=== PATIENT | female | born 1935 | race Caucasian/White ===

== ENCOUNTER 2017-10-25 13:04 | Emergency (ER) | payer MEDICARE, OTHER ==
[~2017-10-25] VITALS: Ht 157.5 cm; Wt 90.7 kg
[~2017-10-25 13:04] MED LIST: ATOR40TA; BUPR300T; DONE23TA PO; LEVO500T69 PO; METF-380; NAPR220T76; NITR-65 PO; OLME40TA14; POLY119P PO; SERT25TA; TELM1TAB PO
--- NOTE | 2017-10-25 14:29 | Diagnostic Imaging Report ---
PROCEDURE: CT head and CT cervical spine without contrast. TECHNIQUE: Multiple contiguous axial images were obtained through the brain and cervical spine without the use of intravenous contrast. Sagittal and coronal reformations through the cervical spine were then performed. INDICATION: Fall with bruising and swelling to the right forehead. CT HEAD: Comparison is made with prior CT from 02/28/2016. There is soft tissue swelling in the right frontal scalp. The ventricles and sulci are appropriate for the patient's age. No sulcal effacement, midline shift or hemorrhage is detected. Cisterns are patent. No depressed calvarial fracture is seen. Paranasal sinuses are clear. IMPRESSION: Right frontal scalp swelling. No acute intracranial process is detected. CT CERVICAL SPINE: Comparison is made with prior study from 01/04/2015. Since prior study patient has undergone extensive cervical spine surgery. There has been performance of posterior instrumented fusion with vertical stabilization rods and posterior element screws extending from C1 through C6. There is anterolisthesis of C6 on C7, new since prior CT. Vertebral body heights are maintained. No definite hardware fracture is identified. There is some lucency surrounding the most inferior screws at the C6 level, which can be seen with loosening. The bony structures are intact. No fractures are identified. 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 IMPRESSION: Postop changes of posterior instrumented fusion extending from C1 through C6. There is anterolisthesis of C6 on C7. No acute bony abnormality is identified. No hardware fracture is seen. There is questionable loosening involving the C6 posterior element screws. Dictated by: Dictated on workstation # [id number]
--- NOTE | 2017-10-25 14:32 | ED Fall/Injury ---
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 Source: patient Exam Limitations: no limitations History of Present Illness Date Seen by Provider: Oct 25, 2017 Time Seen by Provider: 13:50 Initial Comments 82-year-old female patient presents to the emergency department via EMS with complaints of falling at home. Patient reports she been over to pick something up off the floor when she lost her balance and fell forward. Reports hitting her forehead on the floor. Patient does have a large hematoma of the right forehead. Patient is in a c-collar. Denies headache, neck pain, back pain, loss of consciousness, confusion. Patient does have a history of neck surgery at [facility]. Location Injury Occurred: Home Occurred: just prior to arrival Injuries/Pain Location: head Context: lost balance Loss of Consciousness: no loss of consciousness Allergies and Home Medications Allergies Coded Allergies: Penicillins (Unverified Allergy, Mild, RASH, TONGUE SWELLS, 11/16/09) Home Medications Donepezil HCl 23 Mg Tablet, 23 MG PO DAILY, (Reported) Hctz/Telmisartan 1 Each Tablet, 1 EACH PO DAILY, (Reported) Hydrocodone Bit/Acetaminophen 1 Tab Tab, 1 TAB PO Q4H PRN for pain Prescribed by: RHEA CURRY on 10/25/17 1512 Nitrofurantoin Monohyd/M-Cryst 100 Mg Capsule, 100 MG PO BID Prescribed by: JIMMY FLOWERS on 02/28/16 0453 Polyethylene Glycol 119 Gm Btl, 0 PO DAILY 17 GM Prescribed by: EDIN LUND on 12/31/13 1035 Patient Home Medication List Home Medication List Reviewed: Yes Constitutional: no symptoms reported Eyes: No Symptoms Reported Ears, Nose, Mouth, Throat: no symptoms reported Respiratory: No cough, No dyspnea on exertion, No orthopnea, No short of breath Cardiovascular: No chest pain, No palpitations, No syncope Gastrointestinal: no symptoms reported Genitourinary: no symptoms reported Musculoskeletal: No back pain, No joint pain, No joint swelling, No neck pain Skin: see HPI, change in color (Bruising to the right forehead), lumps (Right forehead) Psychiatric/Neurological: Denies Headache, Denies Numbness, Denies Paresthesia , Denies Seizure, Denies Tingling, Denies Tremors, Denies Weakness All Other Systems Reviewed Negative Unless Noted: Yes (Negative excepted noted.) Past Hzqkyaa-Xltqxz-Hjefrl Hx Patient Social History Alcohol Use: Denies Use Recreational Drug Use: No Smoking Status: Never a Smoker Recent Foreign Travel: No Contact w/Someone Who Travel: No Recent Infectious Disease Expo: No Recent Hopitalizations: No Immunizations Up To Date Tetanus Booster (TDap): Unknown Seasonal Allergies Seasonal Allergies: No Surgeries History of Surgeries: Yes (cataracts) Surgeries: Orthopedic (neck surgery at [facility]) Respiratory History of Respiratory Disorde: No Cardiovascular History of Cardiac Disorders: Yes Cardiac Disorders: High Cholesterol, Hypertension Neurological History of Neurological Disord: Yes Neurological Disorders: Dementia Reproductive System Hx Reproductive Disorders: No Sexually Transmitted Disease: No 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 Genitourinary History of Genitourinary Disor: Yes Genitourinary Disorders: UTI-Chronic Gastrointestinal History of Gastrointestinal Di: Yes Gastrointestinal Disorders: Chronic Constipation Musculoskeletal History of Musculoskeletal Dis: Yes Musculoskeletal Disorders: Osteoporosis, Arthritis Endocrine History of Endocrine Disorders: Yes (DM) HEENT History of HEENT Disorders: No Cancer History of Cancer: No Psychosocial History of Psychiatric Problem: Yes Behavioral Health Disorders: Anxiety, Depression Integumentary History of Skin or Integumenta: No Blood Transfusions Adverse Reaction to a Blood Tr: No Reviewed Nursing Assessment Reviewed/Agree w Nursing PMH: Yes Family Medical History Significant Family History: No Pertinent Family Hx Physical Exam Vital Signs Vital Signs - First Documented 10/25/17 13:05 Temp 97.3 Pulse 64 Resp 18 B/P (MAP) 150/59 (89) Pulse Ox 99 Capillary Refill : Less Than 3 Seconds General Appearance: WD/WN, no apparent distress HEENT: PERRL/EOMI, normal ENT inspection, TMs normal, pharynx normal, other ( large hematoma of the right forehead with mild tenderness. ) Neck: non-tender, supple, normal inspection Cardiovascular: normal peripheral pulses, regular rate, rhythm, no edema, no gallop, no murmur Respiratory: chest non-tender, lungs clear, normal breath sounds, no respiratory distress, no accessory muscle use Peripheral Pulses: 2+ Carotid (R), 2+ Carotid (L), 2+ Dorsalis Pedis (R), 2+ Left Dors-Pedis (L), 2+ Radial Pulses (R), 2+ Radial Pulses (L) Gastrointestinal: normal bowel sounds, non tender, soft, no organomegaly Back: normal inspection, no vertebral tenderness Extremities: normal range of motion, normal inspection, no pedal edema, no calf tenderness, normal capillary refill, pelvis stable, other (mild TTP of the superior shoulders bilaterally (see images).) Neurologic/Psychiatric: 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-XII 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 as tested, no motor/sensory deficits, alert, normal mood/affect, oriented x 3 Skin: normal color, warm/dry, ecchymosis (rt forehead ecchymosis, swelling, and mild TTP.) [place] Coma Score Best Eye Response: (4) Open Spontaneously Best Verbal Response: (5) Oriented Best Motor Response: (6) Obeys Commands [place] Total: 15 Progress/Results/Core Measures Results/Orders My Orders Orders - RHEA CURRY Ct Head/Cervical Spine Wo (10/25/17 13:11) Vital Signs/I&O Vital Sign - Last 12Hours 10/25/17 10/25/17 13:05 15:25 Temp 97.3 97.3 Pulse 64 64 Resp 18 18 B/P (MAP) 150/59 (89) 150/59 (89) Pulse Ox 99 99 Blood Pressure Mean: 89 Diagnostic Imaging Diagonstic Imaging: CT Plain Films/CT/US/NM/MRI: c-spine, head Comments CT HEAD: Comparison is made with prior CT from 02/28/2016. There is soft tissue swelling in the right frontal scalp. The ventricles and sulci are appropriate for the patient's age. No sulcal effacement, midline shift or hemorrhage is detected. Cisterns are patent. No depressed calvarial fracture is seen. Paranasal sinuses are clear. IMPRESSION: Right frontal scalp swelling. No acute intracranial process is detected. CT CERVICAL SPINE: Comparison is made with prior study from 01/04/2015. Since prior study patient has undergone extensive cervical spine surgery. There has been performance of posterior instrumented fusion with vertical stabilization rods and posterior element screws extending from C1 through C6. There is anterolisthesis of C6 on C7, new since prior CT. Vertebral body heights are maintained. No definite hardware fracture is identified. There is some lucency surrounding the most inferior screws at the C6 level, which can be seen with loosening. The bony structures are intact. No fractures are identified. 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 IMPRESSION: Postop changes of posterior instrumented fusion extending from C1 through C6. There is anterolisthesis of C6 on C7. No acute bony abnormality is identified. No hardware fracture is seen. There is questionable loosening involving the C6 posterior element screws. Dictated by: Dictated on workstation # [id number] Reviewed: Reviewed by Me (Radiology report reviewed by me) Departure Communication (Admissions) Progress Notes 2631 CT findings discussed with Dr. Gifford. Loosening of the C6 screw appears new since her last CT scan at [facility]. 1500 diagnostic study findings discussed with the patient. Patient reports she has a known history of the lower screws in the cervical spine being loose with the anterolisthesis of C6 on C7. States her surgeon at is familiar with this. Was told by her surgeon to follow-up with in their office every 6-12 months for recheck. Cervical collar removed. Patient is A/Ox4, NAD. C-spine/ neck nontender. No deformity, swelling, or stepoff noted. Full ROM noted. Plan for dsch to home with f/u as an outpatient with her PCP and spine/ neurosurgeon. All return precautions were discussed with the patient as described in the discharge instructions of this report. Patient verbalizes understanding and agrees with the treatment plan. Impression Impression: Primary Impression: Minor head injury without loss of consciousness Qualified Codes: S09.90XA - Unspecified injury of head, initial encounter Additional Impressions: Traumatic hematoma of forehead Qualified Codes: S00.83XA - Contusion of other part of head, initial encounter Muscle strain Fall Qualified Codes: W19.XXXA - Unspecified fall, initial encounter Disposition: HOME, SELF-CARE Condition: Improved Departure-Patient Inst. Decision time for Depature: 15:11 Referrals: CAMERON LICEA MD (PCP/Family) Primary Care Physician Patient Instructions: Concussion, Adult (DC), Preventing Falls in the Older Adult Add. Discharge Instructions: All discharge instructions reviewed with patient and/or family. Voiced understanding. Medications as instructed. No ibuprofen or Aleve. Ice Ecotrin intervals as needed for pain. No strenuous activity or heavy lifting until released by your family practitioner and neck surgeon. Follow-up with your spine/neurosurgeon as an outpatient for recheck. Follow-up with your family practitioner for recheck. Return to the emergency department for worsened symptoms, neck pain, back pain, changes in vision, slurred speech, facial drooping, bowel incontinence, bladder incontinence, or any other concerns. Scripts Hydrocodone Bit/Acetaminophen (Hydrocodone/Acetaminophen 5/325mg Tablet) 1 Tab Tab 1 TAB PO Q4H Y for pain, #14 TAB 0 Refills Prov: RHEA CURRY 10/25/17 Images Torso/Trunk 1 - Tenderness 2 - Tenderness Copy Copies To 1: CAMERON LICEA MD, GRETCHEN L PA Oct 25, 2017 14:32
[2017-10-25] MEDS ORDERED: ACHD5005 PO (15:12)
[2017-10-25 15:25] VITALS: BP 150/59
== END 2017-10-25 15:25 | disposition home or self-care (01) ==
LOC: ER 13:04 → EDUNIT# 13:04 → ER 15:25
DX: S09.90XA Unspecified injury of head, initial encounter (principal); S09.11XA Strain of muscle and tendon of head, initial encounter; R40.2142 Coma scale, eyes open, spontaneous, at arrival to emergency department; R40.2252 Coma scale, best verbal response, oriented, at arrival to emergency department; R40.2362 Coma scale, best motor response, obeys commands, at arrival to emergency department; E78.00 Pure hypercholesterolemia, unspecified; I10 Essential (primary) hypertension; F03.90 Unspecified dementia, unspecified severity, without behavioral disturbance, psychotic disturbance, mood disturbance, and anxiety; F41.9 Anxiety disorder, unspecified; F32.9 Major depressive disorder, single episode, unspecified; E11.9 Type 2 diabetes mellitus without complications; M81.0 Age-related osteoporosis without current pathological fracture; Z87.19 Personal history of other diseases of the digestive system; Z87.440 Personal history of urinary (tract) infections; Z88.0 Allergy status to penicillin; W01.198A Fall on same level from slipping, tripping and stumbling with subsequent striking against other object, initial encounter
CPT/HCPCS: 70450; 72125

== ENCOUNTER → 2018-03-13 | Outpatient (CLI) | payer MEDICARE, OTHER ==
[~2018-03-13] MED LIST changes: +ACHD5005 PO
== END ==
LOC: CARD 13:43
PROVIDERS: ATTEND Nurse Practitioner Family
DX: R01.1 Cardiac murmur, unspecified (principal)
CPT/HCPCS: 93306

== ENCOUNTER 2019-11-12 01:05 | Inpatient (IN) | payer MEDICARE, OTHER ==
[~2019-11-12] VITALS: Ht 167 cm; Wt 84.2 kg
--- OUTSIDE RECORDS SUMMARY | 2019-11-12 01:09 | XMS REPORT | Clinical Summary ---
Author Author [facility] Organization [facility] Address Unknown Phone Unavailable Care Team Providers Care Hemmer Chainstitch Name Role Phone Juan Kohler MD Unavailable Jadyn Gordon MD PCP Clay Kirk MD Unavailable Amelia Sherwood DO Unavailable Jyoti Vernon MD Unavailable Mario Soliman RN Unavailable Unavailable Gab Landon MD Unavailable Enedelia Christianson MD Unavailable Unavailable Zeke Doss MD Unavailable Rowdy Mcclelland MD Unavailable Source Comments Some departments are not documenting in the electronic medical record. If you d o not see the information that you expected, contact Release of Information in [facility] Information Management department at [phone] for further assistan ce in locating additional records.[facility] Allergies Comments Active Allergy Reactions Severity Noted Date Penicillins HIVES, High 02/21/2015 SWOLLEN TONGUE, DIZZINESS Medications End Date Status Medication Sig Dispensed Refills Start Date Active VIT C/VIT Take 1 Tab by 0 E/LUTEIN/MIN/OMEGA-3 mouth daily. (OCUVITE PO) Active Cyanocobalamin (VITAMIN Take 1 Tab by 0 B-12) 2,000 mcg TbER mouth at bedtime daily. Active donepezil(+) (ARICEPT) 23 Take 1 Tab by 0 mg tablet mouth at bedtime daily. Active menthol/methyl salicylate Apply to 1 Container 0 (ANALGESIC) topical shoulders. 5 ointment Apply only over intact skin. Use only as directed Active docusate (COLACE) 100 mg Take 1 Cap by 180 Cap 3 capsule mouth twice 5 daily. Active senna/docusate Take 1 Tab by 90 Tab 1 (SENOKOT-S) 8.6/50 mg mouth twice 5 tablet daily. Active benazepril (LOTENSIN) 20 Take 1 Tab by 30 Tab 1 mg tablet mouth daily. 5 Active atorvastatin (LIPITOR) 20 Take 1 Tab by 30 Tab 1 mg tablet mouth at 5 bedtime daily. Active sertraline (ZOLOFT) 50 mg Take 1 Tab by 30 Tab 1 tablet mouth at 5 bedtime daily. Active HYDROcodone/acetaminophen Take 1-2 Tabs 30 Tab 0 (NORCO; VICODIN) 5-325 mg by mouth 5 tablet every 6 hours as needed for Pain Active milk of magnesia (CONC) Take 10 mL by 120 mL 0 2,400 mg/10 mL oral mouth daily 5 suspension as needed. Active bisacodyl (DULCOLAX) 10 Insert or 30 0 mg rectal suppository Apply 1 Suppository 5 Suppository to rectal area as directed daily. Please use if you have not had a BM in 1-2 days. Active colchicine 0.6 mg Take 1 Tab by 90 Tab 3 tabletIndications: mouth daily. 5 History of calcium pyrophosphate deposition disease (CPPD) Active predniSONE (DELTASONE) 5 20mg daily 180 Tab 2 0 mg tabletIndications: for 2 weeks 6 Pseudogout then 15 mg daily x 2 weeks then 10mg daily x 2 weeks then 5 mg daily Active furosemide (LASIX) 20 mg Take 20 mg by 0 tablet mouth every morning. Active potassium Take by 0 mouth daily. 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 Pseudogout 08/25/2015 Cervical spinal cord injury 04/29/2015 Gait abnormality 04/29/2015 Neurogenic bowel 04/29/2015 Neurogenic bladder 04/29/2015 Constipation 04/29/2015 Chondrocalcinosis 04/28/2015 Cervical myelopathy 02/26/2015 Acute pain 02/24/2015 HTN (hypertension) 02/24/2015 S/P laminectomy 02/24/2015 DM (diabetes mellitus) 02/24/2015 HLD (hyperlipidemia) 02/24/2015 C2 cervical fracture 02/24/2015 At high risk for falls 02/24/2015 S/P cervical spinal fusion 02/24/2015 Family History Medical History Relation Name Comments Depression Father Heart Failure Mother Relation Name Status Comments Father Mother Social History Date Tobacco Use Types Packs/Day Years Used Former Smoker Cigarettes 1 47 Smokeless Tobacco: Former Quit: 07/29/1990 User Drinks/Week oz/Week Comments Alcohol Use 0 Standard drinks or equivalent 0.0 No Sex Assigned at Date Recorded Not on file Industry Job Start Date Occupation Not on file Not on file Not on file Travel End Travel History Travel Start No recent travel history available. 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 Temperature 16 01/01/2017 2:31 PM CDT Respiratory Rate 95% 05/22/2019 2:32 PM CDT Oxygen Saturation - - Inhaled Oxygen Concentration 86.6 kg (191 lb) 05/22/2019 2:32 PM CDT Weight 157.5 cm (5' 2") 01/01/2017 2:31 PM CDT Height 34.93 01/01/2017 2:31 PM CDT Body Mass Index Plan of Treatment Health Maintenance Due Date Last Done Comments MEDICARE ANNUAL WELLNESS 1936 VISIT DTAP/TDAP VACCINES (1 - 1947 Tdap) DILATED EYE EXAM 1954 FOOT EXAM 1954 HBA1C 1954 PHYSICAL (COMPREHENSIVE) 1954 EXAM SHINGLES RECOMBINANT 1986 VACCINE (1 of 2) OSTEOPOROSIS 2001 SCREENING/MONITORING PNEUMONIA (PCV13/PPSV23) 2001 VACCINES (1 of 2 - PCV13) INFLUENZA VACCINE 02/27/2020 Results Not on filefrom Last 3 Months Insurance Type Payer Benefit Subscriber ID Effective Phone Address Plan / Dates Group Medicare MEDICARE MEDICARE xxxxxxxxxxx 2015- PART A AND Present B HMO [employer] xxxxxxxxx 2013 FOR LIFE -Present [phone] Advance Directives Patient Dining Room Tables Set Up Attendant Explanation Type Date Recorded Advance Directive/DPOA Date Inactivated Comments Code Status Date Activated 03/11/2015 12:46 PM Full Code 02/26/2015 1:00 PM Provider has discussed Code Status Yes w/Patient or Family? 02/26/2015 1:00 PM Full Code 02/21/2015 3:45 PM Provider has discussed Code Status Yes w/Patient or Family?
--- OUTSIDE RECORDS SUMMARY | 2019-11-12 01:10 | XMS REPORT | Encounter Summary ---
Author Author [facility] Organization [facility] Address Unknown Phone Unavailable Care Team Providers Care Tool And Die Repairer Name Role Phone Juan Kohler MD Unavailable Jadyn Gordon MD PCP Clay Kirk MD Unavailable Amelia Sherwood DO Unavailable Jyoti Vernon MD Unavailable Mario Soliman RN Unavailable Unavailable Gab Landon MD Unavailable [phone] Enedelia Christianson MD Unavailable Unavailable Zeke Doss MD Unavailable Rowdy Mcclelland MD Unavailable Encounter Details Care Team Description Date Type Department Jr Ledesma MD [address] [facility] [place] [address] 05/22/2019 [facility] [address] [place], [place] [id number] Social History Date Tobacco Use Types Packs/Day [...] Travel Start No recent travel history available. documented as of this encounter Functional Status Date of Assessment Functional Status Response 05/24/2016 Does the patient have a hearing impairment: Yes 05/24/2016 Does the patient have a visual impairment: No 05/24/2016 Does the patient have impaired ambulation: Yes 05/24/2016 Does the patient have an activity of daily living No (ADL) impairment: 05/24/2016 Does the patient have an instrumental activity of No daily living (IADL) impairment: Date of Assessment Cognitive Status Response 05/24/2016 Does the patient have a cognitive impairment: No documented as of this encounter Medications at Time of Discharge Start Date End Date Medication Sig Dispensed Refills 03/11/2015 atorvastatin (LIPITOR) 20 Take 1 Tab by 30 Tab 1 mg tablet mouth at bedtime daily. 03/11/2015 benazepril (LOTENSIN) 20 Take 1 Tab by 30 Tab 1 mg tablet mouth daily. 03/11/2015 bisacodyl (DULCOLAX) 10 Insert or 30 0 mg rectal suppository Apply 1 Suppository Suppository to rectal area as directed daily. Please use if you have not had a BM in 1-2 days. 05/05/2015 colchicine 0.6 mg Take 1 Tab by 90 Tab 3 tabletIndications: mouth daily. History of calcium pyrophosphate deposition disease (CPPD) Cyanocobalamin (VITAMIN Take 1 Tab by 0 B-12) 2,000 mcg TbER mouth at bedtime daily. 02/26/2015 docusate (COLACE) 100 mg Take 1 Cap by 180 Cap 3 capsule mouth twice daily. donepezil(+) (ARICEPT) 23 Take 1 Tab by 0 mg tablet mouth at bedtime daily. furosemide (LASIX) 20 mg Take 20 mg by 0 tablet mouth every morning. 03/11/2015 HYDROcodone/acetaminophen Take 1-2 Tabs 30 Tab 0 (NORCO; VICODIN) 5-325 mg by mouth tablet every 6 hours as needed for Pain 02/26/2015 menthol/methyl salicylate Apply to 1 Container 0 (ANALGESIC) topical shoulders. ointment Apply only over intact skin. Use only as directed 03/11/2015 milk of magnesia (CONC) Take 10 mL by 120 mL 0 2,400 mg/10 mL oral mouth daily suspension as needed. potassium Take by 0 mouth daily. 01/26/2016 predniSONE (DELTASONE) 5 20mg daily 180 Tab 2 mg tabletIndications: for 2 weeks Pseudogout then 15 mg daily x 2 weeks then 10mg daily x 2 weeks then 5 mg daily 02/26/2015 senna/docusate Take 1 Tab by 90 Tab 1 (SENOKOT-S) 8.6/50 mg mouth twice tablet daily. 03/11/2015 sertraline (ZOLOFT) 50 mg Take 1 Tab by 30 Tab 1 tablet mouth at bedtime daily. VIT C/VIT Take 1 Tab by 0 E/LUTEIN/MIN/OMEGA-3 mouth daily. (OCUVITE PO) documented as of this encounter Plan of Treatment Not on filedocumented as of this encounter Procedures Comments Procedure Name Priority Date/Time Associated Diag nosis C SPINE 3 VIEWS OR LESS Routine 05/22/2019 Cervic al pain 2:42 PM CDT documented in this encounter Results * C SPINE 3 VIEWS OR LESS (05/22/2019 2:42 PM CDT) Specimen Addenda Addendum by Odell Diggs MD on 05/22/2019 3:53 PM Finalized by Odell Diggs M.D. on 05/22/2019 3:23 PM. Dictated by Odell Diggs M.D. on 05/22/2019 3:18 PM.Addendum: Dr. Diggs discussed these findings with JR LEDESMA by telephone on 05/22/2019 3:49 PM. Finalized by Odell Diggs M.D. on 05/22/2019 3:50 PM. Dictated by Odell Diggs M.D. on 05/22/2019 3:49 PM. Impressions Performed At Findings/Impression: [facility] RESULTS 1. Interval increase in 50% anterolis thesis of C6 on C7. There is 1 cm anterolisthesis of C6 on C7. On prior of May 24, 2016 this measured 7 mm. Cannot evaluate alignment C7-T1 on lateral view due to overlying shoulders. 2. Intact posterior interpretation fr om C1 to C6. 3. Incompletely evaluated suspected p ersistent chronic fracture the odontoid process with posterior displacement of the odontoid fracture segment. Repeat CT scan may be beneficial only if clinical ly warranted. 4. Persistent mild 2 millimeters ante rolisthesis of C4 on C5 and C5 on C6. 5. Vzrrjcnr-iy-jgauqt C6-C7 disc dege neration. Narrative Performed At C SPINE 3 VIEWS OR LESS [facility] RESULTS Clinical Indication: cervical pain. Comparison: May 24, 2016 CT scan De arthurber 2015 Procedure Note Interface, Radiant Results - 05/22/2019 3:53 PM CDT C SPINE 3 VIEWS OR LESS Clinical Indication: cervical pain. Comparison: May 24, 2016 CT scan July 17, 2016 IMPRESSION Findings/Impression: 1. Interval increase in 50% anterolisth esis of C6 on C7. There is 1 cm anterolisthesis of C6 on C7. On prior study of May 24, 2016 this measured 7 mm. Cannot evaluate alignment C7-T1 on lateral view due to overlying shoulders. 2. Intact posterior interpretation from C1 to C6. 3. Incompletely evaluated suspected per sistent chronic fracture the odontoid process with posterior displacement of the odontoid fracture segment. Repeat CT scan may be beneficial only if clinically warranted. 4. Persistent mild 2 millimeters swapna listhesis of C4 on C5 and C5 on C6. 5. Savusaks-wm-fskzlg C6-C7 disc degene ration. Performing Organization Address City/State/Zipcode Ph one Number [facility] RESULTS documented in this encounter Visit Diagnoses Diagnosis Cervical pain Cervicalgia documented in this encounter
--- OUTSIDE RECORDS SUMMARY | 2019-11-12 01:10 | XMS REPORT | Encounter Summary ---
Author Author [facility] Organization [facility] Address Unknown Phone Unavailable Care Team Providers Care Project Product Manager Name Role Phone Juan Kohler MD Unavailable Jadyn Gordon MD PCP Clay Kirk MD Unavailable Amelia Sherwood DO Unavailable Jyoti Vernon MD Unavailable Mario Soliman RN Unavailable Unavailable Gab Landon MD Unavailable Enedelia Christianson MD Unavailable Unavailable Zeke Doss MD Unavailable Rowdy Mcclelland MD Unavailable Reason for Visit * Reason Comments New Patient * (Routine) Referred By Contact Referred To Contact Status Reason Specialty Diagnoses / Procedures Incomplete Encounter Details Care Team Description Date Type Department Jose Alberto Rodriguez MD [address] [facility] [address] [phone] Jr Ledesma MD [address] [facility] [place] [address] [phone] Stenosis of cervical spine (Primary Dx); S/P cervical spinal fusion; Pseudoarthrosis of cervical spine, initial encounter (HCC) 05/22/2019 Office Visit [facility] [address] [facility] [address] [place] [address] Social History Date Tobacco Use Types Packs/Day [...] history available. documented as of this encounter Last Filed Vital Signs Reading Time Taken Comments Vital Sign 157/62 05/22/2019 2:32 PM CDT Blood Pressure 67 05/22/2019 2:32 PM CDT Pulse - - Temperature - - Respiratory Rate 95% 05/22/2019 2:32 PM CDT Oxygen Saturation - - Inhaled Oxygen Concentration 86.6 kg (191 lb) 05/22/2019 2:32 PM CDT Weight - - Height 34.93 01/01/2017 2:31 PM CDT Body Mass Index documented in this encounter Functional Status Date of Assessment [...] impairment: No documented as of this encounter Patient Instructions * Patient Instructions* Argenis Soliman RN - 05/22/2019 3:10 PM CDT It was a pleasure seeing you in clinic today. Argenis Soliman RN, BSN Clinical Nurse Coordinators Dr. Chilango Ledesma/Ortho Spine Surgery [facility] [address] [place], [place] [address] Scheduling [phone] [email or web address] documented in this encounter Progress Notes * Jr Ledesma MD - 05/22/2019 3:10 PM CDT SPINE CENTER HISTORY AND PHYSICAL CHIEF COMPLAINT Chief Complaint Patient presents with New Patient HISTORY OF PRESENT ILLNESS Fern Melton is a 83 y.o. female. She presents today for evaluation of neck pain. She is here today with her daughter. She has history of cervical d ecompression and fusion from C1-C2 by Dr. Christianson. She has not had any other op erations on her spine. She denies arm pain. She ambulates with a walker. Previous Spine Operations - Yes - C1-2 decompression and fusion by Dr. Christianson NSAIDs/Pain Meds - yes Physical Therapy - yes Injections - no PAST MEDICAL HISTORY Medical History: Diagnosis Date Diabetes (HCC) Hepatomegaly Hyperlipidemia Hypertension Left adrenal mass (HCC) Macular degeneration Multinodular goiter Os odontoideum Rib fracture PAST SURGICAL HISTORY Surgical History: Procedure Laterality Date CARPAL TUNNEL RELEASE Left CERVICAL LAMINECTOMY EYE SURGERY HYSTERECTOMY ROTATOR CUFF REPAIR Right TONSILLECTOMY FAMILY HISTORY family history includes Depression in her father; Heart Failure in her mother. SOCIAL HISTORY Social History Socioeconomic History Marital status: Spouse name: Not on file Number of children: 7 Years of education: Not on file Highest education level: Not on file Occupational History Occupation: RETIRED Tobacco Use Smoking status: Former Smoker Packs/day: 1.00 Years: 47.00 Pack years: 47.00 Types: Cigarettes Smokeless tobacco: Former User Quit date: 07/29/1990 Substance and Sexual Activity Alcohol use: No Alcohol/week: 0.0 standard drinks Drug use: No Sexual activity: Not on file Other Topics Concern Not on file Social History Narrative Lives with her ALLERGIES Allergies Allergen Reactions Penicillins HIVES, SWOLLEN TONGUE and DIZZINESS MEDICATIONS Current Outpatient Medications: atorvastatin (LIPITOR) 20 mg tablet, Take 1 Tab by mouth at bedtime daily., Disp: 30 Tab, Rfl: 1 benazepril (LOTENSIN) 20 mg tablet, Take 1 Tab by mouth daily., Disp: 30 Ta b, Rfl: 1 bisacodyl (DULCOLAX) 10 mg rectal suppository, Insert or Apply 1 Suppositor y to rectal area as directed daily. Please use if you have not had a BM in 1-2 d ays., Disp: 30 Suppository, Rfl: 0 colchicine 0.6 mg tablet, Take 1 Tab by mouth daily., Disp: 90 Tab, Rfl: 3 Cyanocobalamin (VITAMIN B-12) 2,000 mcg TbER, Take 1 Tab by mouth at bedtim e daily., Disp: , Rfl: docusate (COLACE) 100 mg capsule, Take 1 Cap by mouth twice daily., Disp: 1 80 Cap, Rfl: 3 donepezil(+) (ARICEPT) 23 mg tablet, Take 1 Tab by mouth at bedtime daily., Disp: , Rfl: furosemide (LASIX) 20 mg tablet, Take 20 mg by mouth every morning., Disp: , Rfl: HYDROcodone/acetaminophen (NORCO; VICODIN) 5-325 mg tablet, Take 1-2 Tabs b y mouth every 6 hours as needed for Pain, Disp: 30 Tab, Rfl: 0 menthol/methyl salicylate (ANALGESIC) topical ointment, Apply to shoulders. Apply only over intact skin. Use only as directed, Disp: 1 Container, Rfl: 0 milk of magnesia (CONC) 2,400 mg/10 mL oral suspension, Take 10 mL by mouth daily as needed., Disp: 120 mL, Rfl: 0 potassium, Take by mouth daily., Disp: , Rfl: predniSONE (DELTASONE) 5 mg tablet, 20mg daily for 2 weeks then 15 mg daily x 2 weeks then 10mg daily x 2 weeks then 5 mg daily, Disp: 180 Tab, Rfl: 2 senna/docusate (SENOKOT-S) 8.6/50 mg tablet, Take 1 Tab by mouth twice luz y., Disp: 90 Tab, Rfl: 1 sertraline (ZOLOFT) 50 mg tablet, Take 1 Tab by mouth at bedtime daily., Di sp: 30 Tab, Rfl: 1 VIT C/VIT E/LUTEIN/MIN/OMEGA-3 (OCUVITE PO), Take 1 Tab by mouth daily., Di sp: , Rfl: REVIEW OF SYSTEMS Review of Systems HENT: Positive for hearing loss, postnasal drip and rhinorrhea. Eyes: Positive for visual disturbance. Respiratory: Positive for shortness of breath and wheezing. Cardiovascular: Positive for leg swelling. Gastrointestinal: Positive for constipation. Genitourinary: Positive for enuresis. Musculoskeletal: Positive for arthralgias, back pain, gait problem, myalgias, ne ck pain and neck stiffness. Neurological: Positive for weakness, light-headedness, numbness and headaches. Psychiatric/Behavioral: The patient is nervous/anxious. All other systems reviewed and are negative. PHYSICAL EXAM Vitals: 05/22/19 1432 BP: 157/62 Pulse: 67 SpO2: 95% Weight: 86.6 kg (191 lb) Body mass index is 34.93 kg/m. Constitutional: Alert, NAD Psychiatric: Mood and affect appropriate Eyes: EOMI Respiratory: Unlabored breathing Cardiovascular: Regular rate Skin: No rashes or open wounds appreciated on neck Musculoskeletal: 5/5 strength throughout bilat UEs (shoulder abduction, elbow fl ex/ext, wrist flex/ext, performance improvement director, hand intrinsics), neck ROM limited secondary to pa in, unable to abduct either shoulder. Neurologic: Sensation intact to light touch C5-T1 on today's exam, no hyperrefle syeda, positive Tootie's on the right, positive inverted radial reflex RADIOGRAPHIC EVALUATION Imaging demonstrates evidence of instrument placement from C1-6. Based on prior review of her CT scan, she appears to have loose instrumentation and a pseudart hrosis at C5-6. Additionally, she has evidence of a C6-7 spondylolisthesis, Gra de 2. ASSESSMENT / PLAN Fern Melton is a 83 y.o. female with previous os odontoideum s/p C1-6 posterior cervical decompression and fusion now with feud arthrosis at C5-6, loo sening of her screws, and C6-7 adjacent level spondylolisthesis. Natural history and conservative treatment options were discussed with the patie nt. I don't think any operation would leave her any better than what she is now . With her age and poor bone quality and neck pain alone, I don't think surgery is a great option for her. I think if she got to the point she had functional limitations in her upper extremities, difficulty using her hands, more trouble w alking, I think surgery could be potentially entertained at that point in time. I would be happy to see her back on a PRN basis. In the presence of Jr Ledesma MD , I have taken down these notes, Just Jeri Montenegro. May 22, 2019 2:53 PM documented in this encounter Plan of Treatment Not on filedocumented as of this encounter Visit Diagnoses Diagnosis Stenosis of cervical spine Spinal stenosis in cervical region S/P cervical spinal fusion Arthrodesis status Pseudoarthrosis of cervical spine, init ial encounter (HCC) documented in this encounter
--- OUTSIDE RECORDS SUMMARY | 2019-11-12 01:10 | XMS REPORT | Encounter Summary ---
Author Author [facility] Organization [facility] Address Unknown Phone Unavailable Care Team Providers Care Sagger Filler Name Role Phone Juan Kohler MD Unavailable Jadyn Gordon MD PCP Clay Kirk MD Unavailable Amelia Sherwood DO Unavailable Jyoti Vernon MD Unavailable Mario Soliman RN Unavailable Unavailable Gab Landon MD Unavailable [phone] Enedelia Christianson MD Unavailable Unavailable Zeke Doss MD Unavailable Rowdy Mcclelland MD Unavailable Encounter Details Care Team Description Date Type Department Jr Ledesma MD [address] [facility] [place] [address] Cervical pain (Primary Dx) 05/22/2019 Orders Only [facility] [address] [id number] Social History Date Tobacco Use Types Packs/Day [...] impairment: No documented as of this encounter Plan of Treatment Not on filedocumented as of this encounter Results * C SPINE 3 [...] anterolisthesis of C6 on C7. On prior s tudy of May 24, 2016 this measured 7 [...] on C5 and C5 on C6. 5. [id number] C6-C7 disc dege neration. Narrative Performed At [facility] 3 VIEWS OR LESS [facility] RES[facility] Clinical Indication: cervical pain. Comparison: May 24, 2016 CT scan De 2015 Procedure Note Interface, Radiant Results - [...] on C5 and C5 on C6. 5. [id number] C6-C7 disc degene ration. Performing Organization Address City/State/Zipcode Ph one Number [facility] RES[facility] documented in this encounter Visit Diagnoses Diagnosis Cervical pain Cervicalgia documented in this encounter
--- OUTSIDE RECORDS SUMMARY | 2019-11-12 01:12 | XMS REPORT | CCD ---
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 Name Role Phone PP Unavailable CCM Unavailable Summary Purpose Interface Exchange Insurance Providers Payer name Policy type / Coverage type Covered republican ID Effective Begin Date Effective End Date WPS Medicare Part B Medicare Part B [id number] Unknown FOR LIFE WPS Medicare Part B [id number] Unknown Family history Daughter Diagnosis Age At Onset Cancer Unknown Social History Social History Element Codes Description Effective Dates Marital status Unknown M arried 12/03/2014 Number of children Unknown 7 12/03/2014 Employment Unknown Retir ed 12/03/[address]: 3953787 Quit over 10 years ago 199812/03/[address]: 732335097 Never drinks alcohol 12/03/2014 Allergies, Adverse Reactions, Alerts Substance Reaction Codes Entered Date Inactivated Date Status * OTHER REACTION - S EE ANSWER BOX paul hips in vit c Unknown 12/03/2014 No Inactive Date Active Erythromycin RxNorm: 4053 12/03/2014 No Inactive Date Active Penicillin hives Unknown 12/03/2014 No In active Date Active Past Medical History Illness Codes Condition Status Onset Date Resolved Date Essential (primary) hypertension ICD-9: 401.1 ICD-10: I10 Active 09/13/2016 Unknown Generalized anxiety disorder ICD-9: 300.02 ICD-10: F41.1 Active 11/14/2018 Unknown 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 09/13/2016 Unknown Type 2 diabetes monica itus without complications ICD-9: 250.00 ICD-10: E11.9 Active 11/14/2018 Unknown Cardiac murmur, unsp ecified ICD-9: 785.2 ICD-10: R01.1 Active 02/21/2018 Unknown Myalgia ICD-9: 729.1 ICD-10: M79.1 Active 06/14/2017 Unknown Localized edema ICD-9: 782.3 ICD-10: R60.0 Active 08/30/2016 Unknown Muscle weakness (gen eralized) ICD-9: 728.87 ICD-10: M62.81 Active 02/15/2017 Unknown Anemia, unspecified ICD- 9: 285.9 ICD-10: D64.9 Active 09/13/2016 Unknown Essential (primary) hypertension ICD-9: 401.9 ICD-10: I10 Active 05/03/2016 Unknown Low back pain ICD-9: 724.2 ICD-10: M54.5 Active 08/30/2016 Unknown Pain in left wrist ICD- 9: 719.43 ICD-10: M25.532 Active 08/30/2016 Unknown Pain in right wrist ICD- 9: 719.43 ICD-10: M25.531 Active 08/30/2016 Unknown Encounter for immuni zation ICD-9: V04.81 ICD-10: Z23 Active 05/03/2016 Unknown Ataxic gait ICD-9: 781.2 ICD-10: R26.0 Active 03/01/2016 Unknown Multiple fractures o f ribs, right side, initial encounter for closed fracture ICD-9: 807.05 ICD-10: S22.41XA Active 03/01/2016 Unknown Urinary tract infect ion, site not specified ICD-9: 599.0 ICD-10: N39.0 Active 03/01/2016 Unknown Pain in left knee ICD-9: 719.46 ICD-10: M25.562 Active 06/16/2015 Unknown Other diseases of to ngue ICD-9: 529.8 ICD-10: K14.8 Active 05/16/2015 Unknown Cervical myelopathy ICD- 9: 721.1 Active 03/21/2015 Unknown Hospital discharge f ollow-up ICD-9: V67.59 Active Unknown Post-operative state ICD-9: V45.89 Active 03/21/2015 Unknown Serum calcium elevated ICD-9: 275.42 Active 03/21/2015 Unknown Open wound of toe wi th avulsion of toenail ICD-9: 893.1 Active 02/10/2015 Unknown Encounter for long-t erm (current) use of other medications ICD-9: V58.69 Active 01/17/2015 Unknown Diabetes Unknown Active 12/03/2014 Unknow n Hyperlipidemia Unknown Active 12/03/2014 Unknow n Hypertension Unknown Active 12/03/2014 Unknow n Bowel and bladder in continence ICD-9: 788.30 Active 01/2015 Unknown Cervical stenosis of spinal canal ICD-9: 723.0 Active 01/2015 Unknown Delusions ICD-9: 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.9 Active 12/02/2014 Unknow n Diabetes mellitus ty pe 2, controlled ICD-9: 250.00 Active 01/2015 Unknown ESSENTIAL HYPERTENSION ICD-9: 401.9 Active 12/02/2014 Unknown Gait instability ICD-9: 781.2 Active 12/02/2014 Unknown Problems Condition Codes Effectiv e Dates Condition Status Essential (primary) hypertension ICD-9: 401.1 ICD-10: I10 09/13/2016 Active Generalized anxiety disorder ICD-9: 300.02 ICD-10: F41.1 11/14/2018 Active 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 09/13/2016 Active Type 2 diabetes monica itus without complications ICD-9: 250.00 ICD-10: E11.9 11/14/2018 Active Cardiac murmur, unsp ecified ICD-9: 785.2 ICD-10: R01.1 02/21/2018 Active Myalgia ICD-9: 729.1 ICD-10: M79.1 06/14/2017 Active Localized edema ICD-9: 782.3 ICD-10: R60.0 08/30/2016 Active Muscle weakness (gen eralized) ICD-9: 728.87 ICD-10: M62.81 02/15/2017 Active Anemia, unspecified ICD- 9: 285.9 ICD-10: D64.9 09/13/2016 Active Essential (primary) hypertension ICD-9: 401.9 ICD-10: I10 05/03/2016 Active Low back pain ICD-9: 724.2 ICD-10: M54.5 08/30/2016 Active Pain in left wrist ICD- 9: 719.43 ICD-10: M25.532 08/30/2016 Active Pain in right wrist ICD- 9: 719.43 ICD-10: M25.531 08/30/2016 Active Encounter for immuni zation ICD-9: V04.81 ICD-10: Z23 05/03/2016 Active Ataxic gait ICD-9: 781.2 ICD-10: R26.0 03/01/2016 Active Multiple fractures o f ribs, right side, initial encounter for closed fracture ICD-9: 807.05 ICD-10: S22.41XA 03/01/2016 Active Urinary tract infect ion, site not specified ICD-9: 599.0 ICD-10: N39.0 03/01/2016 Active Pain in left knee ICD-9: 719.46 ICD-10: M25.562 06/16/2015 Active Other diseases of to ngue ICD-9: 529.8 ICD-10: K14.8 05/16/2015 Active Cervical myelopathy ICD- 9: 721.1 03/21/2015 Active Hospital discharge f ollow-up ICD-9: V67.59 03/21/2015 Active Post-operative state ICD-9: V45.89 03/21/2015 Active Serum calcium elevated ICD-9: 275.42 03/21/2015 Active Open wound of toe wi th avulsion of toenail ICD-9: 893.1 02/10/2015 Active Encounter for long-t erm (current) use of other medications ICD-9: V58.69 01/17/2015 Active Diabetes Unknown 12/03/2014 Active Hyperlipidemia Unknown 12/03/2014 Active Hypertension Unknown 12/03/2014 Active Bowel and bladder in continence ICD-9: 788.30 12/02/2014 Active Cervical stenosis of spinal canal ICD-9: 723.0 12/02/2014 Active Delusions ICD-9: 297.9 12/02/2014 Active Diabetes mellitus ty pe 2, controlled ICD-9: 250.00 12/02/2014 Active ESSENTIAL HYPERTENSION ICD-9: 401.9 12/02/2014 Active Gait instability ICD-9: 781.2 12/02/2014 Active Medications Medication Codes Instruc tions Start Date Stop Date Sta tus Fill Instructions atorvastatin 20 mg t ablet RxNorm: 049143 TAKE 1 TABLET DAILY 03/17/2019 No Stop Date Active Aricept 23 mg tablet RxNorm: 4267329 TAKE 1 TABLET DAILY 02/13/2019 No Stop Date Active ferrous sulfate 325 mg (65 mg iron) tablet RxNorm: 786304 1 Tablet(s) PO daily 11/14/2018 05/12/2019 Ac tive Zoloft 100 mg tablet RxNorm: 710617 1 Tablet(s) PO daily TAKE 1 TABLET DAILY 11/14/2018 05/12/2019 Ac tive Aricept 23 mg tablet RxNorm: 9441858 TAKE 1 TABLET DAILY 06/27/2018 02/12/2019 Inactive Zoloft 50 mg tablet RxNorm: 925379 TAKE 1 TABLET DAILY 06/27/2018 11/13/2018 Inactive benazepril 20 mg tablet RxNorm: 526689 1 Tablet(s) PO daily 04/28/2018 01/22/2019 Inactive atorvastatin 20 mg t ablet RxNorm: 967518 TAKE 1 TABLET DAILY 12/22/2017 03/16/2019 Inactive potassium chloride E R 10 mEq tablet,extended release RxNorm: 898160 TAKE 1 TABLET DAILY WITH LASIX NEEDED 10/21/2017 No Stop Date Active Lasix 20 mg tablet RxNorm: 528651 TAKE 1 TABLET DAILY NEEDED 10/21/2017 No Stop Date Active Aricept 23 mg tablet RxNorm: 8360943 TAKE 1 TABLET DAILY 10/17/2017 06/26/2018 Inactive Zoloft 50 mg tablet RxNorm: 151374 TAKE 1 TABLET DAILY 10/17/2017 06/26/2018 Inactive benazepril 20 mg tablet RxNorm: 709117 TAKE 1 TABLET DAILY 06/25/2017 04/27/2018 Inactive atorvastatin 20 mg t ablet RxNorm: 408907 TAKE 1 TABLET DAILY 06/25/2017 12/21/2017 Inactive Lasix 20 mg tablet RxNorm: 988061 1 TABLET(S) PO QDAY PRN 04/29/2017 10/20/2017 Inactive potassium chloride E R 10 mEq tablet,extended release RxNorm: 448909 1 TABLET(S) PO QDAY PRN 04/29/2017 10/20/2017 Inactive Zoloft 50 mg tablet RxNorm: 380425 TAKE 1 TABLET DAILY 03/11/2017 10/16/2017 Inactive potassium chloride E R 10 mEq tablet,extended release RxNorm: 908535 1 Tablet(s) PO QDAY PRN 02/15/2017 04/28/2017 Inactive with lasix Lasix 20 mg tablet RxNorm: 1 Tablet(s) PO QDAY PRN 02/15/2017 04/28/2017 Inactive Aricept 23 mg tablet RxNorm: 2549565 TAKE 1 TABLET DAILY 02/01/2017 10/16/2017 Inactive atorvastatin 20 mg t ablet RxNorm: 985007 TAKE 1 TABLET DAILY 12/27/2016 06/24/2017 Inactive benazepril 20 mg tablet RxNorm: 263583 TAKE 1 TABLET DAILY 12/27/2016 06/24/2017 Inactive Lasix 20 mg tablet RxNorm: 1 Tablet(s) PO QDAY PRN 09/13/2016 01/10/2017 Inactive potassium chloride E R 10 mEq tablet,extended release RxNorm: 579221 1 Tablet(s) PO QDAY PRN 09/13/2016 01/10/2017 Inactive with lasix Zoloft 50 mg tablet RxNorm: 590065 TAKE 1 TABLET DAILY 09/11/2016 03/10/2017 Inactive potassium chloride E R 10 mEq tablet,extended release RxNorm: 106454 1 Tablet(s) PO daily for edema 09/03/2016 09/02/2016 Inactive Lasix 20 mg tablet RxNorm: 1 Tablet(s) PO daily for edema 09/03/2016 09/09/2016 In active potassium chloride E R 10 mEq tablet,extended release RxNorm: 747784 1 Tablet(s) PO daily for edema 09/03/2016 09/09/2016 Inactive Lasix 20 mg tablet RxNorm: 1 Tablet(s) PO daily 09/03/2016 09/02/2016 Inactive atorvastatin 20 mg t ablet RxNorm: 044834 TAKE 1 TABLET DAILY 07/02/2016 12/26/2016 Inactive benazepril 20 mg tablet RxNorm: 501963 TAKE 1 TABLET DAILY 06/29/2016 12/26/2016 Inactive Aricept 23 mg tablet RxNorm: 4154052 TAKE 1 TABLET DAILY 05/07/2016 01/31/2017 Inactive atorvastatin 20 mg t ablet RxNorm: 186846 TAKE 1 TABLET DAILY 04/03/2016 07/01/2016 Inactive tramadol 50 mg tablet RxNorm: 383002 1-2 Tablet(s) PO Q6 as needed for pain 03/20/2016 No Stop Date Active tramadol 50 mg tablet RxNorm: 471810 1-2 Tablet(s) PO Q6 as needed for pain 03/06/2016 03/19/2016 In active Cipro 500 mg tablet RxNorm: 301411 1 Tablet(s) PO BID 03/02/2016 03/08/2016 Inactive atorvastatin 20 mg t ablet RxNorm: 467543 1 TABLET(S) PO DAILY 01/03/2016 04/02/2016 Inactive benazepril 20 mg tablet RxNorm: 406424 1 TABLET(S) PO DAILY 01/03/2016 06/28/2016 Inactive Zoloft 50 mg tablet RxNorm: 726436 1 TABLET(S) PO DAILY 12/15/2015 09/10/2016 Inactive Aricept 23 mg tablet RxNorm: 2626060 1 Tablet(s) PO daily 06/21/2015 05/06/2016 Inactive colchicine 0.6 mg ta blet RxNorm: 914928 1 Tablet(s) PO BID 05/24/2015 05/03/2016 Inactive ciclopirox 1 % shampoo RxNorm: 480639 1 TOP daily 05/24/2015 05/03/2016 Inactive benazepril 20 mg tablet RxNorm: 375566 1 Tablet(s) PO daily 05/17/2015 01/02/2016 Inactive atorvastatin 20 mg t ablet RxNorm: 429883 1 Tablet(s) PO daily 05/17/2015 01/02/2016 Inactive benazepril 20 mg tablet RxNorm: 269035 1 Tablet(s) PO daily 05/06/2015 05/16/2015 Inactive ciclopirox 1 % shampoo RxNorm: 309393 1 TOP daily 02/16/2015 02/15/2015 Inactive ciclopirox 1 % shampoo RxNorm: 905694 1 TOP daily 02/16/2015 04/16/2015 Inactive Zoloft 50 mg tablet RxNorm: 116890 1 Tablet(s) PO daily 01/27/2015 12/14/2015 Inactive [facility] script [id number] script [id number] Januvia 50 mg tablet RxNorm: 796845 1 Tablet(s) PO daily 01/24/2015 03/21/2015 Inactive increase from 25mg Januvia 25 mg tablet RxNorm: 922526 1 Tablet(s) PO daily 01/21/2015 01/23/2015 Inactive Januvia 25 mg tablet RxNorm: 800016 1 Tablet(s) PO daily 01/21/2015 01/20/2015 Inactive Benicar 20 mg tablet RxNorm: 278800 1 Tablet(s) PO daily 01/10/2015 03/21/2015 Inactive [SAVINGS FOR NON-COVERED DRUGS -- BIN:00 3585, PCN: [id number], Group: XXXXX, ID# [id number], Questions: . THIS IS NOT INSURANCE.] Benicar 20 mg tablet RxNorm: 551552 1 Tablet(s) PO daily 12/16/2014 12/15/2014 Inactive Benicar 20 mg tablet RxNorm: 719656 1 Tablet(s) PO daily 12/16/2014 01/09/2015 Inactive [SAVINGS FOR NON-COVERED DRUGS -- BIN:00 3585, PCN: [id number], Group: XXXXX, ID# [id number], Questions: . THIS IS NOT INSURANCE.] Micardis HCT 80 mg-2 5 mg tablet RxNorm: 803769 1 Tablet(s) PO daily 12/03/2014 12/03/2014 Inactive Aricept 23 mg tablet RxNorm: 4931305 1 Tablet(s) PO daily 12/03/2014 03/02/2015 Inactive Lipitor 40 mg tablet RxNorm: 803322 1 Tablet(s) PO daily 12/03/2014 03/02/2015 Inactive B12 1000 mcg RxNorm: 1 IM daily 12/03/2014 03/02/2015 Inactive iron 325 mg (65 mg i rupal) tablet RxNorm: 555001 1 Tablet(s) PO TIW No Start Date Active Ocuvite oral RxNorm: 416408 oral No Start Date Active naproxen 250 mg tablet RxNorm: 460457 Tablet(s) PO as needed No Start Date Active Centrum Complete oral RxNorm: 81763 oral No Start Date Active colchicine 0.6 mg ta blet RxNorm: 646873 1 Tablet(s) PO BID No Start Date 05/23/2015 Inactive benazepril 20 mg tablet RxNorm: 605363 1 Tablet(s) PO daily No Start Date 05/05/2015 Inactive atorvastatin 20 mg t ablet RxNorm: 523391 1 Tablet(s) PO daily No Start Date 05/16/2015 Inactive Aricept 23 mg tablet RxNorm: 2968098 1 Tablet(s) PO daily No Start Date 06/20/2015 Inactive tramadol 50 mg tablet RxNorm: 700045 1-2 Tablet(s) PO Q6 as needed for pain No Start Date 03/05/2016 Inactive Miralax 17 gram oral powder packet RxNorm: 903274 1 PO daily as needed No Start Date 12/02/2014 Inactive Zoloft 25 mg tablet RxNorm: 095150 1 Tablet(s) PO daily No Start Date 01/26/2015 Inactive Medication Administered No Medication Administered data Immunizations Vaccine Codes Date Status Influenza CVX: 141 05/04 completed Assessments Condition Codes Effectiv e Dates Type 2 diabetes mellitus without complications ICD-10: E11.9 ICD-9: 250.00 11/14/2018 Essential (primary) hypertension ICD -10: I10 ICD-9: 401.1 11/14/2018 Generalized anxiety disorder ICD-10: F41.1 ICD-9: 300.02 11/14/2018 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 ICD-9: 280.0 11/14/2018 Cardiac murmur, unspecified ICD-10: R01.1 ICD-9: 785.2 02/21/2018 Myalgia ICD-10: M79.1 ICD-9: 729.1 06/14/2017 Muscle weakness (generalized) ICD-10 : M62.81 ICD-9: 728.87 02/15/2017 Localized edema ICD-10: R60.0 ICD-9: 782.3 02/15/2017 Anemia, unspecified ICD-10: D64.9 ICD-9: 285.9 09/10/2016 Pain in left wrist ICD-10: M25.532 ICD-9: 719.43 08/30/2016 Pain in right wrist ICD-10: M25.531 ICD-9: 719.43 08/30/2016 Low back pain ICD-10: M54.5 ICD-9: 724.2 08/30/2016 Essential (primary) hypertension ICD -10: I10 ICD-9: 401.9 08/30/2016 Encounter for immunization ICD-10: Z 23 ICD-9: V04.81 05/04/2016 Ataxic gait ICD-10: R26.0 ICD-9: 781.2 03/02/2016 Multiple fractures of ribs, right side, initial encounter for closed fracture ICD-10: S22.41XA ICD-9: 807.05 03/02/2016 Urinary tract infection, site not specified ICD-10: N39.0 ICD-9: 599.0 03/02/2016 Pain in left knee ICD-10: M25.562 ICD-9: 719.46 06/17/2015 Other diseases of tongue ICD-10: K14 .8 ICD-9: 529.8 05/17/2015 Hospital discharge follow-up ICD-9: V67.59 03/22/2015 ESSENTIAL HYPERTENSION ICD-9: 401.9 03/22/2015 Post-operative state ICD-9: V45.89 03/22/2015 Cervical myelopathy ICD-9: 721.1 03/22/2015 Serum calcium elevated ICD-9: 275.42 03/22/2015 Diabetes mellitus type 2, controlled ICD-9: 250.00 02/11/2015 Open wound of toe with avulsion of toenail ICD-9: 893.1 02/11/2015 Encounter for long-term (current) use of other medicat ions ICD-9: V58.69 01/18/2015 Delusions ICD-9: 297.9 0 12/03/2014 Gait instability ICD-9: 781.2 12/03/2014 Bowel and bladder incontinence ICD-9 : 788.30 12/03/2014 Cervical stenosis of spinal canal IC D-9: 723.0 12/03/2014 Reason For Visit Reason For Visit Effective Dates Notes diabetes mellitus 11/14/2018 diabetes mellitus 02/21/2018 edema 10/18/2017 edema 06/14/2017 edema 02/15/2017 edema 11/13/2016 edema 09/13/2016 gait abnormality 08/30/2016 c2 spinal cord injuy- fall of 2013 diabetes mellitus 05/04/2016 Hospital Follow Up 03/02/2016 knee pain 06/17/2015 wrist pain 05/17/2015 diabetes mellitus 03/22/2015 hypertension 02/11/2015 toe nail gait abnormality 01/18/2015 c2 spinal cord injuy- fall of 2013 gait abnormality 12/03/2014 c2 spinal cord injuy- fall of 2013 Results Observation Observation Code Item Item Code Result Date Cbc With Differential Ord2 WBC 7.20 K/ul 11/13/2016 Cbc With Differential Ord2 RBC 4.72 M/ul 11/13/2016 Cbc With Differential Ord2 HGB 12.4 g/dl 11/13/2016 Cbc With Differential Ord2 HCT 40.8 % 11/13/2016 Cbc With Differential Ord2 Neut% 61.4 % 11/13/2016 Cbc With Differential Ord2 MCV 86.4 fl 11/13/2016 Cbc With Differential Ord2 Lymph% 27.2 % 11/13/2016 Cbc With Differential Ord2 MCH 26.3 pg 11/13/2016 Cbc With Differential Ord2 [place]% 7.9 % 11/13/2016 Cbc With Differential Ord2 MCHC 30.4 pg 11/13/2016 Cbc With Differential Ord2 Eos% 2.9 % 11/13/2016 Cbc With Differential Ord2 PLT 181 K/ul 11/13/2016 Cbc With Differential Ord2 Baso% 0.6 % 11/13/2016 Cbc With Differential Ord2 RDW 20.2 % 11/13/2016 Cbc With Differential Ord2 Neut ABS# 4.42 K/ul 11/13/2016 Cbc With Differential Ord2 Lymph ABS# 1.96 K/ul 11/13/2016 Cbc With Differential Ord2 [place] ABS# 0.6 K/ul 11/13/2016 Cbc With Differential Ord2 Eos ABS# 0.2 K/ul 11/13/2016 Cbc With Differential Ord2 Baso ABS# 0.0 K/ul 11/13/2016 Ferritin Ord22 FERRITIN 55.7 ng/mL 11/13/2016 Comp Metabolic Xmn749 NA 140 mEq/L 11/13/2016 Comp Metabolic Xiw354 K 4.6 mEq/L 11/13/2016 Comp Metabolic Rfy713 CL 103 mEq/L 11/13/2016 Comp Metabolic Zjg682 CO2 29.0 mEq/L 11/13/2016 Comp Metabolic Xzo601 AN ION GAP 13 11/13/2016 Comp Metabolic Sct438 GL UCOSE 83 mg/dL 11/13/2016 Comp Metabolic Ouj937 Cr eat 0.9 mg/dL 11/13/2016 Comp Metabolic Uvp109 eG FR 65 ml/min/1.73m2 11/13 Comp Metabolic Ntf092 BUN 28 mg/dL 11/13/2016 Comp Metabolic Oxp714 B/ C Ratio 31.5 Ratio 11/13/2016 Comp Metabolic Wnw087 CA LCIUM 9.5 mg/dL 11/13/2016 Comp Metabolic Xnb636 AL K PHOS 52 U/L 11/13/2016 Comp Metabolic Daj176 T(SGOT) 16 U/L 11/13/2016 Comp Metabolic Kgf012 AL T(SGPT) 10 U/L 11/13/2016 Comp Metabolic Uxa902 BI LI T 0.4 mg/dL 11/13/2016 Comp Metabolic Hld386 AL BUMIN 3.9 g/dL 11/13/2016 Comp Metabolic Smi199 TP RO 6.2 g/dL 11/13/2016 Comp Metabolic Flu877 GL OB 2.3 g/dL 11/13/2016 Comp Metabolic Gne911 A/ G Ratio 1.7 Ratio 11/13/2016 Comp Metabolic Ndk831 Os mo 284 mOsmo 11/13/2016 Tsh Ord6 hTSH II 1.32 uIU/mL 11/13/2016 Tibc Ord40 Iron 70 ug/dl 11/13/2016 Tibc Ord40 UIBC 290 ug/dL 11/13/2016 Tibc Ord40 TIBC 360 ug/dL 11/13/2016 Tibc Ord40 Fe-%Sat 19.4 % 11/13/2016 Ferritin Ord22 FERRITIN 7.5 ng/mL 08/31/2016 Tibc Ord40 Iron 23 ug/dl 08/31/2016 Tibc Ord40 UIBC 466 ug/dL 08/31/2016 Tibc Ord40 TIBC 489 ug/dL 08/31/2016 Tibc Ord40 Fe-%Sat 4.7 % 08/31/2016 %Hba1C Oqr439 % HbA1c 60866-1 5.9 % 08/30/2016 %Hba1C Zts884 Gluc Ave 123 mg/dL 08/30/2016 Cbc With Differential Ord2 WBC 6.49 K/ul 08/30/2016 Cbc With Differential Ord2 RBC 4.08 M/ul 08/30/2016 Cbc With Differential Ord2 HGB 9.8 g/dl 08/30/2016 Cbc With Differential Ord2 HCT 32.7 % 08/30/2016 Cbc With Differential Ord2 Neut% 61.7 % 08/30/2016 Cbc With Differential Ord2 MCV 80.1 fl 08/30/2016 Cbc With Differential Ord2 Lymph% 27.4 % 08/30/2016 Cbc With Differential Ord2 MCH 24.0 pg 08/30/2016 Cbc With Differential Ord2 [place]% 8.2 % 08/30/2016 Cbc With Differential Ord2 MCHC 30.0 pg 08/30/2016 Cbc With Differential Ord2 Eos% 2.2 % 08/30/2016 Cbc With Differential Ord2 PLT 264 K/ul 08/30/2016 Cbc With Differential Ord2 Baso% 0.5 % 08/30/2016 Cbc With Differential Ord2 RDW 16.5 % 08/30/2016 Cbc With Differential Ord2 Neut ABS# 4.01 K/ul 08/30/2016 Cbc With Differential Ord2 Lymph ABS# 1.78 K/ul 08/30/2016 Cbc With Differential Ord2 [place] ABS# 0.5 K/ul 08/30/2016 Cbc With Differential Ord2 Eos ABS# 0.1 K/ul 08/30/2016 Cbc With Differential Ord2 Baso ABS# 0.0 K/ul 08/30/2016 Comp Metabolic Gnj585 NA 138 mEq/L 08/30/2016 Comp Metabolic Trg271 K 4.8 mEq/L 08/30/2016 Comp Metabolic Apj773 CL 103 mEq/L 08/30/2016 Comp Metabolic Ikj057 CO2 29.0 mEq/L 08/30/2016 Comp Metabolic Jvn903 AN ION GAP 11 08/30/2016 Comp Metabolic Zdj286 GL UCOSE 85 mg/dL 08/30/2016 Comp Metabolic Ilj612 Cr eat 0.9 mg/dL 08/30/2016 Comp Metabolic Esp750 eG FR 67 ml/min/1.73m2 08/30 Comp Metabolic Rrs285 BUN 22 mg/dL 08/30/2016 Comp Metabolic Hms962 B/ C Ratio 25.3 Ratio 08/30/2016 Comp Metabolic Fga894 CA LCIUM 9.6 mg/dL 08/30/2016 Comp Metabolic Ftk698 AL K PHOS 61 U/L 08/30/2016 Comp Metabolic Iuv363 T(SGOT) 22 U/L 08/30/2016 Comp Metabolic Icc646 AL T(SGPT) 15 U/L 08/30/2016 Comp Metabolic Ssy176 BI LI T 0.3 mg/dL 08/30/2016 Comp Metabolic Yto309 AL BUMIN 4.1 g/dL 08/30/2016 Comp Metabolic Slu424 TP RO 6.4 g/dL 08/30/2016 Comp Metabolic Rwc965 GL OB 2.3 g/dL 08/30/2016 Comp Metabolic Qlf210 A/ G Ratio 1.8 Ratio 08/30/2016 Comp Metabolic Pex879 Os mo 278 mOsmo 08/30/2016 Comp Metabolic Rqf379 NA 135 mEq/L 03/23/2015 Comp Metabolic Myx876 K 4.5 mEq/L 03/23/2015 Comp Metabolic Vie000 CL 100 mEq/L 03/23/2015 Comp Metabolic Frn331 CO2 31.0 mEq/L 03/23/2015 Comp Metabolic Rkr100 AN ION GAP 9 03/23/2015 Comp Metabolic Fld044 GL UCOSE 86 mg/dL 03/23/2015 Comp Metabolic Mej993 Cr eat 0.9 mg/dL 03/23/2015 Comp Metabolic Cxy829 eG FR 63 ml/min/1.73m2 03/23 Comp Metabolic Qic299 BUN 18 mg/dL 03/23/2015 Comp Metabolic Xbe768 B/ C Ratio 19.6 Ratio 03/23/2015 Comp Metabolic Mqg140 CA LCIUM 10.2 mg/dL 03/23/2015 Comp Metabolic Kih543 AL K PHOS 66 U/L 03/23/2015 Comp Metabolic Ukq343 T(SGOT) 15 U/L 03/23/2015 Comp Metabolic Oud008 AL T(SGPT) 10 U/L 03/23/2015 Comp Metabolic Ylz003 BI LI T 0.4 mg/dL 03/23/2015 Comp Metabolic Bac280 AL BUMIN 4.1 g/dL 03/23/2015 Comp Metabolic Ocu821 TP RO 6.3 g/dL 03/23/2015 Comp Metabolic Xhd908 GL OB 2.2 g/dL 03/23/2015 Comp Metabolic Cdy715 A/ G Ratio 1.9 Ratio 03/23/2015 Comp Metabolic Bdp430 Os mo 271 mOsmo 03/23/2015 Parathyroid Hormone Kcf845 PTH 26.70 pg/ml 03/23/2015 Cbc With Differential Ord2 WBC 6.4 K/uL 03/23/2015 Cbc With Differential Ord2 LYM 2.0 K/uL 03/23/2015 Cbc With Differential Ord2 LYM% 31.3 % 03/23/2015 Cbc With Differential Ord2 NEUT/GRAN 3.9 K/uL 03/23/2015 Cbc With Differential Ord2 NEUT/GRAN % 60.6 % 03/23/2015 Cbc With Differential Ord2 MID 0.5 K/uL 03/23/2015 Cbc With Differential Ord2 MID% 8.1 % 03/23/2015 Cbc With Differential Ord2 RBC 4.27 M/uL 03/23/2015 Cbc With Differential Ord2 HGB 11.2 g/dL 03/23/2015 Cbc With Differential Ord2 HCT 36.9 % 03/23/2015 Cbc With Differential Ord2 MCV 86 fL 03/23/2015 Cbc With Differential Ord2 MCH 26 pg 03/23/2015 Cbc With Differential Ord2 MCHC 30 g/dL 03/23/2015 Cbc With Differential Ord2 PLT 134 K/uL 03/23/2015 Cbc With Differential Ord2 RDW 14.6 % 03/23/2015 TSH 6164671 TSH 0.91 uIU/ML 01/19/2015 CBC 9061161 WBC 7.0 10e9/L 01/19/2015 CBC 7571781 RBC 4.66 10e12/L 01/19/2015 CBC 1117982 HGB 13.0 g/dL 01/19/2015 CBC 4909374 HCT DET 41.0 % 01/19/2015 CBC 6636327 MCV 87.0 fL 01/19/2015 CBC 8354924 MCH 28.0 pg 01/19/2015 CBC 6631976 MCHC 32.0 g/dL 01/19/2015 CBC 8674920 PLT 218 10e9/L 01/19/2015 CBC 1122854 MPV 10.6 fL 01/19/2015 CBC 4579453 ROSALBA % 62.0 % 01/19/2015 CBC 9565910 LY % 27.0 % 01/19/2015 CBC 0313232 MON % 8.0 % 01/19/2015 CBC 7927037 EOS % 2.0 % 01/19/2015 CBC 1546842 BASO % 0.0 % 01/19/2015 CBC 1397980 RDW 13.6 % 01/19/2015 CBC 3444945 ABS ROSALBA 4.34 10e9/L 01/19/2015 CBC 0313529 ABS LYMPH 1.89 10e9/L 01/19/2015 CBC 5241995 ABS MONO 0.56 10e9/L 01/19/2015 CBC 7144142 ABS EOS 0.14 11e9/L 01/19/2015 CBC 4106303 ABS BASO 0.00 10e9/L 01/19/2015 A1C HPLC 3555593 A1C HPLC 49951-4 6.4 % 01/19/2015 GFR CALC 8497748 GFR AA >60 ML/MIN 01/19/2015 GFR CALC 4919644 GFR NON -AA 60.0L ML/MIN 5 CHEM 14 6333693 AST 20 U/L 01/19/2015 CHEM 14 6819678 ALT 13 IU/L 01/19/2015 CHEM 14 5519267 BUN 25 MG/DL 01/19/2015 CHEM 14 9222583 ALBUMIN 4.0 GM/DL 01/19/2015 CHEM 14 7366379 CHLORIDE 105 MMOL/L 01/19/2015 CHEM 14 0254558 BILI TOT 0.6 MG/DL 01/19/2015 CHEM 14 6528430 ALK PHOS 59 U/L 01/19/2015 CHEM 14 1895586 SODIUM 140 MMOL/L 01/19/2015 CHEM 14 7278617 CREATINI NE 0.91 MG/DL 01/19/2015 CHEM 14 1099357 CALCIUM 10.3 MG/DL 01/19/2015 CHEM 14 1230074 POTASSIUM 5.0 MMOL/L 01/19/2015 CHEM 14 6932921 PROT TOT 6.2 GM/DL 01/19/2015 CHEM 14 9251207 GLUCOSE 97 MG/DL 01/19/2015 CHEM 14 2786534 BICARB 30 MMOL/L 01/19/2015 CHEM 14 2218409 ANION GAP 5 MEQ/L 01/19/2015 Review of Systems System Result Effective Dates Constitutional No recent illness 11/14/2018 Constitutional No anorexia 11/14/2018 Constitutional No night sweats 11/14/2018 Constitutional No chills 11/14/2018 Constitutional No diaphoresis 11/14/2018 Constitutional fatigue 0 11/14/2018 Constitutional No fever 11/14/2018 Constitutional No insomnia 11/14/2018 Constitutional No malaise 11/14/2018 Constitutional No weight loss 11/14/2018 Constitutional No weight gain 11/14/2018 Constitutional No obesity 11/14/2018 Eyes No eye pain 019 Eyes No vision change Ears/Nose/Throat/Neck No dizziness 11/14/2018 Ears/Nose/Throat/Neck No headache 11/14/2018 Cardiovascular No chest pain/pressure 11/14/2018 Cardiovascular No claudication 11/14/2018 Cardiovascular No dyspnea 11/14/2018 Cardiovascular edema Respiratory No aspiration 11/14/2018 Respiratory No chest tightness 11/14/2018 Respiratory No cigarette smoking 11/14/2018 Gastrointestinal No abdominal pain 11/14/2018 Gastrointestinal No constipation 11/14/2018 Gastrointestinal No diarrhea 11/14/2018 Gastrointestinal No nausea 11/14/2018 Gastrointestinal No vomiting 11/14/2018 Genitourinary/Nephrology No anuria/oliguri a 11/14/2018 Genitourinary/Nephrology No dysuria 11/14/2018 Genitourinary/Nephrology urinary inc ontinence 11/14/2018 Musculoskeletal stiffness 11/14/2018 Musculoskeletal swelling 11/14/2018 Musculoskeletal arthralgia(s) 11/14/2018 Dermatologic No sores Neurologic No alteration of consciousness 11/14/2018 Neurologic No mental status change 11/14/2018 Psychiatric anxiety 10/27 Psychiatric depression 0 11/14/2018 Endocrine No polydipsia 11/14/2018 Endocrine No polyuria Endocrine No sweating Hematologic/Lymphatic No abnormal ec chymoses 11/14/2018 Hematologic/Lymphatic No petechiae 11/14/2018 Hematologic/Lymphatic No abnormal bl eeding and bruising 11/14/2018 Allergy/Immunology No anaphylactoid reaction 11/14/2018 Allergy/Immunology No food allergy 11/14/2018 Musculoskeletal joint complaint 11/14/2018 Constitutional No recent illness 02/21/2018 Constitutional No anorexia 02/21/2018 Constitutional No night sweats 02/21/2018 Constitutional No chills 02/21/2018 Constitutional No diaphoresis 02/21/2018 Constitutional fatigue 0 02/21/2018 Constitutional No fever 02/21/2018 Constitutional No insomnia 02/21/2018 Constitutional No malaise 02/21/2018 Constitutional No weight loss 02/21/2018 Constitutional No weight gain 02/21/2018 Constitutional No obesity 02/21/2018 Eyes No eye pain 018 Eyes No vision change Ears/Nose/Throat/Neck No dizziness 02/21/2018 Ears/Nose/Throat/Neck No headache 02/21/2018 Cardiovascular No chest pain/pressure 02/21/2018 Cardiovascular No claudication 02/21/2018 Cardiovascular No dyspnea 02/21/2018 Cardiovascular edema Respiratory No aspiration 02/21/2018 Respiratory No chest tightness 02/21/2018 Respiratory No cigarette smoking 02/21/2018 Gastrointestinal No abdominal pain 02/21/2018 Gastrointestinal No constipation 02/21/2018 Gastrointestinal No diarrhea 02/21/2018 Gastrointestinal No nausea 02/21/2018 Gastrointestinal No vomiting 02/21/2018 Genitourinary/Nephrology No anuria/oliguri a 02/21/2018 Genitourinary/Nephrology No dysuria 02/21/2018 Genitourinary/Nephrology urinary inc ontinence 02/21/2018 Musculoskeletal stiffness 02/21/2018 Musculoskeletal swelling 02/21/2018 Musculoskeletal arthralgia(s) 02/21/2018 Musculoskeletal joint complaint 02/21/2018 Dermatologic No sores Neurologic No alteration of consciousness 02/21/2018 Neurologic No mental status change 02/21/2018 Psychiatric No anxiety 0 02/21/2018 Psychiatric No depression 02/21/2018 Endocrine No polydipsia 02/21/2018 Endocrine No polyuria Endocrine No sweating Hematologic/Lymphatic No abnormal ec chymoses 02/21/2018 Hematologic/Lymphatic No petechiae 02/21/2018 Hematologic/Lymphatic No abnormal bl eeding and bruising 02/21/2018 Allergy/Immunology No anaphylactoid reaction 02/21/2018 Allergy/Immunology No food allergy 02/21/2018 Constitutional No recent illness 10/18/2017 Constitutional No anorexia 10/18/2017 Constitutional No night sweats 10/18/2017 Constitutional No chills 10/18/2017 Constitutional No diaphoresis 10/18/2017 Constitutional fatigue 0 10/18/2017 Constitutional No fever 10/18/2017 Constitutional No insomnia 10/18/2017 Constitutional No malaise 10/18/2017 Constitutional No weight loss 10/18/2017 Constitutional No weight gain 10/18/2017 Constitutional No obesity 10/18/2017 Eyes No eye pain 018 Eyes No vision change Ears/Nose/Throat/Neck No dizziness 10/18/2017 Ears/Nose/Throat/Neck No headache 10/18/2017 Cardiovascular No chest pain/pressure 10/18/2017 Cardiovascular No claudication 10/18/2017 Cardiovascular No dyspnea 10/18/2017 Cardiovascular edema Respiratory No aspiration 10/18/2017 Respiratory No chest tightness 10/18/2017 Respiratory No cigarette smoking 10/18/2017 Gastrointestinal No abdominal pain 10/18/2017 Gastrointestinal No constipation 10/18/2017 Gastrointestinal No diarrhea 10/18/2017 Gastrointestinal No nausea 10/18/2017 Gastrointestinal No vomiting 10/18/2017 Genitourinary/Nephrology No anuria/oliguri a 10/18/2017 Genitourinary/Nephrology No dysuria 10/18/2017 Genitourinary/Nephrology urinary inc ontinence 10/18/2017 Musculoskeletal stiffness 10/18/2017 Musculoskeletal swelling 10/18/2017 Musculoskeletal arthralgia(s) 10/18/2017 Musculoskeletal joint complaint 10/18/2017 Dermatologic No sores Neurologic No alteration of consciousness 10/18/2017 Neurologic No mental status change 10/18/2017 Psychiatric No anxiety 0 10/18/2017 Psychiatric No depression 10/18/2017 Endocrine No polydipsia 10/18/2017 Endocrine No polyuria Endocrine No sweating Hematologic/Lymphatic No abnormal ec chymoses 10/18/2017 Hematologic/Lymphatic No petechiae 10/18/2017 Hematologic/Lymphatic No abnormal bl eeding and bruising 10/18/2017 Allergy/Immunology No anaphylactoid reaction 10/18/2017 Allergy/Immunology No food allergy 10/18/2017 Constitutional No recent illness 06/14/2017 Constitutional No anorexia 06/14/2017 Constitutional No night sweats 06/14/2017 Constitutional No chills 06/14/2017 Constitutional No diaphoresis 06/14/2017 Constitutional No fever 06/14/2017 Constitutional No insomnia 06/14/2017 Constitutional No malaise 06/14/2017 Constitutional No weight loss 06/14/2017 Constitutional No weight gain 06/14/2017 Constitutional No obesity 06/14/2017 Eyes No eye pain 017 Eyes No vision change Ears/Nose/Throat/Neck No dizziness 06/14/2017 Ears/Nose/Throat/Neck No headache 06/14/2017 Cardiovascular No chest pain/pressure 06/14/2017 Cardiovascular No claudication 06/14/2017 Cardiovascular No dyspnea 06/14/2017 Cardiovascular edema Respiratory No aspiration 06/14/2017 Respiratory No chest tightness 06/14/2017 Respiratory No cigarette smoking 06/14/2017 Gastrointestinal No abdominal pain 06/14/2017 Gastrointestinal No constipation 06/14/2017 Gastrointestinal No diarrhea 06/14/2017 Gastrointestinal No nausea 06/14/2017 Gastrointestinal No vomiting 06/14/2017 Genitourinary/Nephrology No anuria/oliguri a 06/14/2017 Genitourinary/Nephrology No dysuria 06/14/2017 Genitourinary/Nephrology urinary inc ontinence 06/14/2017 Musculoskeletal stiffness 06/14/2017 Musculoskeletal swelling 06/14/2017 Musculoskeletal arthralgia(s) 06/14/2017 Musculoskeletal joint complaint 06/14/2017 Neurologic No alteration of consciousness 06/14/2017 Neurologic No mental status change 06/14/2017 Psychiatric No anxiety 1 08/14/2016 Psychiatric No depression 06/14/2017 Endocrine No polydipsia 06/14/2017 Endocrine No polyuria Endocrine No sweating Hematologic/Lymphatic No abnormal ec chymoses 06/14/2017 Hematologic/Lymphatic No petechiae 06/14/2017 Hematologic/Lymphatic No abnormal bl eeding and bruising 06/14/2017 Allergy/Immunology No anaphylactoid reaction 06/14/2017 Allergy/Immunology No food allergy 06/14/2017 Constitutional fatigue 1 08/14/2016 Dermatologic No sores Constitutional No recent illness 02/15/2017 Constitutional No anorexia 02/15/2017 Constitutional No night sweats 02/15/2017 Constitutional No chills 02/15/2017 Constitutional No diaphoresis 02/15/2017 Constitutional fatigue 0 02/15/2017 Constitutional No fever 02/15/2017 Constitutional No insomnia 02/15/2017 Constitutional No malaise 02/15/2017 Constitutional No weight loss 02/15/2017 Constitutional No weight gain 02/15/2017 Constitutional No obesity 02/15/2017 Eyes No eye pain 017 Eyes No vision change Ears/Nose/Throat/Neck No dizziness 02/15/2017 Ears/Nose/Throat/Neck No headache 02/15/2017 Cardiovascular No chest pain/pressure 02/15/2017 Cardiovascular No claudication 02/15/2017 Cardiovascular No dyspnea 02/15/2017 Cardiovascular edema Respiratory No aspiration 02/15/2017 Respiratory No chest tightness 02/15/2017 Respiratory No cigarette smoking 02/15/2017 Gastrointestinal No abdominal pain 02/15/2017 Gastrointestinal No constipation 02/15/2017 Gastrointestinal No diarrhea 02/15/2017 Gastrointestinal No nausea 02/15/2017 Gastrointestinal No vomiting 02/15/2017 Genitourinary/Nephrology No anuria/oliguri a 02/15/2017 Genitourinary/Nephrology No dysuria 02/15/2017 Musculoskeletal stiffness 02/15/2017 Musculoskeletal swelling 02/15/2017 Musculoskeletal arthralgia(s) 02/15/2017 Musculoskeletal joint complaint 02/15/2017 Dermatologic rash 2016 Dermatologic sores 02/15 Neurologic No alteration of consciousness 02/15/2017 Neurologic No mental status change 02/15/2017 Psychiatric No anxiety 0 02/15/2017 Psychiatric No depression 02/15/2017 Endocrine No polydipsia 02/15/2017 Endocrine No polyuria Endocrine No sweating Hematologic/Lymphatic No abnormal ec chymoses 02/15/2017 Hematologic/Lymphatic No petechiae 02/15/2017 Hematologic/Lymphatic No abnormal bl eeding and bruising 02/15/2017 Allergy/Immunology No anaphylactoid reaction 02/15/2017 Allergy/Immunology No food allergy 02/15/2017 Genitourinary/Nephrology urinary inc ontinence 02/15/2017 Constitutional No recent illness 11/13/2016 Constitutional No anorexia 11/13/2016 Constitutional No night sweats 11/13/2016 Constitutional No chills 11/13/2016 Constitutional No diaphoresis 11/13/2016 Constitutional fatigue 0 11/13/2016 Constitutional No fever 11/13/2016 Constitutional No insomnia 11/13/2016 Constitutional No malaise 11/13/2016 Constitutional No weight loss 11/13/2016 Constitutional No weight gain 11/13/2016 Constitutional No obesity 11/13/2016 Eyes No eye pain 017 Eyes No vision change Ears/Nose/Throat/Neck No dizziness 11/13/2016 Ears/Nose/Throat/Neck No headache 11/13/2016 Cardiovascular No chest pain/pressure 11/13/2016 Cardiovascular No claudication 11/13/2016 Cardiovascular No dyspnea 11/13/2016 Respiratory No aspiration 11/13/2016 Respiratory No chest tightness 11/13/2016 Respiratory No cigarette smoking 11/13/2016 Gastrointestinal No abdominal pain 11/13/2016 Gastrointestinal No constipation 11/13/2016 Gastrointestinal No diarrhea 11/13/2016 Gastrointestinal No nausea 11/13/2016 Gastrointestinal No vomiting 11/13/2016 Genitourinary/Nephrology No anuria/oliguri a 11/13/2016 Genitourinary/Nephrology No dysuria 11/13/2016 Musculoskeletal stiffness 11/13/2016 Musculoskeletal swelling 11/13/2016 Musculoskeletal arthralgia(s) 11/13/2016 Dermatologic rash 2016 Dermatologic sores 11/13 Neurologic No alteration of consciousness 11/13/2016 Neurologic No mental status change 11/13/2016 Psychiatric No anxiety 0 11/13/2016 Psychiatric No depression 11/13/2016 Endocrine No polydipsia 11/13/2016 Endocrine No polyuria Endocrine No sweating Hematologic/Lymphatic No abnormal ec chymoses 11/13/2016 Hematologic/Lymphatic No petechiae 11/13/2016 Hematologic/Lymphatic No abnormal bl eeding and bruising 11/13/2016 Allergy/Immunology No anaphylactoid reaction 11/13/2016 Allergy/Immunology No food allergy 11/13/2016 Musculoskeletal joint complaint 11/13/2016 Cardiovascular edema Constitutional No recent illness 09/13/2016 Constitutional No anorexia 09/13/2016 Constitutional No night sweats 09/13/2016 Constitutional No chills 09/13/2016 Constitutional No diaphoresis 09/13/2016 Constitutional No fatigue 09/13/2016 Constitutional No fever 09/13/2016 Constitutional No insomnia 09/13/2016 Constitutional No malaise 09/13/2016 Constitutional No weight loss 09/13/2016 Constitutional No weight gain 09/13/2016 Constitutional No obesity 09/13/2016 Eyes No eye pain 017 Eyes No vision change Ears/Nose/Throat/Neck No dizziness 09/13/2016 Ears/Nose/Throat/Neck No headache 09/13/2016 Cardiovascular No chest pain/pressure 09/13/2016 Cardiovascular No claudication 09/13/2016 Cardiovascular No dyspnea 09/13/2016 Respiratory No cigarette smoking 09/13/2016 Respiratory No chest tightness 09/13/2016 Respiratory No aspiration 09/13/2016 Gastrointestinal No constipation 09/13/2016 Gastrointestinal No abdominal pain 09/13/2016 Gastrointestinal No diarrhea 09/13/2016 Gastrointestinal No nausea 09/13/2016 Gastrointestinal No vomiting 09/13/2016 Genitourinary/Nephrology No dysuria 09/13/2016 Genitourinary/Nephrology No anuria/oliguri a 09/13/2016 Musculoskeletal arthralgia(s) 09/13/2016 Musculoskeletal swelling 09/13/2016 Musculoskeletal stiffness 09/13/2016 Dermatologic rash 2016 Dermatologic sores 09/13 Neurologic No alteration of consciousness 09/13/2016 Neurologic No mental status change 09/13/2016 Psychiatric No anxiety 0 09/13/2016 Psychiatric No depression 09/13/2016 Endocrine No sweating Endocrine No polyuria Endocrine No polydipsia 09/13/2016 Hematologic/Lymphatic No petechiae 09/13/2016 Hematologic/Lymphatic No abnormal ec chymoses 09/13/2016 Hematologic/Lymphatic No abnormal bl eeding and bruising 09/13/2016 Allergy/Immunology No anaphylactoid reaction 09/13/2016 Allergy/Immunology No food allergy 09/13/2016 Constitutional No recent illness 08/30/2016 Constitutional No anorexia 08/30/2016 Constitutional No night sweats 08/30/2016 Constitutional No chills 08/30/2016 Constitutional diaphoresis 08/30/2016 Constitutional No fatigue 08/30/2016 Constitutional No fever 08/30/2016 Constitutional No insomnia 08/30/2016 Constitutional No malaise 08/30/2016 Constitutional No weight loss 08/30/2016 Constitutional weight gain 08/30/2016 Constitutional No obesity 08/30/2016 Eyes No eye erythema 08/2016 Eyes No eye discharge Cardiovascular No chest pain/pressure 08/30/2016 Cardiovascular edema 08/2016 Cardiovascular dyspnea 0 08/30/2016 Ears/Nose/Throat/Neck No dizziness 08/30/2016 Ears/Nose/Throat/Neck No headache 08/30/2016 Respiratory No cough 08/2016 Gastrointestinal No diarrhea 08/30/2016 Gastrointestinal No constipation 08/30/2016 Genitourinary/Nephrology No dysuria 08/30/2016 Genitourinary/Nephrology urinary inc ontinence 08/30/2016 Musculoskeletal joint complaint 08/30/2016 Dermatologic No rash 08/2016 Neurologic No alteration of consciousness 08/30/2016 Psychiatric No depression 08/30/2016 Endocrine dry or coarse skin 08/30/2016 Constitutional No recent illness 05/04/2016 Constitutional No anorexia 05/04/2016 Constitutional No night sweats 05/04/2016 Constitutional No chills 05/04/2016 Constitutional No diaphoresis 05/04/2016 Constitutional No fatigue 05/04/2016 Constitutional No fever 05/04/2016 Constitutional No insomnia 05/04/2016 Constitutional No malaise 05/04/2016 Constitutional No weight loss 05/04/2016 Constitutional No weight gain 05/04/2016 Constitutional No obesity 05/04/2016 Eyes No vision change Ears/Nose/Throat/Neck nasal allergies 05/04/2016 Ears/Nose/Throat/Neck No nasal discharge 05/04/2016 Cardiovascular No chest pain/pressure 05/04/2016 Respiratory No chest congestion 05/04/2016 Respiratory No chest tightness 05/04/2016 Respiratory No cigarette smoking 05/04/2016 Respiratory No cough 01/2016 Respiratory No dyspnea 1 Gastrointestinal No constipation 05/04/2016 Gastrointestinal No diarrhea 05/04/2016 Genitourinary/Nephrology No dysuria 05/04/2016 Genitourinary/Nephrology urinary inc ontinence 05/04/2016 Musculoskeletal No arthralgia(s) 05/04/2016 Musculoskeletal joint complaint 05/04/2016 Musculoskeletal No muscle weakness 05/04/2016 Musculoskeletal No myalgias 05/04/2016 Dermatologic No rash 01/2016 Dermatologic No sores Psychiatric No anxiety 1 Psychiatric No depression 05/04/2016 Ears/Nose/Throat/Neck No dizziness 05/04/2016 Ears/Nose/Throat/Neck No headache 05/04/2016 Neurologic No alteration of consciousness 05/04/2016 Neurologic gait abnormality 05/04/2016 Constitutional No recent illness 03/02/2016 Constitutional No anorexia 03/02/2016 Constitutional No night sweats 03/02/2016 Constitutional No chills 03/02/2016 Constitutional No diaphoresis 03/02/2016 Constitutional fatigue 0 03/02/2016 Constitutional No fever 03/02/2016 Constitutional No insomnia 03/02/2016 Constitutional No malaise 03/02/2016 Constitutional No weight loss 03/02/2016 Constitutional weight gain 03/02/2016 Eyes No eye discharge Eyes No eye erythema 11/2015 Ears/Nose/Throat/Neck No dizziness 03/02/2016 Ears/Nose/Throat/Neck No headache 03/02/2016 Cardiovascular No chest pain/pressure 03/02/2016 Respiratory No productive sputum 03/02/2016 Respiratory No cough 11/2015 Gastrointestinal No abdominal pain 03/02/2016 Gastrointestinal No constipation 03/02/2016 Gastrointestinal No diarrhea 03/02/2016 Respiratory dyspnea on exertion 03/02/2016 Genitourinary/Nephrology No dysuria 03/02/2016 Musculoskeletal joint complaint 03/02/2016 Musculoskeletal bone fracture 03/02/2016 Dermatologic No rash 11/2015 Dermatologic No sores Neurologic No alteration of consciousness 03/02/2016 Psychiatric anxiety 11/2015 Constitutional No recent illness 06/17/2015 Constitutional No anorexia 06/17/2015 Constitutional No chills 06/17/2015 Constitutional No night sweats 06/17/2015 Constitutional No fatigue 06/17/2015 Constitutional No diaphoresis 06/17/2015 Constitutional No fever 06/17/2015 Constitutional No insomnia 06/17/2015 Constitutional No malaise 06/17/2015 Constitutional No weight loss 06/17/2015 Constitutional No weight gain 06/17/2015 Eyes macular degeneration 06/17/2015 Ears/Nose/Throat/Neck No dizziness 06/17/2015 Ears/Nose/Throat/Neck No headache 06/17/2015 Musculoskeletal joint complaint 06/17/2015 Constitutional No recent illness 05/17/2015 Constitutional No anorexia 05/17/2015 Constitutional No night sweats 05/17/2015 Constitutional No chills 05/17/2015 Constitutional No diaphoresis 05/17/2015 Constitutional No fatigue 05/17/2015 Constitutional No fever 05/17/2015 Constitutional No insomnia 05/17/2015 Constitutional No malaise 05/17/2015 Constitutional No weight loss 05/17/2015 Constitutional No weight gain 05/17/2015 Constitutional No obesity 05/17/2015 Eyes No vision change Ears/Nose/Throat/Neck No nasal allergies 05/17/2015 Ears/Nose/Throat/Neck No nasal discharge 05/17/2015 Cardiovascular No chest pain/pressure 05/17/2015 Respiratory No chest congestion 05/17/2015 Respiratory No chest tightness 05/17/2015 Respiratory No cigarette smoking 05/17/2015 Respiratory No cough Respiratory No dyspnea 1 Gastrointestinal No constipation 05/17/2015 Dermatologic No rash Dermatologic No sores Genitourinary/Nephrology No dysuria 05/17/2015 Genitourinary/Nephrology No urinary incontinence 05/17/2015 Gastrointestinal No diarrhea 05/17/2015 Musculoskeletal joint complaint 05/17/2015 Musculoskeletal No muscle weakness 05/17/2015 Musculoskeletal No myalgias 05/17/2015 Musculoskeletal No arthralgia(s) 05/17/2015 Psychiatric No depression 05/17/2015 Psychiatric No anxiety 1 Constitutional No recent illness 03/22/2015 Constitutional No anorexia 03/22/2015 Constitutional No night sweats 03/22/2015 Constitutional No chills 03/22/2015 Constitutional No diaphoresis 03/22/2015 Constitutional fatigue 0 03/22/2015 Constitutional No fever 03/22/2015 Constitutional No malaise 03/22/2015 Constitutional No insomnia 03/22/2015 Constitutional weight loss 03/22/2015 Constitutional No weight gain 03/22/2015 Eyes No eye discharge Eyes No eye erythema Ears/Nose/Throat/Neck No dizziness 03/22/2015 Ears/Nose/Throat/Neck No headache 03/22/2015 Cardiovascular No chest pain/pressure 03/22/2015 Cardiovascular No dyspnea 03/22/2015 Cardiovascular No edema 03/22/2015 Respiratory No productive sputum 03/22/2015 Respiratory No cough Gastrointestinal No abdominal pain 03/22/2015 Gastrointestinal No constipation 03/22/2015 Gastrointestinal No diarrhea 03/22/2015 Genitourinary/Nephrology No breast c omplaint 03/22/2015 Musculoskeletal joint complaint 03/22/2015 Dermatologic No rash Neurologic No alteration of consciousness 03/22/2015 Psychiatric No anxiety 0 03/22/2015 Psychiatric depression 0 03/22/2015 Constitutional No recent illness 02/11/2015 Constitutional No anorexia 02/11/2015 Constitutional No fatigue 02/11/2015 Constitutional No fever 02/11/2015 Constitutional No insomnia 02/11/2015 Constitutional No weight loss 02/11/2015 Constitutional No weight gain 02/11/2015 Cardiovascular No chest pain/pressure 02/11/2015 Cardiovascular No dyspnea 02/11/2015 Cardiovascular No edema 02/11/2015 Respiratory No cough Musculoskeletal joint complaint 02/11/2015 Ears/Nose/Throat/Neck No dizziness 02/11/2015 Ears/Nose/Throat/Neck No headache 02/11/2015 Constitutional recent illness 01/18/2015 Constitutional No anorexia 01/18/2015 Constitutional No night sweats 01/18/2015 Constitutional No chills 01/18/2015 Constitutional No diaphoresis 01/18/2015 Constitutional fatigue 0 01/18/2015 Constitutional No fever 01/18/2015 Constitutional insomnia 01/18/2015 Constitutional No malaise 01/18/2015 Constitutional No weight loss 01/18/2015 Constitutional No weight gain 01/18/2015 Eyes No eye discharge Eyes No eye erythema Ears/Nose/Throat/Neck No dizziness 01/18/2015 Ears/Nose/Throat/Neck No headache 01/18/2015 Cardiovascular No chest pain/pressure 01/18/2015 Cardiovascular No dyspnea 01/18/2015 Cardiovascular edema Respiratory No chest congestion 01/18/2015 Respiratory No cough Respiratory dyspnea on exertion 01/18/2015 Gastrointestinal No abdominal pain 01/18/2015 Gastrointestinal constipation 01/18/2015 Gastrointestinal diarrhea 01/18/2015 Gastrointestinal No nausea 01/18/2015 Gastrointestinal No vomiting 01/18/2015 Genitourinary/Nephrology urinary inc ontinence 01/18/2015 Musculoskeletal neck pain 01/18/2015 Dermatologic rash 2014 Neurologic paresthesia 0 01/18/2015 Psychiatric anxiety 12/28 Constitutional recent illness 12/03/2014 Constitutional No anorexia 12/03/2014 Constitutional No night sweats 12/03/2014 Constitutional No chills 12/03/2014 Constitutional No diaphoresis 12/03/2014 Constitutional fatigue 0 12/03/2014 Constitutional No fever 12/03/2014 Constitutional insomnia 12/03/2014 Constitutional No malaise 12/03/2014 Constitutional No weight loss 12/03/2014 Constitutional No weight gain 12/03/2014 Eyes No eye discharge Eyes No eye erythema 02/2015 Ears/Nose/Throat/Neck No dizziness 12/03/2014 Ears/Nose/Throat/Neck No headache 12/03/2014 Cardiovascular No chest pain/pressure 12/03/2014 Cardiovascular No dyspnea 12/03/2014 Respiratory No chest congestion 12/03/2014 Respiratory No cough 02/2015 Respiratory dyspnea on exertion 12/03/2014 Cardiovascular edema 02/2015 Gastrointestinal No abdominal pain 12/03/2014 Gastrointestinal constipation 12/03/2014 Gastrointestinal diarrhea 12/03/2014 Gastrointestinal No nausea 12/03/2014 Gastrointestinal No vomiting 12/03/2014 Dermatologic rash 2014 Genitourinary/Nephrology urinary inc ontinence 12/03/2014 Musculoskeletal neck pain 12/03/2014 Neurologic paresthesia 0 12/03/2014 Psychiatric anxiety 02/2015 Physical Exam Exam Name System Name It em Name Status Result Effective Dates Notes Full Exam - General 1994 Constitutional general appearance Nourishment: well nourished 11/14/2018 None Full Exam - General 1994 Constitutional general appearance Evidence of Distress: in no acute distress 11/14/2018 None Full Exam - General 1994 Constitutional general appearance Hygiene/Attention to Grooming: good hygiene 11/14/2018 None Full Exam - General 1994 Constitutional general appearance Assistive Device: walker 11/14/2018 None Full Exam - General 1994 Eyes conjunctiva/eyelids Overall: conjunctiva clear 11/14/2018 None Full Exam - General 1994 Ears/Nose/Throat otoscopic exam Overall: external auditory canals clear 11/14/2018 None Full Exam - General 1994 Ears/Nose/Throat otoscopic exam Overall: tympanic membranes clear 11/14/2018 None Full Exam - General 1994 Ears/Nose/Throat oral cavity/pharynx/larynx Overall: oral mucosa clear 11/14/2018 None Full Exam - General 1994 Respiratory auscultation Overall: breath sounds clear bilaterally 11/14/2018 None Full Exam - General 1994 Respiratory respiratory effort/rhythm Overall: no retractions 11/14/2018 None Full Exam - General 1994 Respiratory respiratory effort/rhythm Overall: normal rate 11/14/2018 None Full Exam - General 1994 Cardiovascular extremities Edema present: pitting 11/14/2018 trace Full Exam - General 1994 Cardiovascular extremities Edema present: to knees 11/14/2018 None Full Exam - General 1994 Cardiovascular auscultation of heart Overall: regular rate 11/14/2018 None Full Exam - General 1994 Cardiovascular auscultation of heart Overall: normal heart sounds 11/14/2018 None Full Exam - General 1994 Cardiovascular auscultation of heart Systolic murmur: holosystolic 11/14/2018 None Full Exam - General 1994 Cardiovascular auscultation of heart Systolic murmur grade: II/ 11/14/2018 None Full Exam - General 1994 Abdomen abdominal exam Overall: no tenderness 11/14/2018 None Full Exam - General 1994 Abdomen abdominal exam Overall: normal bowel sounds 11/14/2018 None Full Exam - General 1994 Lymphatic neck nodes Overall: anterior cervical chain benign 11/14/2018 None Full Exam - General 1994 Lymphatic neck nodes Overall: posterior cervical chain benign 11/14/2018 None Full Exam - General 1994 Musculoskeletal spine, ribs and pelvis Posture: kyphosis 11/14/2018 None Full Exam - General 1994 Neurologic gait Conventional walking: unsteady 11/14/2018 None Full Exam - General 1994 Neurologic cranial nerves Overall: crainial nerves 2 - 12 grossly intact 11/14/2018 None Full Exam - General 1994 Psychiatric orientation/consciousness Overall: oriented to person, place and time 11/14/2018 None Full Exam - General 1994 Psychiatric behavior/psychomotor activity Behavior: agitation/restlessness 11/14/2018 picking at face and back Full Exam - General 1994 Psychiatric speech Overall: normal quality, no aphasia 11/14/2018 None Full Exam - General 1994 Psychiatric thought Form of thought: tangentially 11/14/2018 None Full Exam - General 1994 Psychiatric thought Content of thought: delusions 11/14/2018 scratching at skin Full Exam - General 1994 Constitutional general appearance Nourishment: well nourished 02/21/2018 None Full Exam - General 1994 Constitutional general appearance Evidence of Distress: in no acute distress 02/21/2018 None Full Exam - General 1994 Constitutional general appearance Hygiene/Attention to Grooming: good hygiene 02/21/2018 None Full Exam - General 1994 Constitutional general appearance Assistive Device: walker 02/21/2018 None Full Exam - General 1994 Eyes conjunctiva/eyelids Overall: conjunctiva clear 02/21/2018 None Full Exam - General 1994 Ears/Nose/Throat otoscopic exam Overall: external auditory canals clear 02/21/2018 None Full Exam - General 1994 Ears/Nose/Throat otoscopic exam Overall: tympanic membranes clear 02/21/2018 None Full Exam - General 1994 Ears/Nose/Throat oral cavity/pharynx/larynx Overall: oral mucosa clear 02/21/2018 None Full Exam - General 1994 Respiratory auscultation Overall: breath sounds clear bilaterally 02/21/2018 None Full Exam - General 1994 Respiratory respiratory effort/rhythm Overall: no retractions 02/21/2018 None Full Exam - General 1994 Respiratory respiratory effort/rhythm Overall: normal rate 02/21/2018 None Full Exam - General 1994 Cardiovascular extremities Edema present: pitting 02/21/2018 trace Full Exam - General 1994 Cardiovascular extremities Edema present: to knees 02/21/2018 None Full Exam - General 1994 Cardiovascular auscultation of heart Overall: regular rate 02/21/2018 None Full Exam - General 1994 Cardiovascular auscultation of heart Overall: normal heart sounds 02/21/2018 None Full Exam - General 1994 Abdomen abdominal exam Overall: no tenderness 02/21/2018 None Full Exam - General 1994 Abdomen abdominal exam Overall: normal bowel sounds 02/21/2018 None Full Exam - General 1994 Lymphatic neck nodes Overall: anterior cervical chain benign 02/21/2018 None Full Exam - General 1994 Lymphatic neck nodes Overall: posterior cervical chain benign 02/21/2018 None Full Exam - General 1994 Musculoskeletal spine, ribs and pelvis Posture: kyphosis 02/21/2018 None Full Exam - General 1994 Neurologic gait Conventional walking: unsteady 02/21/2018 None Full Exam - General 1994 Neurologic cranial nerves Overall: crainial nerves 2 - 12 grossly intact 02/21/2018 None Full Exam - General 1994 Psychiatric orientation/consciousness Overall: oriented to person, place and time 02/21/2018 None Full Exam - General 1994 Psychiatric behavior/psychomotor activity Behavior: agitation/restlessness 02/21/2018 picking at face and back Full Exam - General 1994 Psychiatric speech Overall: normal quality, no aphasia 02/21/2018 None Full Exam - General 1994 Psychiatric thought Form of thought: tangentially 02/21/2018 None Full Exam - General 1994 Psychiatric thought Content of thought: delusions 02/21/2018 scratching at skin Full Exam - General 1994 Cardiovascular auscultation of heart Systolic murmur: holosystolic 02/21/2018 None Full Exam - General 1994 Cardiovascular auscultation of heart Systolic murmur grade: II/ 02/21/2018 None Full Exam - General 1994 Constitutional general appearance Nourishment: well nourished 10/18/2017 None Full Exam - General 1994 Constitutional general appearance Evidence of Distress: in no acute distress 10/18/2017 None Full Exam - General 1994 Constitutional general appearance Hygiene/Attention to Grooming: good hygiene 10/18/2017 None Full Exam - General 1994 Constitutional general appearance Assistive Device: walker 10/18/2017 None Full Exam - General 1994 Eyes conjunctiva/eyelids Overall: conjunctiva clear 10/18/2017 None Full Exam - General 1994 Ears/Nose/Throat otoscopic exam Overall: external auditory canals clear 10/18/2017 None Full Exam - General 1994 Ears/Nose/Throat otoscopic exam Overall: tympanic membranes clear 10/18/2017 None Full Exam - General 1994 Ears/Nose/Throat oral cavity/pharynx/larynx Overall: oral mucosa clear 10/18/2017 None Full Exam - General 1994 Respiratory auscultation Overall: breath sounds clear bilaterally 10/18/2017 None Full Exam - General 1994 Respiratory respiratory effort/rhythm Overall: no retractions 10/18/2017 None Full Exam - General 1994 Respiratory respiratory effort/rhythm Overall: normal rate 10/18/2017 None Full Exam - General 1994 Cardiovascular extremities Edema present: pitting 10/18/2017 trace Full Exam - General 1994 Cardiovascular extremities Edema present: to knees 10/18/2017 None Full Exam - General 1994 Cardiovascular auscultation of heart Overall: regular rate 10/18/2017 None Full Exam - General 1994 Cardiovascular auscultation of heart Overall: normal heart sounds 10/18/2017 None Full Exam - General 1994 Abdomen abdominal exam Overall: no tenderness 10/18/2017 None Full Exam - General 1994 Abdomen abdominal exam Overall: normal bowel sounds 10/18/2017 None Full Exam - General 1994 Lymphatic neck nodes Overall: anterior cervical chain benign 10/18/2017 None Full Exam - General 1994 Lymphatic neck nodes Overall: posterior cervical chain benign 10/18/2017 None Full Exam - General 1994 Musculoskeletal spine, ribs and pelvis Posture: kyphosis 10/18/2017 None Full Exam - General 1994 Neurologic gait Conventional walking: unsteady 10/18/2017 None Full Exam - General 1994 Neurologic cranial nerves Overall: crainial nerves 2 - 12 grossly intact 10/18/2017 None Full Exam - General 1994 Psychiatric orientation/consciousness Overall: oriented to person, place and time 10/18/2017 None Full Exam - General 1994 Psychiatric behavior/psychomotor activity Behavior: agitation/restlessness 10/18/2017 picking at face and back Full Exam - General 1994 Psychiatric speech Overall: normal quality, no aphasia 10/18/2017 None Full Exam - General 1994 Psychiatric thought Form of thought: tangentially 10/18/2017 None Full Exam - General 1994 Psychiatric thought Content of thought: delusions 10/18/2017 scratching at skin Full Exam - General 1994 Constitutional general appearance Nourishment: well nourished 06/14/2017 None Full Exam - General 1994 Constitutional general appearance Evidence of Distress: in no acute distress 06/14/2017 None Full Exam - General 1994 Constitutional general appearance Hygiene/Attention to Grooming: good hygiene 06/14/2017 None Full Exam - General 1994 Eyes conjunctiva/eyelids Overall: conjunctiva clear 06/14/2017 None Full Exam - General 1994 Ears/Nose/Throat otoscopic exam Overall: external auditory canals clear 06/14/2017 None Full Exam - General 1994 Ears/Nose/Throat otoscopic exam Overall: tympanic membranes clear 06/14/2017 None Full Exam - General 1994 Ears/Nose/Throat oral cavity/pharynx/larynx Overall: oral mucosa clear 06/14/2017 None Full Exam - General 1994 Respiratory auscultation Overall: breath sounds clear bilaterally 06/14/2017 None Full Exam - General 1994 Respiratory respiratory effort/rhythm Overall: no retractions 06/14/2017 None Full Exam - General 1994 Respiratory respiratory effort/rhythm Overall: normal rate 06/14/2017 None Full Exam - General 1994 Cardiovascular extremities Edema present: pitting 06/14/2017 trace Full Exam - General 1994 Cardiovascular extremities Edema present: to knees 06/14/2017 None Full Exam - General 1994 Cardiovascular auscultation of heart Overall: regular rate 06/14/2017 None Full Exam - General 1994 Cardiovascular auscultation of heart Overall: normal heart sounds 06/14/2017 None Full Exam - General 1994 Abdomen abdominal exam Overall: no tenderness 06/14/2017 None Full Exam - General 1994 Abdomen abdominal exam Overall: normal bowel sounds 06/14/2017 None Full Exam - General 1994 Lymphatic neck nodes Overall: anterior cervical chain benign 06/14/2017 None Full Exam - General 1994 Lymphatic neck nodes Overall: posterior cervical chain benign 06/14/2017 None Full Exam - General 1994 Musculoskeletal spine, ribs and pelvis Posture: kyphosis 06/14/2017 None Full Exam - General 1994 Neurologic gait Conventional walking: unsteady 06/14/2017 None Full Exam - General 1994 Neurologic cranial nerves Overall: crainial nerves 2 - 12 grossly intact 06/14/2017 None Full Exam - General 1994 Psychiatric orientation/consciousness Overall: oriented to person, place and time 06/14/2017 None Full Exam - General 1994 Psychiatric behavior/psychomotor activity Behavior: agitation/restlessness 06/14/2017 picking at face and back Full Exam - General 1994 Psychiatric speech Overall: normal quality, no aphasia 06/14/2017 None Full Exam - General 1994 Psychiatric thought Form of thought: tangentially 06/14/2017 None Full Exam - General 1994 Psychiatric thought Content of thought: delusions 06/14/2017 scratching at skin Full Exam - General 1994 Constitutional general appearance Assistive Device: walker 06/14/2017 None Full Exam - General 1994 Constitutional general appearance Nourishment: well nourished 02/15/2017 None Full Exam - General 1994 Constitutional general appearance Evidence of Distress: in no acute distress 02/15/2017 None Full Exam - General 1994 Constitutional general appearance Hygiene/Attention to Grooming: good hygiene 02/15/2017 None Full Exam - General 1994 Eyes conjunctiva/eyelids Overall: conjunctiva clear 02/15/2017 None Full Exam - General 1994 Ears/Nose/Throat otoscopic exam Overall: external auditory canals clear 02/15/2017 None Full Exam - General 1994 Ears/Nose/Throat otoscopic exam Overall: tympanic membranes clear 02/15/2017 None Full Exam - General 1994 Ears/Nose/Throat oral cavity/pharynx/larynx Overall: oral mucosa clear 02/15/2017 None Full Exam - General 1994 Respiratory auscultation Overall: breath sounds clear bilaterally 02/15/2017 None Full Exam - General 1994 Respiratory respiratory effort/rhythm Overall: no retractions 02/15/2017 None Full Exam - General 1994 Respiratory respiratory effort/rhythm Overall: normal rate 02/15/2017 None Full Exam - General 1994 Cardiovascular extremities Edema present: pitting 02/15/2017 trace Full Exam - General 1994 Cardiovascular extremities Edema present: to knees 02/15/2017 None Full Exam - General 1994 Cardiovascular auscultation of heart Overall: regular rate 02/15/2017 None Full Exam - General 1994 Cardiovascular auscultation of heart Overall: normal heart sounds 02/15/2017 None Full Exam - General 1994 Abdomen abdominal exam Overall: no tenderness 02/15/2017 None Full Exam - General 1994 Abdomen abdominal exam Overall: normal bowel sounds 02/15/2017 None Full Exam - General 1994 Lymphatic neck nodes Overall: anterior cervical chain benign 02/15/2017 None Full Exam - General 1994 Lymphatic neck nodes Overall: posterior cervical chain benign 02/15/2017 None Full Exam - General 1994 Musculoskeletal spine, ribs and pelvis Posture: kyphosis 02/15/2017 None Full Exam - General 1994 Neurologic gait Conventional walking: unsteady 02/15/2017 None Full Exam - General 1994 Neurologic cranial nerves Overall: crainial nerves 2 - 12 grossly intact 02/15/2017 None Full Exam - General 1994 Psychiatric orientation/consciousness Overall: oriented to person, place and time 02/15/2017 None Full Exam - General 1994 Psychiatric behavior/psychomotor activity Behavior: agitation/restlessness 02/15/2017 picking at face and back Full Exam - General 1994 Psychiatric speech Overall: normal quality, no aphasia 02/15/2017 None Full Exam - General 1994 Psychiatric thought Form of thought: tangentially 02/15/2017 None Full Exam - General 1994 Psychiatric thought Content of thought: delusions 02/15/2017 scratching at skin Full Exam - General 1994 Constitutional general appearance Assistive Device: wheelchair 02/15/2017 None Full Exam - General 1994 Constitutional general appearance Nourishment: well nourished 11/13/2016 None Full Exam - General 1994 Constitutional general appearance Evidence of Distress: in no acute distress 11/13/2016 None Full Exam - General 1994 Constitutional general appearance Hygiene/Attention to Grooming: good hygiene 11/13/2016 None Full Exam - General 1994 Constitutional general appearance Assistive Device: walker 11/13/2016 None Full Exam - General 1994 Eyes conjunctiva/eyelids Overall: conjunctiva clear 11/13/2016 None Full Exam - General 1994 Ears/Nose/Throat otoscopic exam Overall: external auditory canals clear 11/13/2016 None Full Exam - General 1994 Ears/Nose/Throat otoscopic exam Overall: tympanic membranes clear 11/13/2016 None Full Exam - General 1994 Ears/Nose/Throat oral cavity/pharynx/larynx Overall: oral mucosa clear 11/13/2016 None Full Exam - General 1994 Respiratory auscultation Overall: breath sounds clear bilaterally 11/13/2016 None Full Exam - General 1994 Respiratory respiratory effort/rhythm Overall: no retractions 11/13/2016 None Full Exam - General 1994 Respiratory respiratory effort/rhythm Overall: normal rate 11/13/2016 None Full Exam - General 1994 Cardiovascular extremities Edema present: pitting 11/13/2016 None Full Exam - General 1994 Cardiovascular extremities Edema present: severity 1+ - 4+: 2+ 11/13/2016 None Full Exam - General 1994 Cardiovascular extremities Edema present: to knees 11/13/2016 None Full Exam - General 1994 Cardiovascular auscultation of heart Overall: regular rate 11/13/2016 None Full Exam - General 1994 Cardiovascular auscultation of heart Overall: normal heart sounds 11/13/2016 None Full Exam - General 1994 Abdomen abdominal exam Overall: no tenderness 11/13/2016 None Full Exam - General 1994 Abdomen abdominal exam Overall: normal bowel sounds 11/13/2016 None Full Exam - General 1994 Lymphatic neck nodes Overall: anterior cervical chain benign 11/13/2016 None Full Exam - General 1994 Lymphatic neck nodes Overall: posterior cervical chain benign 11/13/2016 None Full Exam - General 1994 Musculoskeletal spine, ribs and pelvis Posture: kyphosis 11/13/2016 None Full Exam - General 1994 Neurologic gait Conventional walking: unsteady 11/13/2016 None Full Exam - General 1994 Neurologic cranial nerves Overall: crainial nerves 2 - 12 grossly intact 11/13/2016 None Full Exam - General 1994 Psychiatric orientation/consciousness Overall: oriented to person, place and time 11/13/2016 None Full Exam - General 1994 Psychiatric behavior/psychomotor activity Behavior: agitation/restlessness 11/13/2016 picking at face and back Full Exam - General 1994 Psychiatric speech Overall: normal quality, no aphasia 11/13/2016 None Full Exam - General 1994 Psychiatric thought Form of thought: tangentially 11/13/2016 None Full Exam - General 1994 Psychiatric thought Content of thought: delusions 11/13/2016 scratching at skin Full Exam - General 1994 Constitutional general appearance Nourishment: well nourished 09/13/2016 None Full Exam - General 1994 Constitutional general appearance Evidence of Distress: in no acute distress 09/13/2016 None Full Exam - General 1994 Constitutional general appearance Hygiene/Attention to Grooming: good hygiene 09/13/2016 None Full Exam - General 1994 Constitutional general appearance Assistive Device: walker 09/13/2016 None Full Exam - General 1994 Eyes conjunctiva/eyelids Overall: conjunctiva clear 09/13/2016 None Full Exam - General 1994 Ears/Nose/Throat otoscopic exam Overall: external auditory canals clear 09/13/2016 None Full Exam - General 1994 Ears/Nose/Throat otoscopic exam Overall: tympanic membranes clear 09/13/2016 None Full Exam - General 1994 Ears/Nose/Throat oral cavity/pharynx/larynx Overall: oral mucosa clear 09/13/2016 None Full Exam - General 1994 Respiratory auscultation Overall: breath sounds clear bilaterally 09/13/2016 None Full Exam - General 1994 Respiratory respiratory effort/rhythm Overall: no retractions 09/13/2016 None Full Exam - General 1994 Respiratory respiratory effort/rhythm Overall: normal rate 09/13/2016 None Full Exam - General 1994 Cardiovascular extremities Edema present: pitting 09/13/2016 None Full Exam - General 1994 Cardiovascular extremities Edema present: severity 1+ - 4+: 2+ 09/13/2016 None Full Exam - General 1994 Cardiovascular extremities Edema present: to knees 09/13/2016 None Full Exam - General 1994 Cardiovascular auscultation of heart Overall: regular rate 09/13/2016 None Full Exam - General 1994 Cardiovascular auscultation of heart Overall: normal heart sounds 09/13/2016 None Full Exam - General 1994 Abdomen abdominal exam Overall: no tenderness 09/13/2016 None Full Exam - General 1994 Abdomen abdominal exam Overall: normal bowel sounds 09/13/2016 None Full Exam - General 1994 Lymphatic neck nodes Overall: anterior cervical chain benign 09/13/2016 None Full Exam - General 1994 Lymphatic neck nodes Overall: posterior cervical chain benign 09/13/2016 None Full Exam - General 1994 Musculoskeletal spine, ribs and pelvis Posture: kyphosis 09/13/2016 None Full Exam - General 1994 Neurologic gait Conventional walking: unsteady 09/13/2016 None Full Exam - General 1994 Neurologic cranial nerves Overall: crainial nerves 2 - 12 grossly intact 09/13/2016 None Full Exam - General 1994 Psychiatric orientation/consciousness Overall: oriented to person, place and time 09/13/2016 None Full Exam - General 1994 Psychiatric behavior/psychomotor activity Behavior: agitation/restlessness 09/13/2016 picking at face and back Full Exam - General 1994 Psychiatric speech Overall: normal quality, no aphasia 09/13/2016 None Full Exam - General 1994 Psychiatric thought Form of thought: tangentially 09/13/2016 None Full Exam - General 1994 Psychiatric thought Content of thought: delusions 09/13/2016 scratching at skin Full Exam - General 1995 Constitutional general appearance Nourishment: well nourished 08/30/2016 None Full Exam - General 1994 Constitutional general appearance Evidence of Distress: in no acute distress 08/30/2016 None Full Exam - General 1994 Constitutional general appearance Hygiene/Attention to Grooming: good hygiene 08/30/2016 None Full Exam - General 1994 Constitutional general appearance Assistive Device: walker 08/30/2016 None Full Exam - General 1994 Eyes conjunctiva/eyelids Overall: conjunctiva clear 08/30/2016 None Full Exam - General 1995 Ears/Nose/Throat otoscopic exam Overall: external auditory canals clear 08/30/2016 None Full Exam - General 1995 Ears/Nose/Throat otoscopic exam Overall: tympanic membranes clear 08/30/2016 None Full Exam - General 1994 Ears/Nose/Throat oral cavity/pharynx/larynx Overall: oral mucosa clear 08/30/2016 None Full Exam - General 1994 Respiratory auscultation Overall: breath sounds clear bilaterally 08/30/2016 None Full Exam - General 1994 Respiratory respiratory effort/rhythm Overall: no retractions 08/30/2016 None Full Exam - General 1994 Respiratory respiratory effort/rhythm Overall: normal rate 08/30/2016 None Full Exam - General 1994 Cardiovascular auscultation of heart Overall: regular rate 08/30/2016 None Full Exam - General 1994 Cardiovascular auscultation of heart Overall: normal heart sounds 08/30/2016 None Full Exam - General 1994 Abdomen abdominal exam Overall: no tenderness 08/30/2016 None Full Exam - General 1994 Abdomen abdominal exam Overall: normal bowel sounds 08/30/2016 None Full Exam - General 1994 Lymphatic neck nodes Overall: anterior cervical chain benign 08/30/2016 None Full Exam - General 1994 Lymphatic neck nodes Overall: posterior cervical chain benign 08/30/2016 None Full Exam - General 1994 Musculoskeletal spine, ribs and pelvis Posture: kyphosis 08/30/2016 None Full Exam - General 1994 Neurologic gait Conventional walking: unsteady 08/30/2016 None Full Exam - General 1994 Neurologic cranial nerves Overall: crainial nerves 2 - 12 grossly intact 08/30/2016 None Full Exam - General 1994 Psychiatric orientation/consciousness Overall: oriented to person, place and time 08/30/2016 None Full Exam - General 1994 Psychiatric behavior/psychomotor activity Behavior: agitation/restlessness 08/30/2016 picking at face and back Full Exam - General 1994 Psychiatric speech Overall: normal quality, no aphasia 08/30/2016 None Full Exam - General 1994 Psychiatric thought Form of thought: tangentially 08/30/2016 None Full Exam - General 1994 Psychiatric thought Content of thought: delusions 08/30/2016 scratching at skin Full Exam - General 1994 Cardiovascular extremities Edema present: pitting 08/30/2016 None Full Exam - General 1994 Cardiovascular extremities Edema present: severity 1+ - 4+: 2+ 08/30/2016 None Full Exam - General 1994 Cardiovascular extremities Edema present: to knees 08/30/2016 None Full Exam - General 1994 Constitutional general appearance Overall: well developed 05/04/2016 None Full Exam - General 1994 Constitutional general appearance Overall: in no acute distress 05/04/2016 None Full Exam - General 1994 Constitutional general appearance Overall: well nourished 05/04/2016 None Full Exam - General 1994 Constitutional general appearance Hygiene/Attention to Grooming: good hygiene 05/04/2016 None Full Exam - General 1994 Constitutional general appearance Assistive Device: walker 05/04/2016 None Full Exam - General 1994 Eyes conjunctiva/eyelids Overall: conjunctiva clear 05/04/2016 None Full Exam - General 1994 Eyes conjunctiva/eyelids Overall: cornea clear 05/04/2016 None Full Exam - General 1994 Eyes conjunctiva/eyelids Overall: eyelids normal 05/04/2016 None Full Exam - General 1994 Eyes pupils and irises Overall: pupils equal, round, reactive to light and accomodation 05/04/2016 None Full Exam - General 1994 Ears/Nose/Throat external ear Overall: normal appearance 05/04/2016 None Full Exam - General 1994 Ears/Nose/Throat external ear Overall: no masses 05/04/2016 None Full Exam - General 1994 Ears/Nose/Throat external ear Overall: normal mastoids 05/04/2016 None Full Exam - General 1994 Ears/Nose/Throat external nose Overall: benign appearance 05/04/2016 None Full Exam - General 1994 Ears/Nose/Throat external nose Overall: no masses 05/04/2016 None Full Exam - General 1994 Ears/Nose/Throat external nose Overall: non-tender 05/04/2016 None Full Exam - General 1994 Ears/Nose/Throat otoscopic exam Overall: external auditory canals clear 05/04/2016 None Full Exam - General 1994 Ears/Nose/Throat otoscopic exam Overall: tympanic membranes clear 05/04/2016 None Full Exam - General 1994 Ears/Nose/Throat lips/teeth/gingiva Overall: benign lips 05/04/2016 None Full Exam - General 1994 Ears/Nose/Throat lips/teeth/gingiva Overall: normal dentition 05/04/2016 None Full Exam - General 1994 Ears/Nose/Throat lips/teeth/gingiva Overall: benign gingiva 05/04/2016 None Full Exam - General 1994 Ears/Nose/Throat lips/teeth/gingiva Overall: no masses 05/04/2016 None Full Exam - General 1994 Ears/Nose/Throat oral cavity/pharynx/larynx Overall: oral mucosa clear 05/04/2016 None Full Exam - General 1994 Respiratory auscultation Overall: breath sounds clear bilaterally 05/04/2016 None Full Exam - General 1994 Respiratory respiratory effort/rhythm Overall: no retractions 05/04/2016 None Full Exam - General 1994 Respiratory respiratory effort/rhythm Overall: normal rate 05/04/2016 None Full Exam - General 1994 Cardiovascular auscultation of heart Overall: regular rate 05/04/2016 None Full Exam - General 1994 Cardiovascular auscultation of heart Overall: normal heart sounds 05/04/2016 None Full Exam - General 1994 Abdomen abdominal exam Overall: no tenderness 05/04/2016 None Full Exam - General 1994 Abdomen abdominal exam Overall: normal bowel sounds 05/04/2016 None Full Exam - General 1994 Lymphatic neck nodes Overall: anterior cervical chain benign 05/04/2016 None Full Exam - General 1994 Lymphatic neck nodes Overall: posterior cervical chain benign 05/04/2016 None Full Exam - General 1994 Musculoskeletal spine, ribs and pelvis Posture: kyphosis 05/04/2016 None Full Exam - General 1994 Neurologic cranial nerves Overall: crainial nerves 2 - 12 grossly intact 05/04/2016 None Full Exam - General 1994 Psychiatric orientation/consciousness Overall: oriented to person, place and time 05/04/2016 None Full Exam - General 1994 Psychiatric speech Overall: normal quality, no aphasia 05/04/2016 None Full Exam - General 1994 Constitutional general appearance Overall: well developed 03/02/2016 None Full Exam - General 1994 Constitutional general appearance Overall: in no acute distress 03/02/2016 None Full Exam - General 1994 Constitutional general appearance Overall: well nourished 03/02/2016 None Full Exam - General 1994 Constitutional general appearance Hygiene/Attention to Grooming: good hygiene 03/02/2016 None Full Exam - General 1994 Constitutional general appearance Assistive Device: walker 03/02/2016 None Full Exam - General 1994 Eyes conjunctiva/eyelids Overall: conjunctiva clear 03/02/2016 None Full Exam - General 1994 Eyes conjunctiva/eyelids Overall: cornea clear 03/02/2016 None Full Exam - General 1994 Eyes conjunctiva/eyelids Overall: eyelids normal 03/02/2016 None Full Exam - General 1994 Eyes pupils and irises Overall: pupils equal, round, reactive to light and accomodation 03/02/2016 None Full Exam - General 1994 Ears/Nose/Throat external ear Overall: normal appearance 03/02/2016 None Full Exam - General 1994 Ears/Nose/Throat external ear Overall: no masses 03/02/2016 None Full Exam - General 1994 Ears/Nose/Throat external ear Overall: normal mastoids 03/02/2016 None Full Exam - General 1994 Ears/Nose/Throat external nose Overall: benign appearance 03/02/2016 None Full Exam - General 1994 Ears/Nose/Throat external nose Overall: no masses 03/02/2016 None Full Exam - General 1994 Ears/Nose/Throat external nose Overall: non-tender 03/02/2016 None Full Exam - General 1994 Ears/Nose/Throat otoscopic exam Overall: external auditory canals clear 03/02/2016 None Full Exam - General 1994 Ears/Nose/Throat otoscopic exam Overall: tympanic membranes clear 03/02/2016 None Full Exam - General 1994 Ears/Nose/Throat lips/teeth/gingiva Overall: benign lips 03/02/2016 None Full Exam - General 1994 Ears/Nose/Throat lips/teeth/gingiva Overall: normal dentition 03/02/2016 None Full Exam - General 1994 Ears/Nose/Throat lips/teeth/gingiva Overall: benign gingiva 03/02/2016 None Full Exam - General 1994 Ears/Nose/Throat lips/teeth/gingiva Overall: no masses 03/02/2016 None Full Exam - General 1994 Ears/Nose/Throat oral cavity/pharynx/larynx Overall: oral mucosa clear 03/02/2016 None Full Exam - General 1994 Respiratory auscultation Overall: breath sounds clear bilaterally 03/02/2016 None Full Exam - General 1994 Respiratory respiratory effort/rhythm Overall: no retractions 03/02/2016 None Full Exam - General 1994 Respiratory respiratory effort/rhythm Overall: normal rate 03/02/2016 None Full Exam - General 1994 Cardiovascular auscultation of heart Overall: regular rate 03/02/2016 None Full Exam - General 1994 Cardiovascular auscultation of heart Overall: normal heart sounds 03/02/2016 None Full Exam - General 1994 Abdomen abdominal exam Overall: no tenderness 03/02/2016 None Full Exam - General 1994 Abdomen abdominal exam Overall: normal bowel sounds 03/02/2016 None Full Exam - General 1994 Lymphatic neck nodes Overall: anterior cervical chain benign 03/02/2016 None Full Exam - General 1994 Lymphatic neck nodes Overall: posterior cervical chain benign 03/02/2016 None Full Exam - General 1994 Musculoskeletal spine, ribs and pelvis Posture: kyphosis 03/02/2016 None Full Exam - General 1994 Neurologic gait Conventional walking: unsteady 03/02/2016 None Full Exam - General 1994 Neurologic cranial nerves Overall: crainial nerves 2 - 12 grossly intact 03/02/2016 None Full Exam - General 1994 Psychiatric orientation/consciousness Overall: oriented to person, place and time 03/02/2016 None Full Exam - General 1994 Psychiatric speech Overall: normal quality, no aphasia 03/02/2016 None Full Exam - General 1994 Constitutional general appearance Overall: well developed 06/17/2015 None Full Exam - General 1994 Constitutional general appearance Overall: in no acute distress 06/17/2015 None Full Exam - General 1994 Constitutional general appearance Overall: well nourished 06/17/2015 None Full Exam - General 1994 Constitutional general appearance Hygiene/Attention to Grooming: good hygiene 06/17/2015 None Full Exam - General 1994 Constitutional general appearance Assistive Device: walker 06/17/2015 None Full Exam - General 1994 Eyes conjunctiva/eyelids Overall: conjunctiva clear 06/17/2015 None Full Exam - General 1994 Eyes conjunctiva/eyelids Overall: cornea clear 06/17/2015 None Full Exam - General 1994 Eyes conjunctiva/eyelids Overall: eyelids normal 06/17/2015 None Full Exam - General 1994 Eyes pupils and irises Overall: pupils equal, round, reactive to light and accomodation 06/17/2015 None Full Exam - General 1994 Ears/Nose/Throat external ear Overall: normal appearance 06/17/2015 None Full Exam - General 1994 Ears/Nose/Throat external ear Overall: no masses 06/17/2015 None Full Exam - General 1994 Ears/Nose/Throat external ear Overall: normal mastoids 06/17/2015 None Full Exam - General 1994 Ears/Nose/Throat external nose Overall: benign appearance 06/17/2015 None Full Exam - General 1994 Ears/Nose/Throat external nose Overall: no masses 06/17/2015 None Full Exam - General 1994 Ears/Nose/Throat external nose Overall: non-tender 06/17/2015 None Full Exam - General 1994 Ears/Nose/Throat otoscopic exam Overall: external auditory canals clear 06/17/2015 None Full Exam - General 1994 Ears/Nose/Throat otoscopic exam Overall: tympanic membranes clear 06/17/2015 None Full Exam - General 1994 Ears/Nose/Throat lips/teeth/gingiva Overall: benign lips 06/17/2015 None Full Exam - General 1994 Ears/Nose/Throat lips/teeth/gingiva Overall: normal dentition 06/17/2015 None Full Exam - General 1994 Ears/Nose/Throat lips/teeth/gingiva Overall: benign gingiva 06/17/2015 None Full Exam - General 1994 Ears/Nose/Throat lips/teeth/gingiva Overall: no masses 06/17/2015 None Full Exam - General 1994 Neck inspection of neck Overall: normal size 06/17/2015 None Full Exam - General 1994 Respiratory auscultation Overall: breath sounds clear bilaterally 06/17/2015 None Full Exam - General 1994 Respiratory respiratory effort/rhythm Overall: no retractions 06/17/2015 None Full Exam - General 1994 Respiratory respiratory effort/rhythm Overall: normal rate 06/17/2015 None Full Exam - General 1994 Cardiovascular auscultation of heart Overall: regular rate 06/17/2015 None Full Exam - General 1994 Cardiovascular auscultation of heart Overall: normal heart sounds 06/17/2015 None Full Exam - General 1994 Abdomen abdominal exam Overall: no tenderness 06/17/2015 None Full Exam - General 1994 Abdomen abdominal exam Overall: normal bowel sounds 06/17/2015 None Full Exam - General 1994 Lymphatic neck nodes Overall: anterior cervical chain benign 06/17/2015 None Full Exam - General 1994 Lymphatic neck nodes Overall: posterior cervical chain benign 06/17/2015 None Full Exam - General 1994 Musculoskeletal spine, ribs and pelvis Posture: kyphosis 06/17/2015 None Full Exam - General 1994 Neurologic gait Conventional walking: unsteady 06/17/2015 None Full Exam - General 1994 Neurologic cranial nerves Overall: crainial nerves 2 - 12 grossly intact 06/17/2015 None Full Exam - General 1994 Psychiatric orientation/consciousness Overall: oriented to person, place and time 06/17/2015 None Full Exam - General 1994 Psychiatric speech Overall: normal quality, no aphasia 06/17/2015 None Full Exam - General 1994 Musculoskeletal lower extremity Palpation - knee: crepitus 06/17/2015 None Full Exam - General 1994 Musculoskeletal lower extremity ROM - knee: pain with flexion 06/17/2015 None Full Exam - General 1994 Ears/Nose/Throat oral cavity/pharynx/larynx Retromolar trigone: lesion 05/17/2015 LEFT L ATERAL TONGUE Full Exam - General 1994 Ears/Nose/Throat lips/teeth/gingiva Overall: benign gingiva 05/17/2015 None Full Exam - General 1994 Ears/Nose/Throat lips/teeth/gingiva Overall: no masses 05/17/2015 None Full Exam - General 1994 Ears/Nose/Throat lips/teeth/gingiva Overall: normal dentition 05/17/2015 None Full Exam - General 1994 Ears/Nose/Throat lips/teeth/gingiva Overall: benign lips 05/17/2015 None Full Exam - General 1994 Ears/Nose/Throat external ear Overall: no masses 05/17/2015 None Full Exam - General 1994 Ears/Nose/Throat external ear Overall: normal appearance 05/17/2015 None Full Exam - General 1994 Ears/Nose/Throat external ear Overall: normal mastoids 05/17/2015 None Full Exam - General 1994 Ears/Nose/Throat external nose Overall: benign appearance 05/17/2015 None Full Exam - General 1994 Ears/Nose/Throat external nose Overall: non-tender 05/17/2015 None Full Exam - General 1994 Ears/Nose/Throat external nose Overall: no masses 05/17/2015 None Full Exam - General 1994 Ears/Nose/Throat otoscopic exam Overall: tympanic membranes clear 05/17/2015 None Full Exam - General 1994 Ears/Nose/Throat otoscopic exam Overall: external auditory canals clear 05/17/2015 None Full Exam - General 1994 Eyes pupils and irises Overall: pupils equal, round, reactive to light and accomodation 05/17/2015 None Full Exam - General 1994 Eyes conjunctiva/eyelids Overall: conjunctiva clear 05/17/2015 None Full Exam - General 1994 Eyes conjunctiva/eyelids Overall: eyelids normal 05/17/2015 None Full Exam - General 1994 Eyes conjunctiva/eyelids Overall: cornea clear 05/17/2015 None Full Exam - General 1994 Constitutional general appearance Overall: well nourished 05/17/2015 None Full Exam - General 1994 Constitutional general appearance Overall: well developed 05/17/2015 None Full Exam - General 1994 Constitutional general appearance Overall: in no acute distress 05/17/2015 None Full Exam - General 1994 Respiratory respiratory effort/rhythm Overall: normal rate 05/17/2015 None Full Exam - General 1994 Respiratory respiratory effort/rhythm Overall: no retractions 05/17/2015 None Full Exam - General 1994 Constitutional general appearance Hygiene/Attention to Grooming: good hygiene 05/17/2015 None Full Exam - General 1994 Constitutional general appearance Assistive Device: walker 05/17/2015 None Full Exam - General 1994 Ears/Nose/Throat oral cavity/pharynx/larynx Overall: oral mucosa clear 05/17/2015 None Full Exam - General 1994 Neck inspection of neck Overall: normal size 05/17/2015 c-collar on Full Exam - General 1994 Respiratory auscultation Overall: breath sounds clear bilaterally 05/17/2015 None Full Exam - General 1994 Cardiovascular auscultation of heart Overall: regular rate 05/17/2015 None Full Exam - General 1994 Cardiovascular auscultation of heart Overall: normal heart sounds 05/17/2015 None Full Exam - General 1994 Abdomen abdominal exam Overall: no tenderness 05/17/2015 None Full Exam - General 1994 Abdomen abdominal exam Overall: normal bowel sounds 05/17/2015 None Full Exam - General 1994 Lymphatic neck nodes Overall: anterior cervical chain benign 05/17/2015 None Full Exam - General 1994 Lymphatic neck nodes Overall: posterior cervical chain benign 05/17/2015 None Full Exam - General 1994 Musculoskeletal spine, ribs and pelvis Posture: kyphosis 05/17/2015 None Full Exam - General 1994 Neurologic gait Conventional walking: unsteady 05/17/2015 None Full Exam - General 1994 Neurologic cranial nerves Overall: crainial nerves 2 - 12 grossly intact 05/17/2015 None Full Exam - General 1994 Psychiatric orientation/consciousness Overall: oriented to person, place and time 05/17/2015 None Full Exam - General 1994 Psychiatric speech Overall: normal quality, no aphasia 05/17/2015 None Full Exam - General 1994 Constitutional general appearance Nourishment: well nourished 03/22/2015 None Full Exam - General 1994 Constitutional general appearance Evidence of Distress: in no acute distress 03/22/2015 None Full Exam - General 1994 Constitutional general appearance Hygiene/Attention to Grooming: good hygiene 03/22/2015 None Full Exam - General 1994 Constitutional general appearance Assistive Device: walker 03/22/2015 None Full Exam - General 1994 Respiratory auscultation Overall: breath sounds clear bilaterally 03/22/2015 None Full Exam - General 1994 Respiratory respiratory effort/rhythm Overall: no retractions 03/22/2015 None Full Exam - General 1994 Respiratory respiratory effort/rhythm Overall: normal rate 03/22/2015 None Full Exam - General 1994 Cardiovascular auscultation of heart Overall: regular rate 03/22/2015 None Full Exam - General 1994 Cardiovascular auscultation of heart Overall: normal heart sounds 03/22/2015 None Full Exam - General 1994 Neurologic gait Conventional walking: unsteady 03/22/2015 None Full Exam - General 1994 Psychiatric orientation/consciousness Overall: oriented to person, place and time 03/22/2015 None Full Exam - General 1994 Eyes conjunctiva/eyelids Overall: conjunctiva clear 03/22/2015 None Full Exam - General 1994 Ears/Nose/Throat otoscopic exam Overall: external auditory canals clear 03/22/2015 None Full Exam - General 1994 Ears/Nose/Throat otoscopic exam Overall: tympanic membranes clear 03/22/2015 None Full Exam - General 1994 Ears/Nose/Throat oral cavity/pharynx/larynx Overall: oral mucosa clear 03/22/2015 None Full Exam - General 1994 Abdomen abdominal exam Overall: no tenderness 03/22/2015 None Full Exam - General 1994 Abdomen abdominal exam Overall: normal bowel sounds 03/22/2015 None Full Exam - General 1994 Lymphatic neck nodes Overall: anterior cervical chain benign 03/22/2015 None Full Exam - General 1994 Lymphatic neck nodes Overall: posterior cervical chain benign 03/22/2015 None Full Exam - General 1994 Musculoskeletal spine, ribs and pelvis Posture: kyphosis 03/22/2015 None Full Exam - General 1994 Neurologic cranial nerves Overall: crainial nerves 2 - 12 grossly intact 03/22/2015 None Full Exam - General 1994 Psychiatric speech Overall: normal quality, no aphasia 03/22/2015 None Full Exam - General 1994 Integument inspection of skin Location: neck 03/22/2015 posterior neck healing lockhart rgical incision -no s/s infection Full Exam - General 1994 Neck inspection of neck Overall: normal size 03/22/2015 c-collar on Full Exam - General 1994 Constitutional general appearance Nourishment: well nourished 02/11/2015 None Full Exam - General 1994 Constitutional general appearance Evidence of Distress: in no acute distress 02/11/2015 None Full Exam - General 1994 Constitutional general appearance Hygiene/Attention to Grooming: good hygiene 02/11/2015 None Full Exam - General 1994 Constitutional general appearance Assistive Device: walker 02/11/2015 None Full Exam - General 1994 Respiratory respiratory effort/rhythm Overall: no retractions 02/11/2015 None Full Exam - General 1994 Respiratory respiratory effort/rhythm Overall: normal rate 02/11/2015 None Full Exam - General 1994 Respiratory auscultation Overall: breath sounds clear bilaterally 02/11/2015 None Full Exam - General 1994 Cardiovascular auscultation of heart Overall: regular rate 02/11/2015 None Full Exam - General 1994 Cardiovascular auscultation of heart Overall: normal heart sounds 02/11/2015 None Full Exam - General 1994 Neurologic gait Conventional walking: unsteady 02/11/2015 None Full Exam - General 1994 Psychiatric orientation/consciousness Overall: oriented to person, place and time 02/11/2015 None Full Exam - General 1994 Integument inspection of skin Location: left foot 02/11/2015 left great toe-toenail mi ssing-scabbed, mild erythema Full Exam - General 1994 Constitutional general appearance Nourishment: well nourished 01/18/2015 None Full Exam - General 1994 Constitutional general appearance Evidence of Distress: in no acute distress 01/18/2015 None Full Exam - General 1994 Constitutional general appearance Hygiene/Attention to Grooming: good hygiene 01/18/2015 None Full Exam - General 1994 Constitutional general appearance Assistive Device: walker 01/18/2015 None Full Exam - General 1994 Eyes conjunctiva/eyelids Overall: conjunctiva clear 01/18/2015 None Full Exam - General 1994 Ears/Nose/Throat otoscopic exam Overall: external auditory canals clear 01/18/2015 None Full Exam - General 1994 Ears/Nose/Throat otoscopic exam Overall: tympanic membranes clear 01/18/2015 None Full Exam - General 1994 Ears/Nose/Throat oral cavity/pharynx/larynx Overall: oral mucosa clear 01/18/2015 None Full Exam - General 1994 Respiratory auscultation Overall: breath sounds clear bilaterally 01/18/2015 None Full Exam - General 1994 Respiratory respiratory effort/rhythm Overall: no retractions 01/18/2015 None Full Exam - General 1994 Respiratory respiratory effort/rhythm Overall: normal rate 01/18/2015 None Full Exam - General 1994 Cardiovascular auscultation of heart Overall: regular rate 01/18/2015 None Full Exam - General 1994 Cardiovascular auscultation of heart Overall: normal heart sounds 01/18/2015 None Full Exam - General 1994 Abdomen abdominal exam Overall: no tenderness 01/18/2015 None Full Exam - General 1994 Abdomen abdominal exam Overall: normal bowel sounds 01/18/2015 None Full Exam - General 1994 Lymphatic neck nodes Overall: anterior cervical chain benign 01/18/2015 None Full Exam - General 1994 Lymphatic neck nodes Overall: posterior cervical chain benign 01/18/2015 None Full Exam - General 1994 Musculoskeletal spine, ribs and pelvis Posture: kyphosis 01/18/2015 None Full Exam - General 1994 Integument inspection of skin Location: neck 01/18/2015 scabbed lesion upper shou lders and neck Full Exam - General 1994 Neurologic gait Conventional walking: unsteady 01/18/2015 None Full Exam - General 1994 Neurologic cranial nerves Overall: crainial nerves 2 - 12 grossly intact 01/18/2015 None Full Exam - General 1994 Psychiatric orientation/consciousness Overall: oriented to person, place and time 01/18/2015 None Full Exam - General 1994 Psychiatric behavior/psychomotor activity Behavior: agitation/restlessness 01/18/2015 picking at face and back Full Exam - General 1994 Psychiatric speech Overall: normal quality, no aphasia 01/18/2015 None Full Exam - General 1994 Psychiatric thought Form of thought: tangentially 01/18/2015 None Full Exam - General 1994 Psychiatric thought Content of thought: delusions 01/18/2015 scratching at skin Full Exam - General 1994 Constitutional general appearance Nourishment: well nourished 12/03/2014 None Full Exam - General 1994 Constitutional general appearance Evidence of Distress: in no acute distress 12/03/2014 None Full Exam - General 1994 Constitutional general appearance Hygiene/Attention to Grooming: good hygiene 12/03/2014 None Full Exam - General 1994 Constitutional general appearance Assistive Device: walker 12/03/2014 None Full Exam - General 1994 Psychiatric orientation/consciousness Overall: oriented to person, place and time 12/03/2014 None Full Exam - General 1994 Psychiatric behavior/psychomotor activity Behavior: agitation/restlessness 12/03/2014 picking at face and back Full Exam - General 1994 Neurologic cranial nerves Overall: crainial nerves 2 - 12 grossly intact 12/03/2014 None Full Exam - General 1994 Neurologic gait Conventional walking: unsteady 12/03/2014 None Full Exam - General 1994 Integument inspection of skin Location: neck 12/03/2014 scabbed lesion upper shou lders and neck Full Exam - General 1994 Musculoskeletal spine, ribs and pelvis Posture: kyphosis 12/03/2014 None Full Exam - General 1994 Lymphatic neck nodes Overall: anterior cervical chain benign 12/03/2014 None Full Exam - General 1994 Lymphatic neck nodes Overall: posterior cervical chain benign 12/03/2014 None Full Exam - General 1994 Abdomen abdominal exam Overall: no tenderness 12/03/2014 None Full Exam - General 1994 Abdomen abdominal exam Overall: normal bowel sounds 12/03/2014 None Full Exam - General 1994 Cardiovascular auscultation of heart Overall: regular rate 12/03/2014 None Full Exam - General 1994 Cardiovascular auscultation of heart Overall: normal heart sounds 12/03/2014 None Full Exam - General 1994 Respiratory auscultation Overall: breath sounds clear bilaterally 12/03/2014 None Full Exam - General 1994 Respiratory respiratory effort/rhythm Overall: normal rate 12/03/2014 None Full Exam - General 1994 Respiratory respiratory effort/rhythm Overall: no retractions 12/03/2014 None Full Exam - General 1994 Ears/Nose/Throat otoscopic exam Overall: external auditory canals clear 12/03/2014 None Full Exam - General 1994 Ears/Nose/Throat otoscopic exam Overall: tympanic membranes clear 12/03/2014 None Full Exam - General 1994 Ears/Nose/Throat oral cavity/pharynx/larynx Overall: oral mucosa clear 12/03/2014 None Full Exam - General 1994 Eyes conjunctiva/eyelids Overall: conjunctiva clear 12/03/2014 None Full Exam - General 1994 Psychiatric speech Overall: normal quality, no aphasia 12/03/2014 None Full Exam - General 1994 Psychiatric thought Form of thought: tangentially 12/03/2014 None Full Exam - General 1994 Psychiatric thought Content of thought: delusions 12/03/2014 scratching at skin Procedures Procedure Codes Date OCCULT BLOOD FECES CPT- 4: 97966 09/10/2016 ADMIN INFLUENZA VIRU S VAC CPT-4: G0008 05/04/2016 FLU VACC 4 RANJIT 3 YRS PLUS IM SNOMED CT: [id number] CPT-4: 32930 05/04/2016 ROUTINE VENIPUNCTURE CPT-4: 78724 01/18/2015 Vital Signs Date Vital 11/14/2018 Blood Pressure 1: 146/72 Code: 8480-6 BMI: 34.0 Code: 99873-4 Heart Rate 1: 73 bpm Height: 5'2" SpO2: 94% Weight: 186 lbs 02/21/2018 Blood Pressure 1: 138/80 Code: 8480-6 BMI: 34.4 Code: 61326-3 Heart Rate 1: 88 bpm Height: 5'2" SpO2: 91% Weight: 188 lbs 10/18/2017 Blood Pressure 1: 146/68 Code: 8480-6 BMI: 36.9 Code: 66339-1 Heart Rate 1: 68 bpm Height: 5'2" SpO2: 92% Weight: 202 lbs 06/14/2017 Blood Pressure 1: 138/76 Code: 8480-6 BMI: 36.9 Code: 81950-7 Heart Rate 1: 66 bpm Height: 5'2" SpO2: 90% Weight: 202 lbs 02/15/2017 Blood Pressure 1: 136/68 Code: 8480-6 BMI: 37.7 Code: 60284-2 Heart Rate 1: 76 bpm Height: 5'2" SpO2: 92% Weight: 206 lbs 11/13/2016 Blood Pressure 1: 126/64 Code: 8480-6 BMI: 38.4 Code: 83923-0 Heart Rate 1: 71 bpm Height: 5'2" SpO2: 90% Weight: 210 lbs 09/13/2016 Blood Pressure 1: 123/75 Code: 8480-6 BMI: 38.2 Code: 64176-4 Heart Rate 1: 77 bpm Height: 5'2" Respiratory Rate: 18 bpm SpO2: 94% Temperature: 37.1 (C ) / 98.7 (F) Weight: 209 lbs 08/30/2016 Blood Pressure 1: 124/78 Code: 8480-6 BMI: 38.4 Code: 97040-5 Heart Rate 1: 80 bpm Height: 5'2" SpO2: 92% Weight: 210 lbs 05/04/2016 Blood Pressure 1: 132/78 Code: 8480-6 BMI: 34.9 Code: 53151-7 Heart Rate 1: 78 bpm Height: 5'2" SpO2: 97% Weight: 191 lbs 03/02/2016 Blood Pressure 1: 110/58 Code: 8480-6 BMI: 34.8 Code: 44426-0 Heart Rate 1: 76 bpm Height: 5'2" SpO2: 97% Weight: 190 lbs 06/17/2015 Blood Pressure 1: 140/58 Code: 8480-6 BMI: 30.5 Code: 72283-2 Heart Rate 1: 68 bpm Height: 5'2" SpO2: 93% Weight: 167 lbs 05/17/2015 Blood Pressure 1: 128/70 Code: 8480-6 BMI: 30.5 Code: 85939-7 Heart Rate 1: 58 bpm Height: 5'2" SpO2: 95% Weight: 167 lbs 03/22/2015 Blood Pressure 1: 128/80 Code: 8480-6 BMI: 31.1 Code: 00831-2 Heart Rate 1: 70 bpm Height: 5'2" SpO2: 96% Weight: 170 lbs 02/11/2015 Blood Pressure 1: 128/60 Code: 8480-6 BMI: 33.7 Code: 78793-8 Heart Rate 1: 65 bpm Height: 5'2" SpO2: 95% Weight: 184 lbs 01/18/2015 Blood Pressure 1: 128/74 Code: 8480-6 BMI: 33.8 Code: 73623-3 Heart Rate 1: 74 bpm Height: 5'2" SpO2: 95% Weight: 185 lbs 12/03/2014 Blood Pressure 1: 132/74 Code: 8480-6 BMI: 34.2 Code: 25185-9 Heart Rate 1: 72 bpm Height: 5'2" SpO2: 98% Weight: 187 lbs Functional Status No Functional Status data History of Present Illness Symptom Name Status Resu lt Effective Date Notes Quality chronic 11/14/2018 None Severity mild 11/14/2018 None Alleviating Factors me dication 11/14/2018 None Alleviating Factors diet 11/14/2018 None Pertinent Findings Den ies dizziness 11/14/2018 None Pertinent Findings Den ies dyspnea 11/14/2018 None Test results HgbA1c le [place] 5.6 11/14/2018 None Glucose monitoring vargas s not test 11/14/2018 None Nutrition regular diet 11/14/2018 None Exercise no exercise 11/14/2018 None diabetes mellitus Quality chronic 02/21/2018 None diabetes mellitus Alleviating Factors medication 02/21/2018 None diabetes mellitus Alleviating Factors diet 02/21/2018 None diabetes mellitus Pertinent Findings Denies dizziness 02/21/2018 None diabetes mellitus Pertinent Findings Denies dyspnea 02/21/2018 None diabetes mellitus Glucose monitoring does not test 02/21/2018 None diabetes mellitus Test results HgbA1c level 5.4 02/21/2018 None diabetes mellitus Severity mild 02/21/2018 None edema Onset and Resolution ongoing 10/18/2017 None edema Limitation on Activities does not limit activities 10/18/2017 None edema Frequency of Episodes unchanged 10/18/2017 None edema Triggers no known associated factors 10/18/2017 None edema Alleviating Factors medication 10/18/2017 None edema Location diffusely 10/18/2017 None edema Location on both l egs 10/18/2017 None edema Quality acute 10/18/2017 None diabetes mellitus Quality chronic 10/18/2017 None diabetes mellitus Alleviating Factors medication 10/18/2017 None diabetes mellitus Alleviating Factors diet 10/18/2017 None diabetes mellitus Pertinent Findings Denies dizziness 10/18/2017 None diabetes mellitus Pertinent Findings Denies dyspnea 10/18/2017 None edema Onset and Resolution ongoing 06/14/2017 None edema Limitation on Activities does not limit activities 06/14/2017 None edema Frequency of Episodes unchanged 06/14/2017 None edema Triggers no known associated factors 06/14/2017 None edema Alleviating Factors medication 06/14/2017 None edema Location diffusely 06/14/2017 None edema Location on both l egs 06/14/2017 None edema Quality acute 06/14/2017 None diabetes mellitus Quality chronic 06/14/2017 None diabetes mellitus Alleviating Factors medication 06/14/2017 None diabetes mellitus Alleviating Factors diet 06/14/2017 None diabetes mellitus Pertinent Findings Denies dizziness 06/14/2017 None diabetes mellitus Pertinent Findings Denies dyspnea 06/14/2017 None edema Onset and Resolution ongoing 02/15/2017 None edema Limitation on Activities does not limit activities 02/15/2017 None edema Frequency of Episodes unchanged 02/15/2017 None edema Triggers no known associated factors 02/15/2017 None edema Alleviating Factors medication 02/15/2017 None edema Location diffusely 02/15/2017 None edema Location on both l egs 02/15/2017 None edema Quality acute 02/15/2017 None diabetes mellitus Quality chronic 02/15/2017 None diabetes mellitus Alleviating Factors medication 02/15/2017 None diabetes mellitus Alleviating Factors diet 02/15/2017 None diabetes mellitus Pertinent Findings Denies dizziness 02/15/2017 None diabetes mellitus Pertinent Findings Denies dyspnea 02/15/2017 None edema Onset and Resolution ongoing 11/13/2016 None edema Limitation on Activities does not limit activities 11/13/2016 None edema Frequency of Episodes unchanged 11/13/2016 None edema Triggers no known associated factors 11/13/2016 None edema Alleviating Factors medication 11/13/2016 None edema Location diffusely 11/13/2016 None edema Location on both l egs 11/13/2016 None edema Quality acute 11/13/2016 None diabetes mellitus Quality chronic 11/13/2016 None diabetes mellitus Test results HgbA1c level 5.9 11/13/2016 None diabetes mellitus Blood glucose levels between 60 and 120 11/13/2016 None diabetes mellitus Blood glucose levels greater than 120 11/13/2016 None diabetes mellitus Glucose monitoring daily 11/13/2016 None diabetes mellitus Alleviating Factors medication 11/13/2016 None diabetes mellitus Alleviating Factors diet 11/13/2016 None diabetes mellitus Exercise no exercise 11/13/2016 None edema Onset and Resolution ongoing 09/13/2016 None edema Onset of Symptom _ weeks ago 09/13/2016 None edema Limitation on Activities does not limit activities 09/13/2016 None edema Frequency of Episodes unchanged 09/13/2016 None edema Triggers no known associated factors 09/13/2016 None edema Alleviating Factors medication 09/13/2016 None edema Quality acute 09/13/2016 None edema Location diffusely 09/13/2016 None edema Location on both l egs 09/13/2016 None gait abnormality Quality intermittent 08/30/2016 None gait abnormality Onset and Resolution ongoing 08/30/2016 None gait abnormality Limitation on Activities able to perform ADLs 08/30/2016 None gait abnormality Limitation on Activities ambulation with walker 08/30/2016 None gait abnormality Frequency of Episodes increasing 08/30/2016 None hypertension Quality int ermittent 08/30/2016 None hypertension Onset of Symptom during adulthood 08/30/2016 None hypertension Blood Pressure Values not checking blood pressure at home 08/30/2016 None hypertension Blood Pressure Values patient checking blood pressure at home - did not bring in readings 08/30/2016 [facility] it hypertension Severity no t consistently severe symptoms, the symptoms fluctuate from no symptoms to anxiety and headaches 08/30/2016 None hypertension Frequency of Episodes unchanged 08/30/2016 None hypertension Pertinent Findings anxiety 08/30/2016 None hypertension Pertinent Findings Denies dizziness 08/30/2016 None hypertension Pertinent Findings dyspnea 08/30/2016 occ with activity skin lesion Quality scab bed 08/30/2016 None skin lesion Quality ip litigation associate seven 08/30/2016 None skin lesion Quality eryt hematous 08/30/2016 None skin lesion Quality rais ed 08/30/2016 None skin lesion Onset and Resolution ongoing 08/30/2016 None skin lesion Alleviating Factors no alleviating factors 08/30/2016 None skin lesion Triggers no known associated factors 08/30/2016 None back pain Location diffu sely 08/30/2016 None back pain Quality aching 08/30/2016 None back pain Quality chronic 08/30/2016 None back pain Onset and Resolution gradual in onset 08/30/2016 None back pain Onset and Resolution ongoing 08/30/2016 None back pain Pertinent Findings morning stiffness 08/30/2016 None back pain Pertinent Findings shoulder weakness 08/30/2016 None back pain Pertinent Findings limited range of neck motion 08/30/2016 None back pain Pertinent Findings Denies motor vehicle accident 08/30/2016 None back pain Pertinent Findings Denies radicular pain - left arm 08/30/2016 None back pain Pertinent Findings Denies radicular pain - right arm 08/30/2016 None diabetes mellitus Test results HgbA1c level 5.4 05/04/2016 None diabetes mellitus Severity mild 05/04/2016 None diabetes mellitus Quality non-insulin dependent 05/04/2016 None diabetes mellitus Blood glucose levels between 60 and 120 05/04/2016 None diabetes mellitus Glucose monitoring occasional glucose testing 05/04/2016 None diabetes mellitus Alleviating Factors medication 05/04/2016 None diabetes mellitus Alleviating Factors diet 05/04/2016 None diabetes mellitus Nutrition regular diet 05/04/2016 None diabetes mellitus Exercise no exercise 05/04/2016 None diabetes mellitus Onset of Symptom onset as an adult 05/04/2016 None Hospital Follow Up _ [facility] er: fall 03/02/2016 None Hospital Follow Up Location ribs right side 03/02/2016 None Hospital Follow Up Onset of Symptom 1 weeks ago 03/02/2016 None Hospital Follow Up Mechanism of injury moderate energy 03/02/2016 None Hospital Follow Up Onset and Resolution ongoing 03/02/2016 None Hospital Follow Up Severity moderate 03/02/2016 None Hospital Follow Up Significant Medic al Conditions rib fracture 03/02/2016 right rib 6 and 7 knee pain Location on th e left 06/17/2015 None knee pain Quality sharp pain 06/17/2015 None knee pain Onset and Resolution sudden in onset 06/17/2015 None knee pain Onset of Symptom 5 days ago 06/17/2015 None knee pain Frequency of Episodes daily 06/17/2015 None knee pain Mechanism of injury fall onto knee 06/17/2015 None knee pain Mechanism of injury indirect trauma 06/17/2015 None knee pain Pertinent Findings limping 06/17/2015 None knee pain Pertinent Findings numbness 06/17/2015 None knee pain Pertinent Findings pain with movement 06/17/2015 None knee pain Limitation on Activities allows weight bearing activity 06/17/2015 None wrist pain Location on t he right 05/17/2015 None wrist pain Quality inter mittent 05/17/2015 None wrist pain Onset of Symptom 2 weeks ago 05/17/2015 None wrist pain Frequency of Episodes daily 05/17/2015 None wrist pain Pertinent Findings Denies bruising 05/17/2015 None wrist pain Pertinent Findings swelling 05/17/2015 None diabetes mellitus Quality NIDDM 03/22/2015 None diabetes mellitus Pertinent Findings Denies dizziness 03/22/2015 None diabetes mellitus Pertinent Findings Denies dyspnea 03/22/2015 None Hospital Follow Up _ mus culoskeletal disorder 03/22/2015 RECENT NECK SURGERY diabetes mellitus Severity mild 03/22/2015 None diabetes mellitus Test results Pt checking blood glucose at home, see scanned readings 03/22/2015 None diabetes mellitus Blood glucose levels between 60 and 120 03/22/2015 None diabetes mellitus Glucose monitoring daily 03/22/2015 None diabetes mellitus Alleviating Factors diet 03/22/2015 None diabetes mellitus Nutrition regular diet 03/22/2015 None diabetes mellitus Exercise no exercise 03/22/2015 None hypertension Blood Pressure Values patient checking blood pressure at home - did not bring in readings 02/11/2015 None hypertension Frequency of Episodes daily 02/11/2015 None hypertension Frequency of Episodes weekly 02/11/2015 [facility] Follow Up _ Ot er: toe nail avulsion 02/11/2015 None diabetes mellitus Test results Pt checking blood glucose readings, did not bring results to clinic 02/11/2015 None diabetes mellitus Blood glucose levels greater than 120 02/11/2015 None diabetes mellitus Glucose monitoring daily 02/11/2015 None diabetes mellitus Nutrition regular diet 02/11/2015 None diabetes mellitus Exacerbating Factors diet 02/11/2015 None diabetes mellitus Exercise no exercise 02/11/2015 None hypertension Quality chr onic 02/11/2015 None hypertension Onset and Resolution ongoing 02/11/2015 None hypertension Onset of Symptom during adulthood 02/11/2015 None hypertension Severity no t consistently severe symptoms, the symptoms fluctuate from no symptoms to anxiety and headaches 02/11/2015 None hypertension Triggers no known associated factors 02/11/2015 None hypertension Alleviating Factors medication 02/11/2015 None Hospital Follow Up Quality acute 02/11/2015 None Hospital Follow Up Location left great toenail 02/11/2015 None Hospital Follow Up Onset of Symptom _ days ago 02/11/2015 None Hospital Follow Up Severity mild 02/11/2015 None Hospital Follow Up Significant Medic al Conditions trauma 02/11/2015 patien t does not know what happened to toenail-states it was "just sticking straight up" so went to ER and had removed Hospital Follow Up Mechanism of injury unknown 02/11/2015 None Hospital Follow Up Pertinent Findings Denies fever 02/11/2015 None Hospital Follow Up Pertinent Findings Denies pain 02/11/2015 None gait abnormality Quality intermittent 01/18/2015 None gait abnormality Onset and Resolution ongoing 01/18/2015 None gait abnormality Limitation on Activities able to perform ADLs 01/18/2015 None gait abnormality Limitation on Activities ambulation with walker 01/18/2015 None gait abnormality Frequency of Episodes increasing 01/18/2015 None hypertension Quality int ermittent 01/18/2015 None hypertension Onset of Symptom during adulthood 01/18/2015 None hypertension Blood Pressure Values not checking blood pressure at home 01/18/2015 None hypertension Blood Pressure Values patient checking blood pressure at home - did not bring in readings 01/18/2015 [facility] it hypertension Severity no t consistently severe symptoms, the symptoms fluctuate from no symptoms to anxiety and headaches 01/18/2015 None hypertension Frequency of Episodes unchanged 01/18/2015 None hypertension Pertinent Findings anxiety 01/18/2015 None hypertension Pertinent Findings Denies dizziness 01/18/2015 None hypertension Pertinent Findings dyspnea 01/18/2015 occ with activity diabetes mellitus Quality non-insulin dependent 01/18/2015 None diabetes mellitus Pertinent Findings Denies dizziness 01/18/2015 None diabetes mellitus Pertinent Findings Denies dyspnea 01/18/2015 None spinal fracture Pertinent Findings cervical fracture 01/18/2015 None spinal fracture Pertinent Findings weakness 01/18/2015 legs spinal fracture Pertinent Findings numbness 01/18/2015 None gait abnormality Quality intermittent 12/03/2014 None gait abnormality Onset and Resolution ongoing 12/03/2014 None gait abnormality Limitation on Activities able to perform ADLs 12/03/2014 None gait abnormality Limitation on Activities ambulation with walker 12/03/2014 None spinal fracture Pertinent Findings cervical fracture 12/03/2014 None spinal fracture Pertinent Findings numbness 12/03/2014 None spinal fracture Pertinent Findings weakness 12/03/2014 legs anxiety Quality intermit tent 12/03/2014 None anxiety Onset and Resolution ongoing 12/03/2014 None diabetes mellitus Quality non-insulin dependent 12/03/2014 None diabetes mellitus Test results Pt checking blood glucose readings, did not bring results to clinic 12/03/2014 None diabetes mellitus Glucose monitoring occasional glucose testing 12/03/2014 [facility] testing diabetes mellitus Pertinent Findings Denies dizziness 12/03/2014 None diabetes mellitus Pertinent Findings Denies dyspnea 12/03/2014 None hypertension Quality int ermittent 12/03/2014 None hypertension Blood Pressure Values patient checking blood pressure at home - did not bring in readings 12/03/2014 [facility] it hypertension Blood Pressure Values not checking blood pressure at home 12/03/2014 None hypertension Pertinent Findings anxiety 12/03/2014 None hypertension Pertinent Findings Denies dizziness 12/03/2014 None hypertension Pertinent Findings dyspnea 12/03/2014 occ with activity gait abnormality Frequency of Episodes increasing 12/03/2014 None hypertension Severity no t consistently severe symptoms, the symptoms fluctuate from no symptoms to anxiety and headaches 12/03/2014 None hypertension Frequency of Episodes unchanged 12/03/2014 None hypertension Onset of Symptom during adulthood 12/03/2014 None gait abnormality Assistive devices walker 12/03/2014 None Advance Directives No Advance Directive data Encounters Encounter Performer Loca tion Codes Date ([id number]) [id number] EST. 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 P ATIENT, LEVEL IV Diagnosis: Essential (primary) hypertension[ICD10: I10] Diagnosis: Type 2 diabetes mellitus without complications[ICD10: E11.9] Diagnosis: Cardiac murmur, unspecified[ICD10: R01.1] Theresa Gordon MD, [facility] CPT-4: 99744 02/21/2018 ([id number]) 61672 EST. P ATIENT, LEVEL III Diagnosis: Essential (primary) hypertension[ICD10: I10] Diagnosis: Type 2 diabetes mellitus without complications[ICD10: E11.9] Theresa Gordon MD, [facility] CPT-4: 35131 10/18/2017 ([id number]) 03845 EST. P ATIENT, LEVEL IV Diagnosis: Essential (primary) hypertension[ICD10: I10] Diagnosis: Type 2 diabetes mellitus without complications[ICD10: E11.9] Diagnosis: Myalgia[ICD10: M79.1] Theresa Gordon MD, [facility] CPT-4: 68381 06/14/2017 ([id number]) 96839 EST. P ATIENT, LEVEL IV Diagnosis: Essential (primary) hypertension[ICD10: I10] Diagnosis: Muscle weakness (generalized)[ICD10: M62.81] Diagnosis: Localized edema[ICD10: R60.0] Theresa Gordon MD, [facility] CPT- 4: 37493 02/15/2017 ([id number]) 60641 EST. 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 P ATIENT, LEVEL IV Diagnosis: Localized edema[ICD10: R60.0] Diagnosis: Essential (primary) hypertension[ICD10: I10] Diagnosis: Low back pain[ICD10: M54.5] Diagnosis: Pain in right wrist[ICD10: M25.531] Diagnosis: Pain in left wrist[ICD10: M25.532] Diagnosis: Type 2 diabetes mellitus without complications[ICD10: E11.9] Theresa Gordon MD, [facility] CPT-4: 43501 08/30/2016 ([id number]) 15087 EST. P [facility], LEVEL III Diagnosis: Essential (primary) hypertension[ICD10: I10] Diagnosis: Type 2 diabetes mellitus without complications[ICD10: E11.9] Diagnosis: Encounter for immunization[ICD10: Z23] Theresa Gordon MD, [facility] CPT-4: 05065 05/04/2016 ([id number]) 89530 EST. [facility], LEVEL IV Diagnosis: Multiple fractures of ribs, right side, initial encounter for closed fracture[ICD10: S22.41XA] Diagnosis: Type 2 diabetes mellitus without complications[ICD10: E11.9] Diagnosis: Urinary tract infection, site not specified[ICD10: N39.0] Diagnosis: Ataxic gait[ICD10: R26.0] Theresa Gordon MD, [facility] CPT- 4: 45441 03/02/2016 ([id number]) 49279 EST. [facility], LEVEL III Diagnosis: Pain in left knee[ICD10: M25.562] Theresa Gordon MD, [facility] CPT- 4: 66609 06/17/2015 54426 EST. PATIENT, LEVEL IV Diagnosis: Essential (primary) hypertension[ICD10: I10] Diagnosis: Type 2 diabetes mellitus without complications[ICD10: E11.9] Diagnosis: Other diseases of tongue[ICD10: K14.8] Theresa Gordon MD, [facility] CPT-4: 93764 05/17/2015 ([id number]) 26988 EST. P [facility], LEVEL IV Diagnosis: Serum calcium elevated[ICD9: 275.42] Diagnosis: ESSENTIAL HYPERTENSION[ICD9: 401.9] Diagnosis: Cervical myelopathy[ICD9: 721.1] Diagnosis: Post-operative state[ICD9: V45.89] Diagnosis: Hospital discharge follow-up[ICD9: V67.59] [facility] CPT-4: 11899 03/22/2015 ([id number]) 16197 EST. P ATIENT, LEVEL IV Diagnosis: Diabetes mellitus type 2, controlled[ICD9: 250.00] Diagnosis: ESSENTIAL HYPERTENSION[ICD9: 401.9] Diagnosis: Open wound of toe with avulsion of toenail[ICD9: 893.1] [facility] CPT-4: 48168 02/11/2015 ([id number] 07540 EST. P ATIENT, LEVEL IV Diagnosis: ESSENTIAL HYPERTENSION[ICD9: 401.9] Diagnosis: Diabetes mellitus type 2, controlled[ICD9: 250.00] Diagnosis: Encounter for long-term (current) use of other medications[ICD9: V58.69] Jadyn Gordon MD, [facility] CPT-4: 47326 01/18/2015 ([id number]) OFFICE VISI , [facility] - LEVEL 4 Diagnosis: ESSENTIAL HYPERTENSION[ICD9: 401.9] Diagnosis: Cervical stenosis of spinal canal[ICD9: 723.0] Diagnosis: Gait instability[ICD9: 781.2] Diagnosis: Bowel and bladder incontinence[ICD9: 788.30] Diagnosis: Diabetes mellitus type 2, controlled[ICD9: 250.00] Diagnosis: Delusions[ICD9: 297.9] Jadyn Gordon MD, [facility] CPT-4: 01169 12/03/2014 Plan of Care Planned Activity Notes C odes Status Date Visit Plan: Hypertension - well con trolled - continue with current medications, continue with no added salt diet. Pt has been encouraged to exercise daily. The pt has been advised to call the office if there are any acute concerns about change in blood pressure readings at home. Iron def-check labs Gploppn-ysvnkmfblw-ovf well controlled-increase zoloft to 100mg daily-call if symptoms uncontrolled GN-[id number]-kstpn Hgb A1C 11/14/2018 Appointment: Theresa Moses WPtel: [address] [place], [place] [phone] (30 min) [facility] 11/14/2018 Patient Education: Patient Medication Summary Completed 11/14/2018 Patient Education: Diabetes Completed 11/14/2018 Appointment: Jadyn Gordon WPtel: [phone] [id number] (15 min) Moderate 09/17/2018 Visit Plan: Hypertension - well con trolled - continue with current medications, continue with no added salt diet. Pt has been encouraged to exercise daily. The pt has been advised to call the office if there are any acute concerns about change in blood pressure readings at home. Diabetes Mellitus -I have recommended for the patient to have follow up labs prior to the next office visit. The patient has been instructed to continue with current medications as previously directed, continue with regular FSBS monitoring to assure continued control of diabetes. Pt to call for any acute concerns, complaints, or if the blood glucose readings are starting to become less controlled. Heart murmur -schedule Echo 02/21/2018 Appointment: Theresa Moses WPtel: [phone] (15 min) Moderate 02/21/2018 Patient Education: Patient Medication Summary Completed 02/21/2018 Appointment: Theresa Moses WPtel: [phone] [phone] (30 min) Complex 02/14/2018 Appointment: Theresa Moses WPtel: [phone] (15 min) Moderate 01/20/2018 Visit Plan: Hypertension - well con trolled - continue with current medications, continue with no added salt diet. Pt has been encouraged to exercise daily. The pt has been advised to call the office if there are any acute concerns about change in blood pressure readings at home. DM-diet controlled 10/18/2017 Appointment: Theresa Moses WPtel: [phone] (15 min) Moderate 10/18/2017 Patient Education: Patient Medication Summary Completed 10/18/2017 Appointment: Theresa Moses WPtel: [phone] (30 min) Complex 10/11/2017 Visit Plan: Hypertension - well con trolled - continue with current medications, continue with no added salt diet. Pt has been encouraged to exercise daily. The pt has been advised to call the office if there are any acute concerns about change in blood pressure readings at home. Diabetes Mellitus - controlled - per recent FSBS reports. I have recommended for the patient to have follow up labs prior to the next office visit. The patient has been instructed to continue with current medications as previously directed, continue with regular FSBS monitoring to assure continued control of diabetes. Pt to call for any acute concerns, complaints, or if the blood glucose readings are starting to become less controlled. Muscle tightness-recommend massage-[facility] see if [facility] offer in home massage 06/14/2017 Appointment: Theresa Moses WPtel: [facility]5 [id number] (30 min) Complex 06/14/2017 Patient Education: Patient Medication Summary Completed 06/14/2017 Patient Education: Obesity Completed 06/14/2017 Visit Plan: Hypertension - well con trolled - continue with current medications, continue with no added salt diet. Pt has been encouraged to exercise daily. The pt has been advised to call the office if there are any acute concerns about change in blood pressure readings at home. Generalized weakness-recommend PT-patient refuses Edema-intermittent - pt has been advised to elevate legs to prevent dependent edema, compression has been recommended to help to naturally decrease peripheral edema. Diuretic use has been discussed and pt has been instructed in appropriate use of such medication as necessary to further attempt to reduce peripheral edema. 02/15/2017 Appointment: Theresa Moses WPtel: [phone] (30 min) Complex 02/15/2017 Patient Education: Patient Medication Summary Completed 02/15/2017 Visit Plan: Hypertension - well con trolled - continue with current medications, continue with no added salt diet. Pt has been encouraged to exercise daily. The pt has been advised to call the office if there are any acute concerns about change in blood pressure readings at home. Diabetes Mellitus - controlled - per recent FSBS reports. I have recommended for the patient to have follow up labs prior to the next office visit. The patient has been instructed to continue with current medications as previously directed, continue with regular FSBS monitoring to assure continued control of diabetes. Pt to call for any acute concerns, complaints, or if the blood glucose readings are starting to become less controlled. Iron deficiency-check labs 11/13/2016 Appointment: Theresa Moses WPtel: [phone] [phone] (30 min) Complex 11/13/2016 Patient Education: Patient Medication Summary Completed 11/13/2016 Patient Education: Obesity Completed 11/13/2016 Care Plan: Iron And Tibc Pending 11/13/2016 Visit Plan: Edema - pt has been adv ised to elevate legs to prevent dependent edema, compression has been recommended to help to naturally decrease peripheral edema. Diuretic use has been discussed and pt has been i nstructed in appropriate use of such medication as necessary to further attempt to reduce peripheral edema. Hypertension - well controlled - continue with current medications, continue with no added salt diet. Pt has been encouraged to exercise daily. The pt has been advised to call the office if there are any acute concerns about change in blood pressure readings at home. Refer for HOME HEALTH PT AND NURSING FOR ANEMIA, DIABETES, DEPRESSION, HYPERLIPIDEMIA 09/13/2016 Visit Plan: Edema - pt has been adv ised to elevate legs to prevent dependent edema, compression has been recommended to help to naturally decrease peripheral edema. Diuretic use has been discussed and pt has been i nstructed in appropriate use of such medication as necessary to further attempt to reduce peripheral edema. 09/13/2016 Appointment: Theresa Moses WPtel: [phone] [phone] (30 min) Complex 09/13/2016 Patient Education: Patient Medication Summary Completed 09/13/2016 Appointment: Lab Draw 09/10/2016 Patient Education: Patient Medication Summary Completed 09/10/2016 Patient Education: Patient Medication Summary Completed 08/31/2016 Care Plan: Iron add to blood from 08/30 Pending 08/31/2016 Visit Plan: Edema - pt has been adv ised to elevate legs to prevent dependent edema, compression has been recommended to help to naturally decrease peripheral edema. Diuretic use has been discussed and pt has been i nstructed in appropriate use of such medication as necessary to further attempt to reduce peripheral edema. Hypertension - well controlled - continue with current medications, continue with no added salt diet. Pt has been encouraged to exercise daily. The pt has been advised to call the office if there are any acute concerns about change in blood pressure readings at home. Low back awcy-wcvuzum-ayoq for low back brace DM-check Hgb A1C Chronic itching-picking at skin-refer to Dr Addison for evaluation 08/30/2016 Appointment: Theresa Moses WPtel: [phone] [phone] (30 min) Complex 08/30/2016 Patient Education: Patient Medication Summary Completed 08/30/2016 Patient Education: Obesity Completed 08/30/2016 Care Plan: Referral Order SNOMED-CT : [id number] Pending 08/30/2016 Visit Plan: Hypertension - well con trolled - continue with current medications, continue with no added salt diet. Pt has been encouraged to exercise daily. The pt has been advised to call the office if there are any acute concerns about change in blood pressure readings at home. Diabetes Mellitus - diet controlled- I have recommended for the patient to have follow up labs prior to the next office visit. The patient has been instructed to continue with current medications as previously directed, continue with regular FSBS monitoring to assure continued control of diabetes. Pt to call for any acute concerns, complaints, or if the blood glucose readings are starting to become less controlled. 05/04/2016 Appointment: Theresa Moses WPtel: [phone] [phone] (30 min) Complex 05/04/2016 Patient Education: Patient Medication Summary Completed 05/04/2016 Visit Plan: Ribs fracture-right 6th and 7th ribs-discussed deep breathing exercises-pain control and to call if she develops worsening pain or shortness of breath or any other concerns. Continue home health nursing/PT as patient has had 2 falls recently and is unable to bath on her own and needs therapy for strengthening due to high risk for falling again. Continue tramadol as needed for pain-call if pain uncontrolled. UTI-resistent to macrobid-stop it and start cipro twice daily DM-check Hgb A1c before next appt-continue to monitor blood sugars 03/02/2016 Appointment: Theresa Moses WPtel: [facility]5 [phone] (30 min) Complex 03/02/2016 Patient Education: Patient Medication Summary Completed 03/02/2016 Patient Education: Obesity Completed 03/02/2016 Visit Plan: Left knee pain-xray tod ay and use tiger balm as needed-will proceed as indicated-patient verbalized understanding of plan. 06/17/2015 Appointment: (15 min) Moderate 06/17/2015 Patient Education: Patient Medication Summary Completed 06/17/2015 Appointment: (30 min) Complex 06/16/2015 Visit Plan: Hypertension - well con trolled - continue with current medications, continue with no added salt diet. Pt has been encouraged to exercise daily. The pt has been advised to call the office if there are any acute concerns about change in blood pressure readings at home. Diabetes Mellitus - controlled - per recent FSBS reports. I have recommended for the patient to have follow up labs prior to the next office visit. The patient has been instructed to continue with current medications as previously directed, continue with regular FSBS monitoring to assure continued control of diabetes. Pt to call for any acute concerns, complaints, or if the blood glucose readings are starting to become less controlled. Lesion of wnmkho-wk-tzktuckj in 1 month- if still present, refer for biopsy 05/17/2015 Appointment: (30 min) Complex 05/17/2015 Patient Education: Patient Medication Summary Completed 05/17/2015 Patient Education: Hypertension Completed 05/17/2015 Visit Plan: Hypertension - well con trolled - continue with current medications, continue with no added salt diet. Pt has been encouraged to exercise daily. The pt has been advised to call the office if there are any acute concerns about change in blood pressure readings at home. Elevated calcium-recheck labs including PTH Cervical myelopathy-[facility] follow up - This was a follow up appointment from the patient's hospitalization during which time Dr. Gordon formulated the assessment and plan for the follow up on this patient's medical condition. 03/22/2015 Visit Plan: Hypertension - well con trolled - continue with current medications, continue with no added salt diet. Pt has been encouraged to exercise daily. The pt has been advised to call the office if there are any acute concerns about change in blood pressure readings at home. Elevated calcium-recheck labs including PTH Cervical myelopathy-recent surgery at - [facility] follow up - This was a follow up appointment from the patient's hospitalization during which time Dr. Gordon formulated the assessment and plan for the follow up on this patient's medical condition. 03/22/2015 Appointment: (15 min) Moderate 03/22/2015 Patient Education: Patient Medication Summary Completed 03/22/2015 Patient Education: Hypertension Completed 03/22/2015 Visit Plan: Toenail avulsion-no s/s of infection today in the office-keep covered when out-clean daily and use neosporin as directed-call for s/s of infection DM-discussed dietary modifications-patient did not feel well on the januvia-okay to stay off of it-patient has agreed to more strictly adhere to the diabetic diet and especially to cut back on sweets. 02/11/2015 Visit Plan: Toenail avulsion-no s/s of infection today in the office-keep covered when out-clean daily and use neosporin as directed-call for s/s of infection DM-discussed dietary modifications-patient did not feel well on the januvia-okay to stay off of it-patient has agreed to more strictly adhere to the diabetic diet and especially to cut back on sweets. 02/11/2015 Appointment: (15 min) Moderate 02/11/2015 Patient Education: Patient Medication Summary Completed 02/11/2015 Patient Education: Hypertension Completed 02/11/2015 Visit Plan: Hypertension - well con trolled - continue with current medications, continue with no added salt diet. Pt has been encouraged to exercise daily. The pt has been advised to call the office if there are any acute concerns about change in blood pressure readings at home. Diabetes Mellitus - controlled - per recent FSBS reports. I have recommended for the patient to have follow up labs prior to the next office visit. The patient has been instructed to continue with current medications as previously directed, continue with regular FSBS monitoring to assure continued control of diabetes. Pt to call for any acute concerns, complaints, or if the blood glucose readings are starting to become less controlled. 01/18/2015 Appointment: Jadyn Gordon WPtel: [address] [place], [place] [id number] Follow up 01/18/2015 Patient Education: Patient Medication Summary Completed 01/18/2015 Patient Education: Hypertension Completed 01/18/2015 Care Plan: CBC Pending 01/18/2015 Care Plan: CHEM 14 Pending 01/18/2015 Care Plan: A1C HPLC LO INC : 19278-3 Pending 01/18/2015 Care Plan: TSH Pending 01/18/2015 Visit Plan: Hypertension - well con trolled - continue with current medications, continue with no added salt diet. Pt has been encouraged to exercise daily. The pt has been advised to call the office if there are any acute concerns about change in blood pressure readings at home. Spinal stenosis of cervical spine-Dr Snell is referring patient to [facility]-discussed with Dr Gordon-last MRI of cervical spine in Jun which showed spinal stenosis and spinal cord edema-recommend repeat MRI of cervical spine and also image thoracic and lumbar spine due to incontinence of bowel/bladder, increased leg weakness. Diabetes Mellitus - I have recommended for the patient to have follow up labs prior to the next office visit. The patient has been instructed to continue with current medications as previously directed, continue with regular FSBS monitoring to assure continued control of diabetes. Pt to call for any acute concerns, complaints, or if the blood glucose readings are starting to become less controlled. Delusions-no change in medications-check UA 12/03/2014 Appointment: (S) New Patient 12/03/2014 Patient Education: Patient Medication Summary Completed 12/03/2014 Patient Education: Hypertension Completed 12/03/2014 Referral: Esperanza Addison WPtel: Referral Appointment Requested Instructions Comment REFER TO DR ADDISON -[facility] ARE [facility] CHECK LABS -IF OKAY-WE WILL PRESCRIBE LASIX . Edema - pt has been advised to elevate legs to prevent dependent edema, compression has been recommended to help to naturally decrease peripheral edema. Diuretic use has been discussed and pt has been instructed in appropriate use of such medication as necessary to further attempt to reduce peripheral edema. Hypertension - well controlled - continue with current medications, continue with no added salt diet. Pt has been encouraged to exercise daily. The pt has been advised to call the office if there are any acute concerns about change in blood pressure readings at home. Low back lqvf-xbsddtz-rvjc for low back brace DM-check Hgb A1C Chronic itching-picking at skin-refer to Dr Addison for evaluation OK TO STAY OFF OF JA JEREMY AND TRY DIET MODIFICATIONS FOR THE NEXT COUPLE OF MONTHS NEED TO STRICTLY ADHERE TO DIABETIC DIET-CUT BACK ON SWEETS/CARBS/SODA. BRING BLOOD SUGAR LOG TO YOUR NEXT APPOINTMENT KEEP LEFT GREAT TOE CLEAN AND DRY-CALL FOR REDNESS, DRAINAGE, WARMTH, OR SWELLING . Toenail avulsion-no s/s of infection t dk in the office-keep covered when out-clean daily and use neosporin as directed-call for s/s of infection DM-discussed dietary modifications-patient did not feel well on the januvia-okay to stay off of it-patient has agreed to more strictly adhere to the diabetic diet and especially to cut back on sweets. OK TO STAY OFF OF JA JEREMY AND TRY DIET MODIFICATIONS FOR THE NEXT COUPLE OF MONTHS NEED TO STRICTLY ADHERE TO DIABETIC DIET-CUT BACK ON SWEETS/CARBS/SODA. BRING BLOOD SUGAR LOG TO YOUR NEXT APPOINTMENT KEEP LEFT GREAT TOE CLEAN AND DRY-CALL FOR REDNESS, DRAINAGE, WARMTH, OR SWELLING . Toenail avulsion-no s/s of infection t dk in the office-keep covered when out-clean daily and use neosporin as directed-call for s/s of infection DM-discussed dietary modifications-patient did not feel well on the januvia-okay to stay off of it-patient has agreed to more strictly adhere to the diabetic diet and especially to cut back on sweets. . Hypertension - wel l controlled - continue with current medications, continue with no added salt diet. Pt has been encouraged to exercise daily. The pt has been advised to call the office if there are any acute concerns about change in blood pressure readings at home. Generalized weakness-recommend PT-patient refuses Edema-intermittent - pt has been advised to elevate legs to prevent dependent edema, compression has been recommended to help to naturally decrease peripheral edema. Diuretic use has been discussed and pt has been instructed in appropriate use of such medication as necessary to further attempt to reduce peripheral edema. . Hypertension - wel l controlled - continue with current medications, continue with no added salt diet. Pt has been encouraged to exercise daily. The pt has been advised to call the office if there are any acute concerns about change in blood pressure readings at home. Elevated calcium-recheck labs including PTH Cervical myelopathy-recent surgery at -[facility] follow up - This was a follow up appointment from the patient's hospitalization during which time Dr. Gordon formulated the assessment and plan for the follow up on this patient's medical condition. . Hypertension - wel l controlled - continue with current medications, continue with no added salt diet. Pt has been encouraged to exercise daily. The pt has been advised to call the office if there are any acute concerns about change in blood pressure readings at home. Elevated calcium-recheck labs including PTH Cervical myelopathy-recent surgery at -[facility] follow up - This was a follow up appointment from the patient's hospitalization during which time Dr. Gordon formulated the assessment and plan for the follow up on this patient's medical condition. FASTING LABS INCREASE ZOLOFT TO 100MG DAILY . Hypertension - well controlled - stepan nue with current medications, continue with no added salt diet. Pt has been encouraged to exercise daily. The pt has been advised to call the office if there are any acute concerns about change in blood pressure readings at home. Iron def-check labs Hbgyydh-nkrjbjdznn-uwy well controlled-increase zoloft to 100mg daily-call if symptoms uncontrolled XH-jcilogqkiz-fqmjm Hgb A1C DUE FOR FASTING LABS BEFORE NEXT APPOINTMENT . Ribs fracture-right 6th and 7th ribs-d iscussed deep breathing exercises-pain control and to call if she develops worsening pain or shortness of breath or any other concerns. Continue home health nursing/PT as patient has had 2 falls recently and is unable to bath on her own and needs therapy for strengthening due to high risk for falling again. Continue tramadol as needed for pain-call if pain uncontrolled. UTI-resistent to macrobid-stop it and start cipro twice daily DM-check Hgb A1c before next appt-continue to monitor blood sugars [facility]see if they offer massage . Hypertension - well controlled - stepan nue with current medications, continue with no added salt diet. Pt has been encouraged to exercise daily. The pt has been advised to call the office if there are any acute concerns about change in blood pressure readings at home. Diabetes Mellitus - controlled - per recent FSBS reports. I have recommended for the patient to have follow up labs prior to the next office visit. The patient has been instructed to continue with current medications as previously directed, continue with regular FSBS monitoring to assure continued control of diabetes. Pt to call for any acute concerns, complaints, or if the blood glucose readings are starting to become less controlled. Muscle tightness-recommend massage-[facility] see if they offer in home massage xray left knee . Left knee pain-xray today and use tige r balm as needed-will proceed as indicated-patient verbalized understanding of plan. . Hypertension - wel l controlled - continue with current medications, continue with no added salt diet. Pt has been encouraged to exercise daily. The pt has been advised to call the office if there are any acute concerns about change in blood pressure readings at home. Diabetes Mellitus - diet controlled- I have recommended for the patient to have follow up labs prior to the next office visit. The patient has been instructed to continue with current medications as previously directed, continue with regular FSBS monitoring to assure continued control of diabetes. Pt to call for any acute concerns, complaints, or if the blood glucose readings are starting to become less controlled. . Hypertension - wel l controlled - continue with current medications, continue with no added salt diet. Pt has been encouraged to exercise daily. The pt has been advised to call the office if there are any acute concerns about change in blood pressure readings at home. Diabetes Mellitus - controlled - per recent FSBS reports. I have recommended for the patient to have follow up labs prior to the next office visit. The patient has been instructed to continue with current medications as previously directed, continue with regular FSBS monitoring to assure continued control of diabetes. Pt to call for any acute concerns, complaints, or if the blood glucose readings are starting to become less controlled. Lesion of gntxfx-gf-phopjxdm in 1 month-if still present, refer for biopsy . Hypertension - wel l controlled - continue with current medications, continue with no added salt diet. Pt has been encouraged to exercise daily. The pt has been advised to call the office if there are any acute concerns about change in blood pressure readings at home. DM-diet controlled LASIX-POTASSIUM SILVINA Y NEEDED . Edema - pt has been advised to elevate legs to prevent dependent edema, compression has been recommended to help to naturally decrease peripheral edema. Diuretic use has been discussed and pt has been instructed in appropriate use of such medication as necessary to further attempt to reduce peripheral edema. Hypertension - well controlled - continue with current medications, continue with no added salt diet. Pt has been encouraged to exercise daily. The pt has been advised to call the office if there are any acute concerns about change in blood pressure readings at home. Refer for HOME HEALTH PT AND NURSING FOR ANEMIA, DIABETES, DEPRESSION, HYPERLIPIDEMIA LASIX-POTASSIUM SILVINA Y NEEDED . Edema - pt has been advised to elevate legs to prevent dependent edema, compression has been recommended to help to naturally decrease peripheral edema. Diuretic use has been discussed and pt has been instructed in appropriate use of such medication as necessary to further attempt to reduce peripheral edema. . Hypertension - wel l controlled - continue with current medications, continue with no added salt diet. Pt has been encouraged to exercise daily. The pt has been advised to call the office if there are any acute concerns about change in blood pressure readings at home. Diabetes Mellitus - controlled - per recent FSBS reports. I have recommended for the patient to have follow up labs prior to the next office visit. The patient has been instructed to continue with current medications as previously directed, continue with regular FSBS monitoring to assure continued control of diabetes. Pt to call for any acute concerns, complaints, or if the blood glucose readings are starting to become less controlled. Echocardiogram -late r in the day . Hypertension - well controlled - stepan nue with current medications, continue with no added salt diet. Pt has been encouraged to exercise daily. The pt has been advised to call the office if there are any acute concerns about change in blood pressure readings at home. Diabetes Mellitus -I have recommended for the patient to have follow up labs prior to the next office visit. The patient has been instructed to continue with current medications as previously directed, continue with regular FSBS monitoring to assure continued control of diabetes. Pt to call for any acute concerns, complaints, or if the blood glucose readings are starting to become less controlled. Heart murmur -schedule Echo RECOMMEND MASSAGE . Hypertension - well controlled - stepan nue with current medications, continue with no added salt diet. Pt has been encouraged to exercise daily. The pt has been advised to call the office if there are any acute concerns about change in blood pressure readings at home. Diabetes Mellitus - controlled - per recent FSBS reports. I have recommended for the patient to have follow up labs prior to the next office visit. The patient has been instructed to continue with current medications as previously directed, continue with regular FSBS monitoring to assure continued control of diabetes. Pt to call for any acute concerns, complaints, or if the blood glucose readings are starting to become less controlled. Iron deficiency-check labs . Hypertension - wel l controlled - continue with current medications, continue with no added salt diet. Pt has been encouraged to exercise daily. The pt has been advised to call the office if there are any acute concerns about change in blood pressure readings at home. Spinal stenosis of cervical spine-Dr Snell is referring patient to [facility]- discussed with Dr Gordon-last MRI of cervical spine in Jun which showed spinal stenosis and spinal cord edema-recommend repeat MRI of cervical spine and also image thoracic and lumbar spine due to incontinence of bowel/bladder, increased leg weakness. Diabetes Mellitus - I have recommended for the patient to have follow up labs prior to the next office visit. The patient has been instructed to continue with current medications as previously directed, continue with regular FSBS monitoring to assure continued control of diabetes. Pt to call for any acute concerns, complaints, or if the blood glucose readings are starting to become less controlled. Delusions-no change in medications-check UA
--- OUTSIDE RECORDS SUMMARY | 2019-11-12 01:14 | XMS REPORT | CCD ---
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 Name Role Phone PP Unavailable CCM Unavailable Summary Purpose Interface Exchange Insurance Providers Payer name Policy type / Coverage type Covered republican ID Effective Begin Date Effective End Date WPS Medicare Part B Medicare Part B [id number] Unknown FOR LIFE WPS Medicare Part B [id number] Unknown Family history Daughter Diagnosis Age At Onset Cancer Unknown Social History Social History Element Codes Description Effective Dates Marital status Unknown M arried 12/03/2014 Number of children Unknown 7 12/03/2014 Employment Unknown Retir ed 12/03/[address]: 9782155 Quit over 10 years ago 199812/03/[address]: 341621437 Never drinks alcohol 12/03/2014 Allergies, Adverse Reactions, [...] Date Stop Date Sta tus Fill Instructions Aricept 23 mg tablet RxNorm: 8377647 TAKE 1 TABLET DAILY 02/13/2019 No Stop Date Active ferrous sulfate 325 mg (65 mg iron) tablet RxNorm: 212246 1 Tablet(s) PO daily 11/14/2018 05/12/2019 Ac tive Zoloft 100 mg tablet RxNorm: 356997 1 Tablet(s) PO daily TAKE 1 TABLET DAILY 11/14/2018 05/12/2019 Ac tive Aricept 23 mg tablet RxNorm: 0102944 TAKE 1 TABLET DAILY 06/27/2018 02/12/2019 Inactive Zoloft 50 mg tablet RxNorm: 066793 TAKE 1 TABLET DAILY 06/27/2018 11/13/2018 Inactive benazepril 20 mg tablet RxNorm: 076487 1 Tablet(s) PO daily 04/28/2018 01/22/2019 Inactive atorvastatin 20 mg t ablet RxNorm: 325311 TAKE 1 TABLET DAILY 12/22/2017 No Stop Date Active potassium chloride E R 10 mEq tablet,extended release RxNorm: 119819 TAKE 1 TABLET DAILY WITH LASIX NEEDED 10/21/2017 No Stop Date Active Lasix 20 mg tablet RxNorm: 981849 TAKE 1 TABLET DAILY NEEDED 10/21/2017 No Stop Date Active Aricept 23 mg tablet RxNorm: 2776783 TAKE 1 TABLET DAILY 10/17/2017 06/26/2018 Inactive Zoloft 50 mg tablet RxNorm: 718440 TAKE 1 TABLET DAILY 10/17/2017 06/26/2018 Inactive benazepril 20 mg tablet RxNorm: 525477 TAKE 1 TABLET DAILY 06/25/2017 04/27/2018 Inactive atorvastatin 20 mg t ablet RxNorm: 240239 TAKE 1 TABLET DAILY 06/25/2017 12/21/2017 Inactive Lasix 20 mg tablet RxNorm: 178973 1 TABLET(S) PO QDAY PRN 04/29/2017 10/20/2017 Inactive potassium chloride E R 10 mEq tablet,extended release RxNorm: 123374 1 TABLET(S) PO QDAY PRN 04/29/2017 10/20/2017 Inactive Zoloft 50 mg tablet RxNorm: 462459 TAKE 1 TABLET DAILY 03/11/2017 10/16/2017 Inactive potassium chloride E R 10 mEq tablet,extended release RxNorm: 216838 1 Tablet(s) PO QDAY PRN 02/15/2017 04/28/2017 Inactive with lasix Lasix 20 mg tablet RxNorm: 317542 1 Tablet(s) PO QDAY PRN 02/15/2017 04/28/2017 Inactive Aricept 23 mg tablet RxNorm: 6947928 TAKE 1 TABLET DAILY 02/01/2017 10/16/2017 Inactive atorvastatin 20 mg t ablet RxNorm: 701731 TAKE 1 TABLET DAILY 12/27/2016 06/24/2017 Inactive benazepril 20 mg tablet RxNorm: 297991 TAKE 1 TABLET DAILY 12/27/2016 06/24/2017 Inactive Lasix 20 mg tablet RxNorm: 827846 1 Tablet(s) PO QDAY PRN 09/13/2016 01/10/2017 Inactive potassium chloride E R 10 mEq tablet,extended release RxNorm: 491326 1 Tablet(s) PO QDAY PRN 09/13/2016 01/10/2017 Inactive with lasix Zoloft 50 mg tablet RxNorm: 620736 TAKE 1 TABLET DAILY 09/11/2016 03/10/2017 Inactive potassium chloride E R 10 mEq tablet,extended release RxNorm: 639538 1 Tablet(s) PO daily for edema 09/03/2016 09/02/2016 Inactive Lasix 20 mg tablet RxNorm: 665158 1 Tablet(s) PO daily for edema 09/03/2016 09/09/2016 In active potassium chloride E R 10 mEq tablet,extended release RxNorm: 762876 1 Tablet(s) PO daily for edema 09/03/2016 09/09/2016 Inactive Lasix 20 mg tablet RxNorm: 892685 1 Tablet(s) PO daily 09/03/2016 09/02/2016 Inactive atorvastatin 20 mg t ablet RxNorm: 094377 TAKE 1 TABLET DAILY 07/02/2016 12/26/2016 Inactive benazepril 20 mg tablet RxNorm: 194921 TAKE 1 TABLET DAILY 06/29/2016 12/26/2016 Inactive Aricept 23 mg tablet RxNorm: 0690781 TAKE 1 TABLET DAILY 05/07/2016 01/31/2017 Inactive atorvastatin 20 mg t ablet RxNorm: 297336 TAKE 1 TABLET DAILY 04/03/2016 07/01/2016 Inactive tramadol 50 mg tablet RxNorm: 981060 1-2 Tablet(s) PO Q6 as needed for pain 03/20/2016 No Stop Date Active tramadol 50 mg tablet RxNorm: 340481 1-2 Tablet(s) PO Q6 as needed for pain 03/06/2016 03/19/2016 In active Cipro 500 mg tablet RxNorm: 661768 1 Tablet(s) PO BID 03/02/2016 03/08/2016 Inactive atorvastatin 20 mg t ablet RxNorm: 550598 1 TABLET(S) PO DAILY 01/03/2016 04/02/2016 Inactive benazepril 20 mg tablet RxNorm: 844941 1 TABLET(S) PO DAILY 01/03/2016 06/28/2016 Inactive Zoloft 50 mg tablet RxNorm: 343337 1 TABLET(S) PO DAILY 12/15/2015 09/10/2016 Inactive Aricept 23 mg tablet RxNorm: 6548138 1 Tablet(s) PO daily 06/21/2015 05/06/2016 Inactive colchicine 0.6 mg ta blet RxNorm: 056333 1 Tablet(s) PO BID 05/24/2015 05/03/2016 Inactive ciclopirox 1 % shampoo RxNorm: 242700 1 TOP daily 05/24/2015 05/03/2016 Inactive benazepril 20 mg tablet RxNorm: 033978 1 Tablet(s) PO daily 05/17/2015 01/02/2016 Inactive atorvastatin 20 mg t ablet RxNorm: 957801 1 Tablet(s) PO daily 05/17/2015 01/02/2016 Inactive benazepril 20 mg tablet RxNorm: 644360 1 Tablet(s) PO daily 05/06/2015 05/16/2015 Inactive ciclopirox 1 % shampoo RxNorm: 790161 1 TOP daily 02/16/2015 02/15/2015 Inactive ciclopirox 1 % shampoo RxNorm: 251372 1 TOP daily 02/16/2015 04/16/2015 Inactive Zoloft 50 mg tablet RxNorm: 569641 1 Tablet(s) PO daily 01/27/2015 12/14/2015 Inactive express script [id number] script [id number] Januvia 50 mg tablet RxNorm: 281457 1 Tablet(s) PO daily 01/24/2015 03/21/2015 Inactive increase from 25mg Januvia 25 mg tablet RxNorm: 681494 1 Tablet(s) PO daily 01/21/2015 01/23/2015 Inactive Januvia 25 mg tablet RxNorm: 081659 1 Tablet(s) PO daily 01/21/2015 01/20/2015 Inactive Benicar 20 mg tablet RxNorm: 583634 1 Tablet(s) PO daily 01/10/2015 03/21/2015 Inactive [SAVINGS FOR NON-COVERED DRUGS -- BIN:00 3585, PCN: [id number], Group: XXXXX, ID# XXXXXXX, Questions: . THIS IS NOT INSURANCE.] Benicar 20 mg tablet RxNorm: 585640 1 Tablet(s) PO daily 12/16/2014 12/15/2014 Inactive Benicar 20 mg tablet RxNorm: 384288 1 Tablet(s) PO daily 12/16/2014 01/09/2015 Inactive [SAVINGS FOR NON-COVERED DRUGS -- BIN:00 3585, PCN: [id number], Group: XXXXX, ID# XXXXXXX, Questions: . THIS IS NOT INSURANCE.] Micardis HCT 80 mg-2 5 mg tablet RxNorm: 377356 1 Tablet(s) PO daily 12/03/2014 12/03/2014 Inactive Aricept 23 mg tablet RxNorm: 2914870 1 Tablet(s) PO daily 12/03/2014 03/02/2015 Inactive Lipitor 40 mg tablet RxNorm: 453432 1 Tablet(s) PO daily 12/03/2014 03/02/2015 Inactive B12 1000 mcg RxNorm: 1 IM daily 12/03/2014 03/02/2015 Inactive iron 325 mg (65 mg i rupal) tablet RxNorm: 553832 1 Tablet(s) PO TIW No Start Date Active Ocuvite oral RxNorm: 370684 oral No Start Date Active naproxen 250 mg tablet RxNorm: 894381 Tablet(s) PO as needed No Start Date Active Centrum Complete oral RxNorm: 56414 oral No Start Date Active colchicine 0.6 mg ta blet RxNorm: 257032 1 Tablet(s) PO BID No Start Date 05/23/2015 Inactive benazepril 20 mg tablet RxNorm: 757840 1 Tablet(s) PO daily No Start Date 05/05/2015 Inactive atorvastatin 20 mg t ablet RxNorm: 053483 1 Tablet(s) PO daily No Start Date 05/16/2015 Inactive Aricept 23 mg tablet RxNorm: 4671598 1 Tablet(s) PO daily No Start Date 06/20/2015 Inactive tramadol 50 mg tablet RxNorm: 314077 1-2 Tablet(s) PO Q6 as needed for pain No Start Date 03/05/2016 Inactive Miralax 17 gram oral powder packet RxNorm: 862414 1 PO daily as needed No Start Date 12/02/2014 Inactive Zoloft 25 mg tablet RxNorm: 355844 1 Tablet(s) PO daily No Start Date [...] 26.3 pg 11/13/2016 Cbc With Differential Ord2 [place]% 7.9 % 11/13/2016 Cbc With Differential Ord2 Eos% 2.9 % 11/13/2016 Cbc With Differential Ord2 MCHC 30.4 pg 11/13/2016 Cbc With Differential Ord2 PLT 181 K/ul 11/13/2016 Cbc With Differential Ord2 Baso% 0.6 % 11/13/2016 Cbc With Differential Ord2 RDW 20.2 % 11/13/2016 Cbc With Differential Ord2 Neut ABS# 4.42 K/ul 11/13/2016 Cbc With Differential Ord2 Lymph ABS# 1.96 K/ul 11/13/2016 Cbc With Differential Ord2 [place] ABS# 0.6 K/ul 11/13/2016 Cbc With Differential Ord2 Eos ABS# 0.2 K/ul 11/13/2016 Cbc With Differential Ord2 Baso ABS# 0.0 K/ul 11/13/2016 Ferritin Ord22 FERRITIN 55.7 ng/mL 11/13/2016 Comp Metabolic Ahq244 NA 140 mEq/L 11/13/2016 Comp Metabolic Coe041 K 4.6 mEq/L 11/13/2016 Comp Metabolic Gye456 CL 103 mEq/L 11/13/2016 Comp Metabolic Vzl753 CO2 29.0 mEq/L 11/13/2016 Comp Metabolic Cmu073 AN ION GAP 13 11/13/2016 Comp Metabolic Ttm148 GL UCOSE 83 mg/dL 11/13/2016 Comp Metabolic Fwh858 Cr eat 0.9 mg/dL 11/13/2016 Comp Metabolic Pwi346 eG FR 65 ml/min/1.73m2 11/13 Comp Metabolic Cno401 BUN 28 mg/dL 11/13/2016 Comp Metabolic Nrs913 B/ C Ratio 31.5 Ratio 11/13/2016 Comp Metabolic Uqn322 CA LCIUM 9.5 mg/dL 11/13/2016 Comp Metabolic Sbo638 AL K PHOS 52 U/L 11/13/2016 Comp Metabolic Tco472 T(SGOT) 16 U/L 11/13/2016 Comp Metabolic Owb271 AL T(SGPT) 10 U/L 11/13/2016 Comp Metabolic Mig124 BI LI T 0.4 mg/dL 11/13/2016 Comp Metabolic Osh408 AL BUMIN 3.9 g/dL 11/13/2016 Comp Metabolic Trr427 TP RO 6.2 g/dL 11/13/2016 Comp Metabolic Nas691 GL OB 2.3 g/dL 11/13/2016 Comp Metabolic Ibw709 A/ G Ratio 1.7 Ratio 11/13/2016 Comp Metabolic Kjy888 Os mo 284 mOsmo 11/13/2016 Tsh Ord6 [...] Tibc Ord40 Fe-%Sat 4.7 % 08/31/2016 %Hba1C [place]862 % HbA1c 16864-5 5.9 % 08/30/2016 %Hba1C Nmk136 Gluc Ave 123 mg/dL 08/30/2016 Cbc With Differential Ord2 WBC 6.49 K/ul 08/30/2016 Cbc With Differential Ord2 RBC 4.08 M/ul 08/30/2016 Cbc With Differential Ord2 HGB 9.8 g/dl 08/30/2016 Cbc With Differential Ord2 Neut% 61.7 % 08/30/2016 Cbc With Differential Ord2 HCT 32.7 % 08/30/2016 Cbc With Differential Ord2 MCV 80.1 fl 08/30/2016 Cbc With Differential Ord2 Lymph% 27.4 % 08/30/2016 Cbc With Differential Ord2 [place]% 8.2 % 08/30/2016 Cbc With Differential Ord2 MCH 24.0 pg 08/30/2016 Cbc With Differential Ord2 MCHC 30.0 pg 08/30/2016 Cbc With Differential Ord2 Eos% 2.2 % 08/30/2016 Cbc With Differential Ord2 Baso% 0.5 % 08/30/2016 Cbc With Differential Ord2 PLT 264 K/ul 08/30/2016 Cbc With Differential Ord2 Neut ABS# 4.01 K/ul 08/30/2016 Cbc With Differential Ord2 RDW 16.5 % 08/30/2016 Cbc With Differential Ord2 Lymph ABS# 1.78 K/ul 08/30/2016 Cbc With Differential Ord2 [place] ABS# 0.5 K/ul 08/30/2016 Cbc With Differential Ord2 Eos ABS# 0.1 K/ul 08/30/2016 Cbc With Differential Ord2 Baso ABS# 0.0 K/ul 08/30/2016 Comp Metabolic Lnl595 NA 138 mEq/L 08/30/2016 Comp Metabolic Ndw501 K 4.8 mEq/L 08/30/2016 Comp Metabolic Ins984 CL 103 mEq/L 08/30/2016 Comp Metabolic Daj035 CO2 29.0 mEq/L 08/30/2016 Comp Metabolic Lwk328 AN ION GAP 11 08/30/2016 Comp Metabolic Sew220 GL UCOSE 85 mg/dL 08/30/2016 Comp Metabolic Ujg225 Cr eat 0.9 mg/dL 08/30/2016 Comp Metabolic Kev920 eG FR 67 ml/min/1.73m2 08/30 Comp Metabolic Zsz792 BUN 22 mg/dL 08/30/2016 Comp Metabolic Qxu349 B/ C Ratio 25.3 Ratio 08/30/2016 Comp Metabolic Wnm197 CA LCIUM 9.6 mg/dL 08/30/2016 Comp Metabolic Ixx738 AL K PHOS 61 U/L 08/30/2016 Comp Metabolic Vio185 T(SGOT) 22 U/L 08/30/2016 Comp Metabolic Tcv381 AL T(SGPT) 15 U/L 08/30/2016 Comp Metabolic Nfn762 BI LI T 0.3 mg/dL 08/30/2016 Comp Metabolic Kjt484 AL BUMIN 4.1 g/dL 08/30/2016 Comp Metabolic Mvk318 TP RO 6.4 g/dL 08/30/2016 Comp Metabolic Nbf485 GL OB 2.3 g/dL 08/30/2016 Comp Metabolic Pkv328 A/ G Ratio 1.8 Ratio 08/30/2016 Comp Metabolic Jgo140 Os mo 278 mOsmo 08/30/2016 Comp Metabolic Rif741 NA 135 mEq/L 03/23/2015 Comp Metabolic Tdx056 K 4.5 mEq/L 03/23/2015 Comp Metabolic Pgd150 CL 100 mEq/L 03/23/2015 Comp Metabolic Nfr797 CO2 31.0 mEq/L 03/23/2015 Comp Metabolic Pij710 AN ION GAP 9 03/23/2015 Comp Metabolic Ryt495 GL UCOSE 86 mg/dL 03/23/2015 Comp Metabolic Xdq432 Cr eat 0.9 mg/dL 03/23/2015 Comp Metabolic Pda685 eG FR 63 ml/min/1.73m2 03/23 Comp Metabolic Udu578 BUN 18 mg/dL 03/23/2015 Comp Metabolic Vzc464 B/ C Ratio 19.6 Ratio 03/23/2015 Comp Metabolic Zuo097 CA LCIUM 10.2 mg/dL 03/23/2015 Comp Metabolic Jgq740 AL K PHOS 66 U/L 03/23/2015 Comp Metabolic Zns638 T(SGOT) 15 U/L 03/23/2015 Comp Metabolic Nht837 AL T(SGPT) 10 U/L 03/23/2015 Comp Metabolic Zll599 BI LI T 0.4 mg/dL 03/23/2015 Comp Metabolic Ffr196 AL BUMIN 4.1 g/dL 03/23/2015 Comp Metabolic Rdw725 TP RO 6.3 g/dL 03/23/2015 Comp Metabolic Ecw855 GL OB 2.2 g/dL 03/23/2015 Comp Metabolic Sat111 A/ G Ratio 1.9 Ratio 03/23/2015 Comp Metabolic Dzr606 Os mo 271 mOsmo 03/23/2015 Parathyroid Hormone Hwv430 PTH 26.70 pg/ml 03/23/2015 Cbc With Differential [...] Differential Ord2 RDW 14.6 % 03/23/2015 TSH 1425021 TSH 0.91 uIU/ML 01/19/2015 CBC 0469985 WBC 7.0 10e9/L 01/19/2015 CBC 2800839 RBC 4.66 10e12/L 01/19/2015 CBC 2450039 HGB 13.0 g/dL 01/19/2015 CBC 3307581 HCT DET 41.0 % 01/19/2015 CBC 3808521 MCV 87.0 fL 01/19/2015 CBC 6940774 MCH 28.0 pg 01/19/2015 CBC 9478064 MCHC 32.0 g/dL 01/19/2015 CBC 6089763 PLT 218 10e9/L 01/19/2015 CBC 4409582 MPV 10.6 fL 01/19/2015 CBC 8286226 ROSALBA % 62.0 % 01/19/2015 CBC 4941160 LY % 27.0 % 01/19/2015 CBC 2287748 MON % 8.0 % 01/19/2015 CBC 3846777 EOS % 2.0 % 01/19/2015 CBC 5819859 BASO % 0.0 % 01/19/2015 CBC 5484609 RDW 13.6 % 01/19/2015 CBC 0067720 ABS ROSALBA 4.34 10e9/L 01/19/2015 CBC 8886418 ABS LYMPH 1.89 10e9/L 01/19/2015 CBC 4451627 ABS MONO 0.56 10e9/L 01/19/2015 CBC 4054138 ABS EOS 0.14 11e9/L 01/19/2015 CBC 3426979 ABS BASO 0.00 10e9/L 01/19/2015 A1C HPLC 9320991 A1C HPLC 73798-6 6.4 % 01/19/2015 GFR CALC 6509442 GFR AA >60 ML/MIN 01/19/2015 GFR CALC 6632282 GFR NON -AA 60.0L ML/MIN 5 CHEM 14 2782959 AST 20 U/L 01/19/2015 CHEM 14 7364104 ALT 13 IU/L 01/19/2015 CHEM 14 0666517 BUN 25 MG/DL 01/19/2015 CHEM 14 3866684 ALBUMIN 4.0 GM/DL 01/19/2015 CHEM 14 3255115 CHLORIDE 105 MMOL/L 01/19/2015 CHEM 14 4102177 BILI TOT 0.6 MG/DL 01/19/2015 CHEM 14 8131466 ALK PHOS 59 U/L 01/19/2015 CHEM 14 8947129 SODIUM 140 MMOL/L 01/19/2015 CHEM 14 3083765 CREATINI NE 0.91 MG/DL 01/19/2015 CHEM 14 9669974 CALCIUM 10.3 MG/DL 01/19/2015 CHEM 14 5095689 POTASSIUM 5.0 MMOL/L 01/19/2015 CHEM 14 8900886 PROT TOT 6.2 GM/DL 01/19/2015 CHEM 14 8180689 GLUCOSE 97 MG/DL 01/19/2015 CHEM 14 7519021 BICARB 30 MMOL/L 01/19/2015 CHEM 14 2623988 ANION GAP 5 MEQ/L 01/19/2015 Review of [...] 1994 Constitutional general appearance Nourishment: well nourished 08/30/2016 [...] of Distress: in no acute distress 01/18/2015 Full Exam - General 1994 Constitutional general [...] Codes Date OCCULT BLOOD FECES CPT- 4: 60859 09/10/2016 ADMIN INFLUENZA VIRU S VAC CPT-4: G0008 05/04/2016 FLU VACC 4 RANJIT 3 YRS PLUS IM SNOMED CT: 94359264 CPT-4: 15048 05/04/2016 ROUTINE VENIPUNCTURE CPT-4: 47407 01/18/2015 Vital Signs Date Vital 11/14/2018 Blood Pressure 1: 146/72 Code: 8480-6 BMI: 34.0 Code: 18788-1 Heart Rate 1: 73 bpm Height: 5'2" SpO2: 94% Weight: 186 lbs 02/21/2018 Blood Pressure 1: 138/80 Code: 8480-6 BMI: 34.4 Code: 91594-6 Heart Rate 1: 88 bpm Height: 5'2" SpO2: 91% Weight: 188 lbs 10/18/2017 Blood Pressure 1: 146/68 Code: 8480-6 BMI: 36.9 Code: 23912-0 Heart Rate 1: 68 bpm Height: 5'2" SpO2: 92% Weight: 202 lbs 06/14/2017 Blood Pressure 1: 138/76 Code: 8480-6 BMI: 36.9 Code: 64654-4 Heart Rate 1: 66 bpm Height: 5'2" SpO2: 90% Weight: 202 lbs 02/15/2017 Blood Pressure 1: 136/68 Code: 8480-6 BMI: 37.7 Code: 09787-2 Heart Rate 1: 76 bpm Height: 5'2" SpO2: 92% Weight: 206 lbs 11/13/2016 Blood Pressure 1: 126/64 Code: 8480-6 BMI: 38.4 Code: 15941-8 Heart Rate 1: 71 bpm Height: 5'2" SpO2: 90% Weight: 210 lbs 09/13/2016 Blood Pressure 1: 123/75 Code: 8480-6 BMI: 38.2 Code: 93834-0 Heart Rate 1: 77 bpm Height: 5'2" Respiratory Rate: 18 bpm SpO2: 94% Temperature: 37.1 (C ) / 98.7 (F) Weight: 209 lbs 08/30/2016 Blood Pressure 1: 124/78 Code: 8480-6 BMI: 38.4 Code: 34060-1 Heart Rate 1: 80 bpm Height: 5'2" SpO2: 92% Weight: 210 lbs 05/04/2016 Blood Pressure 1: 132/78 Code: 8480-6 BMI: 34.9 Code: 17086-9 Heart Rate 1: 78 bpm Height: 5'2" SpO2: 97% Weight: 191 lbs 03/02/2016 Blood Pressure 1: 110/58 Code: 8480-6 BMI: 34.8 Code: 56673-4 Heart Rate 1: 76 bpm Height: 5'2" SpO2: 97% Weight: 190 lbs 06/17/2015 Blood Pressure 1: 140/58 Code: 8480-6 BMI: 30.5 Code: 90143-1 Heart Rate 1: 68 bpm Height: 5'2" SpO2: 93% Weight: 167 lbs 05/17/2015 Blood Pressure 1: 128/70 Code: 8480-6 BMI: 30.5 Code: 18478-0 Heart Rate 1: 58 bpm Height: 5'2" SpO2: 95% Weight: 167 lbs 03/22/2015 Blood Pressure 1: 128/80 Code: 8480-6 BMI: 31.1 Code: 07287-0 Heart Rate 1: 70 bpm Height: 5'2" SpO2: 96% Weight: 170 lbs 02/11/2015 Blood Pressure 1: 128/60 Code: 8480-6 BMI: 33.7 Code: 30692-4 Heart Rate 1: 65 bpm Height: 5'2" SpO2: 95% Weight: 184 lbs 01/18/2015 Blood Pressure 1: 128/74 Code: 8480-6 BMI: 33.8 Code: 29197-7 Heart Rate 1: 74 bpm Height: 5'2" SpO2: 95% Weight: 185 lbs 12/03/2014 Blood Pressure 1: 132/74 Code: 8480-6 BMI: 34.2 Code: 49756-8 Heart Rate 1: 72 bpm Height: 5'2" [...] scab bed 08/30/2016 None skin lesion Quality 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 P ATIENT, LEVEL IV Diagnosis: Essential (primary) hypertension[ICD10: I10] Diagnosis: Type 2 diabetes mellitus without complications[ICD10: E11.9] Diagnosis: Cardiac murmur, unspecified[ICD10: R01.1] Theresa Gordon MD, [facility] CPT-4: 35672 02/21/2018 ([id number]) 26645 EST. P ATIENT, LEVEL III Diagnosis: Essential (primary) hypertension[ICD10: I10] Diagnosis: Type 2 diabetes mellitus without complications[ICD10: E11.9] Theresa Gordon MD, [facility] CPT-4: 29935 10/18/2017 ([id number]) 52056 EST. P ATIENT, LEVEL IV Diagnosis: Essential (primary) hypertension[ICD10: I10] Diagnosis: Type 2 diabetes mellitus without complications[ICD10: E11.9] Diagnosis: Myalgia[ICD10: M79.1] Theresa Gordon MD, [facility] CPT-4: 44746 06/14/2017 ([id number]) 16216 EST. P ATIENT, LEVEL IV Diagnosis: Essential (primary) hypertension[ICD10: I10] Diagnosis: Muscle weakness (generalized)[ICD10: M62.81] Diagnosis: Localized edema[ICD10: R60.0] Theresa Gordon MD, [facility] CPT- 4: 17720 02/15/2017 ([id number]) 52035 EST. 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 P ATIENT, LEVEL IV Diagnosis: Localized edema[ICD10: R60.0] Diagnosis: Essential (primary) hypertension[ICD10: I10] Diagnosis: Low back pain[ICD10: M54.5] Diagnosis: Pain in right wrist[ICD10: M25.531] Diagnosis: Pain in left wrist[ICD10: M25.532] Diagnosis: Type 2 diabetes mellitus without complications[ICD10: E11.9] [facility] CPT-4: 34305 08/30/2016 ([id number]) 72021 EST. P ATIENT, LEVEL III Diagnosis: Essential (primary) hypertension[ICD10: I10] Diagnosis: Type 2 diabetes mellitus without complications[ICD10: E11.9] Diagnosis: Encounter for immunization[ICD10: Z23] [facility] CPT-4: 12137 05/04/2016 [id number]) 02491 EST. P ATIENT, LEVEL IV Diagnosis: Multiple fractures of ribs, right side, initial encounter for closed fracture[ICD10: S22.41XA] Diagnosis: Type 2 diabetes mellitus without complications[ICD10: E11.9] Diagnosis: Urinary tract infection, site not specified[ICD10: N39.0] Diagnosis: Ataxic gait[ICD10: R26.0] [facility] CPT- 4: 97430 03/02/2016 ([id number]) 25617 EST. P ATIENT, LEVEL III Diagnosis: Pain in left knee[ICD10: M25.562] [facility] CPT- 4: 58223 06/17/2015 74550 EST. PATIENT, LEVEL IV Diagnosis: Essential (primary) hypertension[ICD10: I10] Diagnosis: Type 2 diabetes mellitus without complications[ICD10: E11.9] Diagnosis: Other diseases of tongue[ICD10: K14.8] [facility] CPT-4: 72484 05/17/2015 [id number]) 09220 EST. P ATIENT, LEVEL IV Diagnosis: Serum calcium elevated[ICD9: 275.42] Diagnosis: ESSENTIAL HYPERTENSION[ICD9: 401.9] Diagnosis: Cervical myelopathy[ICD9: 721.1] Diagnosis: Post-operative state[ICD9: V45.89] Diagnosis: Hospital discharge follow-up[ICD9: V67.59] [facility] CPT-4: 07180 03/22/2015 ([id number]) 07226 EST. P ATIENT, LEVEL IV Diagnosis: Diabetes mellitus type 2, controlled[ICD9: 250.00] Diagnosis: ESSENTIAL HYPERTENSION[ICD9: 401.9] Diagnosis: Open wound of toe with avulsion of toenail[ICD9: 893.1] Theresa Gordon MD, [facility] CPT-4: 59312 02/11/2015 ([id number]) 82016 EST. P ATIENT, LEVEL IV Diagnosis: ESSENTIAL HYPERTENSION[ICD9: 401.9] Diagnosis: Diabetes mellitus type 2, controlled[ICD9: 250.00] Diagnosis: Encounter for long-term (current) use of other medications[ICD9: V58.69] Jadyn Gordon MD, [facility] CPT-4: 81906 01/18/2015 ([id number]) OFFICE VISI , [facility] - LEVEL 4 Diagnosis: ESSENTIAL HYPERTENSION[ICD9: 401.9] Diagnosis: Cervical stenosis of spinal canal[ICD9: 723.0] Diagnosis: Gait instability[ICD9: 781.2] Diagnosis: Bowel and bladder incontinence[ICD9: 788.30] Diagnosis: Diabetes mellitus type 2, controlled[ICD9: 250.00] Diagnosis: Delusions[ICD9: 297.9] Jadyn Gordon MD, [facility] CPT-4: 54408 12/03/2014 Plan of Care Planned Activity Notes C odes Status Date Visit Plan: Hypertension - well con trolled - continue with current medications, continue with no added salt diet. Pt has been encouraged to exercise daily. The pt has been advised to call the office if there are any acute concerns about change in blood pressure readings at home. Iron def-check labs Yhipvmf-xurjphumak-gpj well controlled-increase zoloft to 100mg daily-call if symptoms uncontrolled BF-wjbdgwalrn-wnene Hgb A1C 11/14/2018 Appointment: Theresa Moses WPtel: [address] [place], [place] [phone] (30 min) [facility] 11/14/2018 Patient Education: Patient Medication Summary Completed 11/14/2018 Patient Education: Diabetes Completed 11/14/2018 App[facility]ment: [facility] [phone] [phone] (15 min) Moderate 09/17/2018 Visit Plan: Hypertension [...] -schedule Echo 02/21/2018 Appointment: Theresa Moses WPtel: [phone] (15 min) Moderate 02/21/2018 Patient Education: Patient Medication Summary Completed 02/21/2018 Appointment: Theresa Moses WPtel: [phone] (30 min) Complex 02/14/2018 Appointment: Theresa Moses WPtel: [phone] (15 min) Moderate 01/20/2018 Visit Plan: Hypertension - well con trolled - continue with current medications, continue with no added salt diet. Pt has been encouraged to exercise daily. The pt has been advised to call the office if there are any acute concerns about change in blood pressure readings at home. DM-diet controlled 10/18/2017 Appointment: Theresa Moses WPtel: [phone] [place] (15 min) Moderate 10/18/2017 Patient Education: Patient Medication Summary Completed 10/18/2017 Appointment: Theresa Moses WPtel: [phone] [place] (30 min) Complex 10/11/2017 Visit Plan: Hypertension [...] home massage 06/14/2017 Appointment: Theresa Moses WPtel: [phone] [phone] (30 min) Complex 06/14/2017 Patient Education: Patient [...] peripheral edema. 02/15/2017 Appointment: Theresa Moses WPtel: [phone] [phone] (30 min) Complex 02/15/2017 Patient Education: Patient [...] labs 11/13/2016 Appointment: Theresa Moses WPtel: [phone] [phone] (30 min) Complex 11/13/2016 Patient Education: Patient [...] WPtel: [phone] [phone] (30 min) Complex 09/13/2016 Patient Education: Patient [...] blood pressure readings at home. Low back seqw-bslmzlc-nqiz for low back brace DM-check Hgb A1C Chronic itching-picking at skin-refer to Dr Addison for evaluation 08/30/2016 Appointment: Theresa Moses WPtel: [address] [place], [place] [phone] [address] (30 min) Complex 08/30/2016 Patient Education: Patient Medication Summary Completed 08/30/2016 Patient Education: Obesity Completed 08/30/2016 Care Plan: Referral Order SNOMED-CT : [id number] Pending 08/30/2016 Visit Plan: Hypertension - well [...] less controlled. 05/04/2016 Appointment: Theresa Moses WPtel: [address] [place], [place] [phone] (30 min) Complex 05/04/2016 Patient Education: Patient [...] blood sugars 03/02/2016 [facility]: [phone] (30 min) Complex 03/02/2016 Patient Education: Patient [...] starting to become less controlled. Lesion of jbrlzy-bj-irjajlek in 1 month- if still present, refer [...] PTH Cervical myelopathy-recent surgery at - patient [facility] Hospital follow up - This was a [...] 02/11/2015 Visit Plan: Hypertension - well con jessaed - continue with current medications, continue with [...] less controlled. 01/18/2015 Appointment: Jadyn Gordon WPtel: [facility] [facility] 01/18/2015 Patient Education: Patient Medication Summary Completed 01/18/2015 Patient Education: Hypertension Completed 01/18/2015 Care Plan: CBC Pending 01/18/2015 Care Plan: CHEM 14 Pending 01/18/2015 Care Plan: A1C HPLC LO INC : [id number] Pending 01/18/2015 Care Plan: TSH Pending 01/18/2015 Visit Plan: Hypertension - well con trogustaboed - continue with current medications, continue with [...] blood pressure readings at home. Low back icnk-lysyzcp-fime for low back brace DM-check Hgb A1C [...] labs including PTH Cervical myelopathy-recent surgery at -patient [facility] Hospital follow up - This [...] labs including PTH Cervical myelopathy-recent surgery at -patient recovering well Hospital follow up - This [...] pressure readings at home. Iron def-check labs Qsktumh-ojiyzhpkuc-laz well controlled-increase zoloft to 100mg daily-call if symptoms uncontrolled MM-wcbkrsniak-ovxfi Hgb A1C DUE FOR FASTING LABS BEFORE [...] starting to become less controlled. Lesion of lddmqb-bf-nihdpyoy in 1 month-if still present, refer for [...]
--- OUTSIDE RECORDS SUMMARY | 2019-11-12 01:15 | XMS REPORT | CCD ---
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 Role Phone PP Unavailable CCM Unavailable Summary Purpose Interface Exchange Insurance Providers Payer name Policy type / Coverage type Covered green party ID Effective Begin Date Effective End Date WPS Medicare Part B Medicare Part B [id number] Unknown Unknown FOR LIFE WPS Medicare Part B [id number] Unknown Unknown Family history Daughter Diagnosis Age At Onset Cancer Unknown Social History Social History Element Codes Description Effective Dates Marital status Unknown M arried 12/03/2014 Number of children Unknown 7 12/03/2014 Employment Unknown Retir ed 12/03/[address]: 5276217 Quit over 10 years ago 199812/03/[address]: 801358979 Never drinks alcohol 12/03/2014 Allergies, Adverse Reactions, Alerts Substance Reaction Codes Entered Date Inactivated Date Status Penicillin hives Unknown 12/03/2014 No In active Date Active Past Medical History Illness Codes Condition Status Onset Date Resolved Date Essential (primary) hypertension ICD-9: 401.1 ICD-10: I10 Active 09/13/2016 Unknown 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 09/13/2016 Unknown Type 2 diabetes monica itus without complications ICD-9: 250.00 ICD-10: E11.9 Active 11/13/2016 Unknown Anemia, unspecified ICD- 9: 285.9 ICD-10: D64.9 Active 09/13/2016 08/30/2016 Localized edema ICD-9: 782.3 ICD-10: R60.0 Active 08/30/2016 Unknown Essential (primary) hypertension ICD-9: 401.9 ICD-10: [...] hypertension ICD-9: 401.1 ICD-10: I10 09/13/2016 Active 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 09/13/2016 Active Type 2 diabetes monica itus without complications ICD-9: 250.00 ICD-10: E11.9 11/13/2016 Active Anemia, unspecified ICD- 9: 285.9 ICD-10: D64.9 09/13/2016 Active Localized edema ICD-9: 782.3 ICD-10: R60.0 08/30/2016 Active Essential (primary) hypertension ICD-9: 401.9 ICD-10: [...] Fill Instructions Aricept 23 mg tablet RxNorm: 8861962 TAKE 1 TABLET DAILY 02/01/2017 No Stop Date Active atorvastatin 20 mg t ablet RxNorm: 365011 TAKE 1 TABLET DAILY 12/27/2016 No Stop Date Active benazepril 20 mg tablet RxNorm: 365074 TAKE 1 TABLET DAILY 12/27/2016 No Stop Date Active Lasix 20 mg tablet RxNorm: 1 Tablet(s) PO QDAY PRN 09/13/2016 01/10/2017 Inactive potassium chloride E R 10 mEq tablet,extended release RxNorm: 220997 1 Tablet(s) PO QDAY PRN 09/13/2016 01/10/2017 Inactive with lasix Zoloft 50 mg tablet RxNorm: 460556 TAKE 1 TABLET DAILY 09/11/2016 No Stop Date Active potassium chloride E R 10 mEq tablet,extended release RxNorm: 579951 1 Tablet(s) PO daily for edema 09/03/2016 09/02/2016 Inactive Lasix 20 mg tablet RxNorm: 1 Tablet(s) PO daily for edema 09/03/2016 09/09/2016 In active potassium chloride E R 10 mEq tablet,extended release RxNorm: 941513 1 Tablet(s) PO daily for edema 09/03/2016 09/09/2016 Inactive Lasix 20 mg tablet RxNorm: 1 Tablet(s) PO daily 09/03/2016 09/02/2016 Inactive atorvastatin 20 mg t ablet RxNorm: 005635 TAKE 1 TABLET DAILY 07/02/2016 12/26/2016 Inactive benazepril 20 mg tablet RxNorm: 707770 TAKE 1 TABLET DAILY 06/29/2016 12/26/2016 Inactive Aricept 23 mg tablet RxNorm: 5973037 TAKE 1 TABLET DAILY 05/07/2016 01/31/2017 Inactive atorvastatin 20 mg t ablet RxNorm: 630442 TAKE 1 TABLET DAILY 04/03/2016 07/01/2016 Inactive tramadol 50 mg tablet RxNorm: 938706 1-2 Tablet(s) PO Q6 as needed for pain 03/20/2016 No Stop Date Active tramadol 50 mg tablet RxNorm: 129328 1-2 Tablet(s) PO Q6 as needed for pain 03/06/2016 03/19/2016 In active Cipro 500 mg tablet RxNorm: 853493 1 Tablet(s) PO BID 03/02/2016 03/08/2016 Inactive atorvastatin 20 mg t ablet RxNorm: 397976 1 TABLET(S) PO DAILY 01/03/2016 04/02/2016 Inactive benazepril 20 mg tablet RxNorm: 720768 1 TABLET(S) PO DAILY 01/03/2016 06/28/2016 Inactive Zoloft 50 mg tablet RxNorm: 399760 1 TABLET(S) PO DAILY 12/15/2015 09/10/2016 Inactive Aricept 23 mg tablet RxNorm: 1653312 1 Tablet(s) PO daily 06/21/2015 05/06/2016 Inactive colchicine 0.6 mg ta blet RxNorm: 050150 1 Tablet(s) PO BID 05/24/2015 05/03/2016 Inactive ciclopirox 1 % shampoo RxNorm: 622620 1 TOP daily 05/24/2015 05/03/2016 Inactive benazepril 20 mg tablet RxNorm: 810159 1 Tablet(s) PO daily 05/17/2015 01/02/2016 Inactive atorvastatin 20 mg t ablet RxNorm: 632950 1 Tablet(s) PO daily 05/17/2015 01/02/2016 Inactive benazepril 20 mg tablet RxNorm: 350719 1 Tablet(s) PO daily 05/06/2015 05/16/2015 Inactive ciclopirox 1 % shampoo RxNorm: 269028 1 TOP daily 02/16/2015 02/15/2015 Inactive ciclopirox 1 % shampoo RxNorm: 144009 1 TOP daily 02/16/2015 04/16/2015 Inactive Zoloft 50 mg tablet RxNorm: 187108 1 Tablet(s) PO daily 01/27/2015 12/14/2015 Inactive express script [id number] script [id number] Januvia 50 mg tablet RxNorm: 413442 1 Tablet(s) PO daily 01/24/2015 03/21/2015 Inactive increase from 25mg Januvia 25 mg tablet RxNorm: 486202 1 Tablet(s) PO daily 01/21/2015 01/23/2015 Inactive Januvia 25 mg tablet RxNorm: 399611 1 Tablet(s) PO daily 01/21/2015 01/20/2015 Inactive Benicar 20 mg tablet RxNorm: 927062 1 Tablet(s) PO daily 01/10/2015 03/21/2015 Inactive [SAVINGS FOR NON-COVERED DRUGS -- BIN:00 3585, PCN: [id number], Group: XXXXX, ID# [id number], Questions: . THIS IS NOT INSURANCE.] Benicar 20 mg tablet RxNorm: 562346 1 Tablet(s) PO daily 12/16/2014 12/15/2014 Inactive Benicar 20 mg tablet RxNorm: 039985 1 Tablet(s) PO daily 12/16/2014 01/09/2015 Inactive [SAVINGS FOR NON-COVERED DRUGS -- BIN:00 3585, PCN: [id number], Group: XXXXX, ID# [id number], Questions: . THIS IS NOT INSURANCE.] Micardis HCT 80 mg-2 5 mg tablet RxNorm: 217769 1 Tablet(s) PO daily 12/03/2014 12/03/2014 Inactive Aricept 23 mg tablet RxNorm: 7240420 1 Tablet(s) PO daily 12/03/2014 03/02/2015 Inactive Lipitor 40 mg tablet RxNorm: 800689 1 Tablet(s) PO daily 12/03/2014 03/02/2015 Inactive B12 1000 mcg RxNorm: 1 IM daily 12/03/2014 03/02/2015 Inactive iron 325 mg (65 mg i rupal) tablet RxNorm: 109612 1 Tablet(s) PO TIW No Start Date Active Ocuvite oral RxNorm: 432139 oral No Start Date Active naproxen 250 mg tablet RxNorm: 466554 Tablet(s) PO as needed No Start Date Active Centrum Complete oral RxNorm: 51778 oral No Start Date Active colchicine 0.6 mg ta blet RxNorm: 932653 1 Tablet(s) PO BID No Start Date 05/23/2015 Inactive benazepril 20 mg tablet RxNorm: 459506 1 Tablet(s) PO daily No Start Date 05/05/2015 Inactive atorvastatin 20 mg t ablet RxNorm: 661244 1 Tablet(s) PO daily No Start Date 05/16/2015 Inactive Aricept 23 mg tablet RxNorm: 6428496 1 Tablet(s) PO daily No Start Date 06/20/2015 Inactive tramadol 50 mg tablet RxNorm: 267155 1-2 Tablet(s) PO Q6 as needed for pain No Start Date 03/05/2016 Inactive Miralax 17 gram oral powder packet RxNorm: 424183 1 PO daily as needed No Start Date 12/02/2014 Inactive Zoloft 25 mg tablet RxNorm: 601802 1 Tablet(s) PO daily No Start Date 01/26/2015 Inactive Medication Administered No Medication Administered data Immunizations Vaccine Codes Date Status Influenza CVX: 141 05/04 completed Assessments Condition Codes Effectiv e Dates Type 2 diabetes mellitus without complications ICD-10: E11.9 ICD-9: 250.00 11/13/2016 Essential (primary) hypertension ICD -10: I10 ICD-9: 401.1 11/13/2016 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 ICD-9: 280.0 11/13/2016 Localized edema ICD-10: R60.0 ICD-9: 782.3 09/13/2016 Anemia, unspecified ICD-10: D64.9 ICD-9: 285.9 09/10/2016 [...] Visit Reason For Visit Effective Dates Notes edema 11/13/2016 edema 09/13/2016 gait abnormality 08/30/2016 [...] 12.4 g/dl 11/13/2016 Cbc With Differential Ord2 Neut% 61.4 % 11/13/2016 Cbc With Differential Ord2 HCT 40.8 % 11/13/2016 Cbc With Differential Ord2 MCV 86.4 fl 11/13/2016 Cbc With Differential Ord2 Lymph% 27.2 % 11/13/2016 Cbc With Differential Ord2 MCH 26.3 pg 11/13/2016 Cbc With Differential Ord2 Bryan% 7.9 % 11/13/2016 Cbc With Differential Ord2 [...] 1.96 K/ul 11/13/2016 Cbc With Differential Ord2 Bryan ABS# 0.6 K/ul 11/13/2016 Cbc With Differential Ord2 Eos ABS# 0.2 K/ul 11/13/2016 Cbc With Differential Ord2 Baso ABS# 0.0 K/ul 11/13/2016 Ferritin Ord22 FERRITIN 55.7 ng/mL 11/13/2016 Comp Metabolic Hpe687 NA 140 mEq/L 11/13/2016 Comp Metabolic Whm459 K 4.6 mEq/L 11/13/2016 Comp Metabolic Lgf231 CL 103 mEq/L 11/13/2016 Comp Metabolic Ftb921 CO2 29.0 mEq/L 11/13/2016 Comp Metabolic Byt472 AN ION GAP 13 11/13/2016 Comp Metabolic Xkf067 GL UCOSE 83 mg/dL 11/13/2016 Comp Metabolic Hsv549 Cr eat 0.9 mg/dL 11/13/2016 Comp Metabolic Zlr236 eG FR 65 ml/min/1.73m2 11/13 Comp Metabolic End173 BUN 28 mg/dL 11/13/2016 Comp Metabolic Lmx221 B/ C Ratio 31.5 Ratio 11/13/2016 Comp Metabolic Rjq679 CA LCIUM 9.5 mg/dL 11/13/2016 Comp Metabolic Hwj885 AL K PHOS 52 U/L 11/13/2016 Comp Metabolic Vly937 T(SGOT) 16 U/L 11/13/2016 Comp Metabolic Cfr071 AL T(SGPT) 10 U/L 11/13/2016 Comp Metabolic Ouo382 BI LI T 0.4 mg/dL 11/13/2016 Comp Metabolic Lwe465 AL BUMIN 3.9 g/dL 11/13/2016 Comp Metabolic Ryg976 TP RO 6.2 g/dL 11/13/2016 Comp Metabolic Eea598 GL OB 2.3 g/dL 11/13/2016 Comp Metabolic Wxl934 A/ G Ratio 1.7 Ratio 11/13/2016 Comp Metabolic Tqe610 Os mo 284 mOsmo 11/13/2016 Tsh Ord6 [...] Tibc Ord40 Fe-%Sat 4.7 % 08/31/2016 %Hba1C Uyk732 % HbA1c 05157-7 5.9 % 08/30/2016 %Hba1C Ghz235 Gluc Ave 123 mg/dL 08/30/2016 Comp Metabolic Gqt072 NA 138 mEq/L 08/30/2016 Comp Metabolic Wit857 K 4.8 mEq/L 08/30/2016 Comp Metabolic Rxp500 CL 103 mEq/L 08/30/2016 Comp Metabolic Nzk011 CO2 29.0 mEq/L 08/30/2016 Comp Metabolic Elv223 AN ION GAP 11 08/30/2016 Comp Metabolic Fig076 GL UCOSE 85 mg/dL 08/30/2016 Comp Metabolic Wnw487 Cr eat 0.9 mg/dL 08/30/2016 Comp Metabolic Aen085 eG FR 67 ml/min/1.73m2 08/30 Comp Metabolic Gwo732 BUN 22 mg/dL 08/30/2016 Comp Metabolic Zki963 B/ C Ratio 25.3 Ratio 08/30/2016 Comp Metabolic Vmu737 CA LCIUM 9.6 mg/dL 08/30/2016 Comp Metabolic Bnq649 AL K PHOS 61 U/L 08/30/2016 Comp Metabolic Wpz405 T(SGOT) 22 U/L 08/30/2016 Comp Metabolic Rhn395 AL T(SGPT) 15 U/L 08/30/2016 Comp Metabolic Tjl033 BI LI T 0.3 mg/dL 08/30/2016 Comp Metabolic Cuo900 AL BUMIN 4.1 g/dL 08/30/2016 Comp Metabolic Tfb651 TP RO 6.4 g/dL 08/30/2016 Comp Metabolic Qme823 GL OB 2.3 g/dL 08/30/2016 Comp Metabolic Xwr509 A/ G Ratio 1.8 Ratio 08/30/2016 Comp Metabolic Xkl992 Os mo 278 mOsmo 08/30/2016 Cbc With Differential Ord2 WBC 6.49 [...] 24.0 pg 08/30/2016 Cbc With Differential Ord2 Bryan% 8.2 % 08/30/2016 Cbc With Differential Ord2 [...] 1.78 K/ul 08/30/2016 Cbc With Differential Ord2 Bryan ABS# 0.5 K/ul 08/30/2016 Cbc With Differential Ord2 Eos ABS# 0.1 K/ul 08/30/2016 Cbc With Differential Ord2 Baso ABS# 0.0 K/ul 08/30/2016 Comp Metabolic Zyg770 NA 135 mEq/L 03/23/2015 Comp Metabolic Vox124 K 4.5 mEq/L 03/23/2015 Comp Metabolic Ebc020 CL 100 mEq/L 03/23/2015 Comp Metabolic Kgi067 CO2 31.0 mEq/L 03/23/2015 Comp Metabolic Mpv255 AN ION GAP 9 03/23/2015 Comp Metabolic Gpk140 GL UCOSE 86 mg/dL 03/23/2015 Comp Metabolic Oum804 Cr eat 0.9 mg/dL 03/23/2015 Comp Metabolic Zok663 eG FR 63 ml/min/1.73m2 03/23 Comp Metabolic Huy438 BUN 18 mg/dL 03/23/2015 Comp Metabolic Lyd015 B/ C Ratio 19.6 Ratio 03/23/2015 Comp Metabolic Pka903 CA LCIUM 10.2 mg/dL 03/23/2015 Comp Metabolic Hqc270 AL K PHOS 66 U/L 03/23/2015 Comp Metabolic Rgx442 T(SGOT) 15 U/L 03/23/2015 Comp Metabolic Pte858 AL T(SGPT) 10 U/L 03/23/2015 Comp Metabolic Sdb175 BI LI T 0.4 mg/dL 03/23/2015 Comp Metabolic Gch019 AL BUMIN 4.1 g/dL 03/23/2015 Comp Metabolic Wwm043 TP RO 6.3 g/dL 03/23/2015 Comp Metabolic Iyg383 GL OB 2.2 g/dL 03/23/2015 Comp Metabolic Vwv738 A/ G Ratio 1.9 Ratio 03/23/2015 Comp Metabolic Bgx063 Os mo 271 mOsmo 03/23/2015 Cbc With Differential Ord2 WBC 6.4 [...] With Differential Ord2 RDW 14.6 % 03/23/2015 Parathyroid Hormone Nht536 PTH 26.70 pg/ml 03/23/2015 TSH 8496735 TSH 0.91 uIU/ML 01/19/2015 CBC 5194971 WBC 7.0 10e9/L 01/19/2015 CBC 6731659 RBC 4.66 10e12/L 01/19/2015 CBC 7389016 HGB 13.0 g/dL 01/19/2015 CBC 2686920 HCT DET 41.0 % 01/19/2015 CBC 6076812 MCV 87.0 fL 01/19/2015 CBC 8861073 MCH 28.0 pg 01/19/2015 CBC 4763610 MCHC 32.0 g/dL 01/19/2015 CBC 6537276 PLT 218 10e9/L 01/19/2015 CBC 4836716 MPV 10.6 fL 01/19/2015 CBC 6231581 ROSALBA % 62.0 % 01/19/2015 CBC 1727854 LY % 27.0 % 01/19/2015 CBC 5811430 MON % 8.0 % 01/19/2015 CBC 6396059 EOS % 2.0 % 01/19/2015 CBC 4075537 BASO % 0.0 % 01/19/2015 CBC 7367453 RDW 13.6 % 01/19/2015 CBC 6210881 ABS ROSALBA 4.34 10e9/L 01/19/2015 CBC 1288431 ABS LYMPH 1.89 10e9/L 01/19/2015 CBC 6934488 ABS MONO 0.56 10e9/L 01/19/2015 CBC 7510328 ABS EOS 0.14 11e9/L 01/19/2015 CBC 1286189 ABS BASO 0.00 10e9/L 01/19/2015 A1C HPLC 9557674 A1C HPLC 88253-7 6.4 % 01/19/2015 CHEM 14 8066659 AST 20 U/L 01/19/2015 CHEM 14 8090488 ALT 13 IU/L 01/19/2015 CHEM 14 5688561 BUN 25 MG/DL 01/19/2015 CHEM 14 6032755 ALBUMIN 4.0 GM/DL 01/19/2015 CHEM 14 0359269 CHLORIDE 105 MMOL/L 01/19/2015 CHEM 14 6498771 BILI TOT 0.6 MG/DL 01/19/2015 CHEM 14 6210930 ALK PHOS 59 U/L 01/19/2015 CHEM 14 8555545 SODIUM 140 MMOL/L 01/19/2015 CHEM 14 2174507 CREATINI NE 0.91 MG/DL 01/19/2015 CHEM 14 2116301 CALCIUM 10.3 MG/DL 01/19/2015 CHEM 14 4281460 POTASSIUM 5.0 MMOL/L 01/19/2015 CHEM 14 2719758 PROT TOT 6.2 GM/DL 01/19/2015 CHEM 14 5105982 GLUCOSE 97 MG/DL 01/19/2015 CHEM 14 8094853 BICARB 30 MMOL/L 01/19/2015 CHEM 14 6762463 ANION GAP 5 MEQ/L 01/19/2015 GFR CALC 8916011 GFR AA >60 ML/MIN 01/19/2015 GFR CALC 4653831 GFR NON -AA 60.0L ML/MIN 5 Review of Systems System Result Effective Dates Constitutional No recent illness 11/13/2016 Constitutional No [...] Procedures Procedure Codes Date OCCULT BLOOD FECES CPT-4: 50481Ukgtjjh 09/10/2016 ADMIN INFLUENZA VIRU S VAC CPT-4: Q7473Njeuotm 05/04/2016 FLU VACC 4 RANJIT 3 YRS PLUS IM SNOMED CT: 12307534 CPT-4: 95424Udgzvpi 05/04/2016 ROUTINE VENIPUNCTURE CPT-4: 13517Ycrgnuz 01/18/2015 Vital Signs Date Vital 11/13/2016 Blood Pressure 1: 126/64 Code: 8480-6 BMI: 38.4 Code: 62070-7 Heart Rate 1: 71 bpm Height: 5'2" SpO2: 90% Weight: 210 lbs 09/13/2016 Blood Pressure 1: 123/75 Code: 8480-6 BMI: 38.2 Code: 43042-0 Heart Rate 1: 77 bpm Height: 5'2" Respiratory Rate: 18 bpm SpO2: 94% Temperature: 37.1 (C ) / 98.7 (F) Weight: 209 lbs 08/30/2016 Blood Pressure 1: 124/78 Code: 8480-6 BMI: 38.4 Code: 01294-0 Heart Rate 1: 80 bpm Height: 5'2" SpO2: 92% Weight: 210 lbs 05/04/2016 Blood Pressure 1: 132/78 Code: 8480-6 BMI: 34.9 Code: 35394-0 Heart Rate 1: 78 bpm Height: 5'2" SpO2: 97% Weight: 191 lbs 03/02/2016 Blood Pressure 1: 110/58 Code: 8480-6 BMI: 34.8 Code: 63585-8 Heart Rate 1: 76 bpm Height: 5'2" SpO2: 97% Weight: 190 lbs 06/17/2015 Blood Pressure 1: 140/58 Code: 8480-6 BMI: 30.5 Code: 64255-3 Heart Rate 1: 68 bpm Height: 5'2" SpO2: 93% Weight: 167 lbs 05/17/2015 Blood Pressure 1: 128/70 Code: 8480-6 BMI: 30.5 Code: 61526-2 Heart Rate 1: 58 bpm Height: 5'2" SpO2: 95% Weight: 167 lbs 03/22/2015 Blood Pressure 1: 128/80 Code: 8480-6 BMI: 31.1 Code: 86260-4 Heart Rate 1: 70 bpm Height: 5'2" SpO2: 96% Weight: 170 lbs 02/11/2015 Blood Pressure 1: 128/60 Code: 8480-6 BMI: 33.7 Code: 50851-9 Heart Rate 1: 65 bpm Height: 5'2" SpO2: 95% Weight: 184 lbs 01/18/2015 Blood Pressure 1: 128/74 Code: 8480-6 BMI: 33.8 Code: 91828-9 Heart Rate 1: 74 bpm Height: 5'2" SpO2: 95% Weight: 185 lbs 12/03/2014 Blood Pressure 1: 132/74 Code: 8480-6 BMI: 34.2 Code: 94007-2 Heart Rate 1: 72 bpm Height: 5'2" SpO2: 98% Weight: 187 lbs Functional Status No Functional Status data History of Present Illness Symptom Name Status Resu lt Effective Date Notes edema Onset and Resolution ongoing 11/13/2016 None [...] scab bed 08/30/2016 None skin lesion 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 P ATIENT, LEVEL IV Diagnosis: Localized edema[ICD10: R60.0] Diagnosis: Essential (primary) hypertension[ICD10: I10] Diagnosis: Low back pain[ICD10: M54.5] Diagnosis: Pain in right wrist[ICD10: M25.531] Diagnosis: Pain in left wrist[ICD10: M25.532] Diagnosis: Type 2 diabetes mellitus without complications[ICD10: E11.9] [facility] CPT-4: 29238 08/30/2016 ([id number]) 97105 EST. P ATIENT, LEVEL III Diagnosis: Essential (primary) hypertension[ICD10: I10] Diagnosis: Type 2 diabetes mellitus without complications[ICD10: E11.9] Diagnosis: Encounter for immunization[ICD10: Z23] [facility] CPT-4: 95876 05/04/2016 ([id number]) 95338 EST. P ATIENT, LEVEL IV Diagnosis: Multiple fractures of ribs, right side, initial encounter for closed fracture[ICD10: S22.41XA] Diagnosis: Type 2 diabetes mellitus without complications[ICD10: E11.9] Diagnosis: Urinary tract infection, site not specified[ICD10: N39.0] Diagnosis: Ataxic gait[ICD10: R26.0] [facility] CPT- 4: 80727 03/02/2016 ([id number]) 63100 EST. P ATIENT, LEVEL III Diagnosis: Pain in left knee[ICD10: M25.562] Theresa Gordon MD, [facility] CPT- 4: 88216 06/17/2015 84822 EST. PATIENT, LEVEL IV Diagnosis: Essential (primary) hypertension[ICD10: I10] Diagnosis: Type 2 diabetes mellitus without complications[ICD10: E11.9] Diagnosis: Other diseases of tongue[ICD10: K14.8] Theresa Gordon MD, [facility] CPT-4: 91372 05/17/2015 ([id number]) 72273 EST. P ATIENT, LEVEL IV Diagnosis: Serum calcium elevated[ICD9: 275.42] Diagnosis: ESSENTIAL HYPERTENSION[ICD9: 401.9] Diagnosis: Cervical myelopathy[ICD9: 721.1] Diagnosis: Post-operative state[ICD9: V45.89] Diagnosis: Hospital discharge follow-up[ICD9: V67.59] Theresa Gordon MD, [facility] CPT-4: 97784 03/22/2015 ([id number]) 73501 EST. P ATIENT, LEVEL IV Diagnosis: Diabetes mellitus type 2, controlled[ICD9: 250.00] Diagnosis: ESSENTIAL HYPERTENSION[ICD9: 401.9] Diagnosis: Open wound of toe with avulsion of toenail[ICD9: 893.1] Theresa Gordon MD, [facility] CPT-4: 63020 02/11/2015 ([id number]) 36148 EST. P ATIENT, LEVEL IV Diagnosis: ESSENTIAL HYPERTENSION[ICD9: 401.9] Diagnosis: Diabetes mellitus type 2, controlled[ICD9: 250.00] Diagnosis: Encounter for long-term (current) use of other medications[ICD9: V58.69] Jadyn Gordon MD, [facility] CPT-4: 53025 01/18/2015 ([id number]) OFFICE VISI T, NEW - LEVEL 4 Diagnosis: ESSENTIAL HYPERTENSION[ICD9: 401.9] Diagnosis: Cervical stenosis of spinal canal[ICD9: 723.0] Diagnosis: Gait instability[ICD9: 781.2] Diagnosis: Bowel and bladder incontinence[ICD9: 788.30] Diagnosis: Diabetes mellitus type 2, controlled[ICD9: 250.00] Diagnosis: Delusions[ICD9: 297.9] Jadyn Gordon MD, [facility] CPT-4: 70491 12/03/2014 Plan of Care Planned Activity Notes C odes Status Date Visit Plan: Hypertension - well controll ed - continue with current medications, continue with no added salt diet. Pt has been encouraged to exercise daily.The pt has been advised to call the office if there are any acute concerns about change in blood pressure readings at home.Diabetes Mellitus - controlled - per recent FSBS [...] glucose readings are starting to become less controlled.Iron deficiency-check labs 11/13/2016 [facility]ment: [facility] [phone] [phone] (30 min) Complex 11/13/2016 Patient Education: Patient Medication Summary Completed 11/13/2016 Patient Education: Obesity Completed 11/13/2016 Care Plan: Iron And Tibc Pending 11/13/2016 Visit Plan: Edema - pt has been advised to elevate legs to prevent dependent edema, compression has been recommended to help to naturally decrease peripheral edema. Diuretic use has been discussed and pt has been instructed in appropriate use of such medication as necessary to further attempt to reduce peripheral edema.Hypertension - well controlled - continue with current medications, continue with no added salt diet. Pt has been encouraged to exercise daily.The pt has been advised to call the office if there are any acute concerns about change in blood pressure readings at home.Refer for HOME HEALTH PT AND NURSING FOR ANEMIA, DIABETES, DEPRESSION, HYPERLIPIDEMIA 2016 Visit Plan: Edema - pt has been advised to elevate legs to prevent dependent edema, compression has been recommended to help to naturally decrease peripheral edema. Diuretic use has been discussed and pt has been instructed in appropriate use of such medication as necessary to further attempt to reduce peripheral edema. 09/13/2016 App[facility]ment: [facility] [phone] [phone] (30 min) Complex 09/13/2016 Patient Education: Patient Medication Summary Completed 09/13/2016 Appointment: Lab Draw 09/10/2016 Patient Education: Patient Medication Summary Completed 09/10/2016 Patient Education: Patient Medication Summary Completed 08/31/2016 Care Plan: Iron add to blood from 08/30 Pending 08/31/2016 Visit Plan: Edema - pt has been advised to elevate legs to prevent dependent edema, compression has been recommended to help to naturally decrease peripheral edema. Diuretic use has been discussed and pt has been instructed in appropriate use of such medication as necessary to further attempt to reduce peripheral edema.Hypertension - well controlled - continue with current medications, continue with no added salt diet. Pt has been encouraged to exercise daily.The pt has been advised to call the office if there are any acute concerns about change in blood pressure readings at home.Low back pain-chronic- okay for low back brace DM-check Hgb A1C Chronic itching-picking at skin-refer to Dr Addison for evaluation 08/30/2016 Appointment: Theresa Moses WPtel: [phone] (30 min) Complex 08/30/2016 Patient Education: Patient Medication Summary Completed 08/30/2016 Patient Education: Obesity Completed 08/30/2016 Care Plan: Referral Order SNOMED-CT : [id number] Pending 08/30/2016 Visit Plan: Hypertension - well controll ed - continue with current medications, continue with no added salt diet. Pt has been encouraged to exercise daily.The pt has been advised to call the office if there are any acute concerns about change in blood pressure readings at home.Diabetes Mellitus - diet controlled- I have recommended [...] less controlled. 05/04/2016 Appointment: Theresa Moses WPtel: [phone] (30 min) Complex 05/04/2016 Patient Education: [...] blood sugars 03/02/2016 Appointment: Theresa Moses [facility]el[phone] (30 min) Complex 03/02/2016 Patient Education: Patient Medication Summary Completed 03/02/2016 Patient Education: Obesity Completed 03/02/2016 Visit Plan: Left knee pain-xray today an d use tiger balm as needed-will proceed as indicated-patient verbalized understanding of plan. 06/17/2015 Appointment: (15 min) Moderate 06/17/2015 Patient Education: Patient Medication Summary Completed 06/17/2015 Appointment: (30 min) Complex 06/16/2015 Visit Plan: Hypertension - well controll ed - continue with current medications, continue with no added salt diet. Pt has been encouraged to exercise daily.The pt has been advised to call the office if there are any acute concerns about change in blood pressure readings at home.Diabetes Mellitus - controlled - per recent FSBS [...] glucose readings are starting to become less controlled.Lesion of eriiif-uv-wbzflmnm in 1 month-if still present, refer for biopsy 05/17/2015 Appointment: (30 min) Complex 05/17/2015 Patient Education: Patient Medication Summary Completed 05/17/2015 Patient Education: Hypertension Completed 05/17/2015 Visit Plan: Hypertension - well controll ed - continue with current medications, continue with no added salt diet. Pt has been encouraged to exercise daily.The pt has been advised to call the office if there are any acute concerns about change in blood pressure readings at home.Elevated calcium-recheck labs including PTHCervical myelopathy-recent surgery at -patient recovering well Hospital follow up - This was a follow up appointment from the patient's hospitalization during which time Dr. Gordon formulated the assessment and plan for the follow up on this patient's medical condition. 03/22/2015 Visit Plan: Hypertension - well controll ed - continue with current medications, continue with no added salt diet. Pt has been encouraged to exercise daily.The pt has been advised to call the office if there are any acute concerns about change in blood pressure readings at home.Elevated calcium-recheck labs including PTHCervical myelopathy-recent surgery at -patient recovering well Hospital follow up - This was a follow up appointment from the patient's hospitalization during which time Dr. Gordon formulated the assessment and plan for the follow up on this patient's medical condition. 03/22/2015 Appointment: (15 min) Moderate 03/22/2015 Patient Education: Patient Medication Summary Completed 03/22/2015 Patient Education: Hypertension Completed 03/22/2015 Visit Plan: Toenail avulsion-no s/s of i nfection today in the office-keep covered when out-clean daily and use neosporin as directed-call for s/s of infection DM-discussed dietary modifications-patient did not feel well on the januvia-okay to stay off of it-patient has agreed to more strictly adhere to the diabetic diet and especially to cut back on sweets. 02/11/2015 Visit Plan: Toenail avulsion-no s/s of i nfection today in the office-keep covered when out-clean [...] Completed 02/11/2015 Visit Plan: Hypertension - well controll ed - continue with current medications, continue with no added salt diet. Pt has been encouraged to exercise daily.The pt has been advised to call the office if there are any acute concerns about change in blood pressure readings at home.Diabetes Mellitus - controlled - per recent FSBS [...] less controlled. 01/18/2015 App[facility]ment[phone] [id number] [facility] 01/18/2015 Patient Education: Patient Medication Summary Completed 01/18/2015 Patient Education: Hypertension Completed 01/18/2015 Care Plan: CBC Pending 01/18/2015 Care Plan: CHEM 14 Pending 01/18/2015 Care Plan: A1C HPLC LO INC : [id number] Pending 01/18/2015 Care Plan: TSH Pending 01/18/2015 Visit Plan: Hypertension - well controll ed - continue with current medications, continue with no added salt diet. Pt has been encouraged to exercise daily.The pt has been advised to call the office if there are any acute concerns about change in blood pressure readings at home.Spinal stenosis of cervical spine-Dr Snell is referring patient to [facility]-discussed with Dr Gordon-last MRI of cervical spine in Jun which showed spinal stenosis and spinal cord edema- recommend repeat MRI of cervical spine and also [...] glucose readings are starting to become less controlled.Delusions-no change in medications-check UA 12/03/2014 Appointment: (S) [...] blood pressure readings at home. Low back kytl-vgitmbt-czfo for low back brace DM-check Hgb A1C [...] follow up on this patient's medical condition. DUE FOR FASTING LABS BEFORE NEXT APPOINTMENT [...] before next appt-continue to monitor blood sugars xray left knee . Left knee pain-xray [...] starting to become less controlled. Lesion of lingfc-fh-pbidzqbz in 1 month-if still present, refer for biopsy LASIX-POTASSIUM SILVINA Y NEEDED . Edema - [...] readings are starting to become less controlled. RECOMMEND MASSAGE . Hypertension - well controlled [...]
--- OUTSIDE RECORDS SUMMARY | 2019-11-12 01:16 | XMS REPORT | CCD ---
Author Author Fern Gordon Organization Jadyn Gordon MD, [facility] Address [address] [place] [address] Phone Care Team Providers Care Polysomnograph Tech Name Role Phone PP Unavailable CCM Unavailable Summary Purpose Interface Exchange Insurance Providers Payer name Policy type / Coverage type Covered constitution party ID Effective Begin Date Effective End Date WPS Medicare Part B Medicare Part B [id number] Unknown Unknown FOR LIFE WPS Medicare Part B [id number] Unknown Unknown Family history Daughter Diagnosis Age At Onset Cancer Unknown Social History Social History Element Codes Description Effective Dates Marital status Unknown M arried 12/03/2014 Number of children Unknown 7 12/03/2014 Employment Unknown Retir ed 12/03/[address]: 8221973 Quit over 10 years ago 199812/03/[address]: 830563693 Never drinks alcohol 12/03/2014 Allergies, Adverse Reactions, [...] Instructions atorvastatin 20 mg t ablet RxNorm: 226163 TAKE 1 TABLET DAILY 12/27/2016 No Stop Date Active benazepril 20 mg tablet RxNorm: 087556 TAKE 1 TABLET DAILY 12/27/2016 No Stop Date Active Lasix 20 mg tablet RxNorm: 382803 1 Tablet(s) PO QDAY PRN 09/13/2016 01/10/2017 Active potassium chloride E R 10 mEq tablet,extended release RxNorm: 723436 1 Tablet(s) PO QDAY PRN 09/13/2016 01/10/2017 Active with lasix Zoloft 50 mg tablet RxNorm: 893719 TAKE 1 TABLET DAILY 09/11/2016 No Stop Date Active potassium chloride E R 10 mEq tablet,extended release RxNorm: 428017 1 Tablet(s) PO daily for edema 09/03/2016 09/02/2016 Inactive Lasix 20 mg tablet RxNorm: 984548 1 Tablet(s) PO daily for edema 09/03/2016 09/09/2016 In active potassium chloride E R 10 mEq tablet,extended release RxNorm: 754988 1 Tablet(s) PO daily for edema 09/03/2016 09/09/2016 Inactive Lasix 20 mg tablet RxNorm: 178518 1 Tablet(s) PO daily 09/03/2016 09/02/2016 Inactive atorvastatin 20 mg t ablet RxNorm: 715226 TAKE 1 TABLET DAILY 07/02/2016 12/26/2016 Inactive benazepril 20 mg tablet RxNorm: 395455 TAKE 1 TABLET DAILY 06/29/2016 12/26/2016 Inactive Aricept 23 mg tablet RxNorm: 7529261 TAKE 1 TABLET DAILY 05/07/2016 No Stop Date Active atorvastatin 20 mg t ablet RxNorm: 784437 TAKE 1 TABLET DAILY 04/03/2016 07/01/2016 Inactive tramadol 50 mg tablet RxNorm: 106595 1-2 Tablet(s) PO Q6 as needed for pain 03/20/2016 No Stop Date Active tramadol 50 mg tablet RxNorm: 193645 1-2 Tablet(s) PO Q6 as needed for pain 03/06/2016 03/19/2016 In active Cipro 500 mg tablet RxNorm: 764100 1 Tablet(s) PO BID 03/02/2016 03/08/2016 Inactive atorvastatin 20 mg t ablet RxNorm: 951320 1 TABLET(S) PO DAILY 01/03/2016 04/02/2016 Inactive benazepril 20 mg tablet RxNorm: 003079 1 TABLET(S) PO DAILY 01/03/2016 06/28/2016 Inactive Zoloft 50 mg tablet RxNorm: 948157 1 TABLET(S) PO DAILY 12/15/2015 09/10/2016 Inactive Aricept 23 mg tablet RxNorm: 9555445 1 Tablet(s) PO daily 06/21/2015 05/06/2016 Inactive colchicine 0.6 mg ta blet RxNorm: 089709 1 Tablet(s) PO BID 05/24/2015 05/03/2016 Inactive ciclopirox 1 % shampoo RxNorm: 673263 1 TOP daily 05/24/2015 05/03/2016 Inactive benazepril 20 mg tablet RxNorm: 812266 1 Tablet(s) PO daily 05/17/2015 01/02/2016 Inactive atorvastatin 20 mg t ablet RxNorm: 887420 1 Tablet(s) PO daily 05/17/2015 01/02/2016 Inactive benazepril 20 mg tablet RxNorm: 163704 1 Tablet(s) PO daily 05/06/2015 05/16/2015 Inactive ciclopirox 1 % shampoo RxNorm: 161975 1 TOP daily 02/16/2015 02/15/2015 Inactive ciclopirox 1 % shampoo RxNorm: 420260 1 TOP daily 02/16/2015 04/16/2015 Inactive Zoloft 50 mg tablet RxNorm: 833767 1 Tablet(s) PO daily 01/27/2015 12/14/2015 Inactive express script [id number] script [id number] Januvia 50 mg tablet RxNorm: 938204 1 Tablet(s) PO daily 01/24/2015 03/21/2015 Inactive increase from 25mg Januvia 25 mg tablet RxNorm: 873748 1 Tablet(s) PO daily 01/21/2015 01/23/2015 Inactive Januvia 25 mg tablet RxNorm: 320076 1 Tablet(s) PO daily 01/21/2015 01/20/2015 Inactive Benicar 20 mg tablet RxNorm: 905778 1 Tablet(s) PO daily 01/10/2015 03/21/2015 Inactive [SAVINGS FOR NON-COVERED DRUGS -- BIN:00 3585, PCN: [id number], Group: XXXXX, ID# [id number], Questions: . THIS IS NOT INSURANCE.] Benicar 20 mg tablet RxNorm: 551504 1 Tablet(s) PO daily 12/16/2014 12/15/2014 Inactive Benicar 20 mg tablet RxNorm: 181079 1 Tablet(s) PO daily 12/16/2014 01/09/2015 Inactive [SAVINGS FOR NON-COVERED DRUGS -- BIN:00 3585, PCN: [id number], Group: XXXXX, ID# XXXXXXX, Questions: . THIS IS NOT INSURANCE.] Micardis HCT 80 mg-2 5 mg tablet RxNorm: 349971 1 Tablet(s) PO daily 12/03/2014 12/03/2014 Inactive Aricept 23 mg tablet RxNorm: 4840043 1 Tablet(s) PO daily 12/03/2014 03/02/2015 Inactive Lipitor 40 mg tablet RxNorm: 135559 1 Tablet(s) PO daily 12/03/2014 03/02/2015 Inactive B12 1000 mcg RxNorm: 1 IM daily 12/03/2014 03/02/2015 Inactive iron 325 mg (65 mg i rupal) tablet RxNorm: 710685 1 Tablet(s) PO TIW No Start Date Active Ocuvite oral RxNorm: 117742 oral No Start Date Active naproxen 250 mg tablet RxNorm: 743126 Tablet(s) PO as needed No Start Date Active Centrum Complete oral RxNorm: 21881 oral No Start Date Active colchicine 0.6 mg ta blet RxNorm: 970629 1 Tablet(s) PO BID No Start Date 05/23/2015 Inactive benazepril 20 mg tablet RxNorm: 330004 1 Tablet(s) PO daily No Start Date 05/05/2015 Inactive atorvastatin 20 mg t ablet RxNorm: 583799 1 Tablet(s) PO daily No Start Date 05/16/2015 Inactive Aricept 23 mg tablet RxNorm: 9702512 1 Tablet(s) PO daily No Start Date 06/20/2015 Inactive tramadol 50 mg tablet RxNorm: 038724 1-2 Tablet(s) PO Q6 as needed for pain No Start Date 03/05/2016 Inactive Miralax 17 gram oral powder packet RxNorm: 485794 1 PO daily as needed No Start Date 12/02/2014 Inactive Zoloft 25 mg tablet RxNorm: 880219 1 Tablet(s) PO daily No Start Date 01/26/2015 Inactive Medication Administered No Medication Administered data Immunizations Vaccine Codes Date Status Influenza CVX: 141 05/04 completed Assessments Condition Codes Effectiv e Dates Type 2 diabetes mellitus without complications ICD-10: E11.9 ICD-9: 250.00 11/13/2016 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 ICD-9: 280.0 11/13/2016 Essential (primary) hypertension ICD -10: I10 ICD-9: 401.1 11/13/2016 Localized edema ICD-10: R60.0 ICD-9: 782.3 [...] V67.59 03/22/2015 ESSENTIAL HYPERTENSION ICD-9: 401.9 03/22/2015 Cervical myelopathy ICD-9: 721.1 03/22/2015 Serum calcium elevated ICD-9: 275.42 03/22/2015 Post-operative state ICD-9: V45.89 03/22/2015 Diabetes mellitus type 2, controlled ICD-9: 250.00 02/11/2015 Open wound of toe with avulsion of toenail ICD-9: 893.1 02/11/2015 Encounter for long-term (current) use of other medicat ions ICD-9: V58.69 01/18/2015 Bowel and bladder incontinence ICD-9 : 788.30 12/03/2014 Cervical stenosis of spinal canal IC D-9: 723.0 12/03/2014 Gait instability ICD-9: 781.2 12/03/2014 Delusions ICD-9: 297.9 0 12/03/2014 Reason For Visit Reason For Visit [...] 26.3 pg 11/13/2016 Cbc With Differential Ord2 Villalba% 7.9 % 11/13/2016 Cbc With Differential Ord2 [...] 1.96 K/ul 11/13/2016 Cbc With Differential Ord2 Villalba ABS# 0.6 K/ul 11/13/2016 Cbc With Differential Ord2 Eos ABS# 0.2 K/ul 11/13/2016 Cbc With Differential Ord2 Baso ABS# 0.0 K/ul 11/13/2016 Ferritin Ord22 FERRITIN 55.7 ng/mL 11/13/2016 Comp Metabolic Bmc292 NA 140 mEq/L 11/13/2016 Comp Metabolic Eto253 K 4.6 mEq/L 11/13/2016 Comp Metabolic Vkx357 CL 103 mEq/L 11/13/2016 Comp Metabolic Pgk721 CO2 29.0 mEq/L 11/13/2016 Comp Metabolic Hrl217 AN ION GAP 13 11/13/2016 Comp Metabolic Toc966 GL UCOSE 83 mg/dL 11/13/2016 Comp Metabolic Ofn361 Cr eat 0.9 mg/dL 11/13/2016 Comp Metabolic Xvj550 eG FR 65 ml/min/1.73m2 11/13 Comp Metabolic Quv500 BUN 28 mg/dL 11/13/2016 Comp Metabolic Wpn033 B/ C Ratio 31.5 Ratio 11/13/2016 Comp Metabolic Zpx304 CA LCIUM 9.5 mg/dL 11/13/2016 Comp Metabolic Dfc143 AL K PHOS 52 U/L 11/13/2016 Comp Metabolic Ugw735 T(SGOT) 16 U/L 11/13/2016 Comp Metabolic Nxx148 AL T(SGPT) 10 U/L 11/13/2016 Comp Metabolic Geq822 BI LI T 0.4 mg/dL 11/13/2016 Comp Metabolic Qpn339 AL BUMIN 3.9 g/dL 11/13/2016 Comp Metabolic Sqb189 TP RO 6.2 g/dL 11/13/2016 Comp Metabolic Ebl856 GL OB 2.3 g/dL 11/13/2016 Comp Metabolic Wib864 A/ G Ratio 1.7 Ratio 11/13/2016 Comp Metabolic Ivt606 Os mo 284 mOsmo 11/13/2016 Tsh Ord6 [...] Tibc Ord40 Fe-%Sat 4.7 % 08/31/2016 %Hba1C Jcq376 % HbA1c 16358-3 5.9 % 08/30/2016 %Hba1C Qmj296 Gluc Ave 123 mg/dL 08/30/2016 Cbc With [...] 24.0 pg 08/30/2016 Cbc With Differential Ord2 Villalba% 8.2 % 08/30/2016 Cbc With Differential Ord2 [...] 1.78 K/ul 08/30/2016 Cbc With Differential Ord2 Villalba ABS# 0.5 K/ul 08/30/2016 Cbc With Differential Ord2 Eos ABS# 0.1 K/ul 08/30/2016 Cbc With Differential Ord2 Baso ABS# 0.0 K/ul 08/30/2016 Comp Metabolic Thd699 NA 138 mEq/L 08/30/2016 Comp Metabolic Ckr931 K 4.8 mEq/L 08/30/2016 Comp Metabolic Rav880 CL 103 mEq/L 08/30/2016 Comp Metabolic Jto605 CO2 29.0 mEq/L 08/30/2016 Comp Metabolic Mor154 AN ION GAP 11 08/30/2016 Comp Metabolic Tjp869 GL UCOSE 85 mg/dL 08/30/2016 Comp Metabolic Ssa197 Cr eat 0.9 mg/dL 08/30/2016 Comp Metabolic Ewg197 eG FR 67 ml/min/1.73m2 08/30 Comp Metabolic Jtx224 BUN 22 mg/dL 08/30/2016 Comp Metabolic Ito533 B/ C Ratio 25.3 Ratio 08/30/2016 Comp Metabolic Fag132 CA LCIUM 9.6 mg/dL 08/30/2016 Comp Metabolic Yuf947 AL K PHOS 61 U/L 08/30/2016 Comp Metabolic Xct673 T(SGOT) 22 U/L 08/30/2016 Comp Metabolic Nhn088 AL T(SGPT) 15 U/L 08/30/2016 Comp Metabolic Ebl026 BI LI T 0.3 mg/dL 08/30/2016 Comp Metabolic Zuh585 AL BUMIN 4.1 g/dL 08/30/2016 Comp Metabolic Gho302 TP RO 6.4 g/dL 08/30/2016 Comp Metabolic Reo892 GL OB 2.3 g/dL 08/30/2016 Comp Metabolic Btg952 A/ G Ratio 1.8 Ratio 08/30/2016 Comp Metabolic Ahw028 Os mo 278 mOsmo 08/30/2016 Comp Metabolic Cmo071 NA 135 mEq/L 03/23/2015 Comp Metabolic Ajh476 K 4.5 mEq/L 03/23/2015 Comp Metabolic Ukc248 CL 100 mEq/L 03/23/2015 Comp Metabolic Xih651 CO2 31.0 mEq/L 03/23/2015 Comp Metabolic Mnv987 AN ION GAP 9 03/23/2015 Comp Metabolic Jlj924 GL UCOSE 86 mg/dL 03/23/2015 Comp Metabolic Tou401 Cr eat 0.9 mg/dL 03/23/2015 Comp Metabolic Rhc402 eG FR 63 ml/min/1.73m2 03/23 Comp Metabolic Xdv514 BUN 18 mg/dL 03/23/2015 Comp Metabolic Xnj552 B/ C Ratio 19.6 Ratio 03/23/2015 Comp Metabolic Edh993 CA LCIUM 10.2 mg/dL 03/23/2015 Comp Metabolic Gmz648 AL K PHOS 66 U/L 03/23/2015 Comp Metabolic Ghh409 T(SGOT) 15 U/L 03/23/2015 Comp Metabolic Qfx781 AL T(SGPT) 10 U/L 03/23/2015 Comp Metabolic Vxo239 BI LI T 0.4 mg/dL 03/23/2015 Comp Metabolic Bvc385 AL BUMIN 4.1 g/dL 03/23/2015 Comp Metabolic Urq047 TP RO 6.3 g/dL 03/23/2015 Comp Metabolic Nxh210 GL OB 2.2 g/dL 03/23/2015 Comp Metabolic Gvi246 A/ G Ratio 1.9 Ratio 03/23/2015 Comp Metabolic Fto741 Os mo 271 mOsmo 03/23/2015 Parathyroid Hormone Aiy594 PTH 26.70 pg/ml 03/23/2015 Cbc With Differential [...] Differential Ord2 RDW 14.6 % 03/23/2015 TSH 9752477 TSH 0.91 uIU/ML 01/19/2015 CBC 8480407 WBC 7.0 10e9/L 01/19/2015 CBC 7481930 RBC 4.66 10e12/L 01/19/2015 CBC 9377645 HGB 13.0 g/dL 01/19/2015 CBC 6218237 HCT DET 41.0 % 01/19/2015 CBC 0420773 MCV 87.0 fL 01/19/2015 CBC 6433445 MCH 28.0 pg 01/19/2015 CBC 6838905 MCHC 32.0 g/dL 01/19/2015 CBC 6274941 PLT 218 10e9/L 01/19/2015 CBC 8970340 MPV 10.6 fL 01/19/2015 CBC 9567285 ROSALBA % 62.0 % 01/19/2015 CBC 3980947 LY % 27.0 % 01/19/2015 CBC 1746341 MON % 8.0 % 01/19/2015 CBC 9489484 EOS % 2.0 % 01/19/2015 CBC 1247999 BASO % 0.0 % 01/19/2015 CBC 7168069 RDW 13.6 % 01/19/2015 CBC 0721076 ABS ROSALBA 4.34 10e9/L 01/19/2015 CBC 9694694 ABS LYMPH 1.89 10e9/L 01/19/2015 CBC 5458416 ABS MONO 0.56 10e9/L 01/19/2015 CBC 1475892 ABS EOS 0.14 11e9/L 01/19/2015 CBC 7517309 ABS BASO 0.00 10e9/L 01/19/2015 A1C HPLC 3785049 A1C HPLC 05909-2 6.4 % 01/19/2015 GFR CALC 6681564 GFR AA >60 ML/MIN 01/19/2015 GFR CALC 6622303 GFR NON -AA 60.0L ML/MIN 5 CHEM 14 3500168 AST 20 U/L 01/19/2015 CHEM 14 6121760 ALT 13 IU/L 01/19/2015 CHEM 14 1888403 BUN 25 MG/DL 01/19/2015 CHEM 14 0688850 ALBUMIN 4.0 GM/DL 01/19/2015 CHEM 14 8638636 CHLORIDE 105 MMOL/L 01/19/2015 CHEM 14 7633776 BILI TOT 0.6 MG/DL 01/19/2015 CHEM 14 8947459 ALK PHOS 59 U/L 01/19/2015 CHEM 14 0778158 SODIUM 140 MMOL/L 01/19/2015 CHEM 14 2656900 CREATINI NE 0.91 MG/DL 01/19/2015 CHEM 14 6617571 CALCIUM 10.3 MG/DL 01/19/2015 CHEM 14 2027147 POTASSIUM 5.0 MMOL/L 01/19/2015 CHEM 14 1296300 PROT TOT 6.2 GM/DL 01/19/2015 CHEM 14 2746462 GLUCOSE 97 MG/DL 01/19/2015 CHEM 14 5469515 BICARB 30 MMOL/L 01/19/2015 CHEM 14 0103763 ANION GAP 5 MEQ/L 01/19/2015 Review of [...] 12/03/2014 Neurologic paresthesia 0 12/03/2014 Psychiatric anxiety 0502/2015 Physical Exam Exam Name System Name It [...] distress 08/30/2016 None Full Exam - General 1995 Constitutional general appearance Hygiene/Attention to Grooming: good [...] None Full Exam - General 1995 Ears/Nose/Throat oral cavity/pharynx/larynx Overall: oral mucosa clear [...] Procedure Codes Date OCCULT BLOOD FECES CPT-4: 83042Uklduym 09/10/2016 ADMIN INFLUENZA VIRU S VAC CPT-4: S0127Skqcswk 05/04/2016 FLU VACC 4 RANJIT 3 YRS PLUS IM SNOMED CT: 83981258 CPT-4: 19303Auhpebx 05/04/2016 ROUTINE VENIPUNCTURE CPT-4: 70728Kcfsixj 01/18/2015 Vital Signs Date Vital 11/13/2016 Blood Pressure 1: 126/64 Code: 8480-6 BMI: 38.4 Code: 56677-4 Heart Rate 1: 71 bpm Height: 5'2" SpO2: 90% Weight: 210 lbs 09/13/2016 Blood Pressure 1: 123/75 Code: 8480-6 BMI: 38.2 Code: 12132-1 Heart Rate 1: 77 bpm Height: 5'2" Respiratory Rate: 18 bpm SpO2: 94% Temperature: 37.1 (C ) / 98.7 (F) Weight: 209 lbs 08/30/2016 Blood Pressure 1: 124/78 Code: 8480-6 BMI: 38.4 Code: 87145-5 Heart Rate 1: 80 bpm Height: 5'2" SpO2: 92% Weight: 210 lbs 05/04/2016 Blood Pressure 1: 132/78 Code: 8480-6 BMI: 34.9 Code: 84723-0 Heart Rate 1: 78 bpm Height: 5'2" SpO2: 97% Weight: 191 lbs 03/02/2016 Blood Pressure 1: 110/58 Code: 8480-6 BMI: 34.8 Code: 58575-1 Heart Rate 1: 76 bpm Height: 5'2" SpO2: 97% Weight: 190 lbs 06/17/2015 Blood Pressure 1: 140/58 Code: 8480-6 BMI: 30.5 Code: 47217-7 Heart Rate 1: 68 bpm Height: 5'2" SpO2: 93% Weight: 167 lbs 05/17/2015 Blood Pressure 1: 128/70 Code: 8480-6 BMI: 30.5 Code: 76393-3 Heart Rate 1: 58 bpm Height: 5'2" SpO2: 95% Weight: 167 lbs 03/22/2015 Blood Pressure 1: 128/80 Code: 8480-6 BMI: 31.1 Code: 22835-7 Heart Rate 1: 70 bpm Height: 5'2" SpO2: 96% Weight: 170 lbs 02/11/2015 Blood Pressure 1: 128/60 Code: 8480-6 BMI: 33.7 Code: 39301-9 Heart Rate 1: 65 bpm Height: 5'2" SpO2: 95% Weight: 184 lbs 01/18/2015 Blood Pressure 1: 128/74 Code: 8480-6 BMI: 33.8 Code: 49256-7 Heart Rate 1: 74 bpm Height: 5'2" SpO2: 95% Weight: 185 lbs 12/03/2014 Blood Pressure 1: 132/74 Code: 8480-6 BMI: 34.2 Code: 62197-6 Heart Rate 1: 72 bpm Height: 5'2" [...] scab bed 08/30/2016 None skin lesion 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 P ATIENT, LEVEL IV Diagnosis: Localized edema[ICD10: R60.0] Diagnosis: Essential (primary) hypertension[ICD10: I10] Diagnosis: Low back pain[ICD10: M54.5] Diagnosis: Pain in right wrist[ICD10: M25.531] Diagnosis: Pain in left wrist[ICD10: M25.532] Diagnosis: Type 2 diabetes mellitus without complications[ICD10: E11.9] Theresa Gordon MD, [facility] CPT-4: 23753 08/30/2016 ([id number]) 10981 EST. P ATIENT, LEVEL III Diagnosis: Essential (primary) hypertension[ICD10: I10] Diagnosis: Type 2 diabetes mellitus without complications[ICD10: E11.9] Diagnosis: Encounter for immunization[ICD10: Z23] Theersa Gordon MD, [facility] CPT-4: 15531 05/04/2016 ([id number]) 55538 EST. P ATIENT, LEVEL IV Diagnosis: Multiple fractures of ribs, right side, initial encounter for closed fracture[ICD10: S22.41XA] Diagnosis: Type 2 diabetes mellitus without complications[ICD10: E11.9] Diagnosis: Urinary tract infection, site not specified[ICD10: N39.0] Diagnosis: Ataxic gait[ICD10: R26.0] Theresa Gordon MD, [facility] CPT- 4: 47502 03/02/2016 ([id number]) 91241 EST. P ATIENT, LEVEL III Diagnosis: Pain in left knee[ICD10: M25.562] Theresa Gordon MD, [facility] CPT- 4: 00681 06/17/2015 30661 EST. PATIENT, LEVEL IV Diagnosis: Essential (primary) hypertension[ICD10: I10] Diagnosis: Type 2 diabetes mellitus without complications[ICD10: E11.9] Diagnosis: Other diseases of tongue[ICD10: K14.8] Theresa Gordon MD, [facility] CPT-4: 86930 05/17/2015 ([id number]) 03294 EST. P ATIENT, LEVEL IV Diagnosis: Serum calcium elevated[ICD9: 275.42] Diagnosis: ESSENTIAL HYPERTENSION[ICD9: 401.9] Diagnosis: Cervical myelopathy[ICD9: 721.1] Diagnosis: Post-operative state[ICD9: V45.89] Diagnosis: Hospital discharge follow-up[ICD9: V67.59] Theresa Gordon MD, [facility] CPT-4: 25620 03/22/2015 ([id number]) 09601 EST. P ATIENT, LEVEL IV Diagnosis: Diabetes mellitus type 2, controlled[ICD9: 250.00] Diagnosis: ESSENTIAL HYPERTENSION[ICD9: 401.9] Diagnosis: Open wound of toe with avulsion of toenail[ICD9: 893.1] Theresa Gordon MD, [facility] CPT-4: 90937 02/11/2015 ([id number]) 28357 EST. P ATIENT, LEVEL IV Diagnosis: ESSENTIAL HYPERTENSION[ICD9: 401.9] Diagnosis: Diabetes mellitus type 2, controlled[ICD9: 250.00] Diagnosis: Encounter for long-term (current) use of other medications[ICD9: V58.69] Jadyn Gordon MD, [facility] CPT-4: 27314 01/18/2015 ([id number]) OFFICE VISI T, NEW - LEVEL 4 Diagnosis: ESSENTIAL HYPERTENSION[ICD9: 401.9] Diagnosis: Cervical stenosis of spinal canal[ICD9: 723.0] Diagnosis: Gait instability[ICD9: 781.2] Diagnosis: Bowel and bladder incontinence[ICD9: 788.30] Diagnosis: Diabetes mellitus type 2, controlled[ICD9: 250.00] Diagnosis: Delusions[ICD9: 297.9] Jadyn Gordon MD, [facility] CPT-4: 33857 12/03/2014 Plan of Care Planned Activity Notes [...] labs 11/13/2016 Appointment: Theresa Moses WPtel: [phone] [phone] (30 min) Complex 11/13/2016 Patient Education: Patient [...] edema. 09/13/2016 Appointment: Theresa Moses WPtel: [phone] [phone] (30 min) Complex 09/13/2016 Patient Education: Patient [...] for evaluation 08/30/2016 [phone] [facility] Complex 08/30/2016 Patient Education: Patient Medication Summary Completed 08/30/2016 Patient Education: Obesity Completed 08/30/2016 Care Plan: Referral Order SNOMED-CT : [id number] Pending 08/30/2016 Visit Plan: Hypertension - well [...] controlled. 05/04/2016 [facility]ment: [phone] [phone] ([facility] Complex 05/04/2016 Patient Education: Patient [...] appt-continue to monitor blood sugars 03/02/2016 [facility]: [facility]ué [facility] [phone] [phone] ([facility] min) Complex 03/02/2016 Patient Education: [...] are starting to become less controlled.Lesion of zwljct-ky-cyscrija in 1 month-if still present, refer for [...] PTHCervical myelopathy-recent surgery at -patient recovering well [facility] follow up - This was a [...] less controlled. 01/18/2015 Appointment: Jadyn Gordon WPtel[phone] [facility] 01/18/2015 Patient Education: Patient Medication Summary Completed 01/18/2015 Patient Education: Hypertension Completed 01/18/2015 Care Plan: CBC Pending 01/18/2015 Care Plan: CHEM 14 Pending 01/18/2015 Care Plan: A1C HPLC INC : 99091-9 Pending 01/18/2015 Care Plan: TSH Pending 01/18/2015 [...] 12/03/2014 Patient Education: Hypertension Completed 12/03/2014 Referral: Esepranza Addison WPtel: Referral Appointment Requested Instructions Comment [...] blood pressure readings at home. Low back ykwp-fcusrvw-fzqz for low back brace DM-check Hgb A1C [...] labs including PTH Cervical myelopathy-recent surgery at [facility] follow up - This [...] starting to become less controlled. Lesion of thhmmh-cs-maxhqlhi in 1 month-if still present, refer for [...]
--- OUTSIDE RECORDS SUMMARY | 2019-11-12 01:17 | XMS REPORT | CCD ---
Author Author Fern Gordon Organization Jadyn Gordon MD, [facility] Address [address] [place] [address] Phone Care Team Providers Care Meat Apprentice Name Role Phone PP Unavailable CCM Unavailable Summary Purpose Interface Exchange Insurance Providers Payer name Policy type / Coverage type Covered green party ID Effective Begin Date Effective End Date WPS Medicare Part B Medicare Part B [id number] Unknown FOR LIFE WPS Medicare Part B [id number] Unknown Family history Daughter Diagnosis Age At Onset Cancer Unknown Social History Social History Element Codes Description Effective Dates Marital status Unknown M arried 12/03/2014 Number of children Unknown 7 12/03/2014 Employment Unknown Retir ed 12/03/[address]: 5313279 Quit over 10 years ago 199812/03/[address]: 346350904 Never drinks alcohol 12/03/2014 Allergies, Adverse Reactions, [...] Date Stop Date Sta tus Fill Instructions ferrous sulfate 325 mg (65 mg iron) tablet RxNorm: 864500 1 Tablet(s) PO daily 11/14/2018 05/12/2019 Ac tive Zoloft 100 mg tablet RxNorm: 720898 1 Tablet(s) PO daily TAKE 1 TABLET DAILY 11/14/2018 05/12/2019 Ac tive Aricept 23 mg tablet RxNorm: 1577588 TAKE 1 TABLET DAILY 06/27/2018 No Stop Date Active Zoloft 50 mg tablet RxNorm: 276812 TAKE 1 TABLET DAILY 06/27/2018 11/13/2018 Inactive benazepril 20 mg tablet RxNorm: 159139 1 Tablet(s) PO daily 04/28/2018 01/22/2019 Active atorvastatin 20 mg t ablet RxNorm: 425039 TAKE 1 TABLET DAILY 12/22/2017 No Stop Date Active potassium chloride E R 10 mEq tablet,extended release RxNorm: 525385 TAKE 1 TABLET DAILY WITH LASIX NEEDED 10/21/2017 No Stop Date Active Lasix 20 mg tablet RxNorm: 759566 TAKE 1 TABLET DAILY NEEDED 10/21/2017 No Stop Date Active Aricept 23 mg tablet RxNorm: 6575058 TAKE 1 TABLET DAILY 10/17/2017 06/26/2018 Inactive Zoloft 50 mg tablet RxNorm: 339966 TAKE 1 TABLET DAILY 10/17/2017 06/26/2018 Inactive benazepril 20 mg tablet RxNorm: 826349 TAKE 1 TABLET DAILY 06/25/2017 04/27/2018 Inactive atorvastatin 20 mg t ablet RxNorm: 379292 TAKE 1 TABLET DAILY 06/25/2017 12/21/2017 Inactive Lasix 20 mg tablet RxNorm: 709463 1 TABLET(S) PO QDAY PRN 04/29/2017 10/20/2017 Inactive potassium chloride E R 10 mEq tablet,extended release RxNorm: 673087 1 TABLET(S) PO QDAY PRN 04/29/2017 10/20/2017 Inactive Zoloft 50 mg tablet RxNorm: 212223 TAKE 1 TABLET DAILY 03/11/2017 10/16/2017 Inactive potassium chloride E R 10 mEq tablet,extended release RxNorm: 271834 1 Tablet(s) PO QDAY PRN 02/15/2017 04/28/2017 Inactive with lasix Lasix 20 mg tablet RxNorm: 814545 1 Tablet(s) PO QDAY PRN 02/15/2017 04/28/2017 Inactive Aricept 23 mg tablet RxNorm: 7383375 TAKE 1 TABLET DAILY 02/01/2017 10/16/2017 Inactive atorvastatin 20 mg t ablet RxNorm: 527676 TAKE 1 TABLET DAILY 12/27/2016 06/24/2017 Inactive benazepril 20 mg tablet RxNorm: 692206 TAKE 1 TABLET DAILY 12/27/2016 06/24/2017 Inactive Lasix 20 mg tablet RxNorm: 090110 1 Tablet(s) PO QDAY PRN 09/13/2016 01/10/2017 Inactive potassium chloride E R 10 mEq tablet,extended release RxNorm: 832585 1 Tablet(s) PO QDAY PRN 09/13/2016 01/10/2017 Inactive with lasix Zoloft 50 mg tablet RxNorm: 201275 TAKE 1 TABLET DAILY 09/11/2016 03/10/2017 Inactive potassium chloride E R 10 mEq tablet,extended release RxNorm: 646827 1 Tablet(s) PO daily for edema 09/03/2016 09/02/2016 Inactive Lasix 20 mg tablet RxNorm: 640459 1 Tablet(s) PO daily for edema 09/03/2016 09/09/2016 In active potassium chloride E R 10 mEq tablet,extended release RxNorm: 898623 1 Tablet(s) PO daily for edema 09/03/2016 09/09/2016 Inactive Lasix 20 mg tablet RxNorm: 750474 1 Tablet(s) PO daily 09/03/2016 09/02/2016 Inactive atorvastatin 20 mg t ablet RxNorm: 971085 TAKE 1 TABLET DAILY 07/02/2016 12/26/2016 Inactive benazepril 20 mg tablet RxNorm: 151351 TAKE 1 TABLET DAILY 06/29/2016 12/26/2016 Inactive Aricept 23 mg tablet RxNorm: 1658359 TAKE 1 TABLET DAILY 05/07/2016 01/31/2017 Inactive atorvastatin 20 mg t ablet RxNorm: 631085 TAKE 1 TABLET DAILY 04/03/2016 07/01/2016 Inactive tramadol 50 mg tablet RxNorm: 024764 1-2 Tablet(s) PO Q6 as needed for pain 03/20/2016 No Stop Date Active tramadol 50 mg tablet RxNorm: 795467 1-2 Tablet(s) PO Q6 as needed for pain 03/06/2016 03/19/2016 In active Cipro 500 mg tablet RxNorm: 070703 1 Tablet(s) PO BID 03/02/2016 03/08/2016 Inactive atorvastatin 20 mg t ablet RxNorm: 934663 1 TABLET(S) PO DAILY 01/03/2016 04/02/2016 Inactive benazepril 20 mg tablet RxNorm: 111006 1 TABLET(S) PO DAILY 01/03/2016 06/28/2016 Inactive Zoloft 50 mg tablet RxNorm: 296928 1 TABLET(S) PO DAILY 12/15/2015 09/10/2016 Inactive Aricept 23 mg tablet RxNorm: 3891161 1 Tablet(s) PO daily 06/21/2015 05/06/2016 Inactive colchicine 0.6 mg ta blet RxNorm: 625652 1 Tablet(s) PO BID 05/24/2015 05/03/2016 Inactive ciclopirox 1 % shampoo RxNorm: 254456 1 TOP daily 05/24/2015 05/03/2016 Inactive benazepril 20 mg tablet RxNorm: 828361 1 Tablet(s) PO daily 05/17/2015 01/02/2016 Inactive atorvastatin 20 mg t ablet RxNorm: 257408 1 Tablet(s) PO daily 05/17/2015 01/02/2016 Inactive benazepril 20 mg tablet RxNorm: 731956 1 Tablet(s) PO daily 05/06/2015 05/16/2015 Inactive ciclopirox 1 % shampoo RxNorm: 910760 1 TOP daily 02/16/2015 02/15/2015 Inactive ciclopirox 1 % shampoo RxNorm: 043048 1 TOP daily 02/16/2015 04/16/2015 Inactive Zoloft 50 mg tablet RxNorm: 858436 1 Tablet(s) PO daily 01/27/2015 12/14/2015 Inactive express script [id number] script [id number] Januvia 50 mg tablet RxNorm: 813270 1 Tablet(s) PO daily 01/24/2015 03/21/2015 Inactive increase from 25mg Januvia 25 mg tablet RxNorm: 848795 1 Tablet(s) PO daily 01/21/2015 01/23/2015 Inactive Januvia 25 mg tablet RxNorm: 286181 1 Tablet(s) PO daily 01/21/2015 01/20/2015 Inactive Benicar 20 mg tablet RxNorm: 604144 1 Tablet(s) PO daily 01/10/2015 03/21/2015 Inactive [SAVINGS FOR NON-COVERED DRUGS -- BIN:00 3585, PCN: [id number], Group: XXXXX, ID# XXXXXXX, Questions: . THIS IS NOT INSURANCE.] Benicar 20 mg tablet RxNorm: 199159 1 Tablet(s) PO daily 12/16/2014 12/15/2014 Inactive Benicar 20 mg tablet RxNorm: 007394 1 Tablet(s) PO daily 12/16/2014 01/09/2015 Inactive [SAVINGS FOR NON-COVERED DRUGS -- BIN:00 3585, PCN: [id number], Group: XXXXX, ID# XXXXXXX, Questions: . THIS IS NOT INSURANCE.] Micardis HCT 80 mg-2 5 mg tablet RxNorm: 301829 1 Tablet(s) PO daily 12/03/2014 12/03/2014 Inactive Aricept 23 mg tablet RxNorm: 3231573 1 Tablet(s) PO daily 12/03/2014 03/02/2015 Inactive Lipitor 40 mg tablet RxNorm: 049899 1 Tablet(s) PO daily 12/03/2014 03/02/2015 Inactive B12 1000 mcg RxNorm: 1 IM daily 12/03/2014 03/02/2015 Inactive iron 325 mg (65 mg i rupal) tablet RxNorm: 809077 1 Tablet(s) PO TIW No Start Date Active Ocuvite oral RxNorm: 266569 oral No Start Date Active naproxen 250 mg tablet RxNorm: 441428 Tablet(s) PO as needed No Start Date Active Centrum Complete oral RxNorm: 10717 oral No Start Date Active colchicine 0.6 mg ta blet RxNorm: 167991 1 Tablet(s) PO BID No Start Date 05/23/2015 Inactive benazepril 20 mg tablet RxNorm: 415647 1 Tablet(s) PO daily No Start Date 05/05/2015 Inactive atorvastatin 20 mg t ablet RxNorm: 164755 1 Tablet(s) PO daily No Start Date 05/16/2015 Inactive Aricept 23 mg tablet RxNorm: 9825043 1 Tablet(s) PO daily No Start Date 06/20/2015 Inactive tramadol 50 mg tablet RxNorm: 435799 1-2 Tablet(s) PO Q6 as needed for pain No Start Date 03/05/2016 Inactive Miralax 17 gram oral powder packet RxNorm: 273120 1 PO daily as needed No Start Date 12/02/2014 Inactive Zoloft 25 mg tablet RxNorm: 595913 1 Tablet(s) PO daily No Start Date [...] 26.3 pg 11/13/2016 Cbc With Differential Ord2 [place]% 7.9 % 11/13/2016 Cbc With Differential Ord2 [...] 1.96 K/ul 11/13/2016 Cbc With Differential Ord2 [place] ABS# 0.6 K/ul 11/13/2016 Cbc With Differential Ord2 Eos ABS# 0.2 K/ul 11/13/2016 Cbc With Differential Ord2 Baso ABS# 0.0 K/ul 11/13/2016 Ferritin Ord22 FERRITIN 55.7 ng/mL 11/13/2016 Comp Metabolic Wgr902 NA 140 mEq/L 11/13/2016 Comp Metabolic Xgb316 K 4.6 mEq/L 11/13/2016 Comp Metabolic Bit065 CL 103 mEq/L 11/13/2016 Comp Metabolic Vgx371 CO2 29.0 mEq/L 11/13/2016 Comp Metabolic Vtn032 AN ION GAP 13 11/13/2016 Comp Metabolic Cjz190 GL UCOSE 83 mg/dL 11/13/2016 Comp Metabolic Cqc324 Cr eat 0.9 mg/dL 11/13/2016 Comp Metabolic Hmg147 eG FR 65 ml/min/1.73m2 11/13 Comp Metabolic Gbj755 BUN 28 mg/dL 11/13/2016 Comp Metabolic Kab835 B/ C Ratio 31.5 Ratio 11/13/2016 Comp Metabolic Xlh636 CA LCIUM 9.5 mg/dL 11/13/2016 Comp Metabolic Aca755 AL K PHOS 52 U/L 11/13/2016 Comp Metabolic Ukl404 T(SGOT) 16 U/L 11/13/2016 Comp Metabolic Yot348 AL T(SGPT) 10 U/L 11/13/2016 Comp Metabolic Dmc457 BI LI T 0.4 mg/dL 11/13/2016 Comp Metabolic Byo412 AL BUMIN 3.9 g/dL 11/13/2016 Comp Metabolic Hhd595 TP RO 6.2 g/dL 11/13/2016 Comp Metabolic Bsv959 GL OB 2.3 g/dL 11/13/2016 Comp Metabolic Yju551 A/ G Ratio 1.7 Ratio 11/13/2016 Comp Metabolic Rwh646 Os mo 284 mOsmo 11/13/2016 Tsh Ord6 [...] Tibc Ord40 Fe-%Sat 4.7 % 08/31/2016 %Hba1C Aae076 % HbA1c 04191-4 5.9 % 08/30/2016 %Hba1C Jgl246 Gluc Ave 123 mg/dL 08/30/2016 Cbc With [...] 24.0 pg 08/30/2016 Cbc With Differential Ord2 [place]% 8.2 % 08/30/2016 Cbc With Differential Ord2 [...] 1.78 K/ul 08/30/2016 Cbc With Differential Ord2 [place] ABS# 0.5 K/ul 08/30/2016 Cbc With Differential Ord2 Eos ABS# 0.1 K/ul 08/30/2016 Cbc With Differential Ord2 Baso ABS# 0.0 K/ul 08/30/2016 Comp Metabolic Mbp915 NA 138 mEq/L 08/30/2016 Comp Metabolic Gth894 K 4.8 mEq/L 08/30/2016 Comp Metabolic Kly336 CL 103 mEq/L 08/30/2016 Comp Metabolic Bjt350 CO2 29.0 mEq/L 08/30/2016 Comp Metabolic Wqh547 AN ION GAP 11 08/30/2016 Comp Metabolic Umz842 GL UCOSE 85 mg/dL 08/30/2016 Comp Metabolic Pkc206 Cr eat 0.9 mg/dL 08/30/2016 Comp Metabolic Mio828 eG FR 67 ml/min/1.73m2 08/30 Comp Metabolic Jgl788 BUN 22 mg/dL 08/30/2016 Comp Metabolic Eag875 B/ C Ratio 25.3 Ratio 08/30/2016 Comp Metabolic Thh017 CA LCIUM 9.6 mg/dL 08/30/2016 Comp Metabolic Fpk783 AL K PHOS 61 U/L 08/30/2016 Comp Metabolic Kxx322 T(SGOT) 22 U/L 08/30/2016 Comp Metabolic Lwg555 AL T(SGPT) 15 U/L 08/30/2016 Comp Metabolic Yab857 BI LI T 0.3 mg/dL 08/30/2016 Comp Metabolic Iuq371 AL BUMIN 4.1 g/dL 08/30/2016 Comp Metabolic Diq597 TP RO 6.4 g/dL 08/30/2016 Comp Metabolic Zmv887 GL OB 2.3 g/dL 08/30/2016 Comp Metabolic Lvf790 A/ G Ratio 1.8 Ratio 08/30/2016 Comp Metabolic Wax320 Os mo 278 mOsmo 08/30/2016 Comp Metabolic Ldn233 NA 135 mEq/L 03/23/2015 Comp Metabolic Ljr958 K 4.5 mEq/L 03/23/2015 Comp Metabolic Kar557 CL 100 mEq/L 03/23/2015 Comp Metabolic Vta900 CO2 31.0 mEq/L 03/23/2015 Comp Metabolic Dbq671 AN ION GAP 9 03/23/2015 Comp Metabolic Vyd859 GL UCOSE 86 mg/dL 03/23/2015 Comp Metabolic Hdf116 Cr eat 0.9 mg/dL 03/23/2015 Comp Metabolic Frq407 eG FR 63 ml/min/1.73m2 03/23 Comp Metabolic Gjz433 BUN 18 mg/dL 03/23/2015 Comp Metabolic Xdg514 B/ C Ratio 19.6 Ratio 03/23/2015 Comp Metabolic Iux092 CA LCIUM 10.2 mg/dL 03/23/2015 Comp Metabolic Xvr872 AL K PHOS 66 U/L 03/23/2015 Comp Metabolic Ptn967 T(SGOT) 15 U/L 03/23/2015 Comp Metabolic Vgu777 AL T(SGPT) 10 U/L 03/23/2015 Comp Metabolic Rxx921 BI LI T 0.4 mg/dL 03/23/2015 Comp Metabolic Rvg108 AL BUMIN 4.1 g/dL 03/23/2015 Comp Metabolic Ugd161 TP RO 6.3 g/dL 03/23/2015 Comp Metabolic Pvq790 GL OB 2.2 g/dL 03/23/2015 Comp Metabolic Rjd075 A/ G Ratio 1.9 Ratio 03/23/2015 Comp Metabolic Kze707 Os mo 271 mOsmo 03/23/2015 Parathyroid Hormone Hkc353 PTH 26.70 pg/ml 03/23/2015 Cbc With Differential [...] Differential Ord2 RDW 14.6 % 03/23/2015 TSH 5169645 TSH 0.91 uIU/ML 01/19/2015 CBC 8677905 WBC 7.0 10e9/L 01/19/2015 CBC 1933944 RBC 4.66 10e12/L 01/19/2015 CBC 9638758 HGB 13.0 g/dL 01/19/2015 CBC 0747853 HCT DET 41.0 % 01/19/2015 CBC 0251879 MCV 87.0 fL 01/19/2015 CBC 5761717 MCH 28.0 pg 01/19/2015 CBC 4380414 MCHC 32.0 g/dL 01/19/2015 CBC 7854260 PLT 218 10e9/L 01/19/2015 CBC 8063557 MPV 10.6 fL 01/19/2015 CBC 2183801 ROS[place]BA % 62.0 % 01/19/2015 CBC 8295220 LY % 27.0 % 01/19/2015 CBC 9144823 MON % 8.0 % 01/19/2015 CBC 2324007 EOS % 2.0 % 01/19/2015 CBC 0025581 BASO % 0.0 % 01/19/2015 CBC 4256173 RDW 13.6 % 01/19/2015 CBC 5253749 ABS ROSALBA 4.34 10e9/L 01/19/2015 CBC 0875962 ABS LYMPH 1.89 10e9/L 01/19/2015 CBC 9498880 ABS MONO 0.56 10e9/L 01/19/2015 CBC 3236742 ABS EOS 0.14 11e9/L 01/19/2015 CBC 8819423 ABS BASO 0.00 10e9/L 01/19/2015 A1C HPLC 9868384 A1C HPLC 34564-4 6.4 % 01/19/2015 GFR CALC 1441999 GFR AA >60 ML/MIN 01/19/2015 GFR CALC 0368313 GFR NON -AA 60.0L ML/MIN 5 CHEM 14 7198194 AST 20 U/L 01/19/2015 CHEM 14 4894639 ALT 13 IU/L 01/19/2015 CHEM 14 9518806 BUN 25 MG/DL 01/19/2015 CHEM 14 4654164 ALBUMIN 4.0 GM/DL 01/19/2015 CHEM 14 1603575 CHLORIDE 105 MMOL/L 01/19/2015 CHEM 14 7041570 BILI TOT 0.6 MG/DL 01/19/2015 CHEM 14 5197289 ALK PHOS 59 U/L 01/19/2015 CHEM 14 9760844 SODIUM 140 MMOL/L 01/19/2015 CHEM 14 9024677 CREATINI NE 0.91 MG/DL 01/19/2015 CHEM 14 5145487 CALCIUM 10.3 MG/DL 01/19/2015 CHEM 14 1476973 POTASSIUM 5.0 MMOL/L 01/19/2015 CHEM 14 3878328 PROT TOT 6.2 GM/DL 01/19/2015 CHEM 14 3235116 GLUCOSE 97 MG/DL 01/19/2015 CHEM 14 3484000 BICARB 30 MMOL/L 01/19/2015 CHEM 14 1179205 ANION GAP 5 MEQ/L 01/19/2015 Review of [...] Codes Date OCCULT BLOOD FECES CPT- 4: 74038 09/10/2016 ADMIN INFLUENZA VIRU S VAC CPT-4: G0008 05/04/2016 FLU VACC 4 RANJIT 3 YRS PLUS IM SNOMED CT: 30537745 CPT-4: 91693 05/04/2016 ROUTINE VENIPUNCTURE CPT-4: 00603 01/18/2015 Vital Signs Date Vital 11/14/2018 Blood Pressure 1: 146/72 Code: 8480-6 BMI: 34.0 Code: 76184-4 Heart Rate 1: 73 bpm Height: 5'2" SpO2: 94% Weight: 186 lbs 02/21/2018 Blood Pressure 1: 138/80 Code: 8480-6 BMI: 34.4 Code: 91260-9 Heart Rate 1: 88 bpm Height: 5'2" SpO2: 91% Weight: 188 lbs 10/18/2017 Blood Pressure 1: 146/68 Code: 8480-6 BMI: 36.9 Code: 91870-5 Heart Rate 1: 68 bpm Height: 5'2" SpO2: 92% Weight: 202 lbs 06/14/2017 Blood Pressure 1: 138/76 Code: 8480-6 BMI: 36.9 Code: 19580-2 Heart Rate 1: 66 bpm Height: 5'2" SpO2: 90% Weight: 202 lbs 02/15/2017 Blood Pressure 1: 136/68 Code: 8480-6 BMI: 37.7 Code: 63711-9 Heart Rate 1: 76 bpm Height: 5'2" SpO2: 92% Weight: 206 lbs 11/13/2016 Blood Pressure 1: 126/64 Code: 8480-6 BMI: 38.4 Code: 80044-2 Heart Rate 1: 71 bpm Height: 5'2" SpO2: 90% Weight: 210 lbs 09/13/2016 Blood Pressure 1: 123/75 Code: 8480-6 BMI: 38.2 Code: 16490-3 Heart Rate 1: 77 bpm Height: 5'2" Respiratory Rate: 18 bpm SpO2: 94% Temperature: 37.1 (C ) / 98.7 (F) Weight: 209 lbs 08/30/2016 Blood Pressure 1: 124/78 Code: 8480-6 BMI: 38.4 Code: 70149-8 Heart Rate 1: 80 bpm Height: 5'2" SpO2: 92% Weight: 210 lbs 05/04/2016 Blood Pressure 1: 132/78 Code: 8480-6 BMI: 34.9 Code: 13569-3 Heart Rate 1: 78 bpm Height: 5'2" SpO2: 97% Weight: 191 lbs 03/02/2016 Blood Pressure 1: 110/58 Code: 8480-6 BMI: 34.8 Code: 75281-4 Heart Rate 1: 76 bpm Height: 5'2" SpO2: 97% Weight: 190 lbs 06/17/2015 Blood Pressure 1: 140/58 Code: 8480-6 BMI: 30.5 Code: 67859-9 Heart Rate 1: 68 bpm Height: 5'2" SpO2: 93% Weight: 167 lbs 05/17/2015 Blood Pressure 1: 128/70 Code: 8480-6 BMI: 30.5 Code: 06381-4 Heart Rate 1: 58 bpm Height: 5'2" SpO2: 95% Weight: 167 lbs 03/22/2015 Blood Pressure 1: 128/80 Code: 8480-6 BMI: 31.1 Code: 19834-2 Heart Rate 1: 70 bpm Height: 5'2" SpO2: 96% Weight: 170 lbs 02/11/2015 Blood Pressure 1: 128/60 Code: 8480-6 BMI: 33.7 Code: 43073-4 Heart Rate 1: 65 bpm Height: 5'2" SpO2: 95% Weight: 184 lbs 01/18/2015 Blood Pressure 1: 128/74 Code: 8480-6 BMI: 33.8 Code: 32763-4 Heart Rate 1: 74 bpm Height: 5'2" SpO2: 95% Weight: 185 lbs 12/03/2014 Blood Pressure 1: 132/74 Code: 8480-6 BMI: 34.2 Code: 53103-7 Heart Rate 1: 72 bpm Height: 5'2" [...] scab bed 08/30/2016 None skin lesion 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 P ATIENT, LEVEL IV Diagnosis: Essential (primary) hypertension[ICD10: I10] Diagnosis: Type 2 diabetes mellitus without complications[ICD10: E11.9] Diagnosis: Cardiac murmur, unspecified[ICD10: R01.1] [facility] CPT-4: 86532 02/21/2018 ([id number]) 87993 EST. P ATIENT, LEVEL III Diagnosis: Essential (primary) hypertension[ICD10: I10] Diagnosis: Type 2 diabetes mellitus without complications[ICD10: E11.9] Theresa Gordon MD, [facility] CPT-4: 68933 10/18/2017 ([id number]) 68369 EST. P ATIENT, LEVEL IV Diagnosis: Essential (primary) hypertension[ICD10: I10] Diagnosis: Type 2 diabetes mellitus without complications[ICD10: E11.9] Diagnosis: Myalgia[ICD10: M79.1] Theresa Gordon MD, [facility] CPT-4: 05508 06/14/2017 ([id number]) 73658 EST. P ATIENT, LEVEL IV Diagnosis: Essential (primary) hypertension[ICD10: I10] Diagnosis: Muscle weakness (generalized)[ICD10: M62.81] Diagnosis: Localized edema[ICD10: R60.0] Theresa Gordon MD, [facility] CPT- 4: 88551 02/15/2017 ([id number]) 29731 EST. 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 P ATIENT, LEVEL IV Diagnosis: Localized edema[ICD10: R60.0] Diagnosis: Essential (primary) hypertension[ICD10: I10] Diagnosis: Low back pain[ICD10: M54.5] Diagnosis: Pain in right wrist[ICD10: M25.531] Diagnosis: Pain in left wrist[ICD10: M25.532] Diagnosis: Type 2 diabetes mellitus without complications[ICD10: E11.9] Theresa Gordon MD, [facility] CPT-4: 79122 08/30/2016 ([id number]) 49469 EST. P ATIENT, LEVEL III Diagnosis: Essential (primary) hypertension[ICD10: I10] Diagnosis: Type 2 diabetes mellitus without complications[ICD10: E11.9] Diagnosis: Encounter for immunization[ICD10: Z23] Theresa Gordon MD, [facility] CPT-4: 21405 05/04/2016 ([id number]) 32754 EST. P ATIENT, LEVEL IV Diagnosis: Multiple fractures of ribs, right side, initial encounter for closed fracture[ICD10: S22.41XA] Diagnosis: Type 2 diabetes mellitus without complications[ICD10: E11.9] Diagnosis: Urinary tract infection, site not specified[ICD10: N39.0] Diagnosis: Ataxic gait[ICD10: R26.0] Theresa Gordon MD, [facility] CPT- 4: 60236 03/02/2016 ([id number]) 07032 EST. P ATIENT, LEVEL III Diagnosis: Pain in left knee[ICD10: M25.562] Theresa Gordon MD, [facility] CPT- 4: 09532 06/17/2015 62009 EST. PATIENT, LEVEL IV Diagnosis: Essential (primary) hypertension[ICD10: I10] Diagnosis: Type 2 diabetes mellitus without complications[ICD10: E11.9] Diagnosis: Other diseases of tongue[ICD10: K14.8] Theresa Gordon MD, [facility] CPT-4: 37865 05/17/2015 ([id number]) 63658 EST. P ATIENT, LEVEL IV Diagnosis: Serum calcium elevated[ICD9: 275.42] Diagnosis: ESSENTIAL HYPERTENSION[ICD9: 401.9] Diagnosis: Cervical myelopathy[ICD9: 721.1] Diagnosis: Post-operative state[ICD9: V45.89] Diagnosis: Hospital discharge follow-up[ICD9: V67.59] Theresa Gordon MD, [facility] CPT-4: 78962 03/22/2015 ([id number]) 10606 EST. P ATIENT, LEVEL IV Diagnosis: Diabetes mellitus type 2, controlled[ICD9: 250.00] Diagnosis: ESSENTIAL HYPERTENSION[ICD9: 401.9] Diagnosis: Open wound of toe with avulsion of toenail[ICD9: 893.1] Theresa Gordon MD, [facility] CPT-4: 46761 02/11/2015 ([id number]) 00314 EST. P ATIENT, LEVEL IV Diagnosis: ESSENTIAL HYPERTENSION[ICD9: 401.9] Diagnosis: Diabetes mellitus type 2, controlled[ICD9: 250.00] Diagnosis: Encounter for long-term (current) use of other medications[ICD9: V58.69] [facility] CPT-4: 87120 01/18/2015 ([id number]) OFFICE [facility] LEVEL 4 Diagnosis: ESSENTIAL HYPERTENSION[ICD9: 401.9] Diagnosis: Cervical stenosis of spinal canal[ICD9: 723.0] Diagnosis: Gait instability[ICD9: 781.2] Diagnosis: Bowel and bladder incontinence[ICD9: 788.30] Diagnosis: Diabetes mellitus type 2, controlled[ICD9: 250.00] Diagnosis: Delusions[ICD9: 297.9] [facility] CPT-4: 85162 12/03/2014 Plan of Care Planned Activity Notes C odes Status Date Visit Plan: Hypertension - well con trolled - continue with current medications, continue with no added salt diet. Pt has been encouraged to exercise daily. The pt has been advised to call the office if there are any acute concerns about change in blood pressure readings at home. Iron def-check labs Ranboph-ldmbtlfdzo-dcj well controlled-increase zoloft to 100mg daily-call if symptoms uncontrolled HO-mjgpysjrob-quoet Hgb A1C 11/14/2018 Appointment: Theresa Moses WPtel: [address] [place], [place] [phone] (30 min) Complex 11/14/2018 Patient Education: Patient Medication Summary Completed 11/14/2018 Patient Education: Diabetes Completed 11/14/2018 Appointment: Jadyn Gordon WPtel: [address] [place], [place] [phone] (15 min) Moderate 09/17/2018 Visit Plan: Hypertension [...] -schedule Echo 02/21/2018 Appointment: Theresa Moses WPtel: [phone] (15 min) Moderate 02/21/2018 Patient Education: Patient Medication Summary Completed 02/21/2018 Appointment: Theresa Moses WPtel: [phone] (30 min) Complex 02/14/2018 Appointment: Theresa Moses WPtel: [phone] [place] (15 min) Moderate 01/20/2018 Visit Plan: Hypertension - well con trolled - continue with current medications, continue with no added salt diet. Pt has been encouraged to exercise daily. The pt has been advised to call the office if there are any acute concerns about change in blood pressure readings at home. DM-diet controlled 10/18/2017 Appointment: Theresa Moses WPtel: [phone] (15 min) Moderate 10/18/2017 Patient Education: Patient Medication Summary Completed 10/18/2017 Appointment: Theresa Moses WPtel: [phone] (30 min) Complex 10/11/2017 Visit Plan: Hypertension [...] massage 06/14/2017 Appointment: Theresa Moses WPtel: [phone] [phone] (30 min) Complex 06/14/2017 Patient Education: Patient [...] edema. 02/15/2017 Appointment: Theresa Moses WPtel: [phone] [phone] (30 min) Complex 02/15/2017 Patient Education: Patient [...] deficiency-check labs 11/13/2016 Appointment: Theresa Moses WPtel: [id number] [place] [address] (30 min) Complex 11/13/2016 Patient Education: Patient [...] peripheral edema. 09/13/2016 Appointment: Theresa Moses WPtel: [phone] (30 min) Complex 09/13/2016 Patient Education: Patient [...] blood pressure readings at home. Low back [id number] for low back brace DM-check Hgb A1C Chronic itching-picking at skin-refer to Dr Addison for evaluation 08/30/2016 Appointment: Theresa Moses WPtel: [phone] [phone] (30 min) Complex 08/30/2016 Patient Education: Patient Medication Summary Completed 08/30/2016 Patient Education: Obesity Completed 08/30/2016 Care Plan: Referral Order SNOMED-CT : [id number] Pending 08/30/2016 Visit Plan: Hypertension - well [...] less controlled. 05/04/2016 Appointment: Theresa Moses WPtel: [address] [place], [place] [id number] (30 min) Complex 05/04/2016 Patient Education: Patient [...] sugars 03/02/2016 Appointment: Theresa Moses WPtel: [phone] [phone] (30 min) Complex 03/02/2016 Patient Education: Patient [...] starting to become less controlled. Lesion of ijdbys-sz-awqrwpyx in 1 month- if still present, refer [...] labs including PTH Cervical myelopathy-recent surgery at [facility] follow up - This was a follow [...] labs including PTH Cervical myelopathy-recent surgery at [facility] follow up - This was a follow [...] less controlled. 01/18/2015 Appointment: Jadyn Gordon [facility]Ptel[id number] Follow up 01/18/2015 Patient Education: Patient Medication Summary Completed 01/18/2015 Patient Education: Hypertension Completed 01/18/2015 Care Plan: CBC Pending 01/18/2015 Care Plan: CHEM 14 Pending 01/18/2015 Care Plan: A1C [facility] : [id number] Pending 01/18/2015 Care Plan: TSH Pending 01/18/2015 Visit Plan: Hypertension - well con cuauhtemoc - continue with current medications, continue with [...] blood pressure readings at home. Low back qrdi-eceqejc-hhew for low back brace DM-check Hgb A1C [...] pressure readings at home. Iron def-check labs Lqvxmzt-zgrzzffikr-set well controlled-increase zoloft to 100mg daily-call if symptoms uncontrolled RI-dntpabnwpw-nhotz Hgb A1C DUE FOR FASTING LABS BEFORE [...] starting to become less controlled. Lesion of oqrcge-oy-xzbzydfc in 1 month-if still present, refer for [...]
--- OUTSIDE RECORDS SUMMARY | 2019-11-12 01:19 | XMS REPORT | CCD ---
Author Author Fern Gordon Organization Jadyn Gordon MD, [facility] Address [address] [place] [address] Phone Care Team Providers Care Print Line Inspector Name Role Phone PP Unavailable CCM Unavailable Summary Purpose Interface Exchange Insurance Providers Payer name Policy type / Coverage type Covered democrat ID Effective Begin Date Effective End Date WPS Medicare Part B Medicare Part B [id number] Unknown FOR LIFE WPS Medicare Part B [id number] Unknown Family history Daughter Diagnosis Age At Onset Cancer Unknown Social History Social History Element Codes Description Effective Dates Marital status Unknown M arried 12/03/2014 Number of children Unknown 7 12/03/2014 Employment Unknown Retir ed 12/03/[address]: 1079155 Quit over 10 years ago 199812/03/[address]: 361194876 Never drinks alcohol 12/03/2014 Allergies, Adverse Reactions, [...] 325 mg (65 mg iron) tablet RxNorm: 832549 1 Tablet(s) PO daily 11/14/2018 05/12/2019 Ac tive Zoloft 100 mg tablet RxNorm: 601055 1 Tablet(s) PO daily TAKE 1 TABLET DAILY 11/14/2018 05/12/2019 Ac tive Aricept 23 mg tablet RxNorm: 4101752 TAKE 1 TABLET DAILY 06/27/2018 No Stop Date Active Zoloft 50 mg tablet RxNorm: 225107 TAKE 1 TABLET DAILY 06/27/2018 11/13/2018 Inactive benazepril 20 mg tablet RxNorm: 789039 1 Tablet(s) PO daily 04/28/2018 01/22/2019 Active atorvastatin 20 mg t ablet RxNorm: 420237 TAKE 1 TABLET DAILY 12/22/2017 No Stop Date Active potassium chloride E R 10 mEq tablet,extended release RxNorm: 362710 TAKE 1 TABLET DAILY WITH LASIX NEEDED 10/21/2017 No Stop Date Active Lasix 20 mg tablet RxNorm: 185267 TAKE 1 TABLET DAILY NEEDED 10/21/2017 No Stop Date Active Aricept 23 mg tablet RxNorm: 2503378 TAKE 1 TABLET DAILY 10/17/2017 06/26/2018 Inactive Zoloft 50 mg tablet RxNorm: 921659 TAKE 1 TABLET DAILY 10/17/2017 06/26/2018 Inactive benazepril 20 mg tablet RxNorm: 393160 TAKE 1 TABLET DAILY 06/25/2017 04/27/2018 Inactive atorvastatin 20 mg t ablet RxNorm: 751428 TAKE 1 TABLET DAILY 06/25/2017 12/21/2017 Inactive Lasix 20 mg tablet RxNorm: 983707 1 TABLET(S) PO QDAY PRN 04/29/2017 10/20/2017 Inactive potassium chloride E R 10 mEq tablet,extended release RxNorm: 419274 1 TABLET(S) PO QDAY PRN 04/29/2017 10/20/2017 Inactive Zoloft 50 mg tablet RxNorm: 468897 TAKE 1 TABLET DAILY 03/11/2017 10/16/2017 Inactive potassium chloride E R 10 mEq tablet,extended release RxNorm: 447948 1 Tablet(s) PO QDAY PRN 02/15/2017 04/28/2017 Inactive with lasix Lasix 20 mg tablet RxNorm: 202940 1 Tablet(s) PO QDAY PRN 02/15/2017 04/28/2017 Inactive Aricept 23 mg tablet RxNorm: 0363773 TAKE 1 TABLET DAILY 02/01/2017 10/16/2017 Inactive atorvastatin 20 mg t ablet RxNorm: 641485 TAKE 1 TABLET DAILY 12/27/2016 06/24/2017 Inactive benazepril 20 mg tablet RxNorm: 384327 TAKE 1 TABLET DAILY 12/27/2016 06/24/2017 Inactive Lasix 20 mg tablet RxNorm: 777104 1 Tablet(s) PO QDAY PRN 09/13/2016 01/10/2017 Inactive potassium chloride E R 10 mEq tablet,extended release RxNorm: 051726 1 Tablet(s) PO QDAY PRN 09/13/2016 01/10/2017 Inactive with lasix Zoloft 50 mg tablet RxNorm: 787903 TAKE 1 TABLET DAILY 09/11/2016 03/10/2017 Inactive potassium chloride E R 10 mEq tablet,extended release RxNorm: 261449 1 Tablet(s) PO daily for edema 09/03/2016 09/02/2016 Inactive Lasix 20 mg tablet RxNorm: 496589 1 Tablet(s) PO daily for edema 09/03/2016 09/09/2016 In active potassium chloride E R 10 mEq tablet,extended release RxNorm: 578358 1 Tablet(s) PO daily for edema 09/03/2016 09/09/2016 Inactive Lasix 20 mg tablet RxNorm: 174424 1 Tablet(s) PO daily 09/03/2016 09/02/2016 Inactive atorvastatin 20 mg t ablet RxNorm: 796614 TAKE 1 TABLET DAILY 07/02/2016 12/26/2016 Inactive benazepril 20 mg tablet RxNorm: 781557 TAKE 1 TABLET DAILY 06/29/2016 12/26/2016 Inactive Aricept 23 mg tablet RxNorm: 2638777 TAKE 1 TABLET DAILY 05/07/2016 01/31/2017 Inactive atorvastatin 20 mg t ablet RxNorm: 589310 TAKE 1 TABLET DAILY 04/03/2016 07/01/2016 Inactive tramadol 50 mg tablet RxNorm: 641284 1-2 Tablet(s) PO Q6 as needed for pain 03/20/2016 No Stop Date Active tramadol 50 mg tablet RxNorm: 230462 1-2 Tablet(s) PO Q6 as needed for pain 03/06/2016 03/19/2016 In active Cipro 500 mg tablet RxNorm: 850498 1 Tablet(s) PO BID 03/02/2016 03/08/2016 Inactive atorvastatin 20 mg t ablet RxNorm: 343800 1 TABLET(S) PO DAILY 01/03/2016 04/02/2016 Inactive benazepril 20 mg tablet RxNorm: 572556 1 TABLET(S) PO DAILY 01/03/2016 06/28/2016 Inactive Zoloft 50 mg tablet RxNorm: 960886 1 TABLET(S) PO DAILY 12/15/2015 09/10/2016 Inactive Aricept 23 mg tablet RxNorm: 4488649 1 Tablet(s) PO daily 06/21/2015 05/06/2016 Inactive colchicine 0.6 mg ta blet RxNorm: 181546 1 Tablet(s) PO BID 05/24/2015 05/03/2016 Inactive ciclopirox 1 % shampoo RxNorm: 936183 1 TOP daily 05/24/2015 05/03/2016 Inactive benazepril 20 mg tablet RxNorm: 238293 1 Tablet(s) PO daily 05/17/2015 01/02/2016 Inactive atorvastatin 20 mg t ablet RxNorm: 518197 1 Tablet(s) PO daily 05/17/2015 01/02/2016 Inactive benazepril 20 mg tablet RxNorm: 916325 1 Tablet(s) PO daily 05/06/2015 05/16/2015 Inactive ciclopirox 1 % shampoo RxNorm: 349831 1 TOP daily 02/16/2015 02/15/2015 Inactive ciclopirox 1 % shampoo RxNorm: 918261 1 TOP daily 02/16/2015 04/16/2015 Inactive Zoloft 50 mg tablet RxNorm: 026481 1 Tablet(s) PO daily 01/27/2015 12/14/2015 Inactive express script [id number] script [id number] Januvia 50 mg tablet RxNorm: 373829 1 Tablet(s) PO daily 01/24/2015 03/21/2015 Inactive increase from 25mg Januvia 25 mg tablet RxNorm: 233499 1 Tablet(s) PO daily 01/21/2015 01/23/2015 Inactive Januvia 25 mg tablet RxNorm: 860973 1 Tablet(s) PO daily 01/21/2015 01/20/2015 Inactive Benicar 20 mg tablet RxNorm: 528272 1 Tablet(s) PO daily 01/10/2015 03/21/2015 Inactive [SAVINGS FOR NON-COVERED DRUGS -- BIN:00 3585, PCN: [id number], Group: XXXXX, ID# XXXXXXX, Questions: . THIS IS NOT INSURANCE.] Benicar 20 mg tablet RxNorm: 574912 1 Tablet(s) PO daily 12/16/2014 12/15/2014 Inactive Benicar 20 mg tablet RxNorm: 156350 1 Tablet(s) PO daily 12/16/2014 01/09/2015 Inactive [SAVINGS FOR NON-COVERED DRUGS -- BIN:00 3585, PCN: [id number], Group: XXXXX, ID# XXXXXXX, Questions: . THIS IS NOT INSURANCE.] Micardis HCT 80 mg-2 5 mg tablet RxNorm: 628227 1 Tablet(s) PO daily 12/03/2014 12/03/2014 Inactive Aricept 23 mg tablet RxNorm: 6933178 1 Tablet(s) PO daily 12/03/2014 03/02/2015 Inactive Lipitor 40 mg tablet RxNorm: 245554 1 Tablet(s) PO daily 12/03/2014 03/02/2015 Inactive B12 1000 mcg RxNorm: 1 IM daily 12/03/2014 03/02/2015 Inactive iron 325 mg (65 mg i rupal) tablet RxNorm: 733100 1 Tablet(s) PO TIW No Start Date Active Ocuvite oral RxNorm: 652080 oral No Start Date Active naproxen 250 mg tablet RxNorm: 659547 Tablet(s) PO as needed No Start Date Active Centrum Complete oral RxNorm: 18291 oral No Start Date Active colchicine 0.6 mg ta blet RxNorm: 986714 1 Tablet(s) PO BID No Start Date 05/23/2015 Inactive benazepril 20 mg tablet RxNorm: 672898 1 Tablet(s) PO daily No Start Date 05/05/2015 Inactive atorvastatin 20 mg t ablet RxNorm: 649163 1 Tablet(s) PO daily No Start Date 05/16/2015 Inactive Aricept 23 mg tablet RxNorm: 0605430 1 Tablet(s) PO daily No Start Date 06/20/2015 Inactive tramadol 50 mg tablet RxNorm: 671226 1-2 Tablet(s) PO Q6 as needed for pain No Start Date 03/05/2016 Inactive Miralax 17 gram oral powder packet RxNorm: 386301 1 PO daily as needed No Start Date 12/02/2014 Inactive Zoloft 25 mg tablet RxNorm: 207341 1 Tablet(s) PO daily No Start Date [...] 26.3 pg 11/13/2016 Cbc With Differential Ord2 Bland% 7.9 % 11/13/2016 Cbc With Differential Ord2 [...] 1.96 K/ul 11/13/2016 Cbc With Differential Ord2 Bland ABS# 0.6 K/ul 11/13/2016 Cbc With Differential Ord2 Eos ABS# 0.2 K/ul 11/13/2016 Cbc With Differential Ord2 Baso ABS# 0.0 K/ul 11/13/2016 Ferritin Ord22 FERRITIN 55.7 ng/mL 11/13/2016 Comp Metabolic Aww555 NA 140 mEq/L 11/13/2016 Comp Metabolic Gqd206 K 4.6 mEq/L 11/13/2016 Comp Metabolic Qbe841 CL 103 mEq/L 11/13/2016 Comp Metabolic Frp549 CO2 29.0 mEq/L 11/13/2016 Comp Metabolic Ezb108 AN ION GAP 13 11/13/2016 Comp Metabolic Tcv208 GL UCOSE 83 mg/dL 11/13/2016 Comp Metabolic Qba712 Cr eat 0.9 mg/dL 11/13/2016 Comp Metabolic Sav763 eG FR 65 ml/min/1.73m2 11/13 Comp Metabolic Cvr764 BUN 28 mg/dL 11/13/2016 Comp Metabolic Ufm586 B/ C Ratio 31.5 Ratio 11/13/2016 Comp Metabolic Vli723 CA LCIUM 9.5 mg/dL 11/13/2016 Comp Metabolic Pzv960 AL K PHOS 52 U/L 11/13/2016 Comp Metabolic Gnj344 T(SGOT) 16 U/L 11/13/2016 Comp Metabolic Nuj780 AL T(SGPT) 10 U/L 11/13/2016 Comp Metabolic Kbr357 BI LI T 0.4 mg/dL 11/13/2016 Comp Metabolic Zyc746 AL BUMIN 3.9 g/dL 11/13/2016 Comp Metabolic Xrb815 TP RO 6.2 g/dL 11/13/2016 Comp Metabolic Zyg693 GL OB 2.3 g/dL 11/13/2016 Comp Metabolic Dji845 A/ G Ratio 1.7 Ratio 11/13/2016 Comp Metabolic Yhy044 Os mo 284 mOsmo 11/13/2016 Tsh Ord6 [...] Tibc Ord40 Fe-%Sat 4.7 % 08/31/2016 %Hba1C Jha618 % HbA1c 00227-0 5.9 % 08/30/2016 %Hba1C Eju008 Gluc Ave 123 mg/dL 08/30/2016 Cbc With [...] 24.0 pg 08/30/2016 Cbc With Differential Ord2 Bland% 8.2 % 08/30/2016 Cbc With Differential Ord2 [...] 1.78 K/ul 08/30/2016 Cbc With Differential Ord2 Bland ABS# 0.5 K/ul 08/30/2016 Cbc With Differential Ord2 Eos ABS# 0.1 K/ul 08/30/2016 Cbc With Differential Ord2 Baso ABS# 0.0 K/ul 08/30/2016 Comp Metabolic Iek722 NA 138 mEq/L 08/30/2016 Comp Metabolic Ncd822 K 4.8 mEq/L 08/30/2016 Comp Metabolic Hhk892 CL 103 mEq/L 08/30/2016 Comp Metabolic Nic533 CO2 29.0 mEq/L 08/30/2016 Comp Metabolic Gvd787 AN ION GAP 11 08/30/2016 Comp Metabolic Jke406 GL UCOSE 85 mg/dL 08/30/2016 Comp Metabolic Qvx068 Cr eat 0.9 mg/dL 08/30/2016 Comp Metabolic Zbb013 eG FR 67 ml/min/1.73m2 08/30 Comp Metabolic Lxx148 BUN 22 mg/dL 08/30/2016 Comp Metabolic Jtf237 B/ C Ratio 25.3 Ratio 08/30/2016 Comp Metabolic Ixh886 CA LCIUM 9.6 mg/dL 08/30/2016 Comp Metabolic Xsi204 AL K PHOS 61 U/L 08/30/2016 Comp Metabolic Dsx613 T(SGOT) 22 U/L 08/30/2016 Comp Metabolic Pdr056 AL T(SGPT) 15 U/L 08/30/2016 Comp Metabolic Tgr589 BI LI T 0.3 mg/dL 08/30/2016 Comp Metabolic Lgg128 AL BUMIN 4.1 g/dL 08/30/2016 Comp Metabolic Elm893 TP RO 6.4 g/dL 08/30/2016 Comp Metabolic Sdb607 GL OB 2.3 g/dL 08/30/2016 Comp Metabolic Ylf675 A/ G Ratio 1.8 Ratio 08/30/2016 Comp Metabolic Jtc498 Os mo 278 mOsmo 08/30/2016 Comp Metabolic Jvh320 NA 135 mEq/L 03/23/2015 Comp Metabolic Ygp280 K 4.5 mEq/L 03/23/2015 Comp Metabolic Chv279 CL 100 mEq/L 03/23/2015 Comp Metabolic Fmt233 CO2 31.0 mEq/L 03/23/2015 Comp Metabolic Omy330 AN ION GAP 9 03/23/2015 Comp Metabolic Qdr021 GL UCOSE 86 mg/dL 03/23/2015 Comp Metabolic Eiu287 Cr eat 0.9 mg/dL 03/23/2015 Comp Metabolic Ucd725 eG FR 63 ml/min/1.73m2 03/23 Comp Metabolic Okf505 BUN 18 mg/dL 03/23/2015 Comp Metabolic Tkk894 B/ C Ratio 19.6 Ratio 03/23/2015 Comp Metabolic Zeu461 CA LCIUM 10.2 mg/dL 03/23/2015 Comp Metabolic Cra388 AL K PHOS 66 U/L 03/23/2015 Comp Metabolic Mld901 T(SGOT) 15 U/L 03/23/2015 Comp Metabolic Oxe820 AL T(SGPT) 10 U/L 03/23/2015 Comp Metabolic Ors356 BI LI T 0.4 mg/dL 03/23/2015 Comp Metabolic Lek226 AL BUMIN 4.1 g/dL 03/23/2015 Comp Metabolic Efg657 TP RO 6.3 g/dL 03/23/2015 Comp Metabolic Dit855 GL OB 2.2 g/dL 03/23/2015 Comp Metabolic Kzh669 A/ G Ratio 1.9 Ratio 03/23/2015 Comp Metabolic Ale723 Os mo 271 mOsmo 03/23/2015 Parathyroid Hormone Vie899 PTH 26.70 pg/ml 03/23/2015 Cbc With Differential [...] Differential Ord2 RDW 14.6 % 03/23/2015 TSH 3149750 TSH 0.91 uIU/ML 01/19/2015 CBC 7203144 WBC 7.0 10e9/L 01/19/2015 CBC 2773325 RBC 4.66 10e12/L 01/19/2015 CBC 1195765 HGB 13.0 g/dL 01/19/2015 CBC 1325271 HCT DET 41.0 % 01/19/2015 CBC 9555940 MCV 87.0 fL 01/19/2015 CBC 4726217 MCH 28.0 pg 01/19/2015 CBC 9459015 MCHC 32.0 g/dL 01/19/2015 CBC 7025098 PLT 218 10e9/L 01/19/2015 CBC 5071303 MPV 10.6 fL 01/19/2015 CBC 8207582 ROSALBA % 62.0 % 01/19/2015 CBC 0966769 LY % 27.0 % 01/19/2015 CBC 1535493 MON % 8.0 % 01/19/2015 CBC 9815891 EOS % 2.0 % 01/19/2015 CBC 7528103 BASO % 0.0 % 01/19/2015 CBC 3861809 RDW 13.6 % 01/19/2015 CBC 7172626 ABS ROSALBA 4.34 10e9/L 01/19/2015 CBC 8018153 ABS LYMPH 1.89 10e9/L 01/19/2015 CBC 6846607 ABS MONO 0.56 10e9/L 01/19/2015 CBC 5511016 ABS EOS 0.14 11e9/L 01/19/2015 CBC 0297626 ABS BASO 0.00 10e9/L 01/19/2015 A1C HPLC 9463665 A1C HPLC 06762-9 6.4 % 01/19/2015 GFR CALC 2531227 GFR AA >60 ML/MIN 01/19/2015 GFR CALC 2267655 GFR NON -AA 60.0L ML/MIN 5 CHEM 14 1982911 AST 20 U/L 01/19/2015 CHEM 14 3834479 ALT 13 IU/L 01/19/2015 CHEM 14 0722029 BUN 25 MG/DL 01/19/2015 CHEM 14 8840897 ALBUMIN 4.0 GM/DL 01/19/2015 CHEM 14 6768394 CHLORIDE 105 MMOL/L 01/19/2015 CHEM 14 5551543 BILI TOT 0.6 MG/DL 01/19/2015 CHEM 14 6203613 ALK PHOS 59 U/L 01/19/2015 CHEM 14 7843780 SODIUM 140 MMOL/L 01/19/2015 CHEM 14 4685373 CREATINI NE 0.91 MG/DL 01/19/2015 CHEM 14 6408496 CALCIUM 10.3 MG/DL 01/19/2015 CHEM 14 7312911 POTASSIUM 5.0 MMOL/L 01/19/2015 CHEM 14 4100913 PROT TOT 6.2 GM/DL 01/19/2015 CHEM 14 3851001 GLUCOSE 97 MG/DL 01/19/2015 CHEM 14 0580833 BICARB 30 MMOL/L 01/19/2015 CHEM 14 7253864 ANION GAP 5 MEQ/L 01/19/2015 Review of [...] Codes Date OCCULT BLOOD FECES CPT- 4: 28730 09/10/2016 ADMIN INFLUENZA VIRU S VAC CPT-4: G0008 05/04/2016 FLU VACC 4 RANJIT 3 YRS PLUS IM SNOMED CT: 31218178 CPT-4: 44343 05/04/2016 ROUTINE VENIPUNCTURE CPT-4: 80150 01/18/2015 Vital Signs Date Vital 11/14/2018 Blood Pressure 1: 146/72 Code: 8480-6 BMI: 34.0 Code: 08162-9 Heart Rate 1: 73 bpm Height: 5'2" SpO2: 94% Weight: 186 lbs 02/21/2018 Blood Pressure 1: 138/80 Code: 8480-6 BMI: 34.4 Code: 44419-6 Heart Rate 1: 88 bpm Height: 5'2" SpO2: 91% Weight: 188 lbs 10/18/2017 Blood Pressure 1: 146/68 Code: 8480-6 BMI: 36.9 Code: 78980-8 Heart Rate 1: 68 bpm Height: 5'2" SpO2: 92% Weight: 202 lbs 06/14/2017 Blood Pressure 1: 138/76 Code: 8480-6 BMI: 36.9 Code: 22912-5 Heart Rate 1: 66 bpm Height: 5'2" SpO2: 90% Weight: 202 lbs 02/15/2017 Blood Pressure 1: 136/68 Code: 8480-6 BMI: 37.7 Code: 22890-0 Heart Rate 1: 76 bpm Height: 5'2" SpO2: 92% Weight: 206 lbs 11/13/2016 Blood Pressure 1: 126/64 Code: 8480-6 BMI: 38.4 Code: 31786-4 Heart Rate 1: 71 bpm Height: 5'2" SpO2: 90% Weight: 210 lbs 09/13/2016 Blood Pressure 1: 123/75 Code: 8480-6 BMI: 38.2 Code: 74480-9 Heart Rate 1: 77 bpm Height: 5'2" Respiratory Rate: 18 bpm SpO2: 94% Temperature: 37.1 (C ) / 98.7 (F) Weight: 209 lbs 08/30/2016 Blood Pressure 1: 124/78 Code: 8480-6 BMI: 38.4 Code: 88324-6 Heart Rate 1: 80 bpm Height: 5'2" SpO2: 92% Weight: 210 lbs 05/04/2016 Blood Pressure 1: 132/78 Code: 8480-6 BMI: 34.9 Code: 56467-4 Heart Rate 1: 78 bpm Height: 5'2" SpO2: 97% Weight: 191 lbs 03/02/2016 Blood Pressure 1: 110/58 Code: 8480-6 BMI: 34.8 Code: 58303-1 Heart Rate 1: 76 bpm Height: 5'2" SpO2: 97% Weight: 190 lbs 06/17/2015 Blood Pressure 1: 140/58 Code: 8480-6 BMI: 30.5 Code: 19320-9 Heart Rate 1: 68 bpm Height: 5'2" SpO2: 93% Weight: 167 lbs 05/17/2015 Blood Pressure 1: 128/70 Code: 8480-6 BMI: 30.5 Code: 06513-3 Heart Rate 1: 58 bpm Height: 5'2" SpO2: 95% Weight: 167 lbs 03/22/2015 Blood Pressure 1: 128/80 Code: 8480-6 BMI: 31.1 Code: 95610-9 Heart Rate 1: 70 bpm Height: 5'2" SpO2: 96% Weight: 170 lbs 02/11/2015 Blood Pressure 1: 128/60 Code: 8480-6 BMI: 33.7 Code: 12805-2 Heart Rate 1: 65 bpm Height: 5'2" SpO2: 95% Weight: 184 lbs 01/18/2015 Blood Pressure 1: 128/74 Code: 8480-6 BMI: 33.8 Code: 25452-7 Heart Rate 1: 74 bpm Height: 5'2" SpO2: 95% Weight: 185 lbs 12/03/2014 Blood Pressure 1: 132/74 Code: 8480-6 BMI: 34.2 Code: 58533-2 Heart Rate 1: 72 bpm Height: 5'2" [...] scab bed 08/30/2016 None 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 P ATIENT, LEVEL IV Diagnosis: Essential (primary) hypertension[ICD10: I10] Diagnosis: Type 2 diabetes mellitus without complications[ICD10: E11.9] Diagnosis: Cardiac murmur, unspecified[ICD10: R01.1] [facility] CPT-4: 03295 02/21/2018 ([id number]) 50232 EST. P ATIENT, LEVEL III Diagnosis: Essential (primary) hypertension[ICD10: I10] Diagnosis: Type 2 diabetes mellitus without complications[ICD10: E11.9] Theresa Gordon MD, [facility] CPT-4: 44207 10/18/2017 ([id number]) 41012 EST. P ATIENT, LEVEL IV Diagnosis: Essential (primary) hypertension[ICD10: I10] Diagnosis: Type 2 diabetes mellitus without complications[ICD10: E11.9] Diagnosis: Myalgia[ICD10: M79.1] Theresa Gordon MD, [facility] CPT-4: 91450 06/14/2017 ([id number]) 56914 EST. P ATIENT, LEVEL IV Diagnosis: Essential (primary) hypertension[ICD10: I10] Diagnosis: Muscle weakness (generalized)[ICD10: M62.81] Diagnosis: Localized edema[ICD10: R60.0] Theresa Gordon MD, [facility] CPT- 4: 39507 02/15/2017 ([id number]) 78598 EST. 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 P ATIENT, LEVEL IV Diagnosis: Localized edema[ICD10: R60.0] Diagnosis: Essential (primary) hypertension[ICD10: I10] Diagnosis: Low back pain[ICD10: M54.5] Diagnosis: Pain in right wrist[ICD10: M25.531] Diagnosis: Pain in left wrist[ICD10: M25.532] Diagnosis: Type 2 diabetes mellitus without complications[ICD10: E11.9] Theresa Gordon MD, [facility] CPT-4: 43556 08/30/2016 ([id number]) 27796 EST. P ATIENT, LEVEL III Diagnosis: Essential (primary) hypertension[ICD10: I10] Diagnosis: Type 2 diabetes mellitus without complications[ICD10: E11.9] Diagnosis: Encounter for immunization[ICD10: Z23] Theresa Gordon MD, [facility] CPT-4: 87915 05/04/2016 ([id number]) 48894 EST. P ATIENT, LEVEL IV Diagnosis: Multiple fractures of ribs, right side, initial encounter for closed fracture[ICD10: S22.41XA] Diagnosis: Type 2 diabetes mellitus without complications[ICD10: E11.9] Diagnosis: Urinary tract infection, site not specified[ICD10: N39.0] Diagnosis: Ataxic gait[ICD10: R26.0] Theresa Gordon MD, [facility] CPT- 4: 42483 03/02/2016 ([id number]) 92576 EST. P ATIENT, LEVEL III Diagnosis: Pain in left knee[ICD10: M25.562] Theresa Gordon MD, [facility] CPT- 4: 94728 06/17/2015 31274 EST. PATIENT, LEVEL IV Diagnosis: Essential (primary) hypertension[ICD10: I10] Diagnosis: Type 2 diabetes mellitus without complications[ICD10: E11.9] Diagnosis: Other diseases of tongue[ICD10: K14.8] Theresa Gordon MD, [facility] CPT-4: 90231 05/17/2015 ([id number]) 26758 EST. P ATIENT, LEVEL IV Diagnosis: Serum calcium elevated[ICD9: 275.42] Diagnosis: ESSENTIAL HYPERTENSION[ICD9: 401.9] Diagnosis: Cervical myelopathy[ICD9: 721.1] Diagnosis: Post-operative state[ICD9: V45.89] Diagnosis: Hospital discharge follow-up[ICD9: V67.59] Theresa Gordon MD, [facility] CPT-4: 28820 03/22/2015 ([id number]) 17428 EST. P ATIENT, LEVEL IV Diagnosis: Diabetes mellitus type 2, controlled[ICD9: 250.00] Diagnosis: ESSENTIAL HYPERTENSION[ICD9: 401.9] Diagnosis: Open wound of toe with avulsion of toenail[ICD9: 893.1] [facility] CPT-4: 83345 02/11/2015 ([id number]) 10247 EST. P ATIENT, LEVEL IV Diagnosis: ESSENTIAL HYPERTENSION[ICD9: 401.9] Diagnosis: Diabetes mellitus type 2, controlled[ICD9: 250.00] Diagnosis: Encounter for long-term (current) use of other medications[ICD9: V58.69] [facility] CPT-4: 07024 01/18/2015 ([id number]) OFFICE [facility] LEVEL 4 Diagnosis: ESSENTIAL HYPERTENSION[ICD9: 401.9] Diagnosis: Cervical stenosis of spinal canal[ICD9: 723.0] Diagnosis: Gait instability[ICD9: 781.2] Diagnosis: Bowel and bladder incontinence[ICD9: 788.30] Diagnosis: Diabetes mellitus type 2, controlled[ICD9: 250.00] Diagnosis: Delusions[ICD9: 297.9] [facility] CPT-4: 96185 12/03/2014 Plan of Care Planned Activity Notes C odes Status Date Visit Plan: Hypertension - well con trolled - continue with current medications, continue with no added salt diet. Pt has been encouraged to exercise daily. The pt has been advised to call the office if there are any acute concerns about change in blood pressure readings at home. Iron def-check labs Pdvlttw-lmmavcyzcr-qfr well controlled-increase zoloft to 100mg daily-call if symptoms uncontrolled BH-uwdlsdvqzh-aufik Hgb A1C 11/14/2018 Patient Education: Patient Medication Summary Completed 11/14/2018 Patient Education: Diabetes Completed 11/14/2018 Appointment: Jadyn Gordon WPtel: [address] [place], [place] [phone] (15 min) Moderate 09/17/2018 Visit Plan: Hypertension [...] -schedule Echo 02/21/2018 Appointment: Theresa Moses WPtel: [phone] [phone] (15 min) Moderate 02/21/2018 Patient Education: Patient Medication Summary Completed 02/21/2018 Appointment: Theresa Moses WPtel: [phone] [phone] [place] (30 min) Complex 02/14/2018 Appointment: Theresa Moses WPtel: [phone] [phone] [place] (15 min) Moderate 01/20/2018 Visit Plan: Hypertension - well con trolled - continue with current medications, continue with no added salt diet. Pt has been encouraged to exercise daily. The pt has been advised to call the office if there are any acute concerns about change in blood pressure readings at home. DM-diet controlled 10/18/2017 Appointment: Theresa Moses WPtel: [phone] [phone] [place] (15 min) Moderate 10/18/2017 Patient Education: Patient Medication Summary Completed 10/18/2017 Appointment: Theresa Moses WPtel: [phone] [phone] [place] (30 min) Complex 10/11/2017 Visit Plan: [...] massage 06/14/2017 Appointment: Theresa Moses WPtel: [phone] [phone] (30 min) Complex 06/14/2017 Patient Education: Patient [...] edema. 02/15/2017 Appointment: Theresa Moses WPtel: [phone] [phone] (30 min) Complex 02/15/2017 Patient Education: Patient [...] 11/13/2016 Appointment: Theresa Moses WPtel: [phone] [phone] [place] (30 min) Complex 11/13/2016 Patient Education: Patient [...] edema. 09/13/2016 [facility] [phone] [phone] ([facility] min) Complex 09/13/2016 Patient Education: Patient [...] blood pressure readings at home. Low back dsri-tduayxn-gtif for low back brace DM-check Hgb A1C Chronic itching-picking at skin-refer to Dr Youtsos for evaluation 08/30/2016 Appointment: Theresa Moses WPtel: [phone] (30 min) Complex 08/30/2016 Patient Education: Patient Medication Summary Completed 08/30/2016 Patient Education: Obesity Completed 08/30/2016 Care Plan: Referral Order SNOMED-CT : [id number] Pending 08/30/2016 Visit Plan: Hypertension - well [...] less controlled. 05/04/2016 Appointment: Theresa Moses WPtel: [phone] (30 min) Complex 05/04/2016 Patient Education: Patient [...] blood sugars 03/02/2016 Appointment: Theresa Moses WPtel: [phone] (30 min) Complex 03/02/2016 Patient Education: Patient [...] starting to become less controlled. Lesion of exqbtq-ip-shymosrh in 1 month- if still present, refer [...] labs including PTH Cervical myelopathy-recent surgery at [facility] follow up - This was a follow [...] labs including PTH Cervical myelopathy-recent surgery at [facility] follow up - This was a follow [...] less controlled. 01/18/2015 Appointment: Jadyn Gordon WPtel[id number] [facility] 01/18/2015 Patient Education: Patient Medication Summary Completed 01/18/2015 Patient Education: Hypertension Completed 01/18/2015 Care Plan: CBC Pending 01/18/2015 Care Plan: CHEM 14 Pending 01/18/2015 Care Plan: A1C [facility] : [id number] Pending 01/18/2015 Care Plan: TSH Pending 01/18/2015 [...] blood pressure readings at home. Low back qgwv-zgpplhf-vxoy for low back brace DM-check Hgb A1C [...] pressure readings at home. 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 Lesion of vfdmcw-pq-nathahog in 1 month-if still present, refer for [...]
--- OUTSIDE RECORDS SUMMARY | 2019-11-12 01:20 | XMS REPORT | CCD ---
Author Author Fern Gordon Organization Jadyn Gordon MD, [facility] Address [address] [place] [address] Phone Care Team Providers Care Hydrochloric Area Supervisor Name Role Phone PP Unavailable CCM Unavailable Summary Purpose Interface Exchange Insurance Providers Payer name Policy type / Coverage type Covered alliance party ID Effective Begin Date Effective End Date WPS Medicare Part B Medicare Part B [id number] Unknown FOR LIFE WPS Medicare Part B [id number] Unknown Family history Daughter Diagnosis Age At Onset Cancer Unknown Social History Social History Element Codes Description Effective Dates Marital status Unknown M arried 12/03/2014 Number of children Unknown 7 12/03/2014 Employment Unknown Retir ed 12/03/[address]: 1091780 Quit over 10 years ago 199812/03/[address]: 542166628 Never drinks alcohol 12/03/2014 Allergies, Adverse Reactions, Alerts Substance Reaction Codes Entered Date Inactivated Date Status * OTHER REACTION - S EE ANSWER BOX paul hips in vit c Unknown 12/03/2014 No Inactive Date Active Erythromycin RxNorm: 4053 12/03/2014 No Inactive Date Active Penicillin hives Unknown 12/03/2014 No In active Date Active Past Medical History Illness Codes Condition Status Onset Date Resolved Date Cardiac murmur, unsp ecified ICD-9: 785.2 ICD-10: R01.1 Active 02/21/2018 Unknown Essential (primary) hypertension ICD-9: 401.1 ICD-10: I10 Active 09/13/2016 Unknown Type 2 diabetes monica itus without complications ICD-9: 250.00 ICD-10: E11.9 Active 02/21/2018 Unknown Myalgia ICD-9: 729.1 ICD-10: M79.1 Active 06/14/2017 Unknown 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 09/13/2016 Unknown Localized edema ICD-9: 782.3 ICD-10: R60.0 [...] Condition Codes Effectiv e Dates Condition Status Cardiac murmur, unsp ecified ICD-9: 785.2 ICD-10: R01.1 02/21/2018 Active Essential (primary) hypertension ICD-9: 401.1 ICD-10: I10 09/13/2016 Active Type 2 diabetes monica itus without complications ICD-9: 250.00 ICD-10: E11.9 02/21/2018 Active Myalgia ICD-9: 729.1 ICD-10: M79.1 06/14/2017 Active 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 09/13/2016 Active Localized edema ICD-9: 782.3 ICD-10: [...] Fill Instructions Aricept 23 mg tablet RxNorm: 1572956 TAKE 1 TABLET DAILY 06/27/2018 No Stop Date Active Zoloft 50 mg tablet RxNorm: 028167 TAKE 1 TABLET DAILY 06/27/2018 No Stop Date Active benazepril 20 mg tablet RxNorm: 159869 1 Tablet(s) PO daily 04/28/2018 01/22/2019 Active atorvastatin 20 mg t ablet RxNorm: 512114 TAKE 1 TABLET DAILY 12/22/2017 No Stop Date Active potassium chloride E R 10 mEq tablet,extended release RxNorm: 088749 TAKE 1 TABLET DAILY WITH LASIX NEEDED 10/21/2017 No Stop Date Active Lasix 20 mg tablet RxNorm: 803801 TAKE 1 TABLET DAILY NEEDED 10/21/2017 No Stop Date Active Aricept 23 mg tablet RxNorm: 5708501 TAKE 1 TABLET DAILY 10/17/2017 06/26/2018 Inactive Zoloft 50 mg tablet RxNorm: 064595 TAKE 1 TABLET DAILY 10/17/2017 06/26/2018 Inactive benazepril 20 mg tablet RxNorm: 725418 TAKE 1 TABLET DAILY 06/25/2017 04/27/2018 Inactive atorvastatin 20 mg t ablet RxNorm: 541528 TAKE 1 TABLET DAILY 06/25/2017 12/21/2017 Inactive Lasix 20 mg tablet RxNorm: 521522 1 TABLET(S) PO QDAY PRN 04/29/2017 10/20/2017 Inactive potassium chloride E R 10 mEq tablet,extended release RxNorm: 033104 1 TABLET(S) PO QDAY PRN 04/29/2017 10/20/2017 Inactive Zoloft 50 mg tablet RxNorm: 218263 TAKE 1 TABLET DAILY 03/11/2017 10/16/2017 Inactive potassium chloride E R 10 mEq tablet,extended release RxNorm: 880604 1 Tablet(s) PO QDAY PRN 02/15/2017 04/28/2017 Inactive with lasix Lasix 20 mg tablet RxNorm: 848698 1 Tablet(s) PO QDAY PRN 02/15/2017 04/28/2017 Inactive Aricept 23 mg tablet RxNorm: 8407027 TAKE 1 TABLET DAILY 02/01/2017 10/16/2017 Inactive atorvastatin 20 mg t ablet RxNorm: 996248 TAKE 1 TABLET DAILY 12/27/2016 06/24/2017 Inactive benazepril 20 mg tablet RxNorm: 385669 TAKE 1 TABLET DAILY 12/27/2016 06/24/2017 Inactive Lasix 20 mg tablet RxNorm: 392765 1 Tablet(s) PO QDAY PRN 09/13/2016 01/10/2017 Inactive potassium chloride E R 10 mEq tablet,extended release RxNorm: 587805 1 Tablet(s) PO QDAY PRN 09/13/2016 01/10/2017 Inactive with lasix Zoloft 50 mg tablet RxNorm: 087614 TAKE 1 TABLET DAILY 09/11/2016 03/10/2017 Inactive potassium chloride E R 10 mEq tablet,extended release RxNorm: 721948 1 Tablet(s) PO daily for edema 09/03/2016 09/02/2016 Inactive Lasix 20 mg tablet RxNorm: 940379 1 Tablet(s) PO daily for edema 09/03/2016 09/09/2016 In active potassium chloride E R 10 mEq tablet,extended release RxNorm: 350811 1 Tablet(s) PO daily for edema 09/03/2016 09/09/2016 Inactive Lasix 20 mg tablet RxNorm: 906458 1 Tablet(s) PO daily 09/03/2016 09/02/2016 Inactive atorvastatin 20 mg t ablet RxNorm: 617235 TAKE 1 TABLET DAILY 07/02/2016 12/26/2016 Inactive benazepril 20 mg tablet RxNorm: 016892 TAKE 1 TABLET DAILY 06/29/2016 12/26/2016 Inactive Aricept 23 mg tablet RxNorm: 7947409 TAKE 1 TABLET DAILY 05/07/2016 01/31/2017 Inactive atorvastatin 20 mg t ablet RxNorm: 091083 TAKE 1 TABLET DAILY 04/03/2016 07/01/2016 Inactive tramadol 50 mg tablet RxNorm: 806076 1-2 Tablet(s) PO Q6 as needed for pain 03/20/2016 No Stop Date Active tramadol 50 mg tablet RxNorm: 910261 1-2 Tablet(s) PO Q6 as needed for pain 03/06/2016 03/19/2016 In active Cipro 500 mg tablet RxNorm: 999998 1 Tablet(s) PO BID 03/02/2016 03/08/2016 Inactive atorvastatin 20 mg t ablet RxNorm: 108294 1 TABLET(S) PO DAILY 01/03/2016 04/02/2016 Inactive benazepril 20 mg tablet RxNorm: 238697 1 TABLET(S) PO DAILY 01/03/2016 06/28/2016 Inactive Zoloft 50 mg tablet RxNorm: 814226 1 TABLET(S) PO DAILY 12/15/2015 09/10/2016 Inactive Aricept 23 mg tablet RxNorm: 7749467 1 Tablet(s) PO daily 06/21/2015 05/06/2016 Inactive colchicine 0.6 mg ta blet RxNorm: 440376 1 Tablet(s) PO BID 05/24/2015 05/03/2016 Inactive ciclopirox 1 % shampoo RxNorm: 041352 1 TOP daily 05/24/2015 05/03/2016 Inactive benazepril 20 mg tablet RxNorm: 807629 1 Tablet(s) PO daily 05/17/2015 01/02/2016 Inactive atorvastatin 20 mg t ablet RxNorm: 381488 1 Tablet(s) PO daily 05/17/2015 01/02/2016 Inactive benazepril 20 mg tablet RxNorm: 941522 1 Tablet(s) PO daily 05/06/2015 05/16/2015 Inactive ciclopirox 1 % shampoo RxNorm: 244530 1 TOP daily 02/16/2015 02/15/2015 Inactive ciclopirox 1 % shampoo RxNorm: 913734 1 TOP daily 02/16/2015 04/16/2015 Inactive Zoloft 50 mg tablet RxNorm: 683108 1 Tablet(s) PO daily 01/27/2015 12/14/2015 Inactive [facility] script [id number] script [id number] Januvia 50 mg tablet RxNorm: 791898 1 Tablet(s) PO daily 01/24/2015 03/21/2015 Inactive increase from 25mg Januvia 25 mg tablet RxNorm: 690346 1 Tablet(s) PO daily 01/21/2015 01/23/2015 Inactive Januvia 25 mg tablet RxNorm: 015905 1 Tablet(s) PO daily 01/21/2015 01/20/2015 Inactive Benicar 20 mg tablet RxNorm: 067554 1 Tablet(s) PO daily 01/10/2015 03/21/2015 Inactive [SAVINGS FOR NON-COVERED DRUGS -- BIN:00 3585, PCN: [id number], Group: XXXXX, ID# [id number], Questions: . THIS IS NOT INSURANCE.] Benicar 20 mg tablet RxNorm: 716111 1 Tablet(s) PO daily 12/16/2014 12/15/2014 Inactive Benicar 20 mg tablet RxNorm: 740893 1 Tablet(s) PO daily 12/16/2014 01/09/2015 Inactive [SAVINGS FOR NON-COVERED DRUGS -- BIN:00 3585, PCN: [id number], Group: XXXXX, ID# XXXXXXX, Questions: . THIS IS NOT INSURANCE.] Micardis HCT 80 mg-2 5 mg tablet RxNorm: 057697 1 Tablet(s) PO daily 12/03/2014 12/03/2014 Inactive Aricept 23 mg tablet RxNorm: 0975774 1 Tablet(s) PO daily 12/03/2014 03/02/2015 Inactive Lipitor 40 mg tablet RxNorm: 154918 1 Tablet(s) PO daily 12/03/2014 03/02/2015 Inactive B12 1000 mcg RxNorm: 1 IM daily 12/03/2014 03/02/2015 Inactive iron 325 mg (65 mg i rupal) tablet RxNorm: 972247 1 Tablet(s) PO TIW No Start Date Active Ocuvite oral RxNorm: 401545 oral No Start Date Active naproxen 250 mg tablet RxNorm: 480688 Tablet(s) PO as needed No Start Date Active Centrum Complete oral RxNorm: 85855 oral No Start Date Active colchicine 0.6 mg ta blet RxNorm: 436528 1 Tablet(s) PO BID No Start Date 05/23/2015 Inactive benazepril 20 mg tablet RxNorm: 780195 1 Tablet(s) PO daily No Start Date 05/05/2015 Inactive atorvastatin 20 mg t ablet RxNorm: 994275 1 Tablet(s) PO daily No Start Date 05/16/2015 Inactive Aricept 23 mg tablet RxNorm: 4267301 1 Tablet(s) PO daily No Start Date 06/20/2015 Inactive tramadol 50 mg tablet RxNorm: 768134 1-2 Tablet(s) PO Q6 as needed for pain No Start Date 03/05/2016 Inactive Miralax 17 gram oral powder packet RxNorm: 315264 1 PO daily as needed No Start Date 12/02/2014 Inactive Zoloft 25 mg tablet RxNorm: 929982 1 Tablet(s) PO daily No Start Date 01/26/2015 Inactive Medication Administered No Medication Administered data Immunizations Vaccine Codes Date Status Influenza CVX: 141 10/07 /2016 completed Assessments Condition Codes Effectiv e Dates Type 2 diabetes mellitus without complications ICD-10: E11.9 ICD-9: 250.00 02/21/2018 Essential (primary) hypertension ICD -10: I10 ICD-9: 401.1 02/21/2018 Cardiac murmur, unspecified ICD-10: R01.1 ICD-9: 785.2 02/21/2018 Myalgia ICD-10: M79.1 ICD-9: 729.1 06/14/2017 Muscle weakness (generalized) ICD-10 : M62.81 ICD-9: 728.87 02/15/2017 Localized edema ICD-10: R60.0 ICD-9: 782.3 02/15/2017 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 ICD-9: 280.0 11/13/2016 Anemia, unspecified ICD-10: D64.9 ICD-9: 285.9 09/10/2016 [...] For Visit Effective Dates Notes diabetes mellitus 02/21/2018 edema 10/18/2017 edema 06/14/2017 [...] 61.4 % 11/13/2016 Cbc With Differential Ord2 Lymph% 27.2 % 11/13/2016 Cbc With Differential Ord2 MCV 86.4 fl 11/13/2016 Cbc With Differential Ord2 [place]% 7.9 % 11/13/2016 Cbc With Differential Ord2 MCH 26.3 pg 11/13/2016 Cbc With Differential Ord2 Eos% 2.9 % 11/13/2016 Cbc With Differential Ord2 MCHC 30.4 pg 11/13/2016 Cbc With Differential Ord2 PLT 181 K/ul 11/13/2016 Cbc With Differential Ord2 Baso% 0.6 % 11/13/2016 Cbc With Differential Ord2 Neut ABS# 4.42 K/ul 11/13/2016 Cbc With Differential Ord2 RDW 20.2 % 11/13/2016 Cbc With Differential Ord2 Lymph ABS# 1.96 K/ul 11/13/2016 Cbc With Differential Ord2 [place] ABS# 0.6 K/ul 11/13/2016 Cbc With Differential Ord2 Eos ABS# 0.2 K/ul 11/13/2016 Cbc With Differential Ord2 Baso ABS# 0.0 K/ul 11/13/2016 Ferritin Ord22 FERRITIN 55.7 ng/mL 11/13/2016 Comp Metabolic Xxf162 NA 140 mEq/L 11/13/2016 Comp Metabolic Qxf228 K 4.6 mEq/L 11/13/2016 Comp Metabolic Dyx294 CL 103 mEq/L 11/13/2016 Comp Metabolic Axi162 CO2 29.0 mEq/L 11/13/2016 Comp Metabolic Wyg538 AN ION GAP 13 11/13/2016 Comp Metabolic Plj487 GL UCOSE 83 mg/dL 11/13/2016 Comp Metabolic Cgy485 Cr eat 0.9 mg/dL 11/13/2016 Comp Metabolic Yqx727 eG FR 65 ml/min/1.73m2 11/13 Comp Metabolic Ejv325 BUN 28 mg/dL 11/13/2016 Comp Metabolic Qtg627 B/ C Ratio 31.5 Ratio 11/13/2016 Comp Metabolic Ecd687 CA LCIUM 9.5 mg/dL 11/13/2016 Comp Metabolic Xog869 AL K PHOS 52 U/L 11/13/2016 Comp Metabolic Npm184 T(SGOT) 16 U/L 11/13/2016 Comp Metabolic Jtf907 AL T(SGPT) 10 U/L 11/13/2016 Comp Metabolic Hba868 BI LI T 0.4 mg/dL 11/13/2016 Comp Metabolic Fkw583 AL BUMIN 3.9 g/dL 11/13/2016 Comp Metabolic Fwz723 TP RO 6.2 g/dL 11/13/2016 Comp Metabolic Pxj240 GL OB 2.3 g/dL 11/13/2016 Comp Metabolic Jbv939 A/ G Ratio 1.7 Ratio 11/13/2016 Comp Metabolic Nrr036 Os mo 284 mOsmo 11/13/2016 Tsh Ord6 [...] Tibc Ord40 Fe-%Sat 4.7 % 08/31/2016 %Hba1C Dry390 % HbA1c 56962-6 5.9 % 08/30/2016 %Hba1C Dls277 Gluc Ave 123 mg/dL 08/30/2016 Cbc With [...] 27.4 % 08/30/2016 Cbc With Differential Ord2 [place]% 8.2 % 08/30/2016 Cbc With Differential Ord2 [...] 1.78 K/ul 08/30/2016 Cbc With Differential Ord2 [place] ABS# 0.5 K/ul 08/30/2016 Cbc With Differential Ord2 Eos ABS# 0.1 K/ul 08/30/2016 Cbc With Differential Ord2 Baso ABS# 0.0 K/ul 08/30/2016 Comp Metabolic Fkp326 NA 138 mEq/L 08/30/2016 Comp Metabolic Quu842 K 4.8 mEq/L 08/30/2016 Comp Metabolic Lpz541 CL 103 mEq/L 08/30/2016 Comp Metabolic Ygg047 CO2 29.0 mEq/L 08/30/2016 Comp Metabolic Yrn352 AN ION GAP 11 08/30/2016 Comp Metabolic Qpr045 GL UCOSE 85 mg/dL 08/30/2016 Comp Metabolic Jwi020 Cr eat 0.9 mg/dL 08/30/2016 Comp Metabolic Znl322 eG FR 67 ml/min/1.73m2 08/30 Comp Metabolic Nvl263 BUN 22 mg/dL 08/30/2016 Comp Metabolic Gaf206 B/ C Ratio 25.3 Ratio 08/30/2016 Comp Metabolic Lds517 CA LCIUM 9.6 mg/dL 08/30/2016 Comp Metabolic Dnj029 AL K PHOS 61 U/L 08/30/2016 Comp Metabolic Nqm350 T(SGOT) 22 U/L 08/30/2016 Comp Metabolic Ecc341 AL T(SGPT) 15 U/L 08/30/2016 Comp Metabolic Eil078 BI LI T 0.3 mg/dL 08/30/2016 Comp Metabolic Uvz690 AL BUMIN 4.1 g/dL 08/30/2016 Comp Metabolic Dlw718 TP RO 6.4 g/dL 08/30/2016 Comp Metabolic Knk955 GL OB 2.3 g/dL 08/30/2016 Comp Metabolic Rer378 A/ G Ratio 1.8 Ratio 08/30/2016 Comp Metabolic Dha636 Os mo 278 mOsmo 08/30/2016 Comp Metabolic Vmu754 NA 135 mEq/L 03/23/2015 Comp Metabolic Hoq177 K 4.5 mEq/L 03/23/2015 Comp Metabolic Lik262 CL 100 mEq/L 03/23/2015 Comp Metabolic Pqx963 CO2 31.0 mEq/L 03/23/2015 Comp Metabolic Izk938 AN ION GAP 9 03/23/2015 Comp Metabolic Qyy428 GL UCOSE 86 mg/dL 03/23/2015 Comp Metabolic Hzh660 Cr eat 0.9 mg/dL 03/23/2015 Comp Metabolic Tuu582 eG FR 63 ml/min/1.73m2 03/23 Comp Metabolic Qvt403 BUN 18 mg/dL 03/23/2015 Comp Metabolic Myx122 B/ C Ratio 19.6 Ratio 03/23/2015 Comp Metabolic Ftt868 CA LCIUM 10.2 mg/dL 03/23/2015 Comp Metabolic Xtr215 AL K PHOS 66 U/L 03/23/2015 Comp Metabolic Hfi883 T(SGOT) 15 U/L 03/23/2015 Comp Metabolic Rlm784 AL T(SGPT) 10 U/L 03/23/2015 Comp Metabolic Qzl307 BI LI T 0.4 mg/dL 03/23/2015 Comp Metabolic Sja771 AL BUMIN 4.1 g/dL 03/23/2015 Comp Metabolic Ngl249 TP RO 6.3 g/dL 03/23/2015 Comp Metabolic Qmt255 GL OB 2.2 g/dL 03/23/2015 Comp Metabolic Ufm588 A/ G Ratio 1.9 Ratio 03/23/2015 Comp Metabolic Pqz028 Os mo 271 mOsmo 03/23/2015 Parathyroid Hormone Ypj240 PTH 26.70 pg/ml 03/23/2015 Cbc With Differential [...] Differential Ord2 RDW 14.6 % 03/23/2015 TSH 3336553 TSH 0.91 uIU/ML 01/19/2015 CBC 7252406 WBC 7.0 10e9/L 01/19/2015 CBC 8969029 RBC 4.66 10e12/L 01/19/2015 CBC 6180800 HGB 13.0 g/dL 01/19/2015 CBC 9550512 HCT DET 41.0 % 01/19/2015 CBC 0133132 MCV 87.0 fL 01/19/2015 CBC 5016565 MCH 28.0 pg 01/19/2015 CBC 2755131 MCHC 32.0 g/dL 01/19/2015 CBC 4718111 PLT 218 10e9/L 01/19/2015 CBC 8497960 MPV 10.6 fL 01/19/2015 CBC 8887387 [place] % 62.0 % 01/19/2015 CBC 2971012 LY % 27.0 % 01/19/2015 CBC 7153668 MON % 8.0 % 01/19/2015 CBC 3114253 EOS % 2.0 % 01/19/2015 CBC 2032446 BASO % 0.0 % 01/19/2015 CBC 1317262 RDW 13.6 % 01/19/2015 CBC 2529198 ABS ROSALBA 4.34 10e9/L 01/19/2015 CBC 5654308 ABS LYMPH 1.89 10e9/L 01/19/2015 CBC 3114142 ABS MONO 0.56 10e9/L 01/19/2015 CBC 5863107 ABS EOS 0.14 11e9/L 01/19/2015 CBC 6610296 ABS BASO 0.00 10e9/L 01/19/2015 A1C HPLC 7766547 A1C HPLC 94000-3 6.4 % 01/19/2015 GFR CALC 8828543 GFR AA >60 ML/MIN 01/19/2015 GFR CALC 3442528 GFR NON -AA 60.0L ML/MIN 5 CHEM 14 8200728 AST 20 U/L 01/19/2015 CHEM 14 5839087 ALT 13 IU/L 01/19/2015 CHEM 14 5476021 BUN 25 MG/DL 01/19/2015 CHEM 14 2648628 ALBUMIN 4.0 GM/DL 01/19/2015 CHEM 14 0881425 CHLORIDE 105 MMOL/L 01/19/2015 CHEM 14 7154940 BILI TOT 0.6 MG/DL 01/19/2015 CHEM 14 1783636 ALK PHOS 59 U/L 01/19/2015 CHEM 14 0383543 SODIUM 140 MMOL/L 01/19/2015 CHEM 14 5346844 CREATINI NE 0.91 MG/DL 01/19/2015 CHEM 14 3828239 CALCIUM 10.3 MG/DL 01/19/2015 CHEM 14 2386228 POTASSIUM 5.0 MMOL/L 01/19/2015 CHEM 14 2436618 PROT TOT 6.2 GM/DL 01/19/2015 CHEM 14 5475424 GLUCOSE 97 MG/DL 01/19/2015 CHEM 14 1852625 BICARB 30 MMOL/L 01/19/2015 CHEM 14 7640571 ANION GAP 5 MEQ/L 01/19/2015 Review of Systems System Result Effective Dates Constitutional No recent illness 02/21/2018 Constitutional No [...] No alteration of consciousness 03/02/2016 Psychiatric anxiety 08/0 11/2015 Constitutional No recent illness 06/17/2015 Constitutional [...] 12/03/2014 Neurologic paresthesia 0 12/03/2014 Psychiatric anxiety 050 02/2015 Physical Exam Exam Name System Name [...] unsteady 08/30/2016 None Full Exam - General 1995 Neurologic cranial nerves Overall: crainial nerves 2 - 12 grossly intact 08/30/2016 None Full Exam - General 1994 Psychiatric orientation/consciousness Overall: oriented to person, place and time 08/30/2016 None Full Exam - General 1995 Psychiatric behavior/psychomotor activity Behavior: agitation/restlessness 08/30/2016 picking at face and back Full Exam - General 1995 Psychiatric speech Overall: normal quality, no aphasia [...] Codes Date OCCULT BLOOD FECES CPT- 4: 08278 09/10/2016 ADMIN INFLUENZA VIRU S VAC CPT-4: G0008 05/04/2016 FLU VACC 4 RANJIT 3 YRS PLUS IM SNOMED CT: 55631369 CPT-4: 41945 05/04/2016 ROUTINE VENIPUNCTURE CPT-4: 06098 01/18/2015 Vital Signs Date Vital 02/21/2018 Blood Pressure 1: 138/80 Code: 8480-6 BMI: 34.4 Code: 42176-0 Heart Rate 1: 88 bpm Height: 5'2" SpO2: 91% Weight: 188 lbs 10/18/2017 Blood Pressure 1: 146/68 Code: 8480-6 BMI: 36.9 Code: 25105-0 Heart Rate 1: 68 bpm Height: 5'2" SpO2: 92% Weight: 202 lbs 06/14/2017 Blood Pressure 1: 138/76 Code: 8480-6 BMI: 36.9 Code: 82549-3 Heart Rate 1: 66 bpm Height: 5'2" SpO2: 90% Weight: 202 lbs 02/15/2017 Blood Pressure 1: 136/68 Code: 8480-6 BMI: 37.7 Code: 73352-5 Heart Rate 1: 76 bpm Height: 5'2" SpO2: 92% Weight: 206 lbs 11/13/2016 Blood Pressure 1: 126/64 Code: 8480-6 BMI: 38.4 Code: 55239-0 Heart Rate 1: 71 bpm Height: 5'2" SpO2: 90% Weight: 210 lbs 09/13/2016 Blood Pressure 1: 123/75 Code: 8480-6 BMI: 38.2 Code: 52625-2 Heart Rate 1: 77 bpm Height: 5'2" Respiratory Rate: 18 bpm SpO2: 94% Temperature: 37.1 (C ) / 98.7 (F) Weight: 209 lbs 08/30/2016 Blood Pressure 1: 124/78 Code: 8480-6 BMI: 38.4 Code: 07983-4 Heart Rate 1: 80 bpm Height: 5'2" SpO2: 92% Weight: 210 lbs 05/04/2016 Blood Pressure 1: 132/78 Code: 8480-6 BMI: 34.9 Code: 24273-6 Heart Rate 1: 78 bpm Height: 5'2" SpO2: 97% Weight: 191 lbs 03/02/2016 Blood Pressure 1: 110/58 Code: 8480-6 BMI: 34.8 Code: 27920-1 Heart Rate 1: 76 bpm Height: 5'2" SpO2: 97% Weight: 190 lbs 06/17/2015 Blood Pressure 1: 140/58 Code: 8480-6 BMI: 30.5 Code: 43041-6 Heart Rate 1: 68 bpm Height: 5'2" SpO2: 93% Weight: 167 lbs 05/17/2015 Blood Pressure 1: 128/70 Code: 8480-6 BMI: 30.5 Code: 36149-6 Heart Rate 1: 58 bpm Height: 5'2" SpO2: 95% Weight: 167 lbs 03/22/2015 Blood Pressure 1: 128/80 Code: 8480-6 BMI: 31.1 Code: 14990-2 Heart Rate 1: 70 bpm Height: 5'2" SpO2: 96% Weight: 170 lbs 02/11/2015 Blood Pressure 1: 128/60 Code: 8480-6 BMI: 33.7 Code: 11642-5 Heart Rate 1: 65 bpm Height: 5'2" SpO2: 95% Weight: 184 lbs 01/18/2015 Blood Pressure 1: 128/74 Code: 8480-6 BMI: 33.8 Code: 37330-8 Heart Rate 1: 74 bpm Height: 5'2" SpO2: 95% Weight: 185 lbs 12/03/2014 Blood Pressure 1: 132/74 Code: 8480-6 BMI: 34.2 Code: 39084-4 Heart Rate 1: 72 bpm Height: 5'2" SpO2: 98% Weight: 187 lbs Functional Status No Functional Status data History of Present Illness Symptom Name Status Resu lt Effective Date Notes diabetes mellitus Quality chronic 02/21/2018 None diabetes [...] scab bed 08/30/2016 None skin lesion Quality senior controller seven 08/30/2016 None skin lesion Quality eryt [...] adult 05/04/2016 None Hospital Follow Up _ [facility] er: fall 03/02/2016 None Hospital Follow [...] 02/11/2015 [facility] w [facility] Follow Up _ Ot er: toe [...] Encounters Encounter Performer Loca tion Codes Date ([id number]) 31637 EST. P ATIENT, LEVEL IV Diagnosis: Essential (primary) hypertension[ICD10: I10] Diagnosis: Type 2 diabetes mellitus without complications[ICD10: E11.9] Diagnosis: Cardiac murmur, unspecified[ICD10: R01.1] [facility] CPT-4: 20609 02/21/2018 ([id number]) 52741 EST. P ATIENT, LEVEL III Diagnosis: Essential (primary) hypertension[ICD10: I10] Diagnosis: Type 2 diabetes mellitus without complications[ICD10: E11.9] [facility] CPT-4: 63118 10/18/2017 ([id number]) 26931 EST. P ATIENT, LEVEL IV Diagnosis: Essential (primary) hypertension[ICD10: I10] Diagnosis: Type 2 diabetes mellitus without complications[ICD10: E11.9] Diagnosis: Myalgia[ICD10: M79.1] Theresa Gordon MD, [facility] CPT-4: 56296 06/14/2017 ([id number]) 21270 EST. P ATIENT, LEVEL IV Diagnosis: Essential (primary) hypertension[ICD10: I10] Diagnosis: Muscle weakness (generalized)[ICD10: M62.81] Diagnosis: Localized edema[ICD10: R60.0] Theresa Gordon MD, [facility] CPT- 4: 35289 02/15/2017 ([id number]) 50498 EST. 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 P ATIENT, LEVEL IV Diagnosis: Localized edema[ICD10: R60.0] Diagnosis: Essential (primary) hypertension[ICD10: I10] Diagnosis: Low back pain[ICD10: M54.5] Diagnosis: Pain in right wrist[ICD10: M25.531] Diagnosis: Pain in left wrist[ICD10: M25.532] Diagnosis: Type 2 diabetes mellitus without complications[ICD10: E11.9] Theresa Gordon MD, [facility] CPT-4: 26805 08/30/2016 ([id number]) 13562 EST. P ATIENT, LEVEL III Diagnosis: Essential (primary) hypertension[ICD10: I10] Diagnosis: Type 2 diabetes mellitus without complications[ICD10: E11.9] Diagnosis: Encounter for immunization[ICD10: Z23] Theresa Gordon MD, [facility] CPT-4: 50902 05/04/2016 ([id number]) 58290 EST. P ATIENT, LEVEL IV Diagnosis: Multiple fractures of ribs, right side, initial encounter for closed fracture[ICD10: S22.41XA] Diagnosis: Type 2 diabetes mellitus without complications[ICD10: E11.9] Diagnosis: Urinary tract infection, site not specified[ICD10: N39.0] Diagnosis: Ataxic gait[ICD10: R26.0] Theresa Gordon MD, [facility] CPT- 4: 79324 03/02/2016 ([id number]) 82751 EST. P ATIENT, LEVEL III Diagnosis: Pain in left knee[ICD10: M25.562] Theresa Gordon MD, [facility] CPT- 4: 75623 06/17/2015 14808 EST. PATIENT, LEVEL IV Diagnosis: Essential (primary) hypertension[ICD10: I10] Diagnosis: Type 2 diabetes mellitus without complications[ICD10: E11.9] Diagnosis: Other diseases of tongue[ICD10: K14.8] Theresa Gordon MD, [facility] CPT-4: 28621 05/17/2015 ([id number]) 20021 EST. P ATIENT, LEVEL IV Diagnosis: Serum calcium elevated[ICD9: 275.42] Diagnosis: ESSENTIAL HYPERTENSION[ICD9: 401.9] Diagnosis: Cervical myelopathy[ICD9: 721.1] Diagnosis: Post-operative state[ICD9: V45.89] Diagnosis: Hospital discharge follow-up[ICD9: V67.59] Theresa Gordon MD, [facility] CPT-4: 64997 03/22/2015 ([id number]) 52806 EST. P ATIENT, LEVEL IV Diagnosis: Diabetes mellitus type 2, controlled[ICD9: 250.00] Diagnosis: ESSENTIAL HYPERTENSION[ICD9: 401.9] Diagnosis: Open wound of toe with avulsion of toenail[ICD9: 893.1] Theresa Gordon MD, [facility] CPT-4: 79517 02/11/2015 ([id number]) 54996 EST. P ATIENT, LEVEL IV Diagnosis: ESSENTIAL HYPERTENSION[ICD9: 401.9] Diagnosis: Diabetes mellitus type 2, controlled[ICD9: 250.00] Diagnosis: Encounter for long-term (current) use of other medications[ICD9: V58.69] Jadyn Gordon MD, [facility] CPT-4: 92958 01/18/2015 ([id number]) OFFICE VISI T, NEW - LEVEL 4 Diagnosis: ESSENTIAL HYPERTENSION[ICD9: 401.9] Diagnosis: Cervical stenosis of spinal canal[ICD9: 723.0] Diagnosis: Gait instability[ICD9: 781.2] Diagnosis: Bowel and bladder incontinence[ICD9: 788.30] Diagnosis: Diabetes mellitus type 2, controlled[ICD9: 250.00] Diagnosis: Delusions[ICD9: 297.9] Jadyn Gordon MD, [facility] CPT-4: 75665 12/03/2014 Plan of Care Planned Activity Notes [...] Echo 02/21/2018 Appointment: Theresa Moses WPtel: [phone] [phone] (15 min) Moderate 02/21/2018 Patient Education: Patient Medication Summary Completed 02/21/2018 Appointment: Theresa Moses WPtel: [phone] [phone] (30 min) Complex 02/14/2018 Appointment: Theresa Moses WPtel: [facility] [place] [place] [address] (15 min) Moderate 01/20/2018 Visit Plan: Hypertension - well con trolled - continue with current medications, continue with no added salt diet. Pt has been encouraged to exercise daily. The pt has been advised to call the office if there are any acute concerns about change in blood pressure readings at home. DM-diet controlled 10/18/2017 Appointment: Theresa Moses WPtel: [facility] [place] [place] [phone] (15 min) Moderate 10/18/2017 Patient Education: Patient Medication Summary Completed 10/18/2017 Appointment: Theresa Moses WPtel: [phone] [place] [phone] (30 min) Complex 10/11/2017 Visit Plan: Hypertension [...] home massage 06/14/2017 Appointment: Theresa Moses WPtel: [phone] [phone] (30 min) Complex 06/14/2017 Patient Education: Patient [...] edema. 02/15/2017 Appointment: Theresa Moses WPtel: [phone] [phone] (30 min) Complex 02/15/2017 Patient Education: Patient [...] labs 11/13/2016 Appointment: Theresa Moses WPtel: [phone] [phone] (30 min) Complex 11/13/2016 Patient Education: Patient [...] edema. 09/13/2016 Appointment: Theresa Moses WPtel: [phone] [phone] [place] [address] (30 min) Complex 09/13/2016 Patient Education: Patient [...] blood pressure readings at home. Low back dsit-lnuiucx-onfx for low back brace DM-check Hgb A1C Chronic itching-picking at skin-refer to Dr Addison for evaluation 08/30/2016 Appointment: Theresa Moses WPtel: [phone] [phone] (30 min) Complex 08/30/2016 Patient Education: Patient Medication Summary Completed 08/30/2016 Patient Education: Obesity Completed 08/30/2016 Care Plan: Referral Order SNOMED-CT : [id number] Pending 08/30/2016 Visit Plan: Hypertension - well [...] less controlled. 05/04/2016 Appointment: Theresa Moses WPtel: [phone] [phone] (30 min) Complex 05/04/2016 Patient Education: [...] sugars 03/02/2016 [facility]ment: [phone] (30 min) Complex 03/02/2016 Patient Education: Patient [...] starting to become less controlled. Lesion of cyxaci-uw-zitaecee in 1 month- if still present, refer [...] including PTH Cervical myelopathy-recent surgery at - [facility] follow up - This was a [...] including PTH Cervical myelopathy-recent surgery at - [facility] follow up - This was a [...] less controlled. 01/18/2015 Appointment: Jadyn Gordon WPtel: [address] [place], [place] [phone] Follow up 01/18/2015 Patient Education: Patient Medication Summary Completed 01/18/2015 Patient Education: Hypertension Completed 01/18/2015 Care Plan: CBC Pending 01/18/2015 Care Plan: CHEM 14 Pending 01/18/2015 Care Plan: A1C HPLC INC : [id number] Pending 01/18/2015 Care Plan: TSH Pending 01/18/2015 [...] cervical spine-Dr Snell is referring patient to -discussed with Dr Gordon-last MRI of cervical spine [...] blood pressure readings at home. Low back ehyb-iwnouuo-kccp for low back brace DM-check Hgb A1C [...] labs including PTH Cervical myelopathy-recent surgery at [facility] follow up - This was [...] labs including PTH Cervical myelopathy-recent surgery at [facility] follow up - This was [...] starting to become less controlled. Lesion of mcusvy-nc-dnwuojdc in 1 month-if still present, refer for [...]
--- OUTSIDE RECORDS SUMMARY | 2019-11-12 01:21 | XMS REPORT | CCD ---
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 Name Role Phone PP Unavailable CCM Unavailable Summary Purpose Interface Exchange Insurance Providers Payer name Policy type / Coverage type Covered alliance party ID Effective Begin Date Effective End Date WPS Medicare Part B Medicare Part B [id number] Unknown FOR LIFE WPS Medicare Part B [id number] Unknown Family history Daughter Diagnosis Age At Onset Cancer Unknown Social History Social History Element Codes Description Effective Dates Marital status Unknown M arried 12/03/2014 Number of children Unknown 7 12/03/2014 Employment Unknown Retir ed 12/03/[address]: 9682872 Quit over 10 years ago 199812/03/[address]: 725146972 Never drinks alcohol 12/03/2014 Allergies, Adverse Reactions, [...] Fill Instructions Aricept 23 mg tablet RxNorm: 2452935 TAKE 1 TABLET DAILY 06/27/2018 No Stop Date Active benazepril 20 mg tablet RxNorm: 891265 1 Tablet(s) PO daily 04/28/2018 01/22/2019 Active atorvastatin 20 mg t ablet RxNorm: 569188 TAKE 1 TABLET DAILY 12/22/2017 No Stop Date Active potassium chloride E R 10 mEq tablet,extended release RxNorm: 141294 TAKE 1 TABLET DAILY WITH LASIX NEEDED 10/21/2017 No Stop Date Active Lasix 20 mg tablet RxNorm: 628714 TAKE 1 TABLET DAILY NEEDED 10/21/2017 No Stop Date Active Zoloft 50 mg tablet RxNorm: 571015 TAKE 1 TABLET DAILY 10/17/2017 No Stop Date Active Aricept 23 mg tablet RxNorm: 3787918 TAKE 1 TABLET DAILY 10/17/2017 06/26/2018 Inactive benazepril 20 mg tablet RxNorm: 024102 TAKE 1 TABLET DAILY 06/25/2017 04/27/2018 Inactive atorvastatin 20 mg t ablet RxNorm: 407292 TAKE 1 TABLET DAILY 06/25/2017 12/21/2017 Inactive Lasix 20 mg tablet RxNorm: 785465 1 TABLET(S) PO QDAY PRN 04/29/2017 10/20/2017 Inactive potassium chloride E R 10 mEq tablet,extended release RxNorm: 997092 1 TABLET(S) PO QDAY PRN 04/29/2017 10/20/2017 Inactive Zoloft 50 mg tablet RxNorm: 407420 TAKE 1 TABLET DAILY 03/11/2017 10/16/2017 Inactive potassium chloride E R 10 mEq tablet,extended release RxNorm: 141826 1 Tablet(s) PO QDAY PRN 02/15/2017 04/28/2017 Inactive with lasix Lasix 20 mg tablet RxNorm: 237680 1 Tablet(s) PO QDAY PRN 02/15/2017 04/28/2017 Inactive Aricept 23 mg tablet RxNorm: 5167691 TAKE 1 TABLET DAILY 02/01/2017 10/16/2017 Inactive atorvastatin 20 mg t ablet RxNorm: 411555 TAKE 1 TABLET DAILY 12/27/2016 06/24/2017 Inactive benazepril 20 mg tablet RxNorm: 218834 TAKE 1 TABLET DAILY 12/27/2016 06/24/2017 Inactive Lasix 20 mg tablet RxNorm: 009810 1 Tablet(s) PO QDAY PRN 09/13/2016 01/10/2017 Inactive potassium chloride E R 10 mEq tablet,extended release RxNorm: 960975 1 Tablet(s) PO QDAY PRN 09/13/2016 01/10/2017 Inactive with lasix Zoloft 50 mg tablet RxNorm: 901180 TAKE 1 TABLET DAILY 09/11/2016 03/10/2017 Inactive potassium chloride E R 10 mEq tablet,extended release RxNorm: 320806 1 Tablet(s) PO daily for edema 09/03/2016 09/02/2016 Inactive Lasix 20 mg tablet RxNorm: 884702 1 Tablet(s) PO daily for edema 09/03/2016 09/09/2016 In active potassium chloride E R 10 mEq tablet,extended release RxNorm: 386974 1 Tablet(s) PO daily for edema 09/03/2016 09/09/2016 Inactive Lasix 20 mg tablet RxNorm: 337828 1 Tablet(s) PO daily 09/03/2016 09/02/2016 Inactive atorvastatin 20 mg t ablet RxNorm: 478961 TAKE 1 TABLET DAILY 07/02/2016 12/26/2016 Inactive benazepril 20 mg tablet RxNorm: 205820 TAKE 1 TABLET DAILY 06/29/2016 12/26/2016 Inactive Aricept 23 mg tablet RxNorm: 4624798 TAKE 1 TABLET DAILY 05/07/2016 01/31/2017 Inactive atorvastatin 20 mg t ablet RxNorm: 331519 TAKE 1 TABLET DAILY 04/03/2016 07/01/2016 Inactive tramadol 50 mg tablet RxNorm: 196241 1-2 Tablet(s) PO Q6 as needed for pain 03/20/2016 No Stop Date Active tramadol 50 mg tablet RxNorm: 674656 1-2 Tablet(s) PO Q6 as needed for pain 03/06/2016 03/19/2016 In active Cipro 500 mg tablet RxNorm: 942353 1 Tablet(s) PO BID 03/02/2016 03/08/2016 Inactive atorvastatin 20 mg t ablet RxNorm: 920192 1 TABLET(S) PO DAILY 01/03/2016 04/02/2016 Inactive benazepril 20 mg tablet RxNorm: 611125 1 TABLET(S) PO DAILY 01/03/2016 06/28/2016 Inactive Zoloft 50 mg tablet RxNorm: 538820 1 TABLET(S) PO DAILY 12/15/2015 09/10/2016 Inactive Aricept 23 mg tablet RxNorm: 1390230 1 Tablet(s) PO daily 06/21/2015 05/06/2016 Inactive colchicine 0.6 mg ta blet RxNorm: 377842 1 Tablet(s) PO BID 05/24/2015 05/03/2016 Inactive ciclopirox 1 % shampoo RxNorm: 344302 1 TOP daily 05/24/2015 05/03/2016 Inactive benazepril 20 mg tablet RxNorm: 218673 1 Tablet(s) PO daily 05/17/2015 01/02/2016 Inactive atorvastatin 20 mg t ablet RxNorm: 150978 1 Tablet(s) PO daily 05/17/2015 01/02/2016 Inactive benazepril 20 mg tablet RxNorm: 221450 1 Tablet(s) PO daily 05/06/2015 05/16/2015 Inactive ciclopirox 1 % shampoo RxNorm: 062191 1 TOP daily 02/16/2015 02/15/2015 Inactive ciclopirox 1 % shampoo RxNorm: 405678 1 TOP daily 02/16/2015 04/16/2015 Inactive Zoloft 50 mg tablet RxNorm: 390634 1 Tablet(s) PO daily 01/27/2015 12/14/2015 Inactive express script [id number] script [id number] Januvia 50 mg tablet RxNorm: 822627 1 Tablet(s) PO daily 01/24/2015 03/21/2015 Inactive increase from 25mg Januvia 25 mg tablet RxNorm: 697000 1 Tablet(s) PO daily 01/21/2015 01/23/2015 Inactive Januvia 25 mg tablet RxNorm: 894371 1 Tablet(s) PO daily 01/21/2015 01/20/2015 Inactive Benicar 20 mg tablet RxNorm: 441972 1 Tablet(s) PO daily 01/10/2015 03/21/2015 Inactive [SAVINGS FOR NON-COVERED DRUGS -- BIN:00 3585, PCN: [id number], Group: XXXXX, ID# [id number], Questions: . THIS IS NOT INSURANCE.] Benicar 20 mg tablet RxNorm: 146862 1 Tablet(s) PO daily 12/16/2014 12/15/2014 Inactive Benicar 20 mg tablet RxNorm: 661219 1 Tablet(s) PO daily 12/16/2014 01/09/2015 Inactive [SAVINGS FOR NON-COVERED DRUGS -- BIN:00 0430, PCN: [id number], Group: XXXXX, ID# XXXXXXX, Questions: . THIS IS NOT INSURANCE.] Micardis HCT 80 mg-2 5 mg tablet RxNorm: 477937 1 Tablet(s) PO daily 12/03/2014 12/03/2014 Inactive Aricept 23 mg tablet RxNorm: 5967274 1 Tablet(s) PO daily 12/03/2014 03/02/2015 Inactive Lipitor 40 mg tablet RxNorm: 069908 1 Tablet(s) PO daily 12/03/2014 03/02/2015 Inactive B12 1000 mcg RxNorm: 1 IM daily 12/03/2014 03/02/2015 Inactive iron 325 mg (65 mg i rupal) tablet RxNorm: 671262 1 Tablet(s) PO TIW No Start Date Active Ocuvite oral RxNorm: 572557 oral No Start Date Active naproxen 250 mg tablet RxNorm: 171552 Tablet(s) PO as needed No Start Date Active Centrum Complete oral RxNorm: 66671 oral No Start Date Active colchicine 0.6 mg ta blet RxNorm: 413084 1 Tablet(s) PO BID No Start Date 05/23/2015 Inactive benazepril 20 mg tablet RxNorm: 128280 1 Tablet(s) PO daily No Start Date 05/05/2015 Inactive atorvastatin 20 mg t ablet RxNorm: 701073 1 Tablet(s) PO daily No Start Date 05/16/2015 Inactive Aricept 23 mg tablet RxNorm: 3908278 1 Tablet(s) PO daily No Start Date 06/20/2015 Inactive tramadol 50 mg tablet RxNorm: 918473 1-2 Tablet(s) PO Q6 as needed for pain No Start Date 03/05/2016 Inactive Miralax 17 gram oral powder packet RxNorm: 316372 1 PO daily as needed No Start Date 12/02/2014 Inactive Zoloft 25 mg tablet RxNorm: 373116 1 Tablet(s) PO daily No Start Date 01/26/2015 Inactive Medication Administered No Medication Administered data Immunizations Vaccine Codes Date Status Influenza CVX: 141 05/04 completed Assessments Condition Codes Effectiv e Dates Type 2 diabetes mellitus without complications ICD-10: E11.9 ICD-9: 250.00 02/21/2018 Cardiac murmur, unspecified ICD-10: R01.1 ICD-9: 785.2 02/21/2018 Essential (primary) hypertension ICD -10: I10 ICD-9: 401.1 02/21/2018 Myalgia ICD-10: M79.1 ICD-9: 729.1 06/14/2017 Muscle weakness (generalized) ICD-10 : M62.81 ICD-9: 728.87 02/15/2017 Localized edema ICD-10: R60.0 ICD-9: 782.3 02/15/2017 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 ICD-9: 280.0 11/13/2016 Anemia, unspecified ICD-10: D64.9 ICD-9: 285.9 09/10/2016 Pain in right wrist ICD-10: M25.531 ICD-9: 719.43 08/30/2016 Essential (primary) hypertension ICD -10: I10 ICD-9: 401.9 08/30/2016 Pain in left wrist ICD-10: M25.532 ICD-9: 719.43 08/30/2016 Low back pain ICD-10: M54.5 ICD-9: 724.2 08/30/2016 Encounter for immunization ICD-10: Z 23 ICD-9: V04.81 05/04/2016 Multiple fractures of ribs, right side, initial encounter for closed fracture ICD-10: S22.41XA ICD-9: 807.05 03/02/2016 Urinary tract infection, site not specified ICD-10: N39.0 ICD-9: 599.0 03/02/2016 Ataxic gait ICD-10: R26.0 ICD-9: 781.2 03/02/2016 Pain in left knee ICD-10: M25.562 ICD-9: 719.46 06/17/2015 Other diseases of tongue ICD-10: K14 .8 ICD-9: 529.8 05/17/2015 Hospital discharge follow-up ICD-9: V67.59 03/22/2015 Post-operative state ICD-9: V45.89 03/22/2015 Serum calcium elevated ICD-9: 275.42 03/22/2015 Cervical myelopathy ICD-9: 721.1 03/22/2015 ESSENTIAL HYPERTENSION ICD-9: 401.9 03/22/2015 Open wound of toe with avulsion of toenail ICD-9: 893.1 02/11/2015 Diabetes mellitus type 2, controlled ICD-9: 250.00 02/11/2015 Encounter for long-term (current) use of other medicat ions ICD-9: V58.69 01/18/2015 Delusions ICD-9: 297.9 0 12/03/2014 Gait instability ICD-9: 781.2 12/03/2014 Cervical stenosis of spinal canal IC D-9: 723.0 12/03/2014 Bowel and bladder incontinence ICD-9 : 788.30 12/03/2014 Reason For Visit Reason For Visit [...] 27.2 % 11/13/2016 Cbc With Differential Ord2 Mcnairy% 7.9 % 11/13/2016 Cbc With Differential Ord2 MCH 26.3 pg 11/13/2016 Cbc With Differential Ord2 Eos% 2.9 % 11/13/2016 Cbc With Differential Ord2 MCHC 30.4 pg 11/13/2016 Cbc With Differential Ord2 Baso% 0.6 % 11/13/2016 Cbc With Differential Ord2 PLT 181 K/ul 11/13/2016 Cbc With Differential Ord2 RDW 20.2 % 11/13/2016 Cbc With Differential Ord2 Neut ABS# 4.42 K/ul 11/13/2016 Cbc With Differential Ord2 Lymph ABS# 1.96 K/ul 11/13/2016 Cbc With Differential Ord2 Mcnairy ABS# 0.6 K/ul 11/13/2016 Cbc With Differential Ord2 Eos ABS# 0.2 K/ul 11/13/2016 Cbc With Differential Ord2 Baso ABS# 0.0 K/ul 11/13/2016 Ferritin Ord22 FERRITIN 55.7 ng/mL 11/13/2016 Comp Metabolic Mkw483 NA 140 mEq/L 11/13/2016 Comp Metabolic Fps186 K 4.6 mEq/L 11/13/2016 Comp Metabolic Oym635 CL 103 mEq/L 11/13/2016 Comp Metabolic Tlu366 CO2 29.0 mEq/L 11/13/2016 Comp Metabolic Leu610 AN ION GAP 13 11/13/2016 Comp Metabolic Ccd734 GL UCOSE 83 mg/dL 11/13/2016 Comp Metabolic Lvn513 Cr eat 0.9 mg/dL 11/13/2016 Comp Metabolic Ajz888 eG FR 65 ml/min/1.73m2 11/13 Comp Metabolic Tmf685 BUN 28 mg/dL 11/13/2016 Comp Metabolic Rcr741 B/ C Ratio 31.5 Ratio 11/13/2016 Comp Metabolic Sbm312 CA LCIUM 9.5 mg/dL 11/13/2016 Comp Metabolic Lba728 AL K PHOS 52 U/L 11/13/2016 Comp Metabolic Dkw309 T(SGOT) 16 U/L 11/13/2016 Comp Metabolic Cmp129 AL T(SGPT) 10 U/L 11/13/2016 Comp Metabolic Weg631 BI LI T 0.4 mg/dL 11/13/2016 Comp Metabolic Uuh140 AL BUMIN 3.9 g/dL 11/13/2016 Comp Metabolic Kwq394 TP RO 6.2 g/dL 11/13/2016 Comp Metabolic Azo495 GL OB 2.3 g/dL 11/13/2016 Comp Metabolic Txb318 A/ G Ratio 1.7 Ratio 11/13/2016 Comp Metabolic Byr078 Os mo 284 mOsmo 11/13/2016 Tsh Ord6 [...] Tibc Ord40 Fe-%Sat 4.7 % 08/31/2016 %Hba1C Dow901 % HbA1c 37255-5 5.9 % 08/30/2016 %Hba1C Mds862 Gluc Ave 123 mg/dL 08/30/2016 Comp Metabolic Pmw252 NA 138 mEq/L 08/30/2016 Comp Metabolic Otx466 K 4.8 mEq/L 08/30/2016 Comp Metabolic Ena219 CL 103 mEq/L 08/30/2016 Comp Metabolic Ehi672 CO2 29.0 mEq/L 08/30/2016 Comp Metabolic Mmm004 AN ION GAP 11 08/30/2016 Comp Metabolic Scg614 GL UCOSE 85 mg/dL 08/30/2016 Comp Metabolic Nsi657 Cr eat 0.9 mg/dL 08/30/2016 Comp Metabolic Pwn868 eG FR 67 ml/min/1.73m2 08/30 Comp Metabolic Aua766 BUN 22 mg/dL 08/30/2016 Comp Metabolic Fjz895 B/ C Ratio 25.3 Ratio 08/30/2016 Comp Metabolic Oft317 CA LCIUM 9.6 mg/dL 08/30/2016 Comp Metabolic Knw653 AL K PHOS 61 U/L 08/30/2016 Comp Metabolic Odl435 T(SGOT) 22 U/L 08/30/2016 Comp Metabolic Lye818 AL T(SGPT) 15 U/L 08/30/2016 Comp Metabolic Clo252 BI LI T 0.3 mg/dL 08/30/2016 Comp Metabolic Yov220 AL BUMIN 4.1 g/dL 08/30/2016 Comp Metabolic Eoe681 TP RO 6.4 g/dL 08/30/2016 Comp Metabolic Syt388 GL OB 2.3 g/dL 08/30/2016 Comp Metabolic Fpq868 A/ G Ratio 1.8 Ratio 08/30/2016 Comp Metabolic Wtc438 Os mo 278 mOsmo 08/30/2016 Cbc With [...] 27.4 % 08/30/2016 Cbc With Differential Ord2 Mcnairy% 8.2 % 08/30/2016 Cbc With Differential Ord2 MCH 24.0 pg 08/30/2016 Cbc With Differential Ord2 MCHC 30.0 pg 08/30/2016 Cbc With Differential Ord2 Eos% 2.2 % 08/30/2016 Cbc With Differential Ord2 Baso% 0.5 % 08/30/2016 Cbc With Differential Ord2 PLT 264 K/ul 08/30/2016 Cbc With Differential Ord2 RDW 16.5 % 08/30/2016 Cbc With Differential Ord2 Neut ABS# 4.01 K/ul 08/30/2016 Cbc With Differential Ord2 Lymph ABS# 1.78 K/ul 08/30/2016 Cbc With Differential Ord2 Mcnairy ABS# 0.5 K/ul 08/30/2016 Cbc With Differential Ord2 Eos ABS# 0.1 K/ul 08/30/2016 Cbc With Differential Ord2 Baso ABS# 0.0 K/ul 08/30/2016 Parathyroid Hormone Gso990 PTH 26.70 pg/ml 03/23/2015 Cbc With Differential [...] With Differential Ord2 RDW 14.6 % 03/23/2015 Comp Metabolic Snn930 NA 135 mEq/L 03/23/2015 Comp Metabolic Cuy884 K 4.5 mEq/L 03/23/2015 Comp Metabolic Uyq945 CL 100 mEq/L 03/23/2015 Comp Metabolic Wvn790 CO2 31.0 mEq/L 03/23/2015 Comp Metabolic Zeo337 AN ION GAP 9 03/23/2015 Comp Metabolic Rhm262 GL UCOSE 86 mg/dL 03/23/2015 Comp Metabolic Hco600 Cr eat 0.9 mg/dL 03/23/2015 Comp Metabolic Uoo015 eG FR 63 ml/min/1.73m2 03/23 Comp Metabolic Tas262 BUN 18 mg/dL 03/23/2015 Comp Metabolic Eyz013 B/ C Ratio 19.6 Ratio 03/23/2015 Comp Metabolic Ttk175 CA LCIUM 10.2 mg/dL 03/23/2015 Comp Metabolic Xoe647 AL K PHOS 66 U/L 03/23/2015 Comp Metabolic Hal846 T(SGOT) 15 U/L 03/23/2015 Comp Metabolic Jsg072 AL T(SGPT) 10 U/L 03/23/2015 Comp Metabolic Crk749 BI LI T 0.4 mg/dL 03/23/2015 Comp Metabolic Cbu613 AL BUMIN 4.1 g/dL 03/23/2015 Comp Metabolic Zqh500 TP RO 6.3 g/dL 03/23/2015 Comp Metabolic Cqg940 GL OB 2.2 g/dL 03/23/2015 Comp Metabolic Dxs589 A/ G Ratio 1.9 Ratio 03/23/2015 Comp Metabolic Dgp608 Os mo 271 mOsmo 03/23/2015 TSH 0602646 TSH 0.91 uIU/ML 01/19/2015 CBC 0749553 WBC 7.0 10e9/L 01/19/2015 CBC 7618622 RBC 4.66 10e12/L 01/19/2015 CBC 9020746 HGB 13.0 g/dL 01/19/2015 CBC 6191886 HCT DET 41.0 % 01/19/2015 CBC 3274088 MCV 87.0 fL 01/19/2015 CBC 4216882 MCH 28.0 pg 01/19/2015 CBC 2953320 MCHC 32.0 g/dL 01/19/2015 CBC 6655988 PLT 218 10e9/L 01/19/2015 CBC 8936739 MPV 10.6 fL 01/19/2015 CBC 7830591 ROSALBA % 62.0 % 01/19/2015 CBC 8435924 LY % 27.0 % 01/19/2015 CBC 2296845 MON % 8.0 % 01/19/2015 CBC 9377129 EOS % 2.0 % 01/19/2015 CBC 5950237 BASO % 0.0 % 01/19/2015 CBC 5986330 RDW 13.6 % 01/19/2015 CBC 3867998 ABS ROSALBA 4.34 10e9/L 01/19/2015 CBC 0734176 ABS LYMPH 1.89 10e9/L 01/19/2015 CBC 9574287 ABS MONO 0.56 10e9/L 01/19/2015 CBC 4680712 ABS EOS 0.14 11e9/L 01/19/2015 CBC 3581515 ABS BASO 0.00 10e9/L 01/19/2015 A1C HPLC 7419128 A1C HPLC 09698-5 6.4 % 01/19/2015 GFR CALC 0765021 GFR AA >60 ML/MIN 01/19/2015 GFR CALC 5780618 GFR NON -AA 60.0L ML/MIN 5 CHEM 14 8327142 AST 20 U/L 01/19/2015 CHEM 14 4971044 ALT 13 IU/L 01/19/2015 CHEM 14 0152947 BUN 25 MG/DL 01/19/2015 CHEM 14 2125137 ALBUMIN 4.0 GM/DL 01/19/2015 CHEM 14 2251882 CHLORIDE 105 MMOL/L 01/19/2015 CHEM 14 2749259 BILI TOT 0.6 MG/DL 01/19/2015 CHEM 14 2445455 ALK PHOS 59 U/L 01/19/2015 CHEM 14 6453917 SODIUM 140 MMOL/L 01/19/2015 CHEM 14 5922458 CREATINI NE 0.91 MG/DL 01/19/2015 CHEM 14 7672227 CALCIUM 10.3 MG/DL 01/19/2015 CHEM 14 7773523 POTASSIUM 5.0 MMOL/L 01/19/2015 CHEM 14 6314979 PROT TOT 6.2 GM/DL 01/19/2015 CHEM 14 0702602 GLUCOSE 97 MG/DL 01/19/2015 CHEM 14 2809029 BICARB 30 MMOL/L 01/19/2015 CHEM 14 7901431 ANION GAP 5 MEQ/L 01/19/2015 Review of [...] No alteration of consciousness 03/02/2016 Psychiatric anxiety 0811/2015 Constitutional No recent illness 06/17/2015 Constitutional No [...] Effective Dates Notes Full Exam - General 1995 Constitutional general appearance Nourishment: well nourished 02/21/2018 [...] benign 08/30/2016 None Full Exam - General 1995 Musculoskeletal spine, ribs and pelvis Posture: kyphosis [...] Codes Date OCCULT BLOOD FECES CPT- 4: 25887 09/10/2016 ADMIN INFLUENZA VIRU S VAC CPT-4: G0008 05/04/2016 FLU VACC 4 RANJIT 3 YRS PLUS IM SNOMED CT: 97151897 CPT-4: 58898 05/04/2016 ROUTINE VENIPUNCTURE CPT-4: 62820 01/18/2015 Vital Signs Date Vital 02/21/2018 Blood Pressure 1: 138/80 Code: 8480-6 BMI: 34.4 Code: 26261-2 Heart Rate 1: 88 bpm Height: 5'2" SpO2: 91% Weight: 188 lbs 10/18/2017 Blood Pressure 1: 146/68 Code: 8480-6 BMI: 36.9 Code: 18834-7 Heart Rate 1: 68 bpm Height: 5'2" SpO2: 92% Weight: 202 lbs 06/14/2017 Blood Pressure 1: 138/76 Code: 8480-6 BMI: 36.9 Code: 57631-3 Heart Rate 1: 66 bpm Height: 5'2" SpO2: 90% Weight: 202 lbs 02/15/2017 Blood Pressure 1: 136/68 Code: 8480-6 BMI: 37.7 Code: 31079-1 Heart Rate 1: 76 bpm Height: 5'2" SpO2: 92% Weight: 206 lbs 11/13/2016 Blood Pressure 1: 126/64 Code: 8480-6 BMI: 38.4 Code: 45014-7 Heart Rate 1: 71 bpm Height: 5'2" SpO2: 90% Weight: 210 lbs 09/13/2016 Blood Pressure 1: 123/75 Code: 8480-6 BMI: 38.2 Code: 64967-5 Heart Rate 1: 77 bpm Height: 5'2" Respiratory Rate: 18 bpm SpO2: 94% Temperature: 37.1 (C ) / 98.7 (F) Weight: 209 lbs 08/30/2016 Blood Pressure 1: 124/78 Code: 8480-6 BMI: 38.4 Code: 82895-8 Heart Rate 1: 80 bpm Height: 5'2" SpO2: 92% Weight: 210 lbs 05/04/2016 Blood Pressure 1: 132/78 Code: 8480-6 BMI: 34.9 Code: 28027-3 Heart Rate 1: 78 bpm Height: 5'2" SpO2: 97% Weight: 191 lbs 03/02/2016 Blood Pressure 1: 110/58 Code: 8480-6 BMI: 34.8 Code: 98631-5 Heart Rate 1: 76 bpm Height: 5'2" SpO2: 97% Weight: 190 lbs 06/17/2015 Blood Pressure 1: 140/58 Code: 8480-6 BMI: 30.5 Code: 40346-8 Heart Rate 1: 68 bpm Height: 5'2" SpO2: 93% Weight: 167 lbs 05/17/2015 Blood Pressure 1: 128/70 Code: 8480-6 BMI: 30.5 Code: 53768-4 Heart Rate 1: 58 bpm Height: 5'2" SpO2: 95% Weight: 167 lbs 03/22/2015 Blood Pressure 1: 128/80 Code: 8480-6 BMI: 31.1 Code: 36427-4 Heart Rate 1: 70 bpm Height: 5'2" SpO2: 96% Weight: 170 lbs 02/11/2015 Blood Pressure 1: 128/60 Code: 8480-6 BMI: 33.7 Code: 04746-4 Heart Rate 1: 65 bpm Height: 5'2" SpO2: 95% Weight: 184 lbs 01/18/2015 Blood Pressure 1: 128/74 Code: 8480-6 BMI: 33.8 Code: 87077-5 Heart Rate 1: 74 bpm Height: 5'2" SpO2: 95% Weight: 185 lbs 12/03/2014 Blood Pressure 1: 132/74 Code: 8480-6 BMI: 34.2 Code: 36076-9 Heart Rate 1: 72 bpm Height: 5'2" [...] scab bed 08/30/2016 None skin lesion 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 P ATIENT, LEVEL IV Diagnosis: Essential (primary) hypertension[ICD10: I10] Diagnosis: Type 2 diabetes mellitus without complications[ICD10: E11.9] Diagnosis: Cardiac murmur, unspecified[ICD10: R01.1] [facility] CPT-4: 08775 02/21/2018 ([id number]) 95428 EST. P ATIENT, LEVEL III Diagnosis: Essential (primary) hypertension[ICD10: I10] Diagnosis: Type 2 diabetes mellitus without complications[ICD10: E11.9] [facility] CPT-4: 54801 10/18/2017 ([id number]) 64681 EST. P ATIENT, LEVEL IV Diagnosis: Essential (primary) hypertension[ICD10: I10] Diagnosis: Type 2 diabetes mellitus without complications[ICD10: E11.9] Diagnosis: Myalgia[ICD10: M79.1] Theresa Gordon MD, [facility] CPT-4: 82822 06/14/2017 ([id number]) 62165 EST. P ATIENT, LEVEL IV Diagnosis: Essential (primary) hypertension[ICD10: I10] Diagnosis: Muscle weakness (generalized)[ICD10: M62.81] Diagnosis: Localized edema[ICD10: R60.0] Theresa Gordon MD, [facility] CPT- 4: 34305 02/15/2017 ([id number]) 48612 EST. 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 P ATIENT, LEVEL IV Diagnosis: Localized edema[ICD10: R60.0] Diagnosis: Essential (primary) hypertension[ICD10: I10] Diagnosis: Low back pain[ICD10: M54.5] Diagnosis: Pain in right wrist[ICD10: M25.531] Diagnosis: Pain in left wrist[ICD10: M25.532] Diagnosis: Type 2 diabetes mellitus without complications[ICD10: E11.9] Theresa Gordon MD, [facility] CPT-4: 14037 08/30/2016 ([id number]) 26950 EST. P ATIENT, LEVEL III Diagnosis: Essential (primary) hypertension[ICD10: I10] Diagnosis: Type 2 diabetes mellitus without complications[ICD10: E11.9] Diagnosis: Encounter for immunization[ICD10: Z23] Theresa Gordon MD, [facility] CPT-4: 85555 05/04/2016 ([id number]) 87030 EST. P ATIENT, LEVEL IV Diagnosis: Multiple fractures of ribs, right side, initial encounter for closed fracture[ICD10: S22.41XA] Diagnosis: Type 2 diabetes mellitus without complications[ICD10: E11.9] Diagnosis: Urinary tract infection, site not specified[ICD10: N39.0] Diagnosis: Ataxic gait[ICD10: R26.0] Theresa Gordon MD, [facility] CPT- 4: 46277 03/02/2016 ([id number]) 09870 EST. P ATIENT, LEVEL III Diagnosis: Pain in left knee[ICD10: M25.562] Theresa Gordon MD, [facility] CPT- 4: 85551 06/17/2015 38437 EST. PATIENT, LEVEL IV Diagnosis: Essential (primary) hypertension[ICD10: I10] Diagnosis: Type 2 diabetes mellitus without complications[ICD10: E11.9] Diagnosis: Other diseases of tongue[ICD10: K14.8] Theresa Gordon MD, [facility] CPT-4: 75972 05/17/2015 ([id number]) 07196 EST. P ATIENT, LEVEL IV Diagnosis: Serum calcium elevated[ICD9: 275.42] Diagnosis: ESSENTIAL HYPERTENSION[ICD9: 401.9] Diagnosis: Cervical myelopathy[ICD9: 721.1] Diagnosis: Post-operative state[ICD9: V45.89] Diagnosis: Hospital discharge follow-up[ICD9: V67.59] [facility] CPT-4: 37996 03/22/2015 ([id number]) 38298 EST. P ATIENT, LEVEL IV Diagnosis: Diabetes mellitus type 2, controlled[ICD9: 250.00] Diagnosis: ESSENTIAL HYPERTENSION[ICD9: 401.9] Diagnosis: Open wound of toe with avulsion of toenail[ICD9: 893.1] Theresa Gordon MD, [facility] CPT-4: 10249 02/11/2015 ([id number]) 50086 EST. P ATIENT, LEVEL IV Diagnosis: ESSENTIAL HYPERTENSION[ICD9: 401.9] Diagnosis: Diabetes mellitus type 2, controlled[ICD9: 250.00] Diagnosis: Encounter for long-term (current) use of other medications[ICD9: V58.69] [facility] CPT-4: 73800 01/18/2015 ([id number]) OFFICE VISI T, NEW - LEVEL 4 Diagnosis: ESSENTIAL HYPERTENSION[ICD9: 401.9] Diagnosis: Cervical stenosis of spinal canal[ICD9: 723.0] Diagnosis: Gait instability[ICD9: 781.2] Diagnosis: Bowel and bladder incontinence[ICD9: 788.30] Diagnosis: Diabetes mellitus type 2, controlled[ICD9: 250.00] Diagnosis: Delusions[ICD9: 297.9] [facility] CPT-4: 80175 12/03/2014 Plan of Care Planned Activity Notes [...] -schedule Echo 02/21/2018 Appointment: Theresa Moses WPtel: [phone] (15 min) Moderate 02/21/2018 Patient Education: Patient Medication Summary Completed 02/21/2018 Appointment: Theresa Moses WPtel: [phone] (30 min) Complex 02/14/2018 Appointment: Theresa Moses WPtel: [phone] (15 min) Moderate 01/20/2018 Visit Plan: Hypertension - well con trolled - continue with current medications, continue with no added salt diet. Pt has been encouraged to exercise daily. The pt has been advised to call the office if there are any acute concerns about change in blood pressure readings at home. DM-diet controlled 10/18/2017 Appointment: Theresa Moses WPtel: [id number] [phone] (15 min) Moderate 10/18/2017 Patient Education: Patient Medication Summary Completed 10/18/2017 Appointment: Theresa Moses WPtel: [phone] [phone] (30 min) Complex 10/11/2017 Visit Plan: [...] home massage 06/14/2017 Appointment: Theresa Moses WPtel: [phone] (30 min) Complex 06/14/2017 Patient Education: [...] peripheral edema. 02/15/2017 Appointment: Theresa Moses WPtel: [phone] (30 min) Complex 02/15/2017 Patient Education: Patient [...] labs 11/13/2016 [phone] [facility] Complex 11/13/2016 Patient Education: [...] edema. 09/13/2016 Appointment: Theresa Moses WPtel: [phone] [id number] [place] [address] (30 min) Complex 09/13/2016 Patient Education: Patient [...] blood pressure readings at home. Low back lojb-qwgeiwy-wgso for low back brace DM-check Hgb A1C Chronic itching-picking at skin-refer to Dr Addison for evaluation 08/30/2016 Appointment: Theresa Moses WPtel: [phone] [phone] [place] [address] (30 min) Complex 08/30/2016 Patient Education: Patient Medication Summary Completed 08/30/2016 Patient Education: Obesity Completed 08/30/2016 Care Plan: Referral Order SNOMED-CT : [id number] Pending 08/30/2016 Visit Plan: Hypertension - well [...] controlled. 05/04/2016 Appointment: Theresa Moses WPtel: [phone] [phone] (30 min) Complex 05/04/2016 Patient Education: [...] sugars 03/02/2016 Appointment: Theresa Moses WPtel: [phone] [phone] (30 min) Complex 03/02/2016 Patient Education: [...] starting to become less controlled. Lesion of qdegym-aw-oifrenzw in 1 month- if still present, refer [...] labs including PTH Cervical myelopathy-recent surgery at [facility] follow up - This was a [...] labs including PTH Cervical myelopathy-recent surgery at [facility] follow up - This was a [...] less controlled. 01/18/2015 Appointment: Jadyn Gordon WPtel: [facility] [facility] 01/18/2015 Patient Education: Patient Medication Summary Completed 01/18/2015 Patient Education: Hypertension Completed 01/18/2015 Care Plan: CBC Pending 01/18/2015 Care Plan: CHEM 14 Pending 01/18/2015 Care Plan: A1C HPLC INC : [id number] Pending 01/18/2015 Care Plan: TSH Pending 01/18/2015 [...] blood pressure readings at home. Low back pxov-kcrucwx-cuty for low back brace DM-check Hgb A1C [...] labs including PTH Cervical myelopathy-recent surgery at -[facility] follow up - This was a [...] labs including PTH Cervical myelopathy-recent surgery at -[facility] follow up - This was a [...] starting to become less controlled. Lesion of ndbzqc-hj-jhayegjg in 1 month-if still present, refer for [...]
--- OUTSIDE RECORDS SUMMARY | 2019-11-12 01:22 | XMS REPORT | Continuity of Care Document ---
Author Organization Unknown Address Unknown Phone Unavailable Allergies Active Description Code Type Severity Reaction Onset Reported/Identified Relationship to Patient Clinical Status Yes Penicillins [id number] Drug Aller gy Mild RASH, TONGUE SW 11/16/2009 Medications There is no data. Problems Date Dx Coded Attending Type Code Diagnosis Diagnosed By 12/31/2013 ASHELY DOWNS, EDIN D Ot 564.00 UNSPEC CONSTIPATION 01/23/2014 RICARDO ISSA APRN Ot 401 .9 HYPERTENSION NOS 01/23/2014 RICARDO ISSA APRN Ot 564.00 UNSPEC CONSTIPATION 01/23/2014 RICARDO ISSA APRN Ot 599 .0 URIN TRACT INFECTION NOS 01/23/2014 RICARDO ISSA APRN Ot 733.00 OSTEOPOROSIS NOS 01/23/2014 RICARDO ISSA APRN Ot V58.62 ENCOUNT FOR LONG-TERM(CURRENT) USE OF AN 01/23/2014 RICARDO ISSA APRN Ot V58.64 LONG-TERM(CURRENT)USE OF NON-STEROIDAL A 01/23/2014 RICARDO ISSA APRN Ot V58.69 OTH MED,LT,CURRENT USE 07/15/2014 Ot V76.12 07/15/2014 Ot 354.0 07/15/2014 Ot V72.63 07/15/2014 Ot 786.05 07/15/2014 Ot V76.12 07/15/2014 Ot V76.12 07/15/2014 OTONIEL GARNER MD Ot V76.12 07/15/2014 OTONIEL GARNER MD Ot 331.9 07/15/2014 OTONIEL GARNER MD Ot 781.2 07/15/2014 OTONIEL GARNER MD Ot 723.1 07/16/2014 OTONIEL GARNER MD Ot V76.12 08/04/2014 OTONIEL GARNER MD Ot 723.1 08/05/2014 OTONIEL GARNER MD Ot V76.12 08/05/2014 OTONIEL GARNER MD Ot 723.0 08/23/2014 OTONIEL GARNER MD Ot 723.1 08/23/2014 OTONIEL GARNER MD Ot 723.0 08/26/2014 OTONIEL GARNER MD Ot 782.3 08/31/2014 OTONIEL GARNER MD Ot 782.3 09/21/2014 OTONIEL GARNER MD Ot 782.3 01/04/2015 RHEA NARVAEZ Ot 723.1 CERVICALGIA 01/04/2015 RHEA NARVAEZ Ot 724.00 SPINAL STENOSIS NOS 01/04/2015 RHEA NARVAEZ Ot 724.2 LUMBAGO 01/04/2015 RHEA NARVAEZ Ot 733.13 PATHOLOGIC FRACTURE, VERTEBRAE 01/07/2015 TRELL ECHEVARRIA ENGINE HEAD REPAIRER Ot 721.2 01/07/2015 TRELL ECHEVARRIA ENGINE HEAD REPAIRER Ot 723.0 01/07/2015 TRELL ECHEVARRIA ENGINE HEAD REPAIRER Ot 724.02 01/22/2015 TRELL ECHEVARRIA ENGINE HEAD REPAIRER Ot 721.2 01/22/2015 TRELL ECHEVARRIA ENGINE HEAD REPAIRER Ot 723.0 01/22/2015 TRELL ECHEVARRIA ENGINE HEAD REPAIRER Ot 724.02 07/08/2015 TRELL ECHEVARRIA ENGINE HEAD REPAIRER Ot S89.92XA 07/08/2015 TRELL ECHEVARRIA ENGINE HEAD REPAIRER Ot W18.2XXA 07/28/2015 TRELL ECHEVARRIA ENGINE HEAD REPAIRER Ot S89.92XA 07/28/2015 TRELL ECHEVARRIA ENGINE HEAD REPAIRER Ot W18.2XXA 02/28/2016 Ot V76.12 OTH SCREEN MAMMO- MALIGN NEOPLASM OF ANGEL 02/28/2016 Ot V76.12 OTH SCREEN MAMMO- MALIGN NEOPLASM OF ANGEL 02/28/2016 OTONIEL GARNER MD Ot V76.12 OTH SCREEN MAMMO-MALIGN NEOPLASM OF ANGEL 02/28/2016 OTONIEL GARNER MD Ot 331.9 CEREB DEGENERATION NOS 02/28/2016 OTONIEL GARNER MD Ot 781.2 ABNORMALITY OF GAIT 02/28/2016 OTONIEL GARNER MD Ot V76.12 OTH SCREEN MAMMO-MALIGN NEOPLASM OF ANGEL 02/28/2016 OTONIEL GARNER MD Ot 723.1 CERVICALGIA 02/28/2016 OTONIEL GARNER MD Ot 723.0 CERVICAL SPINAL STENOSIS 02/28/2016 OTONIEL GARNER MD Ot 782.3 EDEMA 02/28/2016 TRELL ECHEVARRIA 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 02/28/2016 TRELL ECHEVARRIA Ot 723.0 CERVICAL SPINAL STENOSIS 02/28/2016 TRELL ECHEVARRIAP Ot 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, LUMBAR REG, W/OUT NEURO 02/28/2016 TRELL ECHEVARRIAP Ot S89.92XA UNSPECIFIED INJURY OF LEFT LOWER LEG, IN 02/28/2016 TRELL ECHEVARRIA Ot W18.2XXA FALL IN (INTO) SHOWER OR EMPTY BATHTUB, 02/28/2016 Ot V76.12 OTH SCREEN MAMMO- MALIGN NEOPLASM OF ANGEL 02/28/2016 Ot V76.12 OTH SCREEN MAMMO- MALIGN NEOPLASM OF ANGEL 02/28/2016 OTONIEL GARNER MD Ot V76.12 OTH SCREEN MAMMO-MALIGN NEOPLASM OF ANGEL 02/28/2016 OTONIEL GARNER MD Ot 331.9 CEREB DEGENERATION NOS 02/28/2016 OTONIEL GARNER MD Ot 781.2 ABNORMALITY OF GAIT 02/28/2016 OTONIEL GARNER MD Ot V76.12 OTH SCREEN MAMMO-MALIGN NEOPLASM OF ANGEL 02/28/2016 OTONIEL GARNER MD Ot 723.1 CERVICALGIA 02/28/2016 OTONIEL GARNER MD Ot 723.0 CERVICAL SPINAL STENOSIS 02/28/2016 OTONIEL GARNER MD Ot 782.3 EDEMA 02/28/2016 TRELL ECHEVARRIA 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 02/28/2016 TRELL ECHEVARRIA Ot 723.0 CERVICAL SPINAL STENOSIS 02/28/2016 TRELL ECHEVARRIA Ot 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, LUMBAR REG, W/OUT NEURO 02/28/2016 TRELL ECHEVARRIA Ot S89.92XA UNSPECIFIED INJURY OF LEFT LOWER LEG, IN 02/28/2016 WALETRELL CHARO Ot W18.2XXA FALL IN (INTO) SHOWER OR EMPTY BATHTUB, 02/28/2016 KRISTIE DO, JIMMY K Ot E11.649 TYPE 2 DIABETES MELLITUS WITH HYPOGLYCEM 02/28/2016 KRISTIE DO, JIMMY K Ot E16.2 HYPOGLYCEMIA, UNSPECIFIED 02/28/2016 KRISTIE DO, JIMMY K Ot F03.90 UNSPECIFIED DEMENTIA WITHOUT BEHAVIORAL 02/28/2016 KRISTIE DO, JIMMY K Ot N39.0 URINARY TRACT INFECTION, SITE NOT SPECIF 02/29/2016 KRISTIE DO, JIMMY K Ot E11.649 TYPE 2 DIABETES MELLITUS WITH HYPOGLYCEM 02/29/2016 KRISTIE DO, JIMMY K Ot E16.2 HYPOGLYCEMIA, UNSPECIFIED 02/29/2016 KRISTIE DO, JIMMY K Ot F03.90 UNSPECIFIED DEMENTIA WITHOUT BEHAVIORAL 02/29/2016 KRISTIE DO, JIMMY K Ot N39.0 URINARY TRACT INFECTION, SITE NOT SPECIF 10/25/2017 RHEA NARVAEZ Ot E11.9 TYPE 2 DIABETES MELLITUS WITHOUT COMPLIC 10/25/2017 RHEA NARVAEZ Ot E78.00 PURE HYPERCHOLESTEROLEMIA, UNSPECIFIED 10/25/2017 RHEA NARVAEZ Ot F03.90 UNSPECIFIED DEMENTIA WITHOUT BEHAVIORAL 10/25/2017 RHEA NARVAEZ Ot F32.9 MAJOR DEPRESSIVE DISORDER, SINGLE EPISOD 10/25/2017 RHEA NARVAEZ Ot F41.9 ANXIETY DISORDER, UNSPECIFIED 10/25/2017 RHEA NARVAEZ Ot I 10 ESSENTIAL (PRIMARY) HYPERTENSION 10/25/2017 RHEA NARVAEZ Ot M81.0 AGE-RELATED OSTEOPOROSIS W/O CURRENT PAT 10/25/2017 RHEA NARVAEZ Ot R40.2142 COMA SCALE, EYES OPEN, SPONTANEOUS, EMR 10/25/2017 RHEA NARVAEZ Ot R40.2252 COMA SCALE, BEST VERBAL RESPONSE, ORIENT 10/25/2017 RHEA NARVAEZ Ot R40.2362 COMA SCALE, BEST MOTOR RESPONSE, OBEYS C 10/25/2017 RHEA NARVAEZ Ot S00.83XA CONTUSION OF OTHER PART OF HEAD, INITIAL 10/25/2017 RHEA NARVAEZ Ot S09.11XA STRAIN OF MUSCLE AND TENDON OF HEAD, INI 10/25/2017 RHEA NARVAEZ Ot S09.90XA UNSPECIFIED INJURY OF HEAD, INITIAL ENCO 10/25/2017 RHEA NARVAEZ Ot W01.198A FALL SAME LEV FROM SLIP/TRIP W STRIKE AG 10/25/2017 RHEA NARVAEZ Ot Z87.19 PERSONAL HISTORY OF OTHER DISEASES OF TH 10/25/2017 RHEA NARVAEZ Ot Z87.440 PERSONAL HISTORY OF URINARY (TRACT) INFE 10/25/2017 RHEA NARVAEZ Ot Z88.0 ALLERGY STATUS TO PENICILLIN 03/17/2018 TRELL ECHEVARRIA ENGINE HEAD REPAIRER Ot R01.1 CARDIAC MURMUR, UNSPECIFIED 04/16/2018 TRELL ECHEVARRIAP Ot R01.1 CARDIAC MURMUR, UNSPECIFIED 05/05/2018 TRELL ECHEVARRIAP Ot R01.1 CARDIAC MURMUR, UNSPECIFIED 10/26/2019 W B37.2 Yeas t dermatitis Natacha Camacho 10/26/2019 W L03.312 Ce llulitis of upper back excluding scapular region Natacha Camacho 10/26/2019 W B37.2 Yeas t dermatitis Natacha Camacho 10/26/2019 W L03.312 Ce llulitis of upper back excluding scapular region Natacha Camacho Procedures There is no data. Results Test Result Range Capillary blood glucose measurement by g lucometer (mass/volume) - 02/28/16 02:28 Capillary blood glucose measurement by glucometer (mas s/volume) 152 mg/dL 70-110 Complete blood count (CBC) with automate d white blood cell (WBC) differential - 02/28/16 02:30 Blood leukocytes automated count (number/volume) 7.6 10*3/uL 4.3-11.0 Blood erythrocytes automated count (number/volume) 4.21 10*6/uL 4.35-5.85 Venous blood hemoglobin measurement (mass/volume) 11.3 g/dL 11.5-16.0 Blood hematocrit (volume fraction) 35 % 35-52 Automated erythrocyte mean corpuscular volume 84 [ foz_us] 80-99 Automated erythrocyte mean corpuscular h emoglobin (mass per erythrocyte) 27 pg 25-34 Automated erythrocyte mean corpuscular h emoglobin concentration measurement (mass/volume) 32 g/dL 32-36 Automated erythrocyte distribution width ratio 14. 0 % 10.0- 14.5 Automated blood platelet count (count/volume) 218 10*3/uL 130-400 Automated blood platelet mean volume measurement 11.1 [foz_us] 7.4-10.4 Automated blood neutrophils/100 leukocytes 68 % 42-75 Automated blood lymphocytes/100 leukocytes 21 % 12-44 Blood monocytes/100 leukocytes 10 % 0-12 Automated blood eosinophils/100 leukocytes 1 % 0-10 Automated blood basophils/100 leukocytes 0 % 0-10 Blood neutrophils automated count (number/volume) 5.2 10*3 1.8-7.8 Blood lymphocytes automated count (number/volume) 1.6 10*3 1.0-4.0 Blood monocytes automated count (number/volume) 0. 8 10*3 0.0-1.0 Automated eosinophil count 0.1 10*3/uL 0 .0-0.3 Automated blood basophil count (count/volume) 0.0 10*3/uL 0.0-0.1 Comprehensive metabolic panel - 02/28/16 02:30 Serum or plasma sodium measurement (moles/volume) 141 mmol/L 135-145 Serum or plasma potassium measurement (moles/volume) 4.5 mmol/L 3.6-5.0 Serum or plasma chloride measurement (moles/volume) 107 mmol/L 98-107 Carbon dioxide 23 mmol/L 21-32 Serum or plasma anion gap determination (moles/volume) 11 mmol/L 5-14 Serum or plasma urea nitrogen measurement (mass/volume ) 39 mg/dL 7-18 Serum or plasma creatinine measurement (mass/volume) 1.21 mg/dL 0.60-1.30 Serum or plasma urea nitrogen/creatinine mass ratio 32 NRG Serum or plasma creatinine measurement w ith calculation of estimated glomerular filtration rate 43 NRG Serum or plasma glucose measurement (mass/volume) 156 mg/dL 70-105 Serum or plasma calcium measurement (mass/volume) 10.0 mg/dL 8.5-10.1 Serum or plasma total bilirubin measurement (mass/volu me) 0.4 mg/dL 0.1-1.0 Serum or plasma alkaline phosphatase lorri surement (enzymatic activity/volume) 53 U/L 40-136 Serum or plasma aspartate aminotransfera se measurement (enzymatic activity/volume) 26 U/L 5-34 Serum or plasma alanine aminotransferase measurement (enzymatic activity/volume) 17 U/L 0-55 Serum or plasma protein measurement (mass/volume) 6.3 g/dL 6.4-8.2 Serum or plasma albumin measurement (mass/volume) 3.7 g/dL 3.2-4.5 Magnesium - 02/28/16 02:30 Magnesium 2.0 mg/dL 1.8-2.4 Serum or plasma amylase measurement (enz ymatic activity/volume) - 02/28/16 02:30 Serum or plasma amylase measurement (enzymatic activit y/volume) 127 U/L 25-125 Lipase - 02/28/16 02:30 Lipase 141 U/L 8-78 Serum or plasma thyrotropin measurement by detection limit <=0.05 miu/l (units/volume) - 02/28/16 02:30 Serum or plasma thyrotropin measurement by detection limit <=0.05 miu/l (units/volume) 1.63 u[iU]/mL 0.35-4.94 Complete urinalysis with reflex to cultu re - 02/28/16 03:20 Urine color determination YELLOW NRG Urine clarity determination CLEAR NR G Urine pH measurement by test strip 5 5-9 Specific gravity of urine by test strip 1.020 1.016-1.022 Urine protein assay by test strip, semi-quantitative NEGATIVE NEGATIVE Urine glucose detection by automated test strip 1+ NEGATIVE Erythrocytes detection in urine sediment by light micr oscopy 1+ NEGATIVE Urine ketones detection by automated test strip NE GATIVE NEGATIVE Urine nitrite detection by test strip POSITIVE NEGATIVE Urine total bilirubin detection by test strip NEGA TIVE NEGATIVE Urine urobilinogen measurement by automated test strip (mass/volume) NORMAL NORMAL Urine leukocyte esterase detection by dipstick 1+ NEGATIVE Automated urine sediment erythrocyte cou nt by microscopy (number/high power field) NONE NRG Automated urine sediment leukocyte count by microscopy (number/high power field) [HPF] NRG Bacteria detection in urine sediment by light microsco py LARGE NRG Squamous epithelial cells detection in u rine sediment by light microscopy NONE NRG Crystals detection in urine sediment by light microsco py NONE NRG Casts detection in urine sediment by light microscopy NONE NRG Mucus detection in urine sediment by light microscopy NEGATIVE NRG Complete urinalysis with reflex to culture YES NRG Bacterial urine culture - 02/28/16 03:20 Bacterial urine culture [id number] NRG COLONY COUNT >100,000/ML NRG FTX;REPORTABLE SENSITIVITY REPORTED 02/29/16 9:00 NR Bacterial susceptibility panel - 6 03:20 Gentamicin susceptibility test by minimum inhibitory c oncentration <= NRG Trimethoprim/sulfamethoxazole susceptibi lity test by minimum inhibitoryconcentration <= NRG Ampicillin susceptibility test by minimum inhibitory c oncentration >= NRG Tobramycin susceptibility test by minimum inhibitory c oncentration <= NRG Cefazolin susceptibility test by minimum inhibitory co ncentration <= NRG Ceftriaxone susceptibility test by minimum inhibitory concentration <= NRG Ampicillin/sulbactam susceptibility test by minimum inhibitory concentration 4 NRG Piperacillin/tazobactam susceptibility t est by minimum inhibitory concentration <= NRG Ciprofloxacin susceptibility test by minimum inhibitor y concentration <= NRG Meropenem susceptibility test by minimum inhibitory co ncentration <= NRG Nitrofurantoin susceptibility test by mi nimum inhibitory concentration 64 NRG Aztreonam susceptibility test by minimum inhibitory co ncentration <= NRG Extended spectrum beta lactamase (ESBL) producing bacteria susceptibility test by minimum inhibitory concentration - NRG Capillary blood glucose measurement by g lucometer (mass/volume) - 02/28/16 04:16 Capillary blood glucose measurement by glucometer (mas s/volume) 100 mg/dL 70-110 Encounters ACCT No. Visit Date/Time Discharge Status Pt. Type Provider Facility Loc./Unit Complaint [id number] 02/24/2018 07:18:00 018 23:59:59 CLS Outpatient TRELL ECHEVARRIA [facility] CARD HEART MURMUR [id number] 10/25/2017 13:04:00 018 15:25:00 DIS Emergency RHEA NARVAEZ [facility] ER FALL [id number] 02/28/2016 02:21:00 016 05:01:00 DIS Emergency JIMMY FLOWERS DO [facility] ER UNRESPONSIVE [id number] 06/17/2015 16:00:00 015 23:59:59 CLS Outpatient TRELL ECHEVARRIA [facility] RAD [id number] 01/04/2015 17:38:00 015 22:00:00 DIS Emergency RHEA NARVAEZ [facility] ER [id number] 12/09/2014 08:51:00 23:59:59 CLS Outpatient TRELL ECHEVARRIA [facility] RAD [id number] 08/23/2014 15:29:00 015 23:59:59 CLS Outpatient OTONIEL GARNER MD [facility] RAD [id number] 07/15/2014 13:55:00 014 23:59:59 CLS Outpatient OTONIEL GARNER MD [facility] RAD [id number] 07/15/2014 12:08:00 014 23:59:59 CLS Outpatient OTONIEL GARNER MD [facility] RAD [id number] 07/12/2014 16:53:00 23:59:59 CLS Outpatient OTONIEL GARNER MD [facility] RAD [id number] 01/23/2014 14:39:00 16:52:00 DIS Emergency RICARDO ISSA APRN [facility] ER [id number] 12/31/2013 07:47:00 10:40:00 DIS Emergency EDIN LUND MD [facility] ER [id number] 11/27/2013 10:35:00 014 23:59:59 CLS Outpatient OTONIEL GARNER MD [facility] RAD [id number] 06/24/2013 14:57:00 23:59:59 CLS Outpatient OTONIEL GARNER MD [facility] RAD [id number] 11/12/2019 01:06:[address] Emergency JIMMY FLOWERS DO [facility] ER ABSCESS [id number] 07/15/2014 12:08:00 Document Registration [id number] 04/02/2012 12:46:00 Document Registration [id number] 01/11/2011 13:52:00 Document Registration [id number] 04/26/2010 06:32:00 Document Registration [id number] 11/11/2009 13:28:00 Document Registration [id number] 10/20/2009 13:11:00 Document Registration [id number] 06/13/2017 23:27:52 06/13/2017 23:59:5 9 [facility] [id number] 01/04/2015 17:38:59 ACT Document Registration
[2019-11-12] MEDS ORDERED: CEFEPIME INJECTION 2,000 MG in WATER (STERILE) FOR INJECTION 10 ML IV ONE (01:30)
[2019-11-12] MEDS ORDERED: VANCOMYCIN INJECTION 1,000 MG in NS (IVPB) 250 ML IV ONE (01:30)
[2019-11-12] MEDS ORDERED: metroNIDAZOLE 500MG/100ML IVPB 100 ML IV ONE (01:30)
[2019-11-12 01:36] LABS: BASOPHILS % (AUTO) 0 % (0-10); EOSINOPHILS % (AUTO) 0 % (0-10); HEMATOCRIT 40 % (35-52); HEMOGLOBIN 12.5 G/DL (11.5-16.0); LYMPHOCYTES # (AUTO) 1.2 X 10^3 (1.0-4.0); LYMPHOCYTES % (AUTO) 7 % (12-44); MEAN CORPUSCULAR HEMOGLOBIN 26 PG (25-34); MEAN CORPUSCULAR HGB CONC 32 G/DL (32-36); MEAN CORPUSCULAR VOLUME 84 FL (80-99); MEAN PLATELET VOLUME 10.6 FL (7.4-10.4); MONOCYTES # (AUTO) 2.1 X 10^3 (0.0-1.0); MONOCYTES % (AUTO) 11 % (0-12); NEUTROPHILS # (AUTO) 15.6 X 10^3 (1.8-7.8); NEUTROPHILS % (AUTO) 82 % (42-75); PLATELET COUNT 186 10^3/uL (130-400); RED CELL DISTRIBUTION WIDTH 14.3 % (10.0-14.5)
[2019-11-12 01:49] LABS: ALBUMIN 3.2 GM/DL (3.2-4.5); CHLORIDE 98 MMOL/L (98-107); INR 1.2 (0.8-1.4); POTASSIUM 4.2 MMOL/L (3.6-5.0); PROTHROMBIN TIME PATIENT 15.6 SEC (12.2-14.7); SODIUM 133 MMOL/L (135-145)
[2019-11-12 01:50] LABS: CALCIUM 9.9 MG/DL (8.5-10.1)
[2019-11-12 01:51] LABS: GLUCOSE 118 MG/DL (70-105); TOTAL PROTEIN 6.7 GM/DL (6.4-8.2)
[2019-11-12 01:53] LABS: BILIRUBIN,TOTAL 0.5 MG/DL (0.1-1.0); CARBON DIOXIDE 22 MMOL/L (21-32)
[2019-11-12 01:55] LABS: ALKALINE PHOSPHATASE 65 U/L (40-136); ANISOCYTOSIS SLIGHT; BAND NEUTROPHILS 6 %; BASOPHILS % (MANUAL) 0 %; CREATININE SERUM 1.04 MG/DL (0.60-1.30); EOSINOPHILS % (MANUAL) 0 %; GFR ESTIMATED 51; LYMPHOCYTES % (MANUAL) 3 %; MONOCYTES % (MANUAL) 5 %; NEUTROPHILS % (MANUAL) 85 %; POLYCHROMASIA SLIGHT; REACTIVE LYMPHOCYTES 1 %
[2019-11-12 01:56] LABS: BUN/CREATININE RATIO 25
[2019-11-12 01:58] LABS: ALANINE AMINOTRANSFERASE 7 U/L (0-55); MAGNESIUM 1.5 MG/DL (1.6-2.4)
[2019-11-12] MEDS ORDERED: NS IV 1000 ML 1,000 ML IV SCH ×2 (01:58→02:43)
--- NOTE | 2019-11-12 02:25 | ED Integumentary General ---
General Chief Complaint: Wound Check (No Charge) Stated Complaint: ABSCESS Source: patient (VERY POOR/DIFFICULT HISTORIAN IN ADDITION TO BEING HARD OF HEARING ( ALSO HAS HISTORY OF DEMENTIA, PER OLD CHART)) History of Present Illness Date Seen by Provider: Nov 12, 2019 Time Seen by Provider: 01:08 Initial Comments PT ARRIVES VIA EMS FROM HOME C/O INFECTION TO LEFT POSTERIOR THIGH--PT HAS NO IDEA HOW LONG AGO SHE FIRST NOTICED IT STATES THAT SHE JUST STARTED A SECOND ROUND OF ANTIBIOTICS 2 DAYS AGO, BUT HAS NO IDEA WHAT ANTIBIOTICS THEY ARE STATES SHE HAS HAD FEVER UP TO 100, AND HAS BEEN SWEATING ALOT--HAD TYLENOL AT MIDNIGHT STATES TONIGHT "IT BROKE OPEN" SO CALLED EMS--BLOOD DRAINING FROM WOUND STATES SHE HAS HAD HOME HEALTH CHECKING ON IT, AND SHE CALLED DR. LICEA'S OFFICE 2 DAYS AND THE NEW ANTIBIOTIC RX WAS CALLED IN. STATES SHE HAS HAD INFECTED SORES ON HER LEGS IN OTHER AREAS, AND WAS ON ANTIBIOTICS FOR THAT, PRIOR TO THIS PROBLEM PT IS DIABETIC, BUT IS "DIET CONTROLLED" PCP: DR. LICEA Allergies and Home Medications Allergies Coded Allergies: Penicillins (Unverified Allergy, Mild, RASH, TONGUE SWELLS, 11/16/09) Home Medications Donepezil HCl 23 Mg Tablet, 23 MG PO DAILY, (Reported) Hctz/Telmisartan 1 Each Tablet, 1 EACH PO DAILY, (Reported) Hydrocodone Bit/Acetaminophen 1 Tab Tab, 1 TAB PO Q4H PRN for pain Prescribed by: RHEA CURRY on 10/25/17 1512 Nitrofurantoin Monohyd/M-Cryst 100 Mg Capsule, 100 MG PO BID Prescribed by: JIMMY FLOWERS on 02/28/16 0453 Polyethylene Glycol 119 Gm Btl, 0 PO DAILY 17 GM Prescribed by: EDIN LUND on 12/31/13 1035 Patient Home Medication List Home Medication List Reviewed: Yes Review of Systems Review of Systems Constitutional: see HPI, diaphoresis, fever EENTM: no symptoms reported Respiratory: no symptoms reported; No cough, No short of breath Cardiovascular: no symptoms reported Gastrointestinal: no symptoms reported; No abdominal pain, No nausea, No vomiting; other (CHRONIC BOWEL INCONTINENCE) Genitourinary: No dysuria; incontinence (CHRONIC) Musculoskeletal: see HPI Skin: see HPI Psychiatric/Neurological: No Symptoms Reported; Denies Numbness, Denies Paresthesia Endocrine: No Symptoms Reported Hematologic/Lymphatic: No Symptoms Reported Past Mqyiwrt-Rgvrdw-Cjzpfu Hx Past Med/Social Hx: Reviewed and Corrections made Patient Social History Alcohol Use: Denies Use Recreational Drug Use: No Smoking Status: Former Smoker Type Used: Cigarettes Recent Hopitalizations: No Immunizations Up To Date Tetanus Booster (TDap): Unknown Seasonal Allergies Seasonal Allergies: No Past Medical History Surgeries: Yes (BILAT CATARACTS; HYST/BSO;ROTATOR CUFF REPAIR; L CARPAL TUNNEL) Adenoidectomy, Eye Surgery, Hysterectomy, Oophorectomy, Orthopedic, Tonsillectomy Respiratory: No Cardiac: Yes High Cholesterol, Hypertension Neurological: Yes Dementia Hx Para: 4 Reproductive Disorders: No MANAGER LAW History: Hysterectomy, Menopausal Sexually Transmitted Disease: No Genitourinary: Yes (CHRONIC URINARY INCONTINENCE) UTI-Chronic Gastrointestinal: Yes (CHRONIC BOWEL INCONTINENCE) Chronic Constipation Musculoskeletal: Yes (CHRONIC NECK AND BACK PAIN;ROTATOR CUFF REPAIR;L CARPAL TUNNEL REPAIR ) Osteoporosis, Arthritis, Chronic Back Pain Endocrine: Yes (NIDDM--"DIET CONTROLLED" ) HEENT: Yes Cataract Cancer: No Psychosocial: Yes Anxiety, Depression Integumentary: Yes (CELLULITIS) Blood Disorders: No Adverse Reaction/Blood Tranf: No Physical Exam Vital Signs Vital Signs - First Documented 11/12/19 01:06 Temp 36.8 Pulse 87 Resp 20 B/P (MAP) 131/74 (93) Pulse Ox 97 O2 Delivery Room Air Capillary Refill : General Appearance: WD/WN, no apparent distress Cardiovascular: normal peripheral pulses, regular rate, rhythm, no murmur Respiratory: normal breath sounds, no respiratory distress, no accessory muscle use Gastrointestinal: non tender, soft Back: no CVA tenderness Extremities: other (LEFT POSTERIOR THIGH WITH SIGNIFICANT CELLULITIS --TO NEARLY ALL OF POSTERIOR THIG, WELL MEDIAL THIGH--SIZE IS > 50 CM DIAMETERL HAS CENTRAL NECROTIC ULCERATION 3 X 5 CM IN DIAMETER, WHICH IS OOZING BLOOD) Neurologic/Psychiatric: no motor/sensory deficits, alert, normal mood/affect, oriented x 3 (BUT POOR MEMORY) Skin: normal color, warm/dry, other (MULTIPLE SORES/SCABS/SCARS TO LOWER LEGS) Progress/Results/Core Measures Results/Orders Lab Results Laboratory Tests Test 11/12/19 01:25 Range/Units White Blood Count 19.0 H 4.3-11.0 10^3/uL Red Blood Count 4.73 4.35-5.85 10^6/uL Hemoglobin 12.5 11.5-16.0 G/DL Hematocrit 40 35-52 % Mean Corpuscular Volume 84 80-99 FL Mean Corpuscular Hemoglobin 26 25-34 PG Mean Corpuscular Hemoglobin Concent 32 32-36 G/DL Red Cell Distribution Width 14.3 10.0-14.5 % Platelet Count 186 130-400 10^3/uL Mean Platelet Volume 10.6 H 7.4-10.4 FL Neutrophils (%) (Auto) 82 H 42-75 % Lymphocytes (%) (Auto) 7 L 12-44 % Monocytes (%) (Auto) 11 0-12 % Eosinophils (%) (Auto) 0 0-10 % Basophils (%) (Auto) 0 0-10 % Neutrophils # (Auto) 15.6 H 1.8-7.8 X 10^3 Lymphocytes # (Auto) 1.2 1.0-4.0 X 10^3 Monocytes # (Auto) 2.1 H 0.0-1.0 X 10^3 Eosinophils # (Auto) 0.0 0.0-0.3 10^3/uL Basophils # (Auto) 0.0 0.0-0.1 10^3/uL Neutrophils % (Manual) 85 % Lymphocytes % (Manual) 3 % Monocytes % (Manual) 5 % Eosinophils % (Manual) 0 % Basophils % (Manual) 0 % Band Neutrophils 6 % Reactive Lymphocytes 1 % Polychromasia SLIGHT Anisocytosis SLIGHT Prothrombin Time 15.6 H 12.2-14.7 SEC INR Comment 1.2 0.8-1.4 Activated Partial Thromboplast Time 37 H 24-35 SEC Sodium Level 133 L 135-145 MMOL/L Potassium Level 4.2 3.6-5.0 MMOL/L Chloride Level 98 98-107 MMOL/L Carbon Dioxide Level 22 21-32 MMOL/L Anion Gap 13 5-14 MMOL/L Blood Urea Nitrogen 26 H 7-18 MG/DL Creatinine 1.04 0.60-1.30 MG/DL Estimat Glomerular Filtration Rate 51 BUN/Creatinine Ratio 25 Glucose Level 118 H 70-105 MG/DL Lactic Acid Level 1.32 0.50-2.00 MMOL/L Calcium Level 9.9 8.5-10.1 MG/DL Corrected Calcium 10.5 H 8.5-10.1 MG/DL Magnesium Level 1.5 L 1.6-2.4 MG/DL Total Bilirubin 0.5 0.1-1.0 MG/DL Aspartate Amino Transf (AST/SGOT) 17 5-34 U/L Alanine Aminotransferase (ALT/SGPT) 7 0-55 U/L Alkaline Phosphatase 65 40-136 U/L Total Protein 6.7 6.4-8.2 GM/DL Albumin 3.2 3.2-4.5 GM/DL Procalcitonin 4.02 H <0.10 NG/ML Serum Alcohol < 10 <10 MG/DL My Orders Orders - JIMMY FLOWERS DO Accucheck Stat ONCE (11/12/19:19) Ed Iv/Invasive Line Start (11/12/19:19) Monitor-Rhythm Ecg Trace Only (11/12/19:) Straight Cath For Spec.-Adult (11/12/19:) Cbc With Automated Diff (11/12/19:19) Comprehensive Metabolic Panel (11/12/19:19) Lactic Acid Analyzer (11/12/19:19) Magnesium (11/12/19:19) Procalcitonin (Pct) (11/12/19:19) Protime With Inr (11/12/19:) Partial Thromboplastin Time (11/12/19:) Blood Culture (11/12/19:19) Metronidazole 500mg/100ml Ivpb (Flagyl 5 (11/12/19 01:30) Cefepime Injection (Maxipime Injection) (11/12/19 01:30) Vancomycin Injection (Vancomycin Injecti (11/12/19 01:30) Vancomycin Injection (Vancomycin Injecti (11/12/19 02:30) Alcohol (11/12/19:19) Wound Culture (11/12/19 01:35) Manual Differential (11/12/19 01:25) Ed Iv/Invasive Line Start (11/12/19:58) Ns Iv 1000 Ml (Sodium Chloride 0.9%) (11/12/19 01:58) Medications Given in ED Current Medications Medications Dose Ordered Sig/Salvador Route Start Time Stop Time Status Last Admin Dose Admin Cefepime HCl 2000 mg/Sterile Water 10 ml @ 200 mls/hr ONCE ONCE IV 11/12/19 01:30 11/12/19 01:32 DC 11/12/19 02:30 200 MLS/HR Metronidazole 100 ml @ 100 mls/hr ONCE ONCE IV 11/12/19 01:30 11/12/19 02:29 DC 11/12/19 02:39 100 MLS/HR Vancomycin HCl 1000 mg/Sodium Chloride 250 ml @ 250 mls/hr ONCE ONCE IV 11/12/19 01:30 11/12/19 02:29 DC 11/12/19 02:38 250 MLS/HR Vital Signs/I&O 11/12/19 11/12/19 01:06 02:00 Temp 36.8 36.8 Pulse 87 87 Resp 20 20 B/P (MAP) 131/74 (93) 131/74 Pulse Ox 97 97 O2 Delivery Room Air Progress Progress Note : Progress Note UNEVENTFUL ER STAY Departure Communication (Admissions) 0200--SPOKE WITH DR. LICEA, ACCEPTS PT FOR ADMIT Impression Primary Impression: CELLULITIS LEFT POSTERIOR THIGH Additional Impressions: Failure of outpatient treatment Sepsis NIDDM Hypomagnesemia RENAL INSUFFICIENCY/DEHYDRATION UTI (urinary tract infection) Disposition: ADMITTED INPATIENT Condition: Stable Admissions Decision to Admit Reason: Admit from ER (General) Decision to Admit/Date: Nov 12, 2019 Time/Decision to Admit Time: 02:00 Departure-Patient Inst. Referrals: CAMERON LICEA MD (PCP/Family) Primary Care Physician JIMMY FLOWERS DO Nov 12, 2019 02:25
[2019-11-12] MEDS ORDERED: VANCOMYCIN INJECTION 750 MG in NS (IVPB) 250 ML IV ONE (02:30)
--- NOTE | 2019-11-12 03:30 | NUR ---
GOPI MURPHY admitted to room 405-1, with an admitting diagnosis of left thigh cellulitis; sepsis; NIDDM, on 11/12/19 from ER via bed, accompanied by er staff. GOPI MURPHY introduced to surroundings, call light, bed controls, phone, TV, temperature control, lights, meal times, smoking policy, visitor policy, side rail policy, bathrooms and showers. Patient Rights given to patient in the handbook. GOPI MURPHY verbalizes understanding that [facility] is not responsible for the loss or damage to any personal effects or valuables that are kept in the patients possession during their hospitalization.
[2019-11-12] MEDS: NS IV 1000 ML 1,000 ML IV SCH ×3 (04:00→17:00)
[2019-11-12 04:03] VITALS: BP 113/71
[2019-11-12 04:07] LABS: BILIRUBIN,URINE NEGATIVE (NEGATIVE); CLARITY,URINE SL CLOUDY; COLOR,URINE YELLOW; GLUCOSE, URINE (UA) NEGATIVE (NEGATIVE); KETONES,URINE NEGATIVE (NEGATIVE); LEUKOCYTE ESTERASE ,URINE 3+ (NEGATIVE); NITRITE,URINE NEGATIVE (NEGATIVE); PH,URINE 6.5 (5-9); PROTEIN,URINE NEGATIVE (NEGATIVE)
[2019-11-12 04:15] LABS: BACTERIA,URINE TRACE /HPF; RBC,URINE 0-2 /HPF
[2019-11-12 04:20] LABS: AMPHETAMINE SCREEN, URINE NEGATIVE (NEGATIVE); BARBITURATE SCREEN URINE NEGATIVE (NEGATIVE); BENZODIAZEPINES SCREEN URINE NEGATIVE (NEGATIVE); CANNABINOID SCREEN, URINE NEGATIVE (NEGATIVE); COCAINE SCREEN URINE NEGATIVE (NEGATIVE); METHADONE STAT NEGATIVE (NEGATIVE); METHAMPHETAMINE SCREEN URINE S NEGATIVE (NEGATIVE); OPIATE SCREEN URINE NEGATIVE (NEGATIVE); OXYCODONE STAT NEGATIVE (NEGATIVE); PROPOXYPHENE STAT NEGATIVE (NEGATIVE); TRICYCLIC ANTIDEPRESSANTS SCRE NEGATIVE (NEGATIVE)
[2019-11-12] MEDS ORDERED: fentaNYL INJECTION 100 MCG/2 ML AMP IV PRN (06:00)
[2019-11-12] MEDS: inSUlin ASPART (NovoLOG) 1 UNIT/0.01 ML (CHARGE PER UNIT) SC SCH ×4 (06:09→20:55)
[2019-11-12] MEDS: MAGNESIUM 1 GM/D5W 100 ML IVPB IV SCH ×2 (06:25→08:06)
--- NOTE | 2019-11-12 07:03 | NUR ---
PTD VANCOMYCIN LABS: SCR 1.04 (CRCL ~ 45) PLAN: PATIENT RECEIVED VANCOMYCIN 1,750MG IV X 1 ON 11/11 @ 0300, WE WILL DOSE 15MG/KG (1,250MG) IV Q24H WITH THE NEXT DOSE DUE 11/12 @ 0700. WE WILL CHECK A TROUGH PRIOR TO THE 3RD DOSE (11/12 @ 0600) AND ADJUST IF NEEDED
[2019-11-12 07:08] LABS: BASOPHILS % (AUTO) 0 % (0-10); EOSINOPHILS # (AUTO) 0.1 10^3/uL (0.0-0.3); EOSINOPHILS % (AUTO) 0 % (0-10); HEMATOCRIT 37 % (35-52); HEMOGLOBIN 11.6 G/DL (11.5-16.0); LYMPHOCYTES # (AUTO) 1.2 X 10^3 (1.0-4.0); LYMPHOCYTES % (AUTO) 8 % (12-44); MEAN CORPUSCULAR HEMOGLOBIN 26 PG (25-34); MEAN CORPUSCULAR HGB CONC 31 G/DL (32-36); MEAN CORPUSCULAR VOLUME 85 FL (80-99); MEAN PLATELET VOLUME 10.2 FL (7.4-10.4); MONOCYTES # (AUTO) 1.1 X 10^3 (0.0-1.0); MONOCYTES % (AUTO) 7 % (0-12); NEUTROPHILS # (AUTO) 13.1 X 10^3 (1.8-7.8); NEUTROPHILS % (AUTO) 85 % (42-75); PLATELET COUNT 187 10^3/uL (130-400); RED CELL DISTRIBUTION WIDTH 14.2 % (10.0-14.5); WHITE BLOOD COUNT 15.5 10^3/uL (4.3-11.0)
[2019-11-12 07:25] LABS: ALBUMIN 2.9 GM/DL (3.2-4.5); BILIRUBIN,TOTAL 0.4 MG/DL (0.1-1.0); CREATININE SERUM 0.9 MG/DL (0.60-1.30); POTASSIUM 4.3 MMOL/L (3.6-5.0); TOTAL PROTEIN 5.9 GM/DL (6.4-8.2)
[2019-11-12 08:00] VITALS: BP 94/55
[2019-11-12] MEDS: metroNIDAZOLE 500 MG/100 ML IVPB (PRE-MIX) IV SCH ×3 (08:06→20:26)
[2019-11-12] MEDS: CEFEPIME 1,000 MG/SWFI 10 ML IV PUSH IV SCH ×6 (08:06→20:26)
--- NOTE | 2019-11-12 08:52 | History & Physicial ---
History of Present Illness History of Present Illness Reason for visit/HPI PT IS AN 84 Y/O FEMALE WHO PRESENTED TO THE ER AFTER HER DTR CALLED ME AROUND MIDNIGHT WITH CONCERNS FOR REDNESS AND HARDNESS OF HER MOM'S LEG. SHE REPORTED THAT HER MOM WAS STARTED ON ORAL ANTIBIOTICS A FEW DAYS PRIOR AND HER LEG DID NOT SEEM TO BE IMPROVING. SHE WAS INSTRUCTED TO TAKE HER MOM TO THE EMERGENCY DEPARTMENT FOR EVALUATION. UPON EVALUATION IN THE ER, DR. FLOWERS DETERMINED THAT THE PT HAD SIGNIFICANT CELLULITIS AND NEEDED IV ANTIBIOTIC FOR CONTROL OF THE SYMPTOMS/SPREAD. PT WAS ADMITTED TO THE MEDICAL UNIT FOR ANTIBIOTIC THERAPY AND CLOSER MONITORING. Date of Admission Nov 12, 2019 at 02:00 Date Seen by a Provider: Nov 12, 2019 Time Seen by a Provider: 08:50 Attending Physician Cameron Gordon MD Admitting Physician Cameron Gordon MD Consult Allergies and Home Medications Allergies Coded Allergies: Penicillins (Unverified Allergy, Mild, RASH, TONGUE SWELLS, 11/16/09) Home Medications Donepezil HCl 23 Mg Tablet, 23 MG PO DAILY, (Reported) Hctz/Telmisartan 1 Each Tablet, 1 EACH PO DAILY, (Reported) Hydrocodone Bit/Acetaminophen 1 Tab Tab, 1 TAB PO Q4H PRN for pain Prescribed by: RHEA CURRY on 10/25/17 1512 Polyethylene Glycol 119 Gm Btl, 0 PO DAILY 17 GM Prescribed by: EDIN LUND on 12/31/13 1035 Patient Home Medication List Home Medication List Reviewed: Yes Past Ixjfwos-Ycwcze-Qccmcq Hx Patient Social History Living Status: [facility] Employed/Student: retired Alcohol Use: Denies Use Recreational Drug Use: No Smoking Status: Former Smoker Type Used: Cigarettes 2nd Hand Smoke Exposure: No Physical Abuse Screen: No Sexual Abuse: No Recent Foreign Travel: No Contact w/other who traveled: No Recent Hopitalizations: No Recent Infectious Disease Expo: No Immunizations Up To Date Tetanus Booster (TDap): Unknown Pediatric: Yes Seasonal Allergies Seasonal Allergies: No Surgeries Yes (BILAT CATARACTS; HYST/BSO;ROTATOR CUFF REPAIR; L CARPAL TUNNEL) Adenoidectomy, Eye Surgery, Hysterectomy, Oophorectomy, Orthopedic, Tonsillectomy Respiratory No Cardiovascular Yes High Cholesterol, Hypertension Neurological Yes Dementia Reproductive System : No Hx Para: 4 Hx Reproductive Disorders: No Sexually Transmitted Disease: No 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: Hysterectomy, Menopausal Genitourinary Yes (CHRONIC URINARY INCONTINENCE) UTI-Chronic Gastrointestinal Yes (CHRONIC BOWEL INCONTINENCE) Chronic Constipation Musculoskeletal Yes (CHRONIC NECK AND BACK PAIN;ROTATOR CUFF REPAIR;L CARPAL TUNNEL REPAIR ) Osteoporosis, Arthritis, Chronic Back Pain Endocrine History of Endocrine Disorders: Yes (NIDDM--"DIET CONTROLLED" ) HEENT History of HEENT Disorders: Yes HEENT Disorders: Cataract Hearing Impairment: Hard of Hearing Cancer No Psychosocial History of Psychiatric Problem: Yes Behavioral Health Disorders: Anxiety, Depression Integumentary History of Skin or Integumenta: Yes (CELLULITIS) Blood Transfusions History of Blood Disorders: No Adverse Reaction to a Blood Tr: No Reviewed Nursing Assessment Reviewed/Agree w Nursing PMH: Yes Family Medical History Significant Family History: Hypertension Review of Systems Constitutional: No chills, No fever, No malaise; weakness EENTM: hearing loss; No hoarseness, No throat pain Respiratory: No cough, No dyspnea on exertion, No short of breath Cardiovascular: No chest pain, No edema, No palpitations Gastrointestinal: No abdominal pain; constipation (chronic); No diarrhea, No loss of appetite, No nausea, No vomiting Genitourinary: incontinence Musculoskeletal: joint pain, muscle weakness Skin: other (redness and pain on back of left thigh) Psychiatric/Neurological: Denies Anxiety; Depressed, Weakness All Other Systems Reviewed Negative Unless Noted: Yes Physical Exam Vital Signs Vital Signs - First Documented 11/12/19 01:06 Temp 36.8 Pulse 87 Resp 20 B/P (MAP) 131/74 (93) Pulse Ox 97 O2 Delivery Room Air Capillary Refill : Less Than 3 Seconds Height, Weight, BMI Height: 5'2" Weight: 200lbs. oz. 90.421952jo; 30.19 BMI Method:Stated General Appearance: No Apparent Distress, WD/WN Eyes: Bilateral Eye Normal Inspection, Bilateral Eye PERRL, Bilateral Eye EOMI HEENT: PERRL/EOMI, Pharynx Normal Neck: Full Range of Motion, Supple Respiratory: Chest Non Tender, Lungs Clear, Normal Breath Sounds, No Accessory Muscle Use, No Respiratory Distress Cardiovascular: Regular Rate, Rhythm, No Edema, Normal Peripheral Pulses Gastrointestinal: Normal Bowel Sounds, Non Tender, Soft Rectal: Deferred Back: Normal Inspection, No Vertebral Tenderness Extremity: Normal Capillary Refill, No Calf Tenderness, No Pedal Edema, Inflammation (left posterior thigh) Neurologic/Psychiatric: Alert, Oriented x3, Normal Mood/Affect, brisket puller II-XII Norm as Tested Skin: Erythema (POSTERIOR LEFT THIGH WITH ULCERATION AT CENTER OF ERYTHEMA WITH INDURATION OF 5 CM ALL AROUND FROM CENTER OF WOUND) Assessment/Plan Assessment and Plan CELLULITIS WITH ULCERATION OF POSTERIOR THIGH DEMENTIA HYPERTENSION CONSTIPATION DEPRESSION LEUKOCYTOSIS ELEVATED PROCALCITONIN LEVEL HYPERLIPIDEMIA CELLULITIS WITH ULCERATION OF POSTERIOR THIGH - PT ON VANCOMYCIN AND METRONIDAZOLE, CONTINUE WITH TREATMENT - WILL ASK FOR MIDLINE DUE TO DIFFICULTY GETTING RELIABLE PERIPHERAL ACCESS DEMENTIA - SUPPORTIVE CARE, MONITOR SYMPTOMS. HYPERTENSION - WAIT ON MEDICATION RECONCILIATION AND WILL RESTART HOME REGIMEN ONCE MEDS VERIFIED. CONSTIPATION - MONITOR SYMPTOMS, RESTART MIRALAX IF NEEDED, START ON PROBIOTIC. DEPRESSION - RESTART HOME REGIMEN ONCE VERIFIED BY PHARMACY STAFF LEUKOCYTOSIS WITH ELEVATED PROCALCITONIN LEVEL - WILL MONITOR LABS - REPEAT PROCALCITONIN TOMORROW AM. HYPERLIPIDEMIA - HOLD STATIN FOR NOW. DVT PROPHYLAXIS WITH LOVENOX AND SCD'S GI PROPHYLAXIS WITH H2 ALCIRA Admission Diagnosis CELLULITIS WITH ULCERATION OF POSTERIOR THIGH DEMENTIA HYPERTENSION CONSTIPATION DEPRESSION LEUKOCYTOSIS ELEVATED PROCALCITONIN LEVEL HYPERLIPIDEMIA Admission Status: Inpatient Order (span 2 midnights) Reason for Inpatient Admission: INPATIENT ADMISSION FOR IV ANTIBIOTICS FOR CELLULITIS - ANTICIPATE AT LEAST 72 HOURS FOR STABILIZATION AND TRANSITION TO ORAL REGIMEN. Clinical Quality Measures DVT/VTE Risk/Contraindication: Risk Factor Score Per Nursin RFS Level Per Nursing on Admit: 4+=Very High CAMERON GORDON MD Nov 12, 2019 08:52
[2019-11-12] MEDS ORDERED: ATOR20TA66 PO (09:54)
[2019-11-12] MEDS ORDERED: DOXY100C2 PO (09:57)
[2019-11-12] MEDS ORDERED: CYAN250010 PO (09:57)
[2019-11-12] MEDS ORDERED: SERT100T8 PO (09:57)
[2019-11-12] MEDS ORDERED: BENA20TA7 PO (09:57)
[2019-11-12] MEDS ORDERED: C,E,1CAP2 PO (09:57)
--- NOTE | 2019-11-12 09:58 | NUR ---
SPOKE WITH THE PT, WENT THRU THE EXT MED HISTORY, AND CALLED [facility] TO COMPLETE THE MED REC. ON THE EXT MED HISTORY MUPIROCIN AND NYSTATIN WERE BOTH LISTED (FILLED 10-23-2019) BUT THE PT SAID SHE USED THE WHOLE TUBE ALREADY ON BOTH CREAMS. PT SAID SHE DIDNT REALIZE SHE JUST NEEDED TO USE A LITTLE WITH EACH APPLICATION AND WENT THRU IT QUICKLY. FOR THAT REASON I DID NOT INCLUDE THEM ON THE MED REC OTC MEDS: VIT B12 OCUVITE
[2019-11-12] MEDS: ENOXAPARIN 40 MG/0.4 ML (LOVENOX) SYR SC SCH (10:20)
[2019-11-12 12:00] VITALS: BP 126/72
[2019-11-12] MEDS: LACTOBACILLUS ACIDOPHILUS (PROBIOTIC) CAPSULE PO SCH ×2 (13:01→18:36)
--- NOTE | 2019-11-12 13:15 | NUR ---
Pastoral care visit.
--- NOTE | 2019-11-12 14:05 | Wound Care Assessment ---
Wound Care Assessment Date Seen by Provider: Nov 12, 2019 Time Seen by Provider: 12:30 Chief Complaint L posterior thigh ulcer. HPI The patient is a confused 84 year old female with a rectangular ulcer of the L posterior thigh and surrounding erythema. The patient is uncertain as to the nature of the inciting injury, which might either be thermal or chemical, and the surrounding cellulitis appears to be responding to IV antibiotics. Silvadene dressings BID are ordered. Past Medical History: Admits Diabetes Type II, Admits Heart Disease (Hypertension, Dementia, Arthritis) Smoking Status: Former Smoker Recreational Drug Use: No Alcohol Use: Denies Use Review of Systems Pulmonary: No Dyspnea Cardiovascular: No: Chest Pain Musculoskeletal: leg pain Exam Vital Signs Date Time Temp Pulse Resp B/P (MAP) Pulse Ox O2 Delivery O2 Flow Rate FiO2 11/12/19 12:50 97 11/12/19 12:00 36.4 18 126/72 (90) 97 Room Air Capillary Refill : Less Than 3 Seconds General Appearance: no apparent distress Cardiovascular: regular rate, rhythm Respiratory: normal breath sounds Extremities: other (L [id number] thigh ulcer -- 1.5 x 3.3 x 0.2 cm, base 100% necrotic schwartz slough, appears superficial, with surrounding cellulitis, extending out 15 cm.) Results Laboratory Tests 11/12/19 01:25: White Blood Count 19.0H, Red Blood Count 4.73, Hemoglobin 12.5, Hematocrit 40, Mean Corpuscular Volume 84, Mean Corpuscular Hemoglobin 26, Mean Corpuscular Hemoglobin Concent 32, Red Cell Distribution Width 14.3, Platelet Count 186, Mean Platelet Volume 10.6H, Neutrophils (%) (Auto) 82H, Lymphocytes (%) (Auto) 7L, Monocytes (%) (Auto) 11, Eosinophils (%) (Auto) 0, Basophils (%) (Auto) 0, Neutrophils # (Auto) 15.6H, Lymphocytes # (Auto) 1.2, Monocytes # (Auto) 2.1H, Eosinophils # (Auto) 0.0, Basophils # (Auto) 0.0, Neutrophils % (Manual) 85, Lymphocytes % (Manual) 3, Monocytes % (Manual) 5, Eosinophils % (Manual) 0, Basophils % (Manual) 0, Band Neutrophils 6, Reactive Lymphocytes 1, Polychromasia SLIGHT, Anisocytosis SLIGHT, Prothrombin Time 15.6H, INR Comment 1.2, Activated Partial Thromboplast Time 37H, Sodium Level 133L, Potassium Level 4.2, Chloride Level 98, Carbon Dioxide Level 22, Anion Gap 13, Blood Urea Nitrogen 26H, Creatinine 1.04, Estimat Glomerular Filtration Rate 51, BUN/Creatinine Ratio 25, Glucose Level 118H, Lactic Acid Level 1.32, Calcium Level 9.9, Corrected Calcium 10.5H, Magnesium Level 1.5L, Total Bilirubin 0.5, Aspartate Amino Transf (AST/SGOT) 17, Alanine Aminotransferase (ALT/SGPT) 7, Alkaline Phosphatase 65, Total Protein 6.7, Albumin 3.2, Procalcitonin 4.02H, Serum Alcohol < 10 11/12/19 04:00: Urine Color YELLOW, Urine Clarity SL CLOUDY, Urine pH 6.5, Urine Specific [place] <=1.005, Urine Protein NEGATIVE, Urine Glucose (UA) NEGATIVE, Urine Ketones NEGATIVE, Urine Nitrite NEGATIVE, Urine Bilirubin NEGATIVE, Urine Urobilinogen 0.2, Urine Leukocyte Esterase 3+H, Urine RBC (Auto) TRACE-L, Urine RBC 0-2, Urine WBC 10-25H, Urine Squamous Epithelial Cells NONE, Urine Crystals NONE, Urine Bacteria TRACE, Urine Casts NONE, Urine Mucus SMALLH, Urine Culture Indicated CULTURE PENDING, Urine Opiates Screen NEGATIVE, Urine Oxycodone Screen NEGATIVE, Urine Methadone Screen NEGATIVE, Urine Propoxyphene Screen NEGATIVE, Urine Barbiturates Screen NEGATIVE, Ur Tricyclic Antidepressants Screen NEGATIVE, Urine Phencyclidine Screen NEGATIVE, Urine Amphetamines Screen NEGATIVE, Urine Methamphetamines Screen NEGATIVE, Urine Benzodiazepines Screen NEGATIVE, Urine Cocaine Screen NEGATIVE, Urine Cannabinoids Screen NEGATIVE 11/12/19 05:10: Glucometer 94 11/12/19 07:01: White Blood Count 15.5H, Red Blood Count 4.39, Hemoglobin 11.6, Hematocrit 37, Mean Corpuscular Volume 85, Mean Corpuscular Hemoglobin 26, Mean Corpuscular Hemoglobin Concent 31L, Red Cell Distribution Width 14.2, Platelet Count 187, Mean Platelet Volume 10.2, Neutrophils (%) (Auto) 85H, Lymphocytes (%) (Auto) 8L , Monocytes (%) (Auto) 7, Eosinophils (%) (Auto) 0, Basophils (%) (Auto) 0, Neutrophils # (Auto) 13.1H, Lymphocytes # (Auto) 1.2, Monocytes # (Auto) 1.1H, Eosinophils # (Auto) 0.1, Basophils # (Auto) 0.0, Sodium Level 137, Potassium Level 4.3, Chloride Level 106, Carbon Dioxide Level 23, Anion Gap 8, Blood Urea Nitrogen 21H, Creatinine 0.90, Estimat Glomerular Filtration Rate 60, BUN/Creatinine Ratio 23, Glucose Level 108H, Calcium Level 9.0, Corrected Calcium 9.9, Total Bilirubin 0.4, Aspartate Amino Transf (AST/SGOT) 14, Alanine Aminotransferase (ALT/SGPT) 9, Alkaline Phosphatase 61, Total Protein 5.9L, Albumin 2.9L 11/12/19 11:32: Glucometer 102 Assessment/Plan/Dx 1. Uncertain superficial injury to L posterior thigh, with secondary cellulitis, responding to IV antibiotics. 2. Diabetes with ulcer. 3. Dementia. Plan: Silvadene dressings BID ordered. Will follow. NAMITA OBRIEN MD Nov 12, 2019 14:05
--- NOTE | 2019-11-12 14:12 | NUR ---
RD ASSESSMENT PMHx: hypercholesterolemia; HTN; dementia; chronic-UTI; chronic constipation; DM PT INTERACTION: Pt was awake and pleasant during nutrition assessment. Note pt has dementia and is a poor historian, per chart review. Pt states current appetite is getting better, but it was poor for the past 2 days. Note avg PO intake 75% x2meal, per chart review. Pt states following a regular diet at home and has no issues with chewing/swallowing food. Pt states some recent issues with nausea/vomiting. Pt states no recent issues with constipation/diarrhea, and that she believes her last BM was 2days ago. Note pt not currently on bowel regimen per chart review. Pt states no recent wt changes. Note unable to determine recent wt hx, per chart review. Pt states current DM management is "really good," and that her last HbA1c was 5.4, taken approximately 3mon ago. Note unable to determine recent HbA1c, per chart review. Note pt has presence of wound on left posterior thigh, per chart review. ABNORMAL NUTRITION-RELATED LAB VALUES LOW: Pro 5.9; alb 2.9 HIGH: BUN 21; glu 108 Est. kcal needs: 4781-8336 kcal | 20-25 kcal/kg Est. Pro needs: 101-118 g Pro | 1.2-1.4 g Pro/kg PES STATEMENT: Inadequate protein intake ([id number]) related to increased protein needs as evidenced by presence of wounds (left posterior thigh) INTERVENTION: Continue with current diet order of CHO 45g/m 1snack diet. Add Ensure HP (vary) to meals TID. Provides 160 kcal and 16 g Pro per serving for perceived benefit to wound healing. Will continue to follow and reassess as pt needs, intake, and status change. MONITOR/EVALUATE: PO Intake; Plan of Care; Hydration Status; Weight Status; Lab Values Jules Cabral, MS, RD, LD
--- NOTE | 2019-11-12 14:55 | Diagnostic Imaging Report ---
INDICATION: Open wound in the right mid thigh. EXAMINATION: Sonographic interrogation of the area of wound in the right mid thigh was performed. FINDINGS: There is some edema in the subcutaneous tissues at the area of wound. There is an area of heterogeneity measuring approximately 5.2 x 2.3 x 4.4 cm. This may represent phlegmonous tissue. No well-formed fluid collection or abscess is seen at this time. IMPRESSION: Heterogeneous tissue, perhaps inflammatory tissue. No well formed abscess is seen at this time. There is some edema present. Dictated by: Dictated on workstation # [id number]
[2019-11-12 16:00] VITALS: BP 122/56
--- NOTE | 2019-11-12 19:25 | Consultation - Surgery ---
History of Present Illness History of Present Illness Patient Consulted On(gallo/time) 11/12/19 19:19 Date Seen by Provider: Nov 12, 2019 Time Seen by Provider: 12:20 History of Present Illness Consult requested by Dr. Gordon for cellulitis left posterior thigh. Patient is an 84 year old female with cellulitis/wound to left post thigh she thinks for about a week or more. Patient has been on outpatient antibiotics. No improvement. Had some slight drainage from the area that she thought was bloody. Having increasing redness and discomfort to the area. Reports maybe having a fever. Patient states nothing has made it better and nothing seems to make it worse. Patient denies any other complaints at this time. Denies n/v fever sweats chills shortness of breath or chest pain. Allergies and Home Medications Allergies Coded Allergies: Penicillins (Unverified Allergy, Mild, RASH, TONGUE SWELLS, 11/16/09) Home Medications Atorvastatin Calcium 20 Mg Tablet, 20 MG PO HS, (Reported) LAST FILLED 06-16-2020 #90/90DS Benazepril HCl 20 Mg Tablet, 20 MG PO DAILY, (Reported) C,E,Zinc,Copper 24/Om3/Lut/Deni 1 Each Capsule, 1 EACH PO DAILY, (Reported) Cyanocobalamin (Vitamin B-12) 2,500 Mcg Tablet, 2,500 MCG PO DAILY, (Reported) Donepezil HCl 23 Mg Tablet, 23 MG PO HS, (Reported) Doxycycline Hyclate 100 Mg Capsule, 100 MG PO BID, (Reported) FILLED 11-10-2019 #DAY SUPPLY ALSO FILLED 10-23-2019 #17/05 DAY SUPPLY Sertraline HCl 100 Mg Tablet, 100 MG PO HS, (Reported) Patient Home Medication List Home Medication List Reviewed: Yes Past Fxoscsm-Unkwqb-Ruevht Hx Patient Social History Alcohol Use: Denies Use Recreational Drug Use: No Smoking Status: Former Smoker Type Used: Cigarettes 2nd Hand Smoke Exposure: No Recent Foreign Travel: No Contact w/Someone Who Travel: No Recent Infectious Disease Expo: No Recent Hopitalizations: No Physical Abuse Screen: No Sexual Abuse: No Immunizations Up To Date Tetanus Booster (TDap): Unknown PED Vaccines UTD: Yes Seasonal Allergies Seasonal Allergies: No Surgeries History of Surgeries: Yes (BILAT CATARACTS; HYST/BSO;ROTATOR CUFF REPAIR; L CARPAL TUNNEL) Surgeries: Adenoidectomy, Eye Surgery, Hysterectomy, Oophorectomy, Orthopedic, Tonsillectomy Respiratory History of Respiratory Disorde: No Cardiovascular History of Cardiac Disorders: Yes Cardiac Disorders: High Cholesterol, Hypertension Neurological History of Neurological Disord: Yes Neurological Disorders: Dementia Reproductive System : No Hx Para: 4 Hx Reproductive Disorders: No 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, 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 Genitourinary History of Genitourinary Disor: Yes (CHRONIC URINARY INCONTINENCE) Genitourinary Disorders: UTI-Chronic Gastrointestinal History of Gastrointestinal Di: Yes (CHRONIC BOWEL INCONTINENCE) Gastrointestinal Disorders: Chronic Constipation Musculoskeletal History of Musculoskeletal Dis: Yes (CHRONIC NECK AND BACK PAIN;ROTATOR CUFF REPAIR;L CARPAL TUNNEL REPAIR ) Musculoskeletal Disorders: Osteoporosis, Arthritis, Chronic Back Pain Endocrine History of Endocrine Disorders: Yes (NIDDM--"DIET CONTROLLED" ) HEENT History of HEENT Disorders: Yes HEENT Disorders: Cataract Hearing Impairment: Hard of Hearing Cancer History of Cancer: No Psychosocial History of Psychiatric Problem: Yes Behavioral Health Disorders: Anxiety, Depression Integumentary History of Skin or Integumenta: Yes (CELLULITIS) Blood Transfusions History of Blood Disorders: No Adverse Reaction to a Blood Tr: No Reviewed Nursing Assessment Reviewed/Agree w Nursing PMH: Yes Family Medical History Significant Family History: No Pertinent Family Hx, Hypertension Review of Systems-General Constitutional: No chills, No diaphoresis EENTM: No hearing loss, No blurred vision, No double vision Respiratory: No no symptoms reported, No cough, No dyspnea on exertion Cardiovascular: No chest pain Gastrointestinal: No abdominal pain, No constipation Genitourinary: no symptoms reported Musculoskeletal: No back pain, No joint pain Skin: see HPI, change in color, other (left posterior ulcer) Psychiatric/Neurological: Denies Anxiety, Denies Depressed, Denies Emotional Problems Physical Exam-General Problems Physical Exam Vital Signs Vital Signs - First Documented 11/12/19 01:06 Temp 36.8 Pulse 87 Resp 20 B/P (MAP) 131/74 (93) Pulse Ox 97 O2 Delivery Room Air Capillary Refill : Less Than 3 Seconds General Appearance: no apparent distress HEENT: PERRL/EOMI, normal ENT inspection Neck: non-tender, supple, normal inspection Respiratory: chest non-tender, no respiratory distress, no accessory muscle use Cardiovascular: regular rate, rhythm Gastrointestinal: non tender, soft, no organomegaly Rectal: deferred Back: no CVA tenderness Extremities: other (left posterior thigh indurated with erythematous skin changes, rectangular superfiical ulceration of skin, no fluctuance) Neurologic/Psychiatric: no motor/sensory deficits, alert, normal mood/affect Skin: warm/dry (changes to posterior left thigh as above) Lymphatic: no adenopathy Data Review Labs Laboratory Tests 11/12/19 01:25: White Blood Count 19.0H, Red Blood Count 4.73, Hemoglobin 12.5, Hematocrit 40, Mean Corpuscular Volume 84, Mean Corpuscular Hemoglobin 26, Mean Corpuscular Hemoglobin Concent 32, Red Cell Distribution Width 14.3, Platelet Count 186, Barbie n Platelet Volume 10.6H, Neutrophils (%) (Auto) 82H, Lymphocytes (%) (Auto) 7L, Monocytes (%) (Auto) 11, Eosinophils (%) (Auto) 0, Basophils (%) (Auto) 0, Neutrophils # (Auto) 15.6H, Lymphocytes # (Auto) 1.2, Monocytes # (Auto) 2.1H, Eosinophils # (Auto) 0.0, Basophils # (Auto) 0.0, Neutrophils % (Manual) 85, Lymphocytes % (Manual) 3, Monocytes % (Manual) 5, Eosinophils % (Manual) 0, Basophils % (Manual) 0, Band Neutrophils 6, Reactive Lymphocytes 1, Polychromasia SLIGHT, Anisocytosis SLIGHT, Prothrombin Time 15.6H, INR Comment 1.2, Activated Partial Thromboplast Time 37H, Sodium Level 133L, Potassium Level 4.2, Chloride Level 98, Carbon Dioxide Level 22, Anion Gap 13, Blood Urea Nitrogen 26H, Creatinine 1.04, Estimat Glomerular Filtration Rate 51, BUN/Creatinine Ratio 25, Glucose Level 118H, Lactic Acid Level 1.32, Calcium Level 9.9, Corrected Calcium 10.5H, Magnesium Level 1.5L, Total Bilirubin 0.5, Aspartate Amino Transf (AST/SGOT) 17, Alanine Aminotransferase (ALT/SGPT) 7, Alkaline Phosphatase 65, Total Protein 6.7, Albumin 3.2, Procalcitonin 4.02H, Serum Alcohol < 10 11/12/19 04:00: Urine Color YELLOW, Urine Clarity SL CLOUDY, Urine pH 6.5, Urine Specific [place] <=1.005, Urine Protein NEGATIVE, Urine Glucose (UA) NEGATIVE, Urine Ketones NEGATIVE, Urine Nitrite NEGATIVE, Urine Bilirubin NEGATIVE, Urine Urobilinogen 0.2, Urine Leukocyte Esterase 3+H, Urine RBC (Auto) TRACE-L, Urine RBC 0-2, Urine WBC 10-25H, Urine Squamous Epithelial Cells NONE, Urine Crystals NONE, Urine Bacteria TRACE, Urine Casts NONE, Urine Mucus SMALLH, Urine Culture Indicated CULTURE PENDING, Urine Opiates Screen NEGATIVE, Urine Oxycodone Screen NEGATIVE, Urine Methadone Screen NEGATIVE, Urine Propoxyphene Screen NEGATIVE, Urine Barbiturates Screen NEGATIVE, Ur Tricyclic Antidepressants Screen NEGATIVE, Urine Phencyclidine Screen NEGATIVE, Urine Amphetamines Screen NEGATIVE, Urine Methamphetamines Screen NEGATIVE, Urine Benzodiazepines Screen NEGATIVE, Urine Cocaine Screen NEGATIVE, Urine Cannabinoids Screen NEGATIVE 11/12/19 05:10: Glucometer 94 11/12/19 07:01: White Blood Count 15.5H, Red Blood Count 4.39, Hemoglobin 11.6, Hematocrit 37, Mean Corpuscular Volume 85, Mean Corpuscular Hemoglobin 26, Mean Corpuscular Hemoglobin Concent 31L, Red Cell Distribution Width 14.2, Platelet Count 187, Mean Platelet Volume 10.2, Neutrophils (%) (Auto) 85H, Lymphocytes (%) (Auto) 8L , Monocytes (%) (Auto) 7, Eosinophils (%) (Auto) 0, Basophils (%) (Auto) 0, Neutrophils # (Auto) 13.1H, Lymphocytes # (Auto) 1.2, Monocytes # (Auto) 1.1H, Eosinophils # (Auto) 0.1, Basophils # (Auto) 0.0, Sodium Level 137, Potassium Level 4.3, Chloride Level 106, Carbon Dioxide Level 23, Anion Gap 8, Blood Urea Nitrogen 21H, Creatinine 0.90, Estimat Glomerular Filtration Rate 60, BUN/Creatinine Ratio 23, Glucose Level 108H, Calcium Level 9.0, Corrected Calcium 9.9, Total Bilirubin 0.4, Aspartate Amino Transf (AST/SGOT) 14, Alanine Aminotransferase (ALT/SGPT) 9, Alkaline Phosphatase 61, Total Protein 5.9L, Albumin 2.9L 11/12/19 11:32: Glucometer 102 11/12/19 15:59: Glucometer 115H Microbiology 11/12/19 Blood Culture - Preliminary, Resulted No growth 11/12/19 Gram Stain - Final, Resulted 11/12/19 Wound Culture - Preliminary, Resulted Strep, Beta Hemolytic Group A Assessment/Plan Assessment/Plan Assessment/Plan left posterior thigh cellulitis with superficial appearing skin ulceration will get u/s to evaluate for abscess cellulitis border is marked continue abx continue to monitor no surgical intervention at this time. Clinical Quality Measures DVT/VTE Risk/Contraindication: Risk Factor Score Per Nursin RFS Level Per Nursing on Admit: 4+=Very High SANDRA NARANJO DO Nov 12, 2019 19:25
[2019-11-12 20:00] VITALS: BP 110/67
[2019-11-12] MEDS ORDERED: FAMOTIDINE 20 MG (PEPCID) TABLET PO SCH (21:00)
[2019-11-12 23:58] VITALS: BP 154/74
[2019-11-13] MEDS: CEFEPIME 1,000 MG/SWFI 10 ML IV PUSH IV SCH ×4 (01:22→06:53)
[2019-11-13] MEDS: metroNIDAZOLE 500 MG/100 ML IVPB (PRE-MIX) IV SCH ×2 (01:22→07:23)
[2019-11-13] MEDS: NS IV 1000 ML 1,000 ML IV SCH ×2 (01:22→16:03)
[2019-11-13 03:55] VITALS: BP 144/66
[2019-11-13 05:15] LABS: HEMOGLOBIN 10.2 G/DL (11.5-16.0); MEAN PLATELET VOLUME 11.1 FL (7.4-10.4); RED CELL DISTRIBUTION WIDTH 14.8 % (10.0-14.5); WHITE BLOOD COUNT 10.8 10^3/uL (4.3-11.0)
[2019-11-13 05:22] LABS: ALBUMIN 2.4 GM/DL (3.2-4.5)
[2019-11-13 05:23] LABS: CHLORIDE 108 MMOL/L (98-107); POTASSIUM 4.6 MMOL/L (3.6-5.0); SODIUM 137 MMOL/L (135-145)
[2019-11-13 05:24] LABS: CALCIUM 8.8 MG/DL (8.5-10.1)
[2019-11-13 05:25] LABS: GLUCOSE 86 MG/DL (70-105); TOTAL PROTEIN 5.7 GM/DL (6.4-8.2)
[2019-11-13 05:26] LABS: CARBON DIOXIDE 20 MMOL/L (21-32)
[2019-11-13 05:27] LABS: BILIRUBIN,TOTAL 0.2 MG/DL (0.1-1.0)
[2019-11-13 05:28] LABS: ALKALINE PHOSPHATASE 52 U/L (40-136)
[2019-11-13 05:29] LABS: CREATININE SERUM 0.81 MG/DL (0.60-1.30); GFR ESTIMATED > 60
[2019-11-13 05:30] LABS: BUN/CREATININE RATIO 22
[2019-11-13 05:32] LABS: ALANINE AMINOTRANSFERASE 7 U/L (0-55)
[2019-11-13] MEDS: inSUlin ASPART (NovoLOG) 1 UNIT/0.01 ML (CHARGE PER UNIT) SC SCH ×4 (05:46→20:24)
[2019-11-13] MEDS ORDERED: TROUGH ORDER-PHARMACY XX ONE (06:00)
--- NOTE | 2019-11-13 06:55 | NUR ---
PTD VANCOMYCIN LABS: SCR 0.81(1.04) VANCOMYCIN LEVEL (AFTER 1ST DOSE) 6 PLAN: LEVEL WAS ORDERED ON WRONG DAY, SHOULD HAVE BEEN PRIOR TO 3RD DOSE, NOT SECOND DOSE. WILL CONTINUE WITH CURRENT DOSING AND REPEAT LEVEL ON 11/13 @ 0600, ADJUST IF LESS THAN 10.
[2019-11-13] MEDS ORDERED: VANCOMYCIN 1250 MG/NS 250 ML IVPB IV SCH ×2 (07:00)
[2019-11-13 08:00] VITALS: BP_SYST 132; BP_SYST 137; BP_DIAS 60; BP_DIAS 62
[2019-11-13] MEDS: FAMOTIDINE 20 MG (PEPCID) TABLET PO SCH (08:51)
[2019-11-13] MEDS: SILVER SULFADIAZINE 50 GM CREAM TOP SCH (08:51)
[2019-11-13] MEDS: ENOXAPARIN 40 MG/0.4 ML (LOVENOX) SYR SC SCH (08:51)
[2019-11-13] MEDS: LACTOBACILLUS ACIDOPHILUS (PROBIOTIC) CAPSULE PO SCH ×3 (08:51→17:43)
--- NOTE | 2019-11-13 08:51 | Physician Query Clarification ---
PQ-Conflicting Diagnosis Admission/Discharge Admission Date: Nov 12, 2019 at 02:00 Discharge Date: The medical record reflects the following clinical scenario: History/Risk Factors: Cellulitis left thigh Ulcer left thigh Diabetes type II Clinical Findings: WBC 19.0, Bands 6, T 36.8, P 87, Resp 20, BP 131/74, Lactic acid 1.32, Blood cultures-no growth. Treatment:IV Cefepime HCI 2,000mg, IV Vancomycin HCI 1,000mg. Question: Do you agree with the impression of Sepsis per Dr. Denny, ED physician? Please document a response in Progress Note or Discharge Summary. 1. Yes 2. No 3. Other, with explanation of clinical findings 4. Clinically undetermined, no explanation for clinical findings. PHYSICIAN RESPONSE Do you agree w/Consulting Dx?: Yes Please remember a lack of response to the above will prompt a phone page by CDI/Coding staff. In responding to this query, please exercise your independent professional judgment. The purpose of this communication is to more accurately reflect the complexity of your patients condition. The fact that a question is asked does not imply that any particular answer is desired or expected. Thank you for your timely response to this clarification. Requestors name: oPrtia Arzate [facility] Phone # ext [phone] or [phone] THIS PHYSICIAN QUERY FORM IS A PERMANENT PART OF THE MEDICAL RECORD PORTIA ARZATE Nov 13, 2019 08:51 CAMERON LICEA MD Nov 13, 2019 10:07
--- NOTE | 2019-11-13 09:01 | Physician Query Clarification ---
PQ-Conflicting Diagnosis Admission/Discharge Admission Date: Nov 12, 2019 at 02:00 Discharge Date: The medical record reflects the following clinical scenario: History/Risk Factors: Urinary incontinence Leukocytosis Clinical Findings: WBC 19.0, Ur Spec [place] <=1.005, Urine Leukocyte esterase 3+, Urine WBC 10-25, Urine Mucus-small. Treatment: Urine culture, IV Cefepime HCI 2,000mg, IV Vancomycin HCI 1,000mg. Question: Do you agree with the impression of UTI per Dr. Denny, ED physician? Please document a response in Progress Note or Discharge Summary. 1. Yes 2. No 3. Other, with explanation of clinical findings 4. Clinically undetermined, no explanation for clinical findings. PHYSICIAN RESPONSE Do you agree w/Consulting Dx?: Yes Please remember a lack of response to the above will prompt a phone page by CDI/Coding staff. In responding to this query, please exercise your independent professional judgment. The purpose of this communication is to more accurately reflect the complexity of your patients condition. The fact that a question is asked does not imply that any particular answer is desired or expected. Thank you for your timely response to this clarification. Requestors name: Portia Arzate [facility] Phone # ext [phone] or [phone] THIS PHYSICIAN QUERY FORM IS A PERMANENT PART OF THE MEDICAL RECORD PORTIA ARZATE Nov 13, 2019 09:01 CAMERON LICEA MD Nov 13, 2019 10:07
--- NOTE | 2019-11-13 10:12 | Progress Note ---
Subjective Subjective Date Seen by Provider: Nov 13, 2019 Time Seen by Provider: 10:00 CELLULITIS OF LEFT POSTERIOR THIGH - PT REPORTS THAT IT IS A LITTLE LESS PAINFUL THAN ON ADMISSION. SHE REPORTS THAT SHE IS HAVING TROUBLE GETTING COMFORTABLE IN THE BED DUE TO HER INFECTION ON THE BACK OF HER LEFT THIGH. SHE DENIES CHEST PAIN, SHORTNESS OF BREATH. STAFF REPORTS THAT THE PATIENT HAS BEEN WITHOUT COMPLAINT FOR THEM THIS MORNING. Review of Systems General: No Chills; Fatigue HEENT: No Head Aches, No Dysphasia Pulmonary: No Dyspnea, No Cough Cardiovascular: No: Chest Pain Gastrointestinal: No: Nausea, Abdominal Pain Genitourinary: Incontinence ([place]-W[place] IN PLACE) Neurological: Weakness, Confusion REDNESS AND PAIN POSTERIOR LEFT LEG All Other Systems Reviewed All Other Systems Reviewed: Yes Objective Exam Vital Signs Vital Signs - First Documented 11/12/19 01:06 Temp 36.8 Pulse 87 Resp 20 B/P (MAP) 131/74 (93) Pulse Ox 97 O2 Delivery Room Air Capillary Refill : Less Than 3 Seconds General Appearance: No Apparent Distress, WD/WN Eyes: Bilateral Eye Normal Inspection, Bilateral Eye PERRL, Bilateral Eye EOMI HEENT: Pharynx Normal Neck: Supple Respiratory: Chest Non Tender, Lungs Clear, Normal Breath Sounds, No Accessory Muscle Use, No Respiratory Distress Cardiovascular: Regular Rate, Rhythm, No Edema, Normal Peripheral Pulses Gastrointestinal: Normal Bowel Sounds, Non Tender, Soft Rectal: Deferred Back: Normal Inspection, No Vertebral Tenderness Extremity: Normal Capillary Refill, No Calf Tenderness, No Pedal Edema, Inflammation (IMPROVED ERYTHEMA LEFT POSTERIOR THIGH, INDURATION IMPROVED WELL ON POSTERIOR THIGH - DOWN FROM 5CM TO ABOUT 3CM FROM CENTER OF WOUND) Neurologic/Psychiatric: Alert, Oriented x3, Normal 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, 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 as 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 Skin: Erythema (POSTERIOR LEFT THIGH WITH ULCERATION AT CENTER OF ERYTHEMA WITH INDURATION OF 5 CM ALL AROUND FROM CENTER OF WOUND) Results Lab Laboratory Tests 11/12/19 11:32: Glucometer 102 11/12/19 15:59: Glucometer 115H 11/12/19 20:40: Glucometer 131H 11/13/19 05:05: White Blood Count 10.8, Red Blood Count 3.81L, Hemoglobin 10.2L, Hematocrit 32L, Mean Corpuscular Volume 84, Mean Corpuscular Hemoglobin 27, Mean Corpuscular Hemoglobin Concent 32, Red Cell Distribution Width 14.8H, Platelet Count 212, Mean Platelet Volume 11.1H, Sodium Level 137, Potassium Level 4.6, Chloride Level 108H, Carbon Dioxide Level 20L, Anion Gap 9, Blood Urea Nitrogen 18, Creatinine 0.81, Estimat Glomerular Filtration Rate > 60, BUN/Creatinine Ratio 22, Glucose Level 86, Calcium Level 8.8, Corrected Calcium 10.1, Total Bilirubin 0.2, Aspartate Amino Transf (AST/SGOT) 19, Alanine Aminotransferase (ALT/SGPT) 7, Alkaline Phosphatase 52, Total Protein 5.7L, Albumin 2.4L, Procalcitonin 2.57H, Vancomycin Level Trough 6.0L Microbiology 11/12/19 Urine Culture - Preliminary, Resulted Proteus species 11/12/19 Blood Culture - Preliminary, Resulted No growth 11/12/19 Gram Stain - Final, Resulted 11/12/19 Wound Culture - Preliminary, Resulted Strep, Beta Hemolytic Group A Assessment/Plan Assessment/Plan Admission Dx SIMPLE SEPSIS CELLULITIS WITH ULCERATION OF POSTERIOR THIGH URINARY TRACT INFECTION - PROTEUS DEMENTIA HYPERTENSION CONSTIPATION DEPRESSION LEUKOCYTOSIS ELEVATED PROCALCITONIN LEVEL HYPERLIPIDEMIA CELLULITIS WITH ULCERATION OF POSTERIOR THIGH - PT ON CEFEPIME, VANCOMYCIN AND METRONIDAZOLE, CONTINUE WITH TREATMENT - CONSULT PLACED TO DR. OBRIEN - CONTINUE WITH RECOMMENDATION OF TREATMENT UTI - PROTEUS - WAITING ON CULTURE REPORT - CONTINUE CURRENT ANTIBIOTIC DEMENTIA - SUPPORTIVE CARE, MONITOR SYMPTOMS. - HOLDING ARICEPT FOR NOW HYPERTENSION - RESUME BENZAPRIL CONSTIPATION - MONITOR SYMPTOMS, RESTART MIRALAX IF NEEDED, START ON PROBIOTIC. DEPRESSION - RESTARTED ZOLOFT LEUKOCYTOSIS WITH ELEVATED PROCALCITONIN LEVEL - PROLACTIN LEVEL DECREASING HYPERLIPIDEMIA - HOLDING STATIN FOR NOW. DVT PROPHYLAXIS WITH LOVENOX AND SCD'S GI PROPHYLAXIS WITH H2 ALCIRA Admission Status: Inpatient Order (span 2 midnights) Admission Dx CELLULITIS WITH ULCERATION OF POSTERIOR THIGH DEMENTIA HYPERTENSION CONSTIPATION DEPRESSION LEUKOCYTOSIS ELEVATED PROCALCITONIN LEVEL HYPERLIPIDEMIA Clinical Quality Measures Admission Status Admission Dx CELLULITIS WITH ULCERATION OF POSTERIOR THIGH DEMENTIA HYPERTENSION CONSTIPATION DEPRESSION LEUKOCYTOSIS ELEVATED PROCALCITONIN LEVEL HYPERLIPIDEMIA DVT/VTE Risk/Contraindication: Risk Factor Score Per Nursin RFS Level Per Nursing on Admit: 4+=Very High CAMERON LICEA MD Nov 13, 2019 10:12
[2019-11-13 12:00] VITALS: BP 137/62
[2019-11-13] MEDS: cefTRIAXone FOR IV USE 1,000 MG in WATER (STERILE) FOR INJECTION 10 ML IV SCH (12:50)
[2019-11-13] MEDS ORDERED: CEFEPIME 1,000 MG/SWFI 10 ML IV PUSH IV SCH ×2 (14:00)
--- NOTE | 2019-11-13 15:26 | Progress Note - Surgery ---
Subjective Date Seen by a Provider: Nov 13, 2019 Time Seen by a Provider: 13:50 Subjective/Events-last exam Left thigh feeling better. Not as much pain/discomfort. Still hard to get comfortable. U/s no abscess identified. Induration better. Denies n/v fever sweats chills shortness of breath or chest pain. Focused Exam Lactate Level 11/12/19 01:25: Lactic Acid Level 1.32 Objective Exam Vital Signs Date Time Temp Pulse Resp B/P (MAP) Pulse Ox O2 Delivery O2 Flow Rate FiO2 11/13/19 12:00 36.4 79 18 137/62 (87) 94 Room Air 11/13/19 08:00 37.2 82 20 132/60 (84) 94 Room Air 11/13/19 08:00 95 Room Air 11/13/19 06:41 74 11/13/19 03:55 36.4 86 20 144/66 (92) 95 Room Air 11/13/19 01:00 80 11/12/19 23:58 37.4 80 20 154/74 (100) 95 Room Air 11/12/19 20:00 37.7 84 22 110/67 (81) 93 Room Air 11/12/19 20:00 Room Air 11/12/19 19:00 93 11/12/19 16:00 37.8 89 22 122/56 (78) 93 Room Air I & O 11/13/19 07:00 Intake Total 2050 ml Output Total 1450 ml Balance 600 ml Capillary Refill : Less Than 3 Seconds General Appearance: No Apparent Distress, WD/WN HEENT: Normal ENT Inspection, Pharynx Normal Neck: Supple Respiratory: Chest Non Tender, No Accessory Muscle Use, No Respiratory Distress Cardiovascular: Regular Rate, Rhythm, No Edema, Normal Peripheral Pulses Gastrointestinal: non tender, soft, no organomegaly Extremity: Normal Capillary Refill, No Calf Tenderness, No Pedal Edema, Inflammation (Left thigh, less erythema/induration. 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 Skin: Erythema (as noted above left posterior thigh) Lymphatic: No Adenopathy Results Lab Laboratory Tests 11/12/19 15:59: Glucometer 115H 11/12/19 20:40: Glucometer 131H 11/13/19 05:05: White Blood Count 10.8, Red Blood Count 3.81L, Hemoglobin 10.2L, Hematocrit 32L, Mean Corpuscular Volume 84, Mean Corpuscular Hemoglobin 27, Mean Corpuscular Hemoglobin Concent 32, Red Cell Distribution Width 14.8H, Platelet Count 212, Mean Platelet Volume 11.1H, Sodium Level 137, Potassium Level 4.6, Chloride Level 108H, Carbon Dioxide Level 20L, Anion Gap 9, Blood Urea Nitrogen 18, Creatinine 0.81, Estimat Glomerular Filtration Rate > 60, BUN/Creatinine Ratio 22, Glucose Level 86, Calcium Level 8.8, Corrected Calcium 10.1, Total Bilirubin 0.2, Aspartate Amino Transf (AST/SGOT) 19, Alanine Aminotransferase (ALT/SGPT) 7, Alkaline Phosphatase 52, Total Protein 5.7L, Albumin 2.4L, Procalcitonin 2.57H, Vancomycin Level Trough 6.0L 11/13/19 12:01: Glucometer 101 Microbiology 11/12/19 Urine Culture - Preliminary, Resulted Proteus mirabilis 11/12/19 Blood Culture - Preliminary, Resulted No growth 11/12/19 Gram Stain - Final, Resulted 11/12/19 Wound Culture - Preliminary, Resulted Strep, Beta Hemolytic Group A Assessment/Plan Assessment/Plan Assessment/Plan left posterior thigh cellulitis with superficial appearing skin ulceration u/s to evaluate for abscess which one was not visualized cellulitis border is marked and has improved some continue abx continue to monitor no surgical intervention at this time if abscess forms will need incision and drainage. Clinical Quality Measures DVT/VTE Risk/Contraindication: Risk Factor Score Per Nursin RFS Level Per Nursing on Admit: 4+=Very High SANDRA NARANJO DO Nov 13, 2019 15:26
[2019-11-13 16:00] VITALS: BP 153/72
--- NOTE | 2019-11-13 16:30 | NUR ---
CALLED [employer] COORDINATOR TO ENQUIRE ABOUT MESH NETTING PER DR SAM'S REQUEST. HE SUGGESTED THAT THEY MAY HAVE IT ON [facility]. WE NEED SOMETHING TO PUT ON HER THIGH TO HELP HOLD THE DRESSING IN PLACE WITHOUT USING A LOT OF TAPE. HOUSE SUPERVISORS [employer] WILL THINK ABOUT WHAT WE CAN USE AND SEE IF THEY CAN FIND SOMETHING.
--- NOTE | 2019-11-13 16:41 | Wound Care Assessment ---
Wound Care Assessment Date Seen by Provider: Nov 13, 2019 Time Seen by Provider: 16:35 Chief Complaint L posterior thigh ulcer. HPI The patient is a confused 84 year old female with a rectangular ulcer of the L posterior thigh and surrounding erythema. The patient is uncertain as to the nature of the inciting injury, which might either be thermal or chemical, and the secondary, surrounding cellulitis appears to be responding to IV antibiotics. Silvadene dressings BID are ordered. 11/13/19 Interval Note: The patient notes less pain. No systemic complaints. The wound remains centrally necrotic, with a more irregular border today. Past Medical History: Admits Diabetes Type II, Admits Heart Disease (Hypertension, Dementia, Arthritis) Smoking Status: Former Smoker Recreational Drug Use: No Alcohol Use: Denies Use Review of Systems Pulmonary: No Dyspnea Cardiovascular: No: Chest Pain Exam Vital Signs Date Time Temp Pulse Resp B/P (MAP) Pulse Ox O2 Delivery O2 Flow Rate FiO2 11/13/19 12:00 36.4 79 18 137/62 (87) 94 Room Air Capillary Refill : Less Than 3 Seconds General Appearance: no apparent distress Extremities: other (less tender, irregular with eccymosis, slightly larger area of injury to day.) Results Laboratory Tests 11/12/19 20:40: Glucometer 131H 11/13/19 05:05: White Blood Count 10.8, Red Blood Count 3.81L, Hemoglobin 10.2L, Hematocrit 32L, Mean Corpuscular Volume 84, Mean Corpuscular Hemoglobin 27, Mean Corpuscular Hemoglobin Concent 32, Red Cell Distribution Width 14.8H, Platelet Count 212, Mean Platelet Volume 11.1H, Sodium Level 137, Potassium Level 4.6, Chloride Level 108H, Carbon Dioxide Level 20L, Anion Gap 9, Blood Urea Nitrogen 18, Creatinine 0.81, Estimat Glomerular Filtration Rate > 60, BUN/Creatinine Ratio 22, Glucose Level 86, Calcium Level 8.8, Corrected Calcium 10.1, Total Bilirubin 0.2, Aspartate Amino Transf (AST/SGOT) 19, Alanine Aminotransferase (ALT/SGPT) 7, Alkaline Phosphatase 52, Total Protein 5.7L, Albumin 2.4L, Procalcitonin 2.57H, Vancomycin Level Trough 6.0L 11/13/19 12:01: Glucometer 101 Microbiology 11/12/19 Urine Culture - Preliminary, Resulted Proteus mirabilis 11/12/19 Blood Culture - Preliminary, Resulted No growth 11/12/19 Gram Stain - Final, Resulted 11/12/19 Wound Culture - Preliminary, Resulted Strep, Beta Hemolytic Group A Microbiology 11/12/19 Urine Culture - Preliminary, Resulted Proteus mirabilis 11/12/19 Blood Culture - Preliminary, Resulted No growth 11/12/19 Blood Culture - Preliminary, Resulted No growth 11/12/19 Gram Stain - Final, Resulted 11/12/19 Wound Culture - Preliminary, Resulted Strep, Beta Hemolytic Group A Assessment/Plan/Dx 1. Improved appearance of uncertain superficial injury to L posterior thigh, with secondary cellulitis, responding to IV antibiotics. 2. Diabetes with ulcer. 3. Dementia. Plan: Continue Silvadene dressings BID. We can follow up with patient as an out-patient if so desired. NAMITA OBRIEN MD Nov 13, 2019 16:41
[2019-11-13 19:40] VITALS: BP 133/71
[2019-11-13] MEDS: SERTRALINE 100 MG (ZOLOFT) TAB PO SCH (20:04)
[2019-11-14] VITALS: BP 159/76
[2019-11-14 05:00] VITALS: BP 157/82
[2019-11-14] MEDS: NS IV 1000 ML 1,000 ML IV SCH ×2 (05:39→19:58)
[2019-11-14] MEDS ORDERED: TROUGH ORDER-PHARMACY XX ONE (06:00)
[2019-11-14] MEDS: inSUlin ASPART (NovoLOG) 1 UNIT/0.01 ML (CHARGE PER UNIT) SC SCH ×4 (06:22→21:18)
[2019-11-14 07:08] LABS: HEMOGLOBIN 10.8 G/DL (11.5-16.0); MEAN PLATELET VOLUME 11.5 FL (7.4-10.4); RED CELL DISTRIBUTION WIDTH 14.7 % (10.0-14.5)
[2019-11-14 07:40] LABS: BUN/CREATININE RATIO 23; CALCIUM 9.1 MG/DL (8.5-10.1); CARBON DIOXIDE 22 MMOL/L (21-32); CHLORIDE 106 MMOL/L (98-107); CREATININE SERUM 0.73 MG/DL (0.60-1.30); GFR ESTIMATED > 60; GLUCOSE 87 MG/DL (70-105); POTASSIUM 3.9 MMOL/L (3.6-5.0); SODIUM 137 MMOL/L (135-145)
[2019-11-14 08:00] VITALS: BP 179/95
[2019-11-14] MEDS: ENOXAPARIN 40 MG/0.4 ML (LOVENOX) SYR SC SCH (08:42)
[2019-11-14] MEDS: FAMOTIDINE 20 MG (PEPCID) TABLET PO SCH (08:42)
[2019-11-14] MEDS: LACTOBACILLUS ACIDOPHILUS (PROBIOTIC) CAPSULE PO SCH ×3 (08:42→17:45)
[2019-11-14] MEDS: lisINopril 20 MG (PRINIVIL) TABLET PO SCH (08:47)
[2019-11-14] MEDS: SILVER SULFADIAZINE 50 GM CREAM TOP SCH (08:48)
[2019-11-14] MEDS: RT-ALBUTEROL/IPRATROPIUM 3 ML (DUONEB) VIAL INH SCH ×3 (10:12→19:16)
--- NOTE | 2019-11-14 10:32 | Progress Note ---
Subjective Subjective Date Seen by Provider: Nov 14, 2019 Time Seen by Provider: 09:30 84 yo F being treated for left thigh cellulitis. She thinks her leg is better. She has developed some wheezing- she says this happens on occassion. We have ordered breathing treatments and incentive spirometry. Review of Systems General: No Chills; Fatigue HEENT: No Head Aches, No Dysphasia Pulmonary: No Dyspnea Cardiovascular: No: Chest Pain Gastrointestinal: No: Nausea, Abdominal Pain Genitourinary: Incontinence (SEBASTI[place]N-WICK IN PLACE) Musculoskeletal: leg pain Neurological: Weakness, Confusion All Other Systems Reviewed All Other Systems Reviewed: Yes Objective Exam Vital Signs Vital Signs Date Time Temp Pulse Resp B/P (MAP) Pulse Ox O2 Delivery O2 Flow Rate FiO2 11/14/19 10:12 92 Room Air 11/14/19 08:00 Room Air 11/14/19 08:00 37.3 90 20 179/95 (123) 97 Room Air 11/14/19 05:00 36.8 84 21 157/82 (107) 91 Room Air 11/14/19 00:00 37.4 85 20 159/76 (103) 93 Room Air 11/13/19 19:53 Room Air 11/13/19 19:40 36.9 85 18 133/71 (91) 96 Room Air 11/13/19 16:00 37.3 81 20 153/72 (99) 95 Room Air 11/13/19 12:00 36.4 79 18 137/62 (87) 94 Room Air I & O 11/14/19 07:00 Intake Total 2252.5 ml Output Total 1950 ml Balance 302.5 ml General Appearance: No Apparent Distress, WD/WN Eyes: Bilateral Eye Normal Inspection, Bilateral Eye PERRL, Bilateral Eye EOMI HEENT: Normal ENT Inspection, Pharynx Normal Neck: Supple Respiratory: Chest Non Tender, No Accessory Muscle Use, No Respiratory Distress, Wheezing Cardiovascular: Regular Rate, Rhythm, No Edema, Normal Peripheral Pulses Gastrointestinal: Normal Bowel Sounds, Non Tender, Soft Rectal: Deferred Back: Normal Inspection, No Vertebral Tenderness Extremity: Normal Capillary Refill, No Calf Tenderness, No Pedal Edema, Inflammation (wrapped up. Left thigh) Neurologic/Psychiatric: Alert, Oriented x3, Normal Mood/Affect, web communications specialist II-XII Norm as Tested Skin: Erythema (as noted above left posterior thigh) Lymphatic: No Adenopathy Results Lab Laboratory Tests 11/13/19 12:01: Glucometer 101 11/13/19 16:42: Glucometer 94 11/13/19 20:19: Glucometer 100 11/14/19 05:46: Glucometer 91 11/14/19 05:47: White Blood Count 10.0, Red Blood Count 4.11L, Hemoglobin 10.8L, Hematocrit 35, Mean Corpuscular Volume 84, Mean Corpuscular Hemoglobin 26, Mean Corpuscular Hemoglobin Concent 31L, Red Cell Distribution Width 14.7H, Platelet Count 203, Mean Platelet Volume 11.5H, Sodium Level 137, Potassium Level 3.9, Chloride Level 106, Carbon Dioxide Level 22, Anion Gap 9, Blood Urea Nitrogen 17, Creatinine 0.73, Estimat Glomerular Filtration Rate > 60, BUN/Creatinine Ratio 23, Glucose Level 87, Calcium Level 9.1 Microbiology 11/12/19 Urine Culture - Preliminary, Resulted Proteus mirabilis 11/12/19 Blood Culture - Preliminary, Resulted No growth 11/12/19 Gram Stain - Final, Resulted 11/12/19 Wound Culture - Preliminary, Resulted Strep, Beta Hemolytic Group A Assessment/Plan Assessment/Plan Assessment and Plan 11/14/19- continue breathing treatments prn for wheezing- instructed patient that she needs to do the incentive spirometry since she is not doing her normal routine of getting out of bed. Monitor respiratory status. -continue rocephin for the cellulitis- if abscess develops surgery likely to I/D. -continue zoloft for her depression- -blood pressure high on occassion- lisinopril has been resumed. Dispo: slowly improving. Problems: (1) cellulitis left thigh - failure of outpatient tx; sepsis; NIDDM (2) Wheezing (3) Hypomagnesemia (4) Hypertension (5) UTI (urinary tract infection) Qualifiers: Assessment & Plan: proteus Clinical Quality Measures DVT/VTE Risk/Contraindication: Risk Factor Score Per Nursin RFS Level Per Nursing on Admit: 4+=Very High ERNIE MENDOZA MD Nov 14, 2019 10:32
--- NOTE | 2019-11-14 11:24 | Progress Note ---
Subjective Date Seen by a Provider: Nov 14, 2019 Time Seen by a Provider: 10:20 Subjective/Events-last exam Patient seen with Dr. Hernandez. Patient reports doing better but still having pain of the left posterior thigh. Denies any fever/chills. Does report some bloody drainage. Focused Exam Lactate Level 11/12/19 01:25: Lactic Acid Level 1.32 Objective Exam Vital Signs Date Time Temp Pulse Resp B/P (MAP) Pulse Ox O2 Delivery O2 Flow Rate FiO2 11/14/19 10:12 92 Room Air 11/14/19 08:00 Room Air 11/14/19 08:00 37.3 90 20 179/95 (123) 97 Room Air 11/14/19 05:00 36.8 84 21 157/82 (107) 91 Room Air 11/14/19 00:00 37.4 85 20 159/76 (103) 93 Room Air 11/13/19 19:53 Room Air 11/13/19 19:40 36.9 85 18 133/71 (91) 96 Room Air 11/13/19 16:00 37.3 81 20 153/72 (99) 95 Room Air 11/13/19 12:00 36.4 79 18 137/62 (87) 94 Room Air I & O 11/14/19 07:00 Intake Total 2252.5 ml Output Total 1950 ml Balance 302.5 ml Capillary Refill : Less Than 3 Seconds General Appearance: No Apparent Distress, WD/WN Neck: Full Range of Motion, Normal Inspection, Supple Respiratory: Normal Breath Sounds, No Accessory Muscle Use, No Respiratory Distress Cardiovascular: Regular Rate, Rhythm, No Edema Gastrointestinal: normal bowel sounds, non tender, soft Extremity: Normal Capillary Refill, Normal Range of Motion Neurologic/Psychiatric: Alert, Oriented x3 Skin: Other (Left posterior thigh cellulitis with continued redness and erythema. Localized edema and painful to palpation. No fluctence noted. Minimal blood tinged drainage on dressing.) Results Lab Laboratory Tests 11/13/19 12:01: Glucometer 101 11/13/19 16:42: Glucometer 94 11/13/19 20:19: Glucometer 100 11/14/19 05:46: Glucometer 91 11/14/19 05:47: White Blood Count 10.0, Red Blood Count 4.11L, Hemoglobin 10.8L, Hematocrit 35, Mean Corpuscular Volume 84, Mean Corpuscular Hemoglobin 26, Mean Corpuscular Hemoglobin Concent 31L, Red Cell Distribution Width 14.7H, Platelet Count 203, Mean Platelet Volume 11.5H, Sodium Level 137, Potassium Level 3.9, Chloride Level 106, Carbon Dioxide Level 22, Anion Gap 9, Blood Urea Nitrogen 17, Creatinine 0.73, Estimat Glomerular Filtration Rate > 60, BUN/Creatinine Ratio 23, Glucose Level 87, Calcium Level 9.1 Microbiology 11/12/19 Urine Culture - Preliminary, Resulted Proteus mirabilis 11/12/19 Blood Culture - Preliminary, Resulted No growth 11/12/19 Gram Stain - Final, Resulted 11/12/19 Wound Culture - Preliminary, Resulted Strep, Beta Hemolytic Group A Assessment/Plan Assessment/Plan Assess & Plan/Chief Complaint A 84 year old female with left posterior thigh cellulitis with superficial appearing skin ulceration u/s to evaluate for abscess which one was not visualized cellulitis appears to be improving continue abx continue to monitor no surgical intervention at this time if abscess forms will need incision and drainage. Clinical Quality Measures DVT/VTE Risk/Contraindication: Risk Factor Score Per Nursin RFS Level Per Nursing on Admit: 4+=Very High GARETT PRECIADO DIRECTOR DIETETICS DEPARTMENT Nov 14, 2019 11:24
[2019-11-14 12:00] VITALS: BP 122/72
[2019-11-14] MEDS: cefTRIAXone FOR IV USE 1,000 MG in WATER (STERILE) FOR INJECTION 10 ML IV SCH (12:41)
[2019-11-14 16:00] VITALS: BP 134/67
[2019-11-14 19:41] VITALS: BP 136/73
[2019-11-14] MEDS: SERTRALINE 100 MG (ZOLOFT) TAB PO SCH (19:58)
[2019-11-15] VITALS (8 sets, daily range): BP systolic 107–168; BP diastolic 51–89
[2019-11-15] MEDS: RT-ALBUTEROL/IPRATROPIUM 3 ML (DUONEB) VIAL INH SCH ×7 (02:38→22:34)
[2019-11-15] MEDS: inSUlin ASPART (NovoLOG) 1 UNIT/0.01 ML (CHARGE PER UNIT) SC SCH ×4 (05:47→21:47)
[2019-11-15] MEDS: SILVER SULFADIAZINE 50 GM CREAM TOP SCH (08:37)
[2019-11-15] MEDS: FAMOTIDINE 20 MG (PEPCID) TABLET PO SCH (08:37)
[2019-11-15] MEDS: ENOXAPARIN 40 MG/0.4 ML (LOVENOX) SYR SC SCH (08:37)
[2019-11-15] MEDS: LACTOBACILLUS ACIDOPHILUS (PROBIOTIC) CAPSULE PO SCH ×3 (08:37→17:45)
[2019-11-15] MEDS: NS IV 1000 ML 1,000 ML IV SCH (08:37)
[2019-11-15] MEDS: lisINopril 20 MG (PRINIVIL) TABLET PO SCH (08:37)
--- NOTE | 2019-11-15 09:46 | Progress Note ---
Subjective Date Seen by a Provider: Nov 15, 2019 Time Seen by a Provider: 08:30 Subjective/Events-last exam Patient seen with Dr. Hernandez. Patient reports doing better and pain continuing to improve. Reports getting ready to take a shower. Denies any fever/chills. Objective Exam Vital Signs Date Time Temp Pulse Resp B/P (MAP) Pulse Ox O2 Delivery O2 Flow Rate FiO2 11/15/19 08:00 36.7 94 20 142/62 (88) 93 Room Air 11/15/19 08:00 Room Air 11/15/19 07:03 88 Room Air 11/15/19 05:12 36.8 86 22 166/85 (112) 90 Room Air 11/15/19 04:00 36.8 86 22 166/85 (112) 90 Room Air 11/15/19 02:38 97 Room Air 11/15/19 00:20 37.6 84 20 166/83 (110) 94 Room Air 11/14/19 20:00 95 Room Air 11/14/19 19:41 37.6 80 20 136/73 (94) 95 Room Air 11/14/19 19:17 98 Room Air 11/14/19 16:00 37.1 82 18 134/67 (89) 94 Room Air 11/14/19 12:00 36.6 60 20 122/72 (89) 93 Room Air 11/14/19 10:12 92 Room Air I & O 11/15/19 07:00 Intake Total 2830 ml Output Total 1400 ml Balance 1430 ml Capillary Refill : Less Than 3 Seconds General Appearance: No Apparent Distress, WD/WN Neck: Full Range of Motion, Normal Inspection, Supple Respiratory: Normal Breath Sounds, No Accessory Muscle Use, No Respiratory Distress Cardiovascular: Regular Rate, Rhythm, No Edema Gastrointestinal: normal bowel sounds, non tender, soft Extremity: Normal Capillary Refill, Normal Range of Motion Neurologic/Psychiatric: Alert, Oriented x3 Skin: Other (Left posterior thight cellulitis. Redness is improving. Continued localized edema of the area with no fluctance noted. Painful to palpatin.) Results Lab Laboratory Tests 11/14/19 11:20: Glucometer 117H 11/14/19 15:27: Glucometer 123H 11/14/19 20:40: Glucometer 141H 11/15/19 05:30: Glucometer 96 Microbiology 11/12/19 Urine Culture - Final, Complete Proteus mirabilis 11/12/19 Blood Culture - Preliminary, Resulted No growth 11/12/19 Gram Stain - Final, Resulted 11/12/19 Wound Culture - Preliminary, Resulted Strep, Beta Hemolytic Group A Assessment/Plan Assessment/Plan Assess & Plan/Chief Complaint A 84 year old female with left posterior thigh cellulitis with superficial appearing skin ulceration u/s to evaluate for abscess which one was not visualized cellulitis appears to be improving continue abx continue to monitor no surgical intervention at this time if abscess forms will need incision and drainage. Clinical Quality Measures DVT/VTE Risk/Contraindication: Risk Factor Score Per Nursin RFS Level Per Nursing on Admit: 4+=Very High GARETT PRECIADO DOOR SLINGER Nov 15, 2019 09:46
--- NOTE | 2019-11-15 11:44 | Progress Note ---
Subjective Subjective Date Seen by Provider: Nov 15, 2019 Time Seen by Provider: 11:20 84 yo F being treated for left thigh cellulitis. She thinks her leg is better. She reports her breathing is better since we did the breathing treatment and incentive spirometry. No other complaints. Review of Systems General: No Chills; Fatigue HEENT: No Head Aches, No Dysphasia Pulmonary: No Dyspnea Cardiovascular: No: Chest Pain Gastrointestinal: No: Nausea, Abdominal Pain Genitourinary: Incontinence (SEBASTI[place]N-WICK IN PLACE) Musculoskeletal: leg pain Neurological: Weakness, Confusion All Other Systems Reviewed All Other Systems Reviewed: Yes Objective Exam Vital Signs Vital Signs Date Time Temp Pulse Resp B/P (MAP) Pulse Ox O2 Delivery O2 Flow Rate FiO2 11/15/19 10:24 90 Room Air 11/15/19 08:00 36.7 94 20 142/62 (88) 93 Room Air 11/15/19 08:00 Room Air 11/15/19 07:03 88 Room Air 11/15/19 05:12 36.8 86 22 166/85 (112) 90 Room Air 11/15/19 04:00 36.8 86 22 166/85 (112) 90 Room Air 11/15/19 02:38 97 Room Air 11/15/19 00:20 37.6 84 20 166/83 (110) 94 Room Air 11/14/19 20:00 95 Room Air 11/14/19 19:41 37.6 80 20 136/73 (94) 95 Room Air 11/14/19 19:17 98 Room Air 11/14/19 16:00 37.1 82 18 134/67 (89) 94 Room Air 11/14/19 12:00 36.6 60 20 122/72 (89) 93 Room Air I & O 11/15/19 07:00 Intake Total 2830 ml Output Total 1400 ml Balance 1430 ml General Appearance: No Apparent Distress, WD/WN Eyes: Bilateral Eye Normal Inspection, Bilateral Eye PERRL, Bilateral Eye EOMI HEENT: Normal ENT Inspection, Pharynx Normal Neck: Full Range of Motion, Normal Inspection, Supple Respiratory: No Accessory Muscle Use, No Respiratory Distress, Wheezing (with crackles throughout -sounds a little wet.) Cardiovascular: Regular Rate, Rhythm, No Edema Gastrointestinal: Normal Bowel Sounds, Non Tender, Soft Rectal: Deferred Back: Normal Inspection, No Vertebral Tenderness Extremity: Normal Capillary Refill, Normal Range of Motion Neurologic/Psychiatric: Alert, Oriented x3 Skin: Other (Left posterior thight cellulitis. Redness is improving. Continued localized edema of the area with no fluctance noted. Painful to palpatin.) Lymphatic: No Adenopathy Results Lab Laboratory Tests 11/14/19 15:27: Glucometer 123H 11/14/19 20:40: Glucometer 141H 11/15/19 05:30: Glucometer 96 11/15/19 10:57: Glucometer 118H Microbiology 11/12/19 Urine Culture - Final, Complete Proteus mirabilis 11/12/19 Blood Culture - Preliminary, Resulted No growth 11/12/19 Gram Stain - Final, Resulted 11/12/19 Wound Culture - Preliminary, Resulted Strep, Beta Hemolytic Group A Assessment/Plan Assessment/Plan Assessment and Plan 11/14/19- continue breathing treatments prn for wheezing- instructed patient that she needs to do the incentive spirometry since she is not doing her normal routine of getting out of bed. Monitor respiratory status. -continue rocephin for the cellulitis- if abscess develops surgery likely to I /D. -continue zoloft for her depression- -blood pressure high on occassion- lisinopril has been resumed. 11/15/19- discontinued IVF as she has some crackles throughout and wheezing- continue breathing treatments. Close to discharge- as rocephin could be changed to cefdinir unless surgery plans on opening the induration up. -Urinary tract infection- Proteus- covered by 3rd gen cephalosporin. Dispo: slowly improving. Problems: (1) cellulitis left thigh - failure of outpatient tx; sepsis; NIDDM (2) Wheezing (3) Hypomagnesemia (4) Hypertension Qualifiers: Qualified Codes: I10 - Essential (primary) hypertension (5) UTI (urinary tract infection) Qualifiers: Assessment & Plan: proteus Clinical Quality Measures DVT/VTE Risk/Contraindication: Risk Factor Score Per Nursin RFS Level Per Nursing on Admit: 4+=Very High ERNIE MENDOZA MD Nov 15, 2019 11:44
[2019-11-15] MEDS: cefTRIAXone FOR IV USE 1,000 MG in WATER (STERILE) FOR INJECTION 10 ML IV SCH (11:59)
[2019-11-15] MEDS: SERTRALINE 100 MG (ZOLOFT) TAB PO SCH (21:47)
[2019-11-16] MEDS: RT-ALBUTEROL/IPRATROPIUM 3 ML (DUONEB) VIAL INH SCH ×3 (02:32→10:02)
--- NOTE | 2019-11-16 03:30 | NUR ---
PT O2 STATS 88-89%. PT REFUSED TO WEAR OXYGEN. EDUCATED PT ABOUT OXYGENATION. PT STILL REFUSING TO WEAR OXYGENIUK
[2019-11-16 04:30] VITALS: BP 125/60
[2019-11-16 05:28] LABS: HEMOGLOBIN 10.4 G/DL (11.5-16.0); MEAN PLATELET VOLUME 9.7 FL (7.4-10.4); RED CELL DISTRIBUTION WIDTH 14.8 % (10.0-14.5); WHITE BLOOD COUNT 9.7 10^3/uL (4.3-11.0)
[2019-11-16 05:44] LABS: BUN/CREATININE RATIO 23; CALCIUM 9.4 MG/DL (8.5-10.1); CARBON DIOXIDE 29 MMOL/L (21-32); CHLORIDE 103 MMOL/L (98-107); CREATININE SERUM 0.77 MG/DL (0.60-1.30); GFR ESTIMATED > 60; GLUCOSE 105 MG/DL (70-105); POTASSIUM 4.2 MMOL/L (3.6-5.0); SODIUM 141 MMOL/L (135-145)
[2019-11-16] MEDS: inSUlin ASPART (NovoLOG) 1 UNIT/0.01 ML (CHARGE PER UNIT) SC SCH ×2 (05:51→12:00)
[2019-11-16 08:00] VITALS: BP 131/75
[2019-11-16] MEDS: LACTOBACILLUS ACIDOPHILUS (PROBIOTIC) CAPSULE PO SCH ×2 (08:37→13:32)
[2019-11-16] MEDS: lisINopril 20 MG (PRINIVIL) TABLET PO SCH (08:37)
[2019-11-16] MEDS: SILVER SULFADIAZINE 50 GM CREAM TOP SCH (08:37)
[2019-11-16] MEDS: FAMOTIDINE 20 MG (PEPCID) TABLET PO SCH (08:37)
[2019-11-16] MEDS ORDERED: LACT1CAP7 PO (08:56)
[2019-11-16] MEDS ORDERED: SILV20CR14 TOP (08:56)
[2019-11-16] MEDS ORDERED: CEFD300C3 PO (08:56)
--- NOTE | 2019-11-16 08:59 | D/C HH Face to Face Order ---
D/C Face to Face Orders Reconcile Patient Problems Problems Reviewed?: Yes Instructions for Patient [facility], Patient Instructions/FollowUp: follow up [facility] = november to telehealth visit if cell phone available for patient to do visual appointment so that provider can look at posterior thigh during appointment, otherwise, needs to be in-person appointment Physician to follow Patient: [place] Discharge Diet for Home: Regular Diet Patient Problems: cellulitis hypertension dementia weakness incontinence Patient Data-Allergies,Ht & Wt Patient Allergies: Coded Allergies: Penicillins (Unverified Allergy, Mild, RASH, TONGUE SWELLS, 11/16/09) Height (Feet): 5 Height (Inches): 2 Weight (Pounds): 200 Home Health Need/Face to Face Date of Face to Face: Nov 16, 2019 Clinical Findings: Muscle weakness, Wound infection I have seen Pt [id number]: Yes Discharged To: Home Diagnosis/Conditions: cellulitis hypertension dementia weakness incontinence Patient is Homebound due to: CognItive deficits, Muscle weakness, Pain w/ambulation Homebound Status Due to the above stated illness, injury or surgical procedure (medical condition or diagnosis) and associated clinical findings, the patient is homebound because of his/her inability to leave home except with aid of a supportive device and/or person AND leaving the home requires a considerable and taxing effort or is medically contraindicated. Pt req the following assistanc: [facility] Nursing Orders Home Health Services Order: Nursing Services, Physical Therapy-Evaluate & Treat, Wound Care-Eval/Treat Home Health Infusion Therapy Line Start Date: Nov 12, 2019 Therapy Orders Therapy Orders: PT to assess for OT Therapy Specific Orders: Teach strategies/cognitive deficits, Teach enviro modifications/safety, Increase strength/endurance Certify Stmt I certify that this patient is under my care and that I, a nurse practitioner or a physician; a assistant printer floor covering working with me, had a face to face encounter that - meets the physician face to face encounter requirements with this patient as dated. Medication List: Active Scripts Active Silvadene (Silver Sulfadiazine) 20 Gm Cream..g. 0 Gm TOP DAILY apply to wound on back of left thigh Cefdinir 300 Mg Capsule 300 Mg PO BID Acidophilus-Pectin Capsule (Lactobacillus Acidophilus/Pect) 1 Each Capsule 2 Each PO TIDWM Reported Vitamin B12 (Cyanocobalamin (Vitamin B-12)) 2,500 Mcg Tablet 2,500 Mcg PO DAILY Ocuvite Adult 50 Plus Softgel (C,E,Zinc,Copper 24/Om3/Lut/Deni) 1 Each Capsule 1 Each PO DAILY Sertraline HCl 100 Mg Tablet 100 Mg PO HS Benazepril HCl 20 Mg Tablet 20 Mg PO DAILY Doxycycline Hyclate 100 Mg Capsule 100 Mg PO BID FILLED 11-10-2019 # SUPPLY ALSO FILLED 10-23-2019 #17/05 DAY SUPPLY Atorvastatin Calcium 20 Mg Tablet 20 Mg PO HS LAST FILLED 06-16-2020 #90/90DS Aricept (Donepezil HCl) 23 Mg Tablet 23 Mg PO HS Lab results: Laboratory Tests Test 11/15/19 10:57 11/15/19 15:27 11/15/19 20:33 11/16/19 05:20 Range/Units Glucometer 118 H 174 H 149 H 70-110 MG/DL White Blood Count 9.7 4.3-11.0 10^3/uL Red Blood Count 3.96 L 4.35-5.85 10^6/uL Hemoglobin 10.4 L 11.5-16.0 G/DL Hematocrit 34 L 35-52 % Mean Corpuscular Volume 85 80-99 FL Mean Corpuscular Hemoglobin 26 25-34 PG Mean Corpuscular Hemoglobin Concent 31 L 32-36 G/DL Red Cell Distribution Width 14.8 H 10.0-14.5 % Platelet Count 250 130-400 10^3/uL Mean Platelet Volume 9.7 7.4-10.4 FL Sodium Level 141 135-145 MMOL/L Potassium Level 4.2 3.6-5.0 MMOL/L Chloride Level 103 98-107 MMOL/L Carbon Dioxide Level 29 21-32 MMOL/L Anion Gap 9 5-14 MMOL/L Blood Urea Nitrogen 18 7-18 MG/DL Creatinine 0.77 0.60-1.30 MG/DL Estimat Glomerular Filtration Rate > 60 BUN/Creatinine Ratio 23 Glucose Level 105 70-105 MG/DL Calcium Level 9.4 8.5-10.1 MG/DL My orders: Orders - CAMERON LICEA MD Attending Discharge Inpt/Inobs (11/16/19 08:52) CAMERON LICEA MD Nov 16, 2019 08:59
--- NOTE | 2019-11-16 09:06 | Discharge Summary ---
Diagnosis/Chief Complaint Date of Admission Nov 12, 2019 at 02:00 Date of Discharge Discharge Date: Nov 16, 2019 Discharge Time: 09 Admission Diagnosis Admission Diagnosis SIMPLE SEPSIS CELLULITIS WITH ULCERATION OF POSTERIOR LEFT THIGH URINARY TRACT INFECTION - PROTEUS DEMENTIA HYPERTENSION CONSTIPATION DEPRESSION LEUKOCYTOSIS ELEVATED PROCALCITONIN LEVEL HYPERLIPIDEMIA Discharge Diagnosis SIMPLE SEPSIS CELLULITIS WITH ULCERATION OF POSTERIOR LEFT THIGH URINARY TRACT INFECTION - PROTEUS DEMENTIA HYPERTENSION CONSTIPATION DEPRESSION LEUKOCYTOSIS ELEVATED PROCALCITONIN LEVEL HYPERLIPIDEMIA Reason Hospital Visit PT IS AN 84 Y/O FEMALE WHO PRESENTED TO THE ER AFTER HER DTR CALLED ME AROUND MIDNIGHT WITH CONCERNS FOR REDNESS AND HARDNESS OF HER MOM'S LEG. SHE REPORTED THAT HER MOM WAS STARTED ON ORAL ANTIBIOTICS A FEW DAYS PRIOR AND HER LEG DID NOT SEEM TO BE IMPROVING. SHE WAS INSTRUCTED TO TAKE HER MOM TO THE EMERGENCY DEPARTMENT FOR EVALUATION. UPON EVALUATION IN THE ER, DR. FLOWERS DETERMINED THAT THE PT HAD SIGNIFICANT CELLULITIS AND NEEDED IV ANTIBIOTIC FOR CONTROL OF THE SYMPTOMS/SPREAD. PT WAS ADMITTED TO THE MEDICAL UNIT FOR ANTIBIOTIC THERAPY AND CLOSER MONITORING. Discharge Summary Consultations DR. NARANJO - SURGERY DR. OBRIEN - WOUND CARE Discharge Physical Examination Allergies: Coded Allergies: Penicillins (Unverified Allergy, Mild, RASH, TONGUE SWELLS, 11/16/09) Vitals & I&Os Vital Signs Date Time Temp Pulse Resp B/P (MAP) Pulse Ox O2 Delivery O2 Flow Rate FiO2 11/16/19 08:00 37.4 99 20 131/75 (93) 92 Room Air General Appearance: Alert, Oriented X3, Cooperative, No Acute Distress HEENT: Atraumatic, PERRLA, Mucous Memb Moist/[place] Respiratory: Clear to Auscultation, Normal Air Movement Cardiovascular: Regular Rate Abdominal: Normal Bowel Sounds, Soft Extremities: No Edema Skin: Other (INDURATION AND ERYTHEMA LEFT POSTERIOR THIGH - INDURATION ABOUT 3CM FROM CENTER OF WOUND, ERYTHEMA SLIGHTLY LARGER THAN AREA OF INDURATION, MILDY TTP) Neuro: Cranial Nerves 3-12 NL Psych/Mental Status: Mental Status NL, Mood NL Hospital Course Was the Problem List Reviewed?: Yes SIMPLE SEPSIS CELLULITIS WITH ULCERATION OF POSTERIOR LEFT THIGH URINARY TRACT INFECTION - PROTEUS DEMENTIA HYPERTENSION CONSTIPATION DEPRESSION LEUKOCYTOSIS ELEVATED PROCALCITONIN LEVEL HYPERLIPIDEMIA CELLULITIS WITH ULCERATION OF POSTERIOR LEFT THIGH - PT ON CEFEPIME, VANCOMYCIN AND METRONIDAZOLE ON ADMISSION -CHANGED TO IV ROCEPHIN, WILL DISCHARGE ON ORAL CEFDINIR 300MG BID X 10 DAYS WITH PROBIOTIC TID. - CONSULT PLACED TO DR. OBRIEN AND DR. NARANJO - WOUND TO BE DRESSED WITH SILVADENE AND KERLEX, DR. NARANJO'S ORDER FOR ULTRASOUND DID NOT SHOW ANY AREA THAT WAS AMENABLE TO INCISION AND DRAINAGE. UTI - PROTEUS - SENSITIVE TO 3RG GENERATION CEPHALOSPORIN DEMENTIA - SUPPORTIVE CARE, MONITOR SYMPTOMS. - HOLDING ARICEPT WHILE IN HOSPITAL, WILL RESUME ON DISCHARGE HYPERTENSION - RESUMED BENZAPRIL CONSTIPATION - MONITOR SYMPTOMS, RESTART MIRALAX IF NEEDED, START ON PROBIOTIC. DEPRESSION - RESTARTED ZOLOFT LEUKOCYTOSIS WITH ELEVATED PROCALCITONIN LEVEL - RESOLVED PRIOR TO DISCHARGE HYPERLIPIDEMIA - HOLDING STATIN WHILE INPATIENT - RESTART ON DISCHARGE DVT PROPHYLAXIS WITH LOVENOX AND SCD'S IN HOSPITAL, STOPPED ON DISCHARGE GI PROPHYLAXIS WITH H2 ALCIRA - IN HOSPITAL - STOPPED ON DISCHARGE. DC TO HOME WITH HOME HEALTH FOR PT/OT, WOUND CARE, NURSING EVAL Pending Labs Laboratory Tests 11/16/19 05:20: White Blood Count 9.7, Red Blood Count 3.96, Hemoglobin 10.4, Hematocrit 34, Mean Corpuscular Volume 85, Mean Corpuscular Hemoglobin 26, Mean Corpuscular Hemoglobin Concent 31, Red Cell Distribution Width 14.8, Platelet Count 250, Mean Platelet Volume 9.7, Sodium Level 141, Potassium Level 4.2, Chloride Level 103, Carbon Dioxide Level 29, Anion Gap 9, Blood Urea Nitrogen 18, Creatinine 0.77, Estimat Glomerular Filtration Rate > 60, BUN/Creatinine Ratio 23, Glucose Level 105, Calcium Level 9.4 Discharge Condition at discharge IMPROVING Instructions to patient/family Please see electronic discharge instructions given to patient. Discharge Medications Reviewed and agree with Discharge Medication list on patient's Discharge Instruction sheet Clinical Quality Measures DVT/VTE Risk/Contraindication: Risk Factor Score Per Nursin RFS Level Per Nursing on Admit: 4+=Very High CAMERON LICEA MD Nov 16, 2019 09:06
--- NOTE | 2019-11-16 09:50 | NUR ---
CM/SS: Visited with pt as to plan for discharge Plan: Pt will discharge to home with Home Care Services Summary: Pt is aware she will possibly discharge today, she reports having had [facility] in the past, and is ok to have it again. Pt reports living in [place]. Pt seems to have some difficulty with her hearing, as she ask this worker to repeat things and she puts her hands up to her ear. Process explained with referral. Pt verbalizes understanding. Call to [facility] [place] - [phone] spoke with Jojo - to let them know that a referral is being faxed over. Referral faxed .
[2019-11-16] MEDS: ENOXAPARIN 40 MG/0.4 ML (LOVENOX) SYR SC SCH (10:13)
--- NOTE | 2019-11-16 10:40 | NUR ---
Attempted to contact pt. daughter at this time per Dr. Gordon to update on discharge plans. Unable to leave voicemail, will try again later.
--- NOTE | 2019-11-16 11:07 | Progress Note - Surgery ---
Subjective Date Seen by a Provider: Nov 16, 2019 Time Seen by a Provider: 11:04 Subjective/Events-last exam Patient doing well. Left thigh feeling better. Denies n/v fever sweats chill shortness of breath or chest pain. No new complaints. Objective Exam Vital Signs Date Time Temp Pulse Resp B/P (MAP) Pulse Ox O2 Delivery O2 Flow Rate FiO2 11/16/19 10:02 87 Room Air 11/16/19 08:00 92 Room Air 11/16/19 08:00 37.4 99 20 131/75 (93) 92 Room Air 11/16/19 06:56 87 Room Air 11/16/19 04:30 36.9 100 20 125/60 (81) 90 Room Air 11/16/19 02:32 88 Room Air 11/15/19 23:22 37.5 102 22 127/60 (82) 91 Room Air 11/15/19 22:34 92 Room Air 11/15/19 20:10 Room Air 11/15/19 19:55 37.2 116 22 107/55 (72) 91 Room Air 11/15/19 18:39 88 Room Air 11/15/19 16:00 36.7 100 20 122/51 (74) 91 Room Air 11/15/19 14:45 90 Room Air 11/15/19 12:00 37.1 103 22 168/89 (115) 93 Room Air I & O 11/16/19 07:00 Intake Total 1955 ml Output Total 2050 ml Balance -95 ml Capillary Refill : Less Than 3 Seconds General Appearance: No Apparent Distress, WD/WN HEENT: Normal ENT Inspection, Pharynx Normal Neck: Full Range of Motion, Normal Inspection, Supple Respiratory: Chest Non Tender, No Accessory Muscle Use, No Respiratory Distress, Wheezing (with crackles throughout -sounds a little wet.) Cardiovascular: Regular Rate, Rhythm, No Edema Gastrointestinal: normal bowel sounds, non tender, soft Extremity: Normal Capillary Refill, Normal Range of Motion Neurologic/Psychiatric: Alert, Oriented x3 Skin: Other (Left posterior thigh cellulitis. Redness is improving. Continued localized edema of the area with no fluctuance . Less tender.) Lymphatic: No Adenopathy Results Lab Laboratory Tests 11/15/19 15:27: Glucometer 174H 11/15/19 20:33: Glucometer 149H 11/16/19 05:20: White Blood Count 9.7, Red Blood Count 3.96L, Hemoglobin 10.4L, Hematocrit 34L, Mean Corpuscular Volume 85, Mean Corpuscular Hemoglobin 26, Mean Corpuscular Hemoglobin Concent 31L, Red Cell Distribution Width 14.8H, Platelet Count 250, Mean Platelet Volume 9.7, Sodium Level 141, Potassium Level 4.2, Chloride Level 103, Carbon Dioxide Level 29, Anion Gap 9, Blood Urea Nitrogen 18, Creatinine 0.77, Estimat Glomerular Filtration Rate > 60, BUN/Creatinine Ratio 23, Glucose Level 105, Calcium Level 9.4 Microbiology 11/12/19 Urine Culture - Final, Complete Proteus mirabilis 11/12/19 Blood Culture - Preliminary, Resulted No growth 11/12/19 Gram Stain - Final, Complete 11/12/19 Wound Culture - Final, Complete Mixed Bacterial Ngoc With Strep, Beta Hemolytic Group A Assessment/Plan Assessment/Plan Assessment/Plan left posterior thigh cellulitis with skin ulceration continues to improve no abscess at this time will follow up in 1 week outpatient any change before then be seen at that time. patient agrees with plan oral abx Clinical Quality Measures DVT/VTE Risk/Contraindication: Risk Factor Score Per Nursin RFS Level Per Nursing on Admit: 4+=Very High SANDRA NARANJO DO Nov 16, 2019 11:07
[2019-11-16] MEDS: cefTRIAXone FOR IV USE 1,000 MG in WATER (STERILE) FOR INJECTION 10 ML IV SCH (12:48)
[2019-11-16 14:54] VITALS: BP 131/75
== END 2019-11-16 14:57 | disposition home health service (06) | DRG 872 ==
LOC: EDUNIT# 01:05 → ER 01:06 → 4TH 02:00
PROVIDERS: ADMIT Family Medicine; ATTEND Family Medicine
DX: A41.9 Sepsis, unspecified organism (principal); L03.116 Cellulitis of left lower limb; E11.622 Type 2 diabetes mellitus with other skin ulcer; L97.121 Non-pressure chronic ulcer of left thigh limited to breakdown of skin; N39.0 Urinary tract infection, site not specified; B96.4 Proteus (mirabilis) (morganii) as the cause of diseases classified elsewhere; I10 Essential (primary) hypertension; F03.90 Unspecified dementia, unspecified severity, without behavioral disturbance, psychotic disturbance, mood disturbance, and anxiety; D72.829 Elevated white blood cell count, unspecified; E78.5 Hyperlipidemia, unspecified; K59.00 Constipation, unspecified; F32.9 Major depressive disorder, single episode, unspecified; R32 Unspecified urinary incontinence; R15.9 Full incontinence of feces; M81.0 Age-related osteoporosis without current pathological fracture; M19.91 Primary osteoarthritis, unspecified site; M54.2 Cervicalgia; N28.9 Disorder of kidney and ureter, unspecified; E86.0 Dehydration; E83.42 Hypomagnesemia; Z87.891 Personal history of nicotine dependence
CPT/HCPCS: 36415; 76881; 76937; 80048; 80053; 80202; 80306; 80320; 81000; 82962; 83605; 83735; 84145; 85007; 85025; 85027; 85610; 85730; 87040; 87070; 87077; 87088; 87186; 87205; 93041; 94640; 94664; 94760; 96361; 96365; 96367; 96368; 96375